=== PATIENT | male | born 1990 | race Caucasian/White ===

== ENCOUNTER → 2018-10-28 07:50 | Outpatient (CLI) | payer OTHER, MEDICAID, SELFPAY ==
[2018-10-28 09:04] LABS: Hemoglobin A1C% w Est Avg Glu 7.1 % (4.0-6.0)
[2018-10-28 09:12] LABS: Alanine Aminotransferase 33 IU/L (21-72); Albumin 4.4 g/dL (3.5-5.0); Albumin Globulin Ratio 1.5 (1.0-2.8); Alkaline Phosphatase 80 U/L (38-126); Aspartate Aminotransferase 26 IU/L (17-59); Bilirubin Total 0.4 mg/dL (0.2-1.3); Blood Urea Nitrogen 20 mg/dL (9-20); Calcium 8.6 mg/dL (8.4-10.2); Carbon Dioxide 22 mmol/L (22-32); Chloride 106 mmol/L (98-107); Cholesterol 165 mg/dL (140-199); Estimated Glomerular Filt Rate > 60.0 mL/min (>60); Globulin 2.9 g/dL (1.7-4.1); Glucose 227 mg/dL (70-100); HDL Cholesterol 33 mg/dL (40-60); HEMOLYSIS 48 (0-50); LDL Cholesterol Calculated 99 mg/dL (<100); Potassium 4.6 mmol/L (3.4-5.1); Sodium 138 mmol/L (137-145); Total Protein 7.3 g/dL (6.3-8.2); Triglycerides 167 mg/dL (35-150)
[2018-10-28 09:37] LABS: TSH w/ Reflex to FT4 1.04 uIU/mL (0.47-4.68)
[2018-10-28 10:39] LABS: Creatinine Urine Random 90.8 mg/dL
[2018-10-28 10:43] LABS: Microalbumi Creatinin Ratio Ur 49.5 ug/mg CR (<30); Microalbumin Urine Random 4.5 mg/dL (0-1.6)
== END ==
PROVIDERS: PCP Student in an Organized Health Care Education/Training Program; Visit Provider Student in an Organized Health Care Education/Training Program
DX: E11.9 Type 2 diabetes mellitus without complications (principal)
CPT/HCPCS: 36415; 80053; 80061; 82043; 82570; 83036; 84443

== ENCOUNTER → 2021-01-17 09:42 | Outpatient (CLI) | payer OTHER, MEDICAID, SELFPAY ==
[2021-01-17 10:57] LABS: Hemoglobin A1C% w Est Avg Glu 6.5 % (4.0-6.0)
[2021-01-17 11:00] LABS: Add Manual Diff / Slide Review NO; Basophils Absolute Auto 0 /uL (0-100); Basophils Percent Auto 0.6 % (0-2); Eosinophils Absolute Auto 200 /uL (0-450); Eosinophils Percent Auto 2.9 % (2-4); Hematocrit 47.7 % (41-53); Hemoglobin 16.4 g/dL (13.5-17.5); Lymphocytes Absolute Auto 1600 /uL (1100-4500); Lymphocytes Percent Auto 22.9 % (25-40); Mean Corpuscular HGB Conc 34.3 % (30-36); Mean Corpuscular Hemoglobin 28.8 PG (26-34); Mean Corpuscular Volume 83.9 fL (80-100); Monocytes Absolute Auto 500 /uL (0-900); Neutrophils Absolute Auto 4700 /uL (1500-7000); Neutrophils Percent Auto 66.6 % (50-75); Platelet Count 179 X10^3/uL (150-400); Red Blood Cell Count 5.69 X10^6/uL (4.5-5.9); Red Cell Distribution Width 13.3 % (11.6-14.8); White Blood Cell Count 7.1 X10^3/uL (4.5-11.0)
[2021-01-17 11:05] LABS: Lithium 0.5 mmol/L (0.6-1.2)
[2021-01-17 11:09] LABS: Alanine Aminotransferase 19 IU/L (<50); Albumin 4.8 g/dL (3.5-5.0); Albumin Globulin Ratio 1.8 (1.0-2.8); Alkaline Phosphatase 65 U/L (38-126); Aspartate Aminotransferase 21 IU/L (17-59); BUN Creatinine Ratio 21.3 (6-22); Bilirubin Total 0.5 mg/dL (0.2-1.3); Blood Urea Nitrogen 17 mg/dL (9-20); Calcium 10.3 mg/dL (8.4-10.2); Carbon Dioxide 29 mmol/L (22-32); Chloride 102 mmol/L (98-107); Estimated Glomerular Filt Rate > 60.0 mL/min (>60); Globulin 2.7 g/dL (1.7-4.1); Glucose 206 mg/dL (70-100); HEMOLYSIS < 15 (0-50); Potassium 4.9 mmol/L (3.4-5.1); Sodium 138 mmol/L (137-145); Total Protein 7.5 g/dL (6.3-8.2)
[2021-01-17 11:25] LABS: Free T4, Direct Thyroxine 1.18 ng/dL (0.78-2.19)
[2021-01-17 11:39] LABS: Thyroid Stimulating Hormone 1.97 uIU/mL (0.47-4.68)
== END ==
PROVIDERS: Family Provider Family Medicine; PCP Student in an Organized Health Care Education/Training Program; Referring Provider Psychiatry & Neurology Psychiatry; Visit Provider Psychiatry & Neurology Psychiatry
DX: F25.0 Schizoaffective disorder, bipolar type (principal); E10.9 Type 1 diabetes mellitus without complications
CPT/HCPCS: 36415; 80053; 80178; 83036; 84439; 84443; 85025; 90792

== ENCOUNTER → 2022-01-30 11:23 | Outpatient (CLI) | payer OTHER, MEDICAID, SELFPAY ==
--- NOTE | 2022-01-30 | DI.RAD.S_ITS ---
PROCEDURE: XR FOOT LT MIN 3V INDICATIONS: Other specified joint disorders, right ankle and foot TECHNIQUE: 3 views of the foot were acquired. COMPARISON: [facility], CR, XR FOOT 3 VIEWS WEIGHT BEARING BILATERAL, 08/19/2018, 11:05. FINDINGS: Bones: No fractures or dislocations. No suspicious bony lesions. Talonavicular dorsal osteophyte is slightly larger than the prior exam Soft tissues: No tibiotalar joint effusion. Achilles tendon appears normal. IMPRESSION: Talonavicular osteoarthritis. Previously described coalition not well demonstrated by radiograph Approved by: Gadiel Kline M.D. on 01/30/2022 at 13:33
== END ==
PROVIDERS: Family Provider Family Medicine; PCP Family Medicine; Referring Provider Family Medicine; Visit Provider Family Medicine
DX: M19.072 Primary osteoarthritis, left ankle and foot (principal); M25.871 Other specified joint disorders, right ankle and foot
CPT/HCPCS: 73630

== ENCOUNTER → 2022-07-12 13:52 | Outpatient (ROUT) | payer OTHER, MEDICAID, SELFPAY ==
[2022-07-12 14:32] LABS: COVID19 -Nasal RAPID Negative (Negative)
== END ==
PROVIDERS: Family Provider Family Medicine; PCP Family Medicine; Visit Provider Family Medicine
DX: R05.1 Acute cough (principal); Z20.822 Contact with and (suspected) exposure to COVID-19
CPT/HCPCS: 87635

== ENCOUNTER → 2022-12-21 08:22 | Outpatient (CLI) | payer OTHER, MEDICAID, SELFPAY ==
[2022-12-21 10:04] LABS: Add Manual Diff / Slide Review NO; Basophils Absolute Auto 0 /uL (0-100); Basophils Percent Auto 0.4 % (0-2); Eosinophils Absolute Auto 200 /uL (0-450); Hematocrit 45.1 % (41-53); Hemoglobin 15.8 g/dL (13.5-17.5); Lithium 0.5 mmol/L (0.6-1.2); Lymphocytes Absolute Auto 1700 /uL (1100-4500); Lymphocytes Percent Auto 21.6 % (25-40); Mean Corpuscular HGB Conc 35.1 % (30-36); Mean Corpuscular Hemoglobin 28.2 PG (26-34); Mean Corpuscular Volume 80.4 fL (80-100); Monocytes Absolute Auto 500 /uL (0-900); Neutrophils Absolute Auto 5600 /uL (1500-7000); Platelet Count 166 X10^3/uL (150-400); Red Blood Cell Count 5.61 X10^6/uL (4.5-5.9); Red Cell Distribution Width 13.4 % (11.6-14.8); White Blood Cell Count 8.1 X10^3/uL (4.5-11.0)
[2022-12-21 10:05] LABS: Hemoglobin A1C% w Est Avg Glu 9.7 % (4.0-6.0)
[2022-12-21 10:07] LABS: Alanine Aminotransferase 17 IU/L (<50); Albumin 4.2 g/dL (3.5-5.0); Albumin Globulin Ratio 1.6 (1.0-2.8); Alkaline Phosphatase 90 U/L (38-126); Aspartate Aminotransferase 17 IU/L (17-59); BUN Creatinine Ratio 25.4 (6-22); Bilirubin Total 0.4 mg/dL (0.2-1.3); Blood Urea Nitrogen 18 mg/dL (9-20); Carbon Dioxide 26 mmol/L (22-32); Chloride 104 mmol/L (98-107); Estimated Glomerular Filt Rate > 60 mL/min (>60); Globulin 2.7 g/dL (1.7-4.1); Glucose 200 mg/dL (70-100); HEMOLYSIS < 15 (0-50); Potassium 4.1 mmol/L (3.4-5.1); Sodium 137 mmol/L (137-145); Total Protein 6.9 g/dL (6.3-8.2)
[2022-12-21 10:16] LABS: Free T4, Direct Thyroxine 1.14 ng/dL (0.78-2.19)
[2022-12-21 10:30] LABS: Thyroid Stimulating Hormone 2.19 uIU/mL (0.47-4.68)
== END ==
PROVIDERS: Family Provider Family Medicine; PCP Family Medicine; Referring Provider Psychiatry & Neurology Psychiatry; Visit Provider Psychiatry & Neurology Psychiatry
DX: F25.0 Schizoaffective disorder, bipolar type (principal); Z79.899 Other long term (current) drug therapy
CPT/HCPCS: 36415; 80053; 80178; 83036; 84439; 84443; 85025

== ENCOUNTER 2023-02-22 16:51 | Inpatient (IN) | payer MEDICAID, OTHER, SELFPAY ==
[2023-02-22 17:04] VITALS: BP 140/66; PULSE 116; RESP 22; TEMP 36.1; O2SAT 100; BMI 31.1
[2023-02-22] MEDS: SODIUM CHLORIDE 0.9% 1,000 ML 1000 ML IV (17:28)
[2023-02-22] MEDS: ONDANSETRON 4 MG/2 ML INJ IV ×3 (17:28→23:14)
[2023-02-22 18:05] LABS: Add Manual Diff / Slide Review NO; Basophils Absolute Auto 100 /uL (0-100); Basophils Percent Auto 0.3 % (0-2); Eosinophils Absolute Auto 100 /uL (0-450); Eosinophils Percent Auto 0.2 % (2-4); Hematocrit 48.4 % (41-53); Lymphocytes Absolute Auto 1300 /uL (1100-4500); Lymphocytes Percent Auto 5.5 % (25-40); Mean Corpuscular Hemoglobin 28.2 PG (26-34); Mean Corpuscular Volume 85.5 fL (80-100); Monocytes Absolute Auto 1000 /uL (0-900); Monocytes Percent Auto 4.1 % (3-14); Neutrophils Absolute Auto 21700 /uL (1500-7000); Neutrophils Percent Auto 89.9 % (50-75); Platelet Count 221 X10^3/uL (150-400); Red Blood Cell Count 5.67 X10^6/uL (4.5-5.9); Red Cell Distribution Width 13.5 % (11.6-14.8); White Blood Cell Count 24.2 X10^3/uL (4.5-11.0)
[2023-02-22 18:08] LABS: Alanine Aminotransferase 25 IU/L (<50); Albumin 5.1 g/dL (3.5-5.0); Alkaline Phosphatase 109 U/L (38-126); Aspartate Aminotransferase 28 IU/L (17-59); BUN Creatinine Ratio 19.7 (6-22); Bilirubin Total 0.8 mg/dL (0.2-1.3); Blood Urea Nitrogen 29 mg/dL (9-20); Calcium 9.4 mg/dL (8.4-10.2); Chloride 94 mmol/L (98-107); Estimated Glomerular Filt Rate > 60 mL/min (>60); Globulin 2.6 g/dL (1.7-4.1); Sodium 132 mmol/L (137-145); Total Protein 7.7 g/dL (6.3-8.2)
[2023-02-22 18:09] LABS: Ethanol (ETOH) < 10 mg/dL; Lactate (Lactic Acid) 3.9 mmol/L (0.7-2.1); Lipase 32 U/L (23-300); Magnesium 2.2 mg/dL (1.6-2.3)
[2023-02-22 18:15] LABS: HEMOLYSIS 34 (0-50)
--- NOTE | 2023-02-22 18:20 | ED_ITS ---
HPI - General Adult General Chief complaint: Diabetic Problem Stated complaint: Vomiting, Diabetic, BS over 500 Time Seen by Provider: 02/22/23 17:34 Source: patient Mode of arrival: Ambulatory Limitations: no limitations History of Present Illness HPI narrative: This is a 32-year-old male type 1 insulin-dependent diabetic with retinopathy, schizophrenia, asthma and history of anxiety and ADHD. Patient states his sugars have been running between 180s and 200 he states he went to sleep last night woke up this morning and noted that his glucose was elevated, he started having vomiting and has been vomiting throughout the day unable to stop. He states he has pain just before he vomits. He states he is felt feverish and chilled. He denies nasal congestion, no cold or cough symptoms. He denies chest pain or shortness of breath. No passing out. He denies diarrhea or constipation. He states he has been stooling regularly. He has been having polyuria, he denies dysuria, urgency or incontinence. Patient denies any swelling of extremities. No rash or skin changes. He states he takes his diabetic medications he also takes metformin and his psychiatric medications. States no new medication changes his pump seems to be working appropriately. Patient denies any prior surgeries. Occasional tobacco, occasional alcohol, no illicit for THC. Patient's primary care physician is Dr. Foote. Related Data Home Medications Medication Instructions Recorded Confirmed methocarbamol 750 mg tablet 750 mg PO BEDTIME 01/17/21 11/09/22 Previous Rx's Medication Instructions Recorded Disabled Parking Permit 1 dev EXT SEE INSTRUCTIONS ##1 08/02/16 [ketone test strips] QDAY PRN ##100 08/02/16 [cont. glucose meter] ##0 12/11/16 ondansetron 4 mg disintegrating 4 mg sublingual Q6HP PRN ##10 02/01/17 tablet (Zofran ODT) Glucose: Test Strips str SEE INSTRUCTIONS ##200 02/09/17 insulin aspart U-100 100 unit/mL 150 u SQ Q DAY #4 vials 10/24/17 subcutaneous solution (Novolog U-100 Insulin aspart) albuterol sulfate 90 mcg/actuation 1 - 2 puff INH Q4HP PRN #1 inh 11/01/17 aerosol inhaler (Proventil HFA) Glucose: Test Strips See Rx Instructions .Route SEE 02/20/18 INSTRUCTIONS ##200 Glucose: Test Strips #1 ea 10/31/18 buspirone 15 mg tablet 15 mg PO BID #180 tabs 02/19/23 escitalopram oxalate 10 mg tablet 10 mg PO DAILY #90 tabs 02/19/23 lithium carbonate 600 mg capsule 600 mg PO BID #180 caps 02/19/23 risperidone 2 mg tablet See Rx Instructions .Route 02/19/23 .COMPLEX #270 tabs Allergies Allergy/AdvReac Type Severity Reaction Status Date / Time erythromycin base Allergy Severe Vomiting Verified 02/22/23 17:08 [From ERYTHROCIN] Latex, Natural Rubber Allergy Severe Rash Verified 02/22/23 17:08 [LATEX, NATURAL RUBBER] Review of Systems Review of Systems ROS Unobtainable: All systems reviewed & are unremarkable except as noted in HPI and below Patient History Medical History ADHD (attention deficit hyperactivity disorder) (Unknown) Allergic rhinitis (Unknown) Anxiety (Unknown) Asthma (Unknown) Bipolar disorder (Unknown) Chronic cough (Unknown) Depression (Unknown) Foot pain (Unknown) Generalized headaches (Unknown) Migraines (Unknown) Schizophrenia (Unknown) Type 1 diabetes (~1992) Surgical History Hx of eye surgery (12/2015) Hx of foot surgery (2003) Family History Father Age: 70 Type 2 diabetes mellitus without complication, unspecified manager intermediate insulin 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 Social History household members: family Smoking Status: Current every day smoker alcohol intake: current substance use type: marijuana Smoking Status: Current every day smoker alcohol intake frequency: holidays/special occasions only Substance Use Type: marijuana Exam Narrative Exam Narrative: GENERAL: Alert and oriented x three, male in moderate distress. HEENT: Head normocephalic, atraumatic, EOMI, pupils reactive, face symmetric, moist mucous membranes NECK: Supple, full range of motion CARDIOVASCULAR: Regular rate and rhythm without murmurs, rubs or gallops. RESPIRATORY: Breath sounds equal bilaterally, no wheezes rales or rhonchi. ABDOMEN: Soft, nontender. Nondistended. Normoactive bowel sounds all 4 quadrants. No guarding or rebound, rigidity, no mass : No CVA tenderness EXTREMITIES: Normal range of motion, no clubbing or edema. Neurovascularly intact. 2+ pulses upper and lower extremities. NEUROLOGICAL: Cranial nerves II through XII grossly intact. Moving all extremities SKIN: Warm, dry, no petechiae, no rashes or lesions. Initial Vital Signs Initial Vital Signs: Vital Signs Temperature 96.9 F L 02/22/23 17:04 Pulse Rate 116 H 02/22/23 17:04 Respiratory Rate 22 02/22/23 17:04 Blood Pressure 140/66 02/22/23 17:04 Pulse Oximetry 100 02/22/23 17:04 Oxygen Delivery Method Room Air 02/22/23 17:04 Course Orders Ordered: ED Orders 02/23/23 04:00 Basic Metabolic Panel Q4H Hydrocodone Bitart/Acetaminophen (Hydrocodone/Acet 5/325 Tablet) 1 tab PO Q4H PRN PRN Reason: Pain, Moderate (4-6) Dextrose (Dextrose 50 % In Water 25 Gm/50 Ml Syringe) 25 gm IV PRN PRN PRN Reason: Hypoglycemia Enoxaparin Sodium (Enoxaparin 40 Mg/0.4 Ml Syringe) 40 mg SUBCUT DAILY SENIA INSULIN DRIP PREMIX (Myxredlin Drip Premix) 100 unit in 100 mls @ 10 mls/hr IV TITRATE SENIA; Protocol Last Titration: 02/23/23 03:09 Dose: 9.5 ml/hr, 9.5 mls/hr Documented By: STEVE Co-signed By: EDENILSON Admin: 02/23/23 03:06 Dose: 14 ml/hr, 14 mls/hr Documented By: STEVE Co-signed By: EDENILSON Titration: 02/23/23 03:06 Dose: 14 ml/hr, 14 mls/hr Documented By: STEVE Co-signed By: EDENILSON Titration: 02/22/23 22:00 Dose: 14 ml/hr, 14 mls/hr Documented By: STEVE Co-signed By: EDENILSON Admin: 02/22/23 20:06 Dose: 10 ml/hr, 10 mls/hr Documented By: VINH Co-signed By: RANDALL Lactated Ringer's (Lactated Ringers) 1,000 mls @ 150 mls/hr IV CONT [facility] Last Admin: 02/23/23 01:28 Dose: 150 mls/hr Documented By: Infusion: 02/23/23 01:28 Dose: 150 mls/hr Documented By: Admin: 02/22/23 22:31 Dose: 150 mls/hr Documented By: STEVE Piperacillin Sod/Tazobactam (Sod 3.375 gm/ Sodium Chloride) 100 mls @ 25 mls/hr IV Q8H SENIA Last Admin: 02/23/23 07:32 Dose: 25 mls/hr Documented By: Infusion: 02/23/23 04:42 Dose: 0 mls/hr Documented By: Infusion: 02/23/23 04:28 Dose: 25 mls/hr Documented By: Infusion: 02/23/23 04:27 Dose: 0 mls/hr Documented By: Admin: 02/23/23 00:30 Dose: 25 mls/hr Documented By: STEVE Dextrose/Sodium Chloride (Dextrose 5%-0.45% Ns) 1,000 mls @ 150 mls/hr IV CONT [facility] Naloxone HCl (Naloxone 0.4 Mg/Ml Vial) 0.2 mg IV Q2MIN PRN PRN Reason: Opiate Reversal Ondansetron HCl (Ondansetron 4 Mg/2 Ml Inj) 4 mg IV NOW PRN PRN Reason: Nausea And Vomiting Last Admin: 02/23/23 05:13 Dose: 4 mg Documented By: Admin: 02/22/23 17:28 Dose: 4 mg Documented By: PETR Ondansetron HCl (Ondansetron 4 Mg/2 Ml Inj) 4 mg IV Q4HR PRN PRN Reason: Nausea And Vomiting Last Admin: 02/22/23 23:14 Dose: 4 mg Documented By: STEVE Discontinued Medications Sodium Chloride (Normal Saline 0.9%) 1,000 mls @ 1,000 mls/hr IV BOLUS ONE Stop: 02/22/23 18:26 Last Infusion: 02/22/23 18:35 Dose: 0 mls/hr Documented By: Admin: 02/22/23 17:28 Dose: 1,000 mls/hr Documented By: PETR Lactated Ringer's (Lactated Ringers) 3,129.78 mls @ 1,043.26 mls/hr 30 ml/kg infuse over 3 hr (3129.78 ml) IV NOW ONE Stop: 02/22/23 21:35 Last Infusion: 02/23/23 01:11 Dose: 0 mls/hr Documented By: Infusion: 02/22/23 21:10 Dose: 10,043.26 mls/hr Documented By: Admin: 02/22/23 20:00 Dose: 1,043.26 mls/hr Documented By: VINH Piperacillin Sod/Tazobactam (Sod 4.5 gm/ Sodium Chloride) 100 mls @ 200 mls/hr IV NOW ONE Stop: 02/22/23 18:43 Last Infusion: 02/22/23 20:11 Dose: 0 mls/hr Documented By: Admin: 02/22/23 19:35 Dose: 200 mls/hr Documented By: VINH Piperacillin Sod/Tazobactam (Sod 4.5 gm/ Sodium Chloride) 100 mls @ 25 mls/hr IV Q8H [facility] POTASSIUM CHLORIDE IN WATER (Potassium Cl 10 Meq/100 Ml Aminta) 10 meq in 100 mls @ 100 mls/hr IV Q1H [facility] Stop: 02/23/23 03:44 Last Infusion: 02/23/23 03:55 Dose: 0 mls/hr Documented By: Admin: 02/23/23 03:05 Dose: 100 mls/hr Documented By: Infusion: 02/23/23 03:04 Dose: 0 mls/hr Documented By: Admin: 02/23/23 01:53 Dose: 100 mls/hr Documented By: STEVE POTASSIUM CHLORIDE IN WATER (Potassium Cl 10 Meq/100 Ml Aminta) 10 meq in 100 mls @ 100 mls/hr IV Q1H [facility] Stop: 02/23/23 06:59 Last Infusion: 02/23/23 07:31 Dose: 0 mls/hr Documented By: Admin: 02/23/23 06:18 Dose: 100 mls/hr Documented By: Infusion: 02/23/23 06:17 Dose: 0 mls/hr Documented By: Admin: 02/23/23 05:13 Dose: 100 mls/hr Documented By: STEVE Ondansetron HCl (Ondansetron 4 Mg/2 Ml Inj) 4 mg IV NOW ONE Stop: 02/22/23 18:36 Last Admin: 02/22/23 19:43 Dose: 4 mg Documented By: VINH Vital Signs Vital signs: Vital Signs - 8 hr 02/22/23 17:04 Temperature 96.9 F L Pulse Rate 116 H Respiratory Rate 22 Blood Pressure 140/66 Pulse Oximetry 100 Oxygen Delivery Method Room Air Medical Decision Making Lab Data 02/22/23 17:20 02/23/23 04:00 Labs: Lab Results 02/22/23 02/22/23 02/22/23 Range/Units 17:20 17:20 17:20 WBC 24.2 H (4.5-11.0) X10^3/uL RBC 5.67 (4.5-5.9) X10^6/uL Hgb 16.0 (13.5-17.5) g/dL Hct 48.4 (41-53) % MCV 85.5 (80-100) fL MCH 28.2 (26-34) PG MCHC 33.0 (30-36) % RDW 13.5 (11.6-14.8) % Plt Count 221 (150-400) X10^3/uL Neut % (Auto) 89.9 H (50-75) % Lymph % (Auto) 5.5 L (25-40) % [place] % (Auto) 4.1 (3-14) % Eos % (Auto) 0.2 L (2-4) % Baso % (Auto) 0.3 (0-2) % Neut # (Auto) 38793 H (3539-9148) /uL Lymph # (Auto) 1300 (4429-8783) /uL [place] # (Auto) 1000 H (0-900) /uL Eos # (Auto) 100 (0-450) /uL Baso # (Auto) 100 (0-100) /uL VBG pH (7.33-7.43) VBG pCO2 (45-50) mmHg VBG pO2 (35-45) mmHg VBG HCO3 (24-28) mmol/L VBG Total CO2 (24-29) mmol/L VBG O2 Saturation (70-75) % VBG Base Excess (0-4) mmol/L FiO2 Sodium 132 L (137-145) mmol/L Potassium 5.8 H (3.4-5.1) mmol/L Chloride 94 L (98-107) mmol/L Carbon Dioxide < 5 L* (22-32) mmol/L BUN 29 H (9-20) mg/dL Creatinine 1.47 H (0.66-1.25) mg/dL Estimated GFR > 60 (>60) mL/min BUN/Creatinine Ratio 19.7 (6-22) Glucose 643 H* (70-100) mg/dL Lactate 3.9 H (0.7-2.1) mmol/L Calcium 9.4 (8.4-10.2) mg/dL Phosphorus (2.5-4.5) mg/dL Magnesium (1.6-2.3) mg/dL Total Bilirubin 0.8 (0.2-1.3) mg/dL AST 28 (17-59) IU/L ALT 25 (<50) IU/L Alkaline Phosphatase 109 (38-126) U/L Total Protein 7.7 (6.3-8.2) g/dL Albumin 5.1 H (3.5-5.0) g/dL Globulin 2.6 (1.7-4.1) g/dL Albumin/Globulin Ratio 2.0 (1.0-2.8) Lipase (23-300) U/L Procalcitonin (<0.5) ng/mL Urine RBC (0-5/HPF) Urine WBC (0-5/HPF) Ur Squamous Epith Cells (0-5/HPF) Urine Bacteria (None) Ur Culture Indicated? Ethyl Alcohol ( - 10) mg/dL Ketones (<0.27) mmol/L 02/22/23 02/22/23 02/22/23 Range/Units 17:20 18:28 18:55 WBC (4.5-11.0) X10^3/uL RBC (4.5-5.9) X10^6/uL Hgb (13.5-17.5) g/dL Hct (41-53) % MCV (80-100) fL MCH (26-34) PG MCHC (30-36) % RDW (11.6-14.8) % Plt Count (150-400) X10^3/uL Neut % (Auto) (50-75) % Lymph % (Auto) (25-40) % [place] % (Auto) (3-14) % Eos % (Auto) (2-4) % Baso % (Auto) (0-2) % Neut # (Auto) (5677-0927) /uL Lymph # (Auto) (6452-5658) /uL [place] # (Auto) (0-900) /uL Eos # (Auto) (0-450) /uL Baso # (Auto) (0-100) /uL VBG pH 7.01 L* (7.33-7.43) VBG pCO2 32.7 L (45-50) mmHg VBG pO2 33 L (35-45) mmHg VBG HCO3 8 L (24-28) mmol/L VBG Total CO2 9 L (24-29) mmol/L VBG O2 Saturation 39 L (70-75) % VBG Base Excess -23.0 L (0-4) mmol/L FiO2 21 Sodium (137-145) mmol/L Potassium (3.4-5.1) mmol/L Chloride (98-107) mmol/L Carbon Dioxide (22-32) mmol/L BUN (9-20) mg/dL Creatinine (0.66-1.25) mg/dL Estimated GFR (>60) mL/min BUN/Creatinine Ratio (6-22) Glucose (70-100) mg/dL Lactate (0.7-2.1) mmol/L Calcium (8.4-10.2) mg/dL Phosphorus 10.5 H* (2.5-4.5) mg/dL Magnesium 2.2 (1.6-2.3) mg/dL Total Bilirubin (0.2-1.3) mg/dL AST (17-59) IU/L ALT (<50) IU/L Alkaline Phosphatase (38-126) U/L Total Protein (6.3-8.2) g/dL Albumin (3.5-5.0) g/dL Globulin (1.7-4.1) g/dL Albumin/Globulin Ratio (1.0-2.8) Lipase 32 (23-300) U/L Procalcitonin 5.88 H (<0.5) ng/mL Urine RBC 0-1/hpf (0-5/HPF) Urine WBC 0-1/hpf (0-5/HPF) Ur Squamous Epith Cells None seen (0-5/HPF) Urine Bacteria None seen (None) Ur Culture Indicated? Cult not indicated Ethyl Alcohol < 10 ( - 10) mg/dL Ketones 10.75 H (<0.27) mmol/L 02/22/23 02/22/23 Range/Units 20:40 20:40 WBC (4.5-11.0) X10^3/uL RBC (4.5-5.9) X10^6/uL Hgb (13.5-17.5) g/dL Hct (41-53) % MCV (80-100) fL MCH (26-34) PG MCHC (30-36) % RDW (11.6-14.8) % Plt Count (150-400) X10^3/uL Neut % (Auto) (50-75) % Lymph % (Auto) (25-40) % [place] % (Auto) (3-14) % Eos % (Auto) (2-4) % Baso % (Auto) (0-2) % Neut # (Auto) (5558-8150) /uL Lymph # (Auto) (6211-0243) /uL [place] # (Auto) (0-900) /uL Eos # (Auto) (0-450) /uL Baso # (Auto) (0-100) /uL VBG pH (7.33-7.43) VBG pCO2 (45-50) mmHg VBG pO2 (35-45) mmHg VBG HCO3 (24-28) mmol/L VBG Total CO2 (24-29) mmol/L VBG O2 Saturation (70-75) % VBG Base Excess (0-4) mmol/L FiO2 Sodium 132 L (137-145) mmol/L Potassium 5.9 H (3.4-5.1) mmol/L Chloride 100 (98-107) mmol/L Carbon Dioxide < 5 L* (22-32) mmol/L BUN 28 H (9-20) mg/dL Creatinine 1.32 H (0.66-1.25) mg/dL Estimated GFR > 60 (>60) mL/min BUN/Creatinine Ratio 21.2 (6-22) Glucose 605 H* (70-100) mg/dL Lactate 2.7 H (0.7-2.1) mmol/L Calcium 8.3 L (8.4-10.2) mg/dL Phosphorus (2.5-4.5) mg/dL Magnesium (1.6-2.3) mg/dL Total Bilirubin (0.2-1.3) mg/dL AST (17-59) IU/L ALT (<50) IU/L Alkaline Phosphatase (38-126) U/L Total Protein (6.3-8.2) g/dL Albumin (3.5-5.0) g/dL Globulin (1.7-4.1) g/dL Albumin/Globulin Ratio (1.0-2.8) Lipase (23-300) U/L Procalcitonin (<0.5) ng/mL Urine RBC (0-5/HPF) Urine WBC (0-5/HPF) Ur Squamous Epith Cells (0-5/HPF) Urine Bacteria (None) Ur Culture Indicated? Ethyl Alcohol ( - 10) mg/dL Ketones (<0.27) mmol/L Point of Care Testing Glucose POC 500 Urine Dip Bedside Urine Glucose 1000 mg/dl Bedside Urine Bilirubin - Negative Bedside Urine Ketone +++ 80 Urine Specific [place] 1.020 Bedside Urine Occult Blood +/- Bedside Urine pH 5 Bedside Urine Protein - Negative Bedside Urine Urobilinogen - Negative Bedside Urine Nitrite - Negative Bedside Urine Leukocytes - Negative Esterase Point of care testing: Point of Care Testing Glucose POC 500 Urine Dip Bedside Urine Glucose 1000 mg/dl Bedside Urine Bilirubin - Negative Bedside Urine Ketone +++ 80 Urine Specific [place] 1.020 Bedside Urine Occult Blood +/- Bedside Urine pH 5 Bedside Urine Protein - Negative Bedside Urine Urobilinogen - Negative Bedside Urine Nitrite - Negative Bedside Urine Leukocytes - Negative Esterase Imaging Data Chest x-ray: Radiologist's Impression: Close Chest X-Ray (Signed) Carol Crenshaw - 02/22/23 Abdomen/Pelvis CT (Signed) Carol Crenshaw - 02/22/23 Foot X-Ray (Signed) Gadiel Kline - 01/30/[address] [address] XRay Report Signed Patient: Alfonso Nesbitt MR#: [id number] : 1990 Acct:[id number] Age/Sex: 32 / M Date of Service: 02/22/23 Loc: ED Accession Number: [id number] ?? Procedure: XR chest 1V Ordering Provider: Demetria Gallegos D.O. PROCEDURE:? XR CHEST 1V ? INDICATIONS:? dka, ? infection ? TECHNIQUE:? One view of the chest was acquired.? ? COMPARISON:? [facility], , CHEST 1 VIEW, 07/03/2017, 9:29. ? FINDINGS:? ? Surgical changes and devices:? None.? ? Lungs and pleura:? Lungs are clear.? No pleural effusions or pneumothorax.? ? Mediastinum:? Mediastinal contours appear normal.? Heart size is normal.? ? Bones and chest wall:? No suspicious bony lesions.? Overlying soft tissues appear unremarkable.? ? IMPRESSION:? No acute pulmonary process. ? ? Dictated by: Carol Crenshaw M.D. on 02/22/2023 at 19:06 ? ? Approved by: Carol Crenshaw M.D. on 02/22/2023 at 19:06?? CT scan - abdomen/pelvis: Radiologist's Impression: Close Chest X-Ray (Signed) Carol Crenshaw - 02/22/23 Abdomen/Pelvis CT (Signed) Carol Crenshaw - 02/22/23 Foot X-Ray (Signed) Gadiel Kline - 01/30/22 [facility] [address] CT Scan Report Signed Patient: Alfonso Nesbitt MR#: [id number] : 1990 Acct:[id number] Age/Sex: 32 / M Date of Service: 02/22/23 Loc: ED Accession Number: [id number] ?? Procedure: CT abdomen pelvis w con Ordering Provider: Demetria Gallegos D.O. PROCEDURE:? CT ABDOMEN PELVIS W CON ? INDICATIONS:? DKA, JERRY, vomiting, ?infxn ? TECHNIQUE:? After the administration of IV contrast, axial sections were acquired from the lung bases to the pubic symphysis.? Coronal and sagittal reformats were performed.? For radiation dose reduction, the following was used:? automated exposure control, adjustment of mA and/or kV according to patient size. ? COMPARISON:? None. ? FINDINGS:? Image quality:? Excellent.? ? Lung bases:? Unremarkable.? ? Heart:? No significant findings. ? ? ABDOMEN: Liver:? Hepatic steatosis is present. Gallbladder:? Unremarkable.? ? Biliary ducts:? Unremarkable.? ? Pancreas:? Unremarkable.? ? Spleen:? Spleen is prominent measuring 14.4 cm. Adrenal Glands:? Unremarkable.? ? Kidneys and Ureters:? Simple right renal cyst is present. ? Stomach and Bowel:? Stomach, small bowel loops, and colon are nonobstructive.? There is a thickened appearance within the ascending and transverse colon.? However, it is incompletely distended. Peritoneum:? No abnormal intraperitoneal fluid.? No free air.? ? Ventral Wall: ? No hernia.? Abdominal Nodes:? No retroperitoneal or mesenteric adenopathy by size criteria.? Vessels:? Aorta and inferior vena cava are normal in size.? ? PELVIS: Pelvic Organs:? Unremarkable.? ? Bladder:? Unremarkable.? ? Pelvic Nodes: No enlarged lymph nodes.? Miscellaneous: No inguinal hernias are seen. ? ? ? Bones:? Unremarkable.? IMPRESSION:? ? Mildly thickened appearance of the ascending and transverse colon.? This is overall nonspecific given lack appreciable pericolonic stranding.? This could represent incomplete distention versus very early colitis. ? ? Dictated by: Carol Crenshaw M.D. on 02/22/2023 at 19:07 ? ? Approved by: Carol Crenshaw M.D. on 02/22/2023 at 19:09?? ECG Data Attestation: I personally reviewed and interpreted this ECG as follows: Interpretation: Sinus tachycardia, rate of 109 WV 144 QRS 86 and QTC of 452. No acute ST elevation or depression noted. MDM Narrative Medical decision making narrative: This is a 32-year-old male who presents with hyperglycemia nausea vomiting generally feeling unwell. Patient is insulin dependent diabetic appears to be in DKA, he is an anion gap of 33 bicarb less than 5, VBG pH is 7. Glucose 643. Patient's potassium is 5 8, phos is elevated at 10.5, lactate elevated at 3.9 patient also appears to have an acute kidney injury with a creatinine of 1.47 was 0.7 in December. Patient's sodium is 132 on corrected. Patient's procalcitonin is elevated at 5.8 he is positive for ketones at 10.75. Patient's urine shows ketones but no signs of infection. Chest x-ray is negative. CT abdomen pelvis is patient has leukocytosis with which might be reactive but also elevated procalcitonin and subjective fevers with mildly thickened appearance of ascending and transverse colon nonspecific but could represent early colitis. Patient was given fluid bolus, started on insulin drip and had his pump turned off. Patient covered with dose of IV antibiotics and was given sepsis fluids in addition. Dr. Golden accepts for admission. Critical Care Time Critical Care Time Critical Care Time: Yes Total Critical Care Time: 45 Attestation: The high probability of a clinically significant, sudden or life threatening deterioration of the [] system(s) required my full and direct attention, intervention and personal management. The aggregate critical care time was [] minutes. This time is in addition to time spent performing reported procedures but includes the following: [x] Data Review and interpretation [x] Patient assessment and monitoring of vital signs [x] Documentation [x] Medication orders and management Discharge Plan Departure Patient Disposition: Admitted As Inpatient Clinical Impression: DKA (diabetic ketoacidosis), JERRY (acute kidney injury), Hyperphosphatemia Admit Date/Time: 02/22/23 20:51 Admit Provider: Ryan Golden
[2023-02-22 18:24] LABS: Phosphorous 10.5 mg/dL (2.5-4.5); Procalcitonin 5.88 ng/mL (<0.5)
[2023-02-22 18:25] LABS: Ketones (Beta-Hydroxybutyrate) 10.75 mmol/L (<0.27)
[2023-02-22 18:30] LABS: Potassium 5.8 mmol/L (3.4-5.1)
[2023-02-22 18:31] LABS: Carbon Dioxide < 5 mmol/L (22-32); Glucose 643 mg/dL (70-100)
--- NOTE | 2023-02-22 18:36 | DI.RAD.S_ITS ---
PROCEDURE: XR CHEST 1V INDICATIONS: dka, ? infection TECHNIQUE: One view of the chest was acquired. COMPARISON: [facility], , CHEST 1 VIEW, 07/03/2017, 9:29. FINDINGS: Surgical changes and devices: None. Lungs and pleura: Lungs are clear. No pleural effusions or pneumothorax. Mediastinum: Mediastinal contours appear normal. Heart size is normal. Bones and chest wall: No suspicious bony lesions. Overlying soft tissues appear unremarkable. IMPRESSION: No acute pulmonary process. Dictated by: Carol Crenshaw M.D. on 02/22/2023 at 19:06 Approved by: Carol Crenshaw M.D. on 02/22/2023 at 19:06
--- NOTE | 2023-02-22 18:36 | DI.CT.S_ITS ---
PROCEDURE: CT ABDOMEN PELVIS W CON INDICATIONS: DKA, JERRY, vomiting, ?infxn TECHNIQUE: After the administration of IV contrast, axial sections were acquired from the lung bases to the pubic symphysis. Coronal and sagittal reformats were performed. For radiation dose reduction, the following was used: automated exposure control, adjustment of mA and/or kV according to patient size. COMPARISON: None. FINDINGS: Image quality: Excellent. Lung bases: Unremarkable. Heart: No significant findings. ABDOMEN: Liver: Hepatic steatosis is present. Gallbladder: Unremarkable. Biliary ducts: Unremarkable. Pancreas: Unremarkable. Spleen: Spleen is prominent measuring 14.4 cm. Adrenal Glands: Unremarkable. Kidneys and Ureters: Simple right renal cyst is present. Stomach and Bowel: Stomach, small bowel loops, and colon are nonobstructive. There is a thickened appearance within the ascending and transverse colon. However, it is incompletely distended. Peritoneum: No abnormal intraperitoneal fluid. No free air. Ventral Wall: No hernia. Abdominal Nodes: No retroperitoneal or mesenteric adenopathy by size criteria. Vessels: Aorta and inferior vena cava are normal in size. PELVIS: Pelvic Organs: Unremarkable. Bladder: Unremarkable. Pelvic Nodes: No enlarged lymph nodes. Miscellaneous: No inguinal hernias are seen. Bones: Unremarkable. IMPRESSION: Mildly thickened appearance of the ascending and transverse colon. This is overall nonspecific given lack appreciable pericolonic stranding. This could represent incomplete distention versus very early colitis. Dictated by: Carol Crenshaw M.D. on 02/22/2023 at 19:07 Approved by: Carol Crenshaw M.D. on 02/22/2023 at 19:09
[2023-02-22 18:47] LABS: Fractionated Inspired Oxygen 21; HCO3 VBG 8 mmol/L (24-28); Oxygen Saturation VBG 39 % (70-75); PCO2 VBG 32.7 mmHg (45-50); PO2 VBG 33 mmHg (35-45); Total CO2 VBG 9 mmol/L (24-29)
[2023-02-22 18:48] LABS: pH VBG 7.01 (7.33-7.43)
[2023-02-22 19:25] LABS: Bacteria Urine None Seen; Culture Indicated Urine Cult Not Indicated; RBC Urine 0-1/HPF (0-5/HPF); Squamous Epithelial Cell Urine None Seen (0-5/HPF); WBC Urine 0-1/HPF (0-5/HPF)
[2023-02-22] MEDS: PIPERACILLIN/TAZO 4.5 GM in SODIUM CHLORIDE 0.9% 100 ML IV (19:35)
[2023-02-22 19:57] LABS: Reflexed Lactate in 2 Hours Y
[2023-02-22] MEDS: LACTATED RINGERS 1043.26 ML IV (20:00)
[2023-02-22] MEDS: INSULIN DRIP PREMIX 100 UNIT/100 ML PLAST..BAG 10 UNIT IV (20:06)
[2023-02-22 21:05] VITALS: BP 122/57; PULSE 124; RESP 21; TEMP 36.4; O2SAT 99
[2023-02-22 21:10] LABS: BUN Creatinine Ratio 21.2 (6-22); Blood Urea Nitrogen 28 mg/dL (9-20); Calcium 8.3 mg/dL (8.4-10.2); Chloride 100 mmol/L (98-107); Estimated Glomerular Filt Rate > 60 mL/min (>60); HEMOLYSIS < 15 (0-50); Lactate 2HR (Lactic Acid Rflx) 2.7 mmol/L (0.7-2.1); Sodium 132 mmol/L (137-145)
[2023-02-22 21:13] LABS: Potassium 5.9 mmol/L (3.4-5.1)
[2023-02-22 21:15] LABS: Carbon Dioxide < 5 mmol/L (22-32)
[2023-02-22 21:16] LABS: Glucose 605 mg/dL (70-100)
[2023-02-22 22:19] VITALS: BMI 28.5
[2023-02-22] MEDS: LACTATED RINGERS 1,000 ML 150 ML IV (22:31)
[2023-02-22 23:05] VITALS: BP 119/67; PULSE 125; RESP 23; TEMP 36.9; O2SAT 99
[2023-02-22 23:22] VITALS: BMI 28.5
[2023-02-22 23:43] LABS: MRSA (Nasal) PCR Not Detected (Not Detect)
[2023-02-23] VITALS (36 sets, daily range): BP systolic 104–132; BP diastolic 55–79; PULSE 83–120; RESP 0–32; TEMP 36.6–37.5; O2SAT 98–100
[2023-02-23] MEDS: PIPERACILLIN/TAZO 3.375 GM in SODIUM CHLORIDE 0.9% 100 ML IV ×3 (00:30→16:23)
[2023-02-23 01:17] LABS: BUN Creatinine Ratio 20.7 (6-22); Blood Urea Nitrogen 28 mg/dL (9-20); Calcium 8.6 mg/dL (8.4-10.2); Chloride 104 mmol/L (98-107); Estimated Glomerular Filt Rate > 60 mL/min (>60); Glucose 391 mg/dL (70-100); HEMOLYSIS 19 (0-50); Potassium 4.2 mmol/L (3.4-5.1); Sodium 136 mmol/L (137-145)
[2023-02-23 01:20] LABS: Carbon Dioxide 8 mmol/L (22-32)
[2023-02-23] MEDS: LACTATED RINGERS 1,000 ML 150 ML IV (01:28)
[2023-02-23] MEDS: POTASSIUM CHLORIDE IN WATER 10 MEQ/100 ML PIGGYBACK 100 MEQ IV ×8 (01:53→13:28)
[2023-02-23] MEDS: INSULIN DRIP PREMIX 100 UNIT/100 ML PLAST..BAG 14 UNIT IV (03:06)
[2023-02-23 04:40] LABS: BUN Creatinine Ratio 23.1 (6-22); Blood Urea Nitrogen 27 mg/dL (9-20); Calcium 8.8 mg/dL (8.4-10.2); Carbon Dioxide 15 mmol/L (22-32); Chloride 107 mmol/L (98-107); Estimated Glomerular Filt Rate > 60 mL/min (>60); Glucose 282 mg/dL (70-100); HEMOLYSIS 50 (0-50); Potassium 4.2 mmol/L (3.4-5.1); Sodium 136 mmol/L (137-145)
[2023-02-23] MEDS: ONDANSETRON 4 MG/2 ML INJ IV ×2 (05:13→20:36)
--- NOTE | 2023-02-23 06:31 | PC.NURSE ---
Surgical Attendant Note-Patient admitted to ICU room 226 at 2114, fatigued but oriented x4. Insulin infusing at 10units/hr, titrated per DKA protocol, see flow sheet and MAR. Patient has continued to have n/v, vomits 300mls at time, started bile color, then brownish, bowel sounds hypoactive, is passing flatus, says he had normal BM yesterday. Zofran has been effective, denies pain. LR boluses complete, now at 150ml/hr, Zosyn given, K+ riders infused per DKA protocol, Q4h BMP. ST initially 120s, now 90-100, RR 30s, now 20, BP stable, see vital trends, afebrile. UOP 2500ml.
[2023-02-23] MEDS: DEXTROSE 5%-0.45% NS 1,000 ML 150 ML IV (08:32)
[2023-02-23 08:37] LABS: COVID19 -Nasal RAPID Negative (Negative)
[2023-02-23] MEDS: ENOXAPARIN 40 MG/0.4 ML SYRINGE SUBCUT (08:47)
[2023-02-23 08:53] LABS: Amylase 77 U/L (30-110); BUN Creatinine Ratio 23.2 (6-22); Blood Urea Nitrogen 23 mg/dL (9-20); Calcium 8.9 mg/dL (8.4-10.2); Carbon Dioxide 18 mmol/L (22-32); Chloride 109 mmol/L (98-107); Estimated Glomerular Filt Rate > 60 mL/min (>60); Glucose 181 mg/dL (70-100); HEMOLYSIS 17 (0-50); Lipase 63 U/L (23-300); Potassium 3.9 mmol/L (3.4-5.1); Sodium 140 mmol/L (137-145)
[2023-02-23 09:19] LABS: Add Manual Diff / Slide Review NO; Basophils Absolute Auto 100 /uL (0-100); Basophils Percent Auto 0.3 % (0-2); Eosinophils Absolute Auto 0 /uL (0-450); Eosinophils Percent Auto 0.1 % (2-4); Hematocrit 40.4 % (41-53); Hemoglobin 14.2 g/dL (13.5-17.5); Lymphocytes Absolute Auto 1100 /uL (1100-4500); Lymphocytes Percent Auto 5.3 % (25-40); Mean Corpuscular Hemoglobin 28.2 PG (26-34); Mean Corpuscular Volume 80.4 fL (80-100); Monocytes Absolute Auto 1800 /uL (0-900); Monocytes Percent Auto 8.3 % (3-14); Neutrophils Absolute Auto 18200 /uL (1500-7000); Platelet Count 206 X10^3/uL (150-400); Red Blood Cell Count 5.03 X10^6/uL (4.5-5.9); Red Cell Distribution Width 13.5 % (11.6-14.8); White Blood Cell Count 21.2 X10^3/uL (4.5-11.0)
--- NOTE | 2023-02-23 10:11 | CM.DANOTE ---
Patient is a 32 yo male who was admitted on 02/22/23 for DKA. Pt has JOEL NO and SVETLANA for insurance and his PCP is Dr. Byron Foote. EMR was reviewed. Per MD, pt is type 1 diabetic with insulin pump, hx of schizophrenia, anxiety, ADHD and admitted after intractable vomiting and pain from DKA and JERRY. SW met bedside with pt and explained role and pt confirms he lives in [place] with his and 3 children, 2 of the children are in school and one is an infant. Pt is not currently employed but spouse works. Pt is established with Psychiatrist Dr. Evans for med management. Pt has no hx of hospital admission for DKA before and per RN pt has an infection of unknown etiology as white count and lactate is up and waiting for urine culture and possible colitis. Pt is active and independent at baseline and drives and denies any hx of HH or SNF and preference is home when medically stable and pt confirms spouse can likely transport at d/c. Tube And Manifold Builder Staci to see pt today for discussion regarding his DKA etc.. Plan: SW to follow for further labs and progress to confirm safe d/c to home with family and any further identified discharge planning needs. LACHELLE Mathews Discharge Planning/Care Management CM Discharge Assessment Start: 02/23/23 09:38 Freq: Status: Active Protocol: Document 02/23/23 09:38 BF (Rec: 02/23/23 09:39 BF [id number]) Discharge Planning Assessment Assigned Car Loader LACHELLE Yan DPOA/Assigned Designee Name informally spouse Advance Directives? No Advance Directives on File No History Provided By Patient,Medical Record Has Patient been admitted in last 30 No days? Prior Living Arrangements House Household Members spouse,children Type of transporation used prior to Drives own vehicle admit Independent with ADL's Yes Is patient alert and oriented? Yes Caregiver for Another Yes: 3 kids at home Barriers to Discharge No Discharge Plan Home Transportation Arrangement Likely spouse to transport at d/c Referrals Initiated None needed Whiteboard Updated in Patient Room with Yes name and ext. # of Car Loader Review Status In Process Please Provide Date Initial DC 02/23/23 Assessment Was Performed Next Review Type Continued Stay Review
[2023-02-23 12:59] LABS: BUN Creatinine Ratio 23.1 (6-22); Blood Urea Nitrogen 21 mg/dL (9-20); Calcium 8.7 mg/dL (8.4-10.2); Carbon Dioxide 18 mmol/L (22-32); Chloride 109 mmol/L (98-107); Estimated Glomerular Filt Rate > 60 mL/min (>60); Glucose 159 mg/dL (70-100); HEMOLYSIS 35 (0-50); Sodium 139 mmol/L (137-145)
[2023-02-23] MEDS: INSULIN GLARGINE 100 UNIT/ML 3ML PEN 15 UNIT SUBCUT ×2 (13:36→20:56)
[2023-02-23] MEDS: ESCITALOPRAM 10 MG TABLET PO (13:38)
[2023-02-23] MEDS: ONDANSETRON 4 MG ODT SL (15:24)
--- NOTE | 2023-02-23 16:11 | DIET.CONS ---
Dietary Consultation Note Admission Date: 02/22/2023 20:51 Assessment: 32M with T1DM admitted with DKA, +ketones, anion gap of 33, bicarb <5, ph of 7, and glucose of 643. States he has had DM since age 3. Has [employer] pump and a CGM. Last HgA1c in EMR was 12/2022 at 9.7%, higher than previous results (6.5-7.5%). Tyler states he cannot recall why blood sugars have increased. Denies any diet, activity, or med changes. Last DKA episode reported 10 years ago. States his CGM has been reading in the 200s. States his is too nauseated currently to discuss diet, but he usually does not eat during the day (just water and diet soda), then eats dinner and HS snack. New endo at [facility]. Appt for next month. No diabetes education support currently. Declined diabetes education or nutrition therapy today. States he feels comfortable with nutrition choices, bolusing, etc. Ht: 182.88 cm Wt: 95.5 kg BMI: 28.5 Last BM: 02/22/23 (02/22/23 23:22) MNA: 14 Watson Score: 23 Diet: 02/23/23 Breakfast Carbohydrate Consistent Diet Diet Modifications: Carbohydrate level: Medium (3 CHO) Reflex DM orders: No 02/23/23 Dinner Clear Liquid Diet Diet Modifications: carbohydrate controlled May Advance Diet as Tolerated: Yes Safety Tray needed?: No Labs: RBC 5.03 X10^6/uL (4.5-5.9) 02/23/23 09:16 Hgb 14.2 g/dL (13.5-17.5) 02/23/23 09:16 Hct 40.4 % (41-53) L 02/23/23 09:16 Creatinine 0.91 mg/dL (0.66-1.25) 02/23/23 12:18 Lactate 1.0 mmol/L (0.7-2.1) 02/23/23 09:16 Nutrition Diagnosis: Altered nutrition related lab value r/t increased blood sugars for unknown reason per pt aeb hgA1c 9.7% and DKA Interventions: Briefly discussed more consistent intake during the day. Otherwise, pt declined education. Provided DM ed contact info for OP support prn. EER: 45g CHO per meal Monitoring/Evaluations: consult prn Electronically Signed by: Staci Polk 02/23/23 16:11 [address] [id number]
[2023-02-23 16:29] LABS: BUN Creatinine Ratio 21.2 (6-22); Blood Urea Nitrogen 18 mg/dL (9-20); Calcium 8.5 mg/dL (8.4-10.2); Carbon Dioxide 18 mmol/L (22-32); Chloride 107 mmol/L (98-107); Estimated Glomerular Filt Rate > 60 mL/min (>60); Glucose 179 mg/dL (70-100); HEMOLYSIS < 15 (0-50); Potassium 3.9 mmol/L (3.4-5.1); Sodium 138 mmol/L (137-145)
[2023-02-23] MEDS: INSULIN LISPRO 100 UNIT/ML 3ML VIAL SUBCUT ×2 (16:55→20:57)
--- NOTE | 2023-02-23 18:41 | P.HP_ITS ---
History of Present Illness History of Present Illness Date Patient Seen: 02/23/23 Time Patient Seen: 13:00 Date of Onset of Symptoms: 02/22/23 Chief complaint: Vomiting, Diabetic Narrative: This is a very pleasant 32-year-old male with type 1 diabetes with associated retinopathy, peripheral neuropathy, microalbuminuria as well as schizoaffective disorder with bipolar and ADHD who presents to the ER for evaluation of hyperglycemia with intractable vomiting. Patient was found to be in diabetic ketoacidosis and was admitted to the hospital for the same as well as sepsis. Patient had a leukocytosis and elevated procalcitonin and lactate but no focal findings for etiology of infection and was started on Zosyn. Patient was given Zofran for nausea. Patient was started on insulin drip and admitted to the ICU. Patient is feeling much better now. He has not had any further vomiting except for 1 episode of post-tussive emesis. Patient is NPO. Workup was also remarkable for inflammation of the transverse colon and ascending colon but no diverticula or diverticulitis Initially patient stated that he was in his usual state of health and then just suddenly developed vomiting in the middle of the night with blood sugars over 500 and he continued to vomit all day yesterday in was then taken to the emergency department last evening. However on further questioning he states that started having upset stomach about 3 days ago with nausea and diarrhea and then increase in blood sugars. He states essentially he has not eaten anything for 3 days and he did have a bowel movement yesterday which was loose. He felt like he had a GI flu. He was vomiting every 20 minutes. Initially when asked if anybody was sick at home he said no one was but then remembered that his 4-year-old was recently diagnosed with RSV by Dr. Foote. She would a runny nose and cough etc.. Past medical history: Type 1 diabetes, diagnosed at age 3 with associated peripheral neuropathy, microalbuminuria and diabetic retinopathy. He sees Dr. Galeana, endocrinology Schizoaffective disorder managed by Dr. Evans Bipolar disorder also managed by Dr. Evans ADHD Reactive airway disease Allergic rhinitis Medications reviewed and documented. Patient takes Risperdal 2 in the morning and 4 in the evening, methocarbamol as needed, lithium 600 mg twice a day, buspirone 15 mg twice daily, Lexapro 10 mg daily, insulin pump Allergies: Erythromycin, lisinopril, latex Past surgical history patient had eye surgeries x4 Foot surgeries x2 not related to his diabetes Family history: Dad has type 2 diabetes, hypertension and had a stroke Mom has asthma and alcohol abuse Social history: Patient is a [id number]-uc-[id number] dad. He is in his 's name is Dia alfaro. They have 3 children age 7 for in 3 months Health related behavior Patient occasionally uses alcohol Patient does not use tobacco products Patient smokes marijuana daily 1-2 joints a day Review of systems: Patient denies any fever although he did have chills Patient denies any hematemesis or blood in his diarrhea or bright red blood per rectum. Patient has not had any URI symptoms. He has not had a headache Patient feels mentally that he is doing well without any acute depression or anxiety. He has been sleeping okay. He has been taking his medications. Patient has not had any recent polydipsia, polyuria or unintentional weight loss or weight gain [facility] Medical History ADHD (attention deficit hyperactivity disorder) (Unknown) Allergic rhinitis (Unknown) Anxiety (Unknown) Asthma (Unknown) Bipolar disorder (Unknown) Chronic cough (Unknown) Depression (Unknown) Foot pain (Unknown) Generalized headaches (Unknown) Migraines (Unknown) Schizophrenia (Unknown) Type 1 diabetes (~1992) Surgical History Hx of eye surgery (12/2015) Hx of foot surgery (2003) Family History Father Age: 70 Type 2 diabetes mellitus without complication, unspecified care home insulin 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 Social History household members: spouse and children Smoking Status: Current every day smoker alcohol intake: current substance use type: marijuana Meds Home Medications and Allergies Home Medications Medication Instructions Recorded Confirmed Type Disabled Parking Permit 1 dev EXT SEE INSTRUCTIONS ##1 08/02/16 02/23/23 Rx [cont. glucose meter] ##0 12/11/16 11/09/22 Rx ondansetron 4 mg disintegrating 4 mg sublingual Q6HP PRN ##10 02/01/17 02/23/23 Rx tablet (Zofran ODT) Glucose: Test Strips str SEE INSTRUCTIONS ##200 02/09/17 11/09/22 Rx insulin aspart U-100 100 unit/mL 150 u SQ Q DAY #4 vials 10/24/17 02/23/23 Rx subcutaneous solution (Novolog U-100 Insulin aspart) albuterol sulfate 90 mcg/actuation 1 - 2 puff INH Q4HP PRN #1 inh 11/01/17 02/23/23 Rx aerosol inhaler (Proventil HFA) Glucose: Test Strips See Rx Instructions .Route SEE 02/20/18 02/23/23 Rx INSTRUCTIONS ##200 Glucose: Test Strips #1 ea 10/31/18 02/23/23 Rx methocarbamol 750 mg tablet 750 mg PO BEDTIME 01/17/21 02/23/23 History buspirone 15 mg tablet 15 mg PO BID #180 tabs 02/19/23 02/23/23 Rx escitalopram oxalate 10 mg tablet 10 mg PO DAILY #90 tabs 02/19/23 02/23/23 Rx lithium carbonate 600 mg capsule 600 mg PO BID #180 caps 02/19/23 02/23/23 Rx risperidone 2 mg tablet See Rx Instructions .Route 02/19/23 02/23/23 Rx .COMPLEX #270 tabs [ketone test strips] QDAY PRN Electrolyte Replenishment 02/23/23 History Allergies Allergy/AdvReac Type Severity Reaction Status Date / Time erythromycin base Allergy Severe Vomiting Verified 02/22/23 17:08 [From ERYTHROCIN] Latex, Natural Rubber Allergy Severe Rash Verified 02/22/23 17:08 [LATEX, NATURAL RUBBER] Exam Vital Signs (past 8 hours): - 02/23/23 11:00 02/23/23 11:00 02/23/23 11:30 Temperature Pulse Rate 92 H 94 H Respiratory Rate 18 27 H Blood Pressure 119/63 Pulse Oximetry 100 99 02/23/23 12:00 02/23/23 12:00 02/23/23 17:11 Temperature 97.8 F Pulse Rate 93 H Respiratory Rate 25 H Blood Pressure 119/58 L Pulse Oximetry 99 02/23/23 12:30 02/23/23 13:00 02/23/23 13:00 Temperature Pulse Rate 92 H 94 H Respiratory Rate 18 20 Blood Pressure 104/56 L Pulse Oximetry 99 100 02/23/23 13:30 02/23/23 14:00 02/23/23 14:00 Temperature Pulse Rate 95 H 92 H Respiratory Rate 22 17 Blood Pressure 105/55 L Pulse Oximetry 99 99 02/23/23 14:30 02/23/23 15:00 02/23/23 15:30 Temperature Pulse Rate 83 91 H 88 Respiratory Rate 24 18 16 Blood Pressure Pulse Oximetry 99 100 99 02/23/23 16:00 02/23/23 16:53 02/23/23 16:54 Temperature Pulse Rate 92 H 98 H 95 H Respiratory Rate 19 Blood Pressure Pulse Oximetry 99 99 99 02/23/23 16:54 02/23/23 17:00 Temperature Pulse Rate 93 H Respiratory Rate Blood Pressure 125/74 Pulse Oximetry 98 Oxygen Delivery Method Room Air Oxygen Flow Rate 0 Narrative Exam Narrative: Patient is afebrile vital signs are stable. He is alert and oriented x3. Head is normocephalic atraumatic. Eyes pupils equal round reactive to light. E xtraocular movements intact. Nares unremarkable. Oropharynx shows mucous membranes moist and pink Neck: Supple without adenopathy. No thyromegaly or masses Chest: Clear to auscultation without wheezes rhonchi or crackles but prolonged expiratory phase Abdomen: Positive bowel sounds, soft, nontender, nondistended Extremities: No edema pulses intact Skin: No rashes Neurologic exam nonfocal Objective Labs 02/23/23 09:16 02/23/23 16:08 Labs: Laboratory Results - last 24 hr 02/22/23 02/22/23 02/22/23 18:28 18:55 20:40 WBC RBC Hgb Hct MCV MCH MCHC RDW Plt Count Neut % (Auto) Lymph % (Auto) [place] % (Auto) Eos % (Auto) Baso % (Auto) Neut # (Auto) Lymph # (Auto) [place] # (Auto) Eos # (Auto) Baso # (Auto) VBG pH 7.01 L* VBG pCO2 32.7 L VBG pO2 33 L VBG HCO3 8 L VBG Total CO2 9 L VBG O2 Saturation 39 L VBG Base Excess -23.0 L FiO2 21 Sodium 132 L Potassium 5.9 H Chloride 100 Carbon Dioxide < 5 L* BUN 28 H Creatinine 1.32 H Estimated GFR > 60 BUN/Creatinine Ratio 21.2 Glucose 605 H* Lactate Calcium 8.3 L Amylase Lipase Urine RBC 0-1/hpf Urine WBC 0-1/hpf Ur Squamous Epith Cells None seen Urine Bacteria None seen Ur Culture Indicated? Cult not indicated Nasal Screen MRSA (PCR) SARS-CoV-2 (PCR) 02/22/23 02/22/23 02/23/23 20:40 21:15 00:45 WBC RBC Hgb Hct MCV MCH MCHC RDW Plt Count Neut % (Auto) Lymph % (Auto) [place] % (Auto) Eos % (Auto) Baso % (Auto) Neut # (Auto) Lymph # (Auto) [place] # (Auto) Eos # (Auto) Baso # (Auto) VBG pH VBG pCO2 VBG pO2 VBG HCO3 VBG Total CO2 VBG O2 Saturation VBG Base Excess FiO2 Sodium 136 L Potassium 4.2 D Chloride 104 Carbon Dioxide 8 L* BUN 28 H Creatinine 1.35 H Estimated GFR > 60 BUN/Creatinine Ratio 20.7 Glucose 391 H D Lactate 2.7 H Calcium 8.6 Amylase Lipase Urine RBC Urine WBC Ur Squamous Epith Cells Urine Bacteria Ur Culture Indicated? Nasal Screen MRSA (PCR) Not detected SARS-CoV-2 (PCR) 02/23/23 02/23/23 02/23/23 04:00 07:45 08:05 WBC RBC Hgb Hct MCV MCH MCHC RDW Plt Count Neut % (Auto) Lymph % (Auto) [place] % (Auto) Eos % (Auto) Baso % (Auto) Neut # (Auto) Lymph # (Auto) [place] # (Auto) Eos # (Auto) Baso # (Auto) VBG pH VBG pCO2 VBG pO2 VBG HCO3 VBG Total CO2 VBG O2 Saturation VBG Base Excess FiO2 Sodium 136 L 140 Potassium 4.2 3.9 Chloride 107 109 H Carbon Dioxide 15 L 18 L BUN 27 H 23 H Creatinine 1.17 0.99 Estimated GFR > 60 > 60 BUN/Creatinine Ratio 23.1 H 23.2 H Glucose 282 H D 181 H D Lactate Calcium 8.8 8.9 Amylase Lipase Urine RBC Urine WBC Ur Squamous Epith Cells Urine Bacteria Ur Culture Indicated? Nasal Screen MRSA (PCR) SARS-CoV-2 (PCR) Negative 02/23/23 02/23/23 02/23/23 08:05 09:16 09:16 WBC 21.2 H RBC 5.03 Hgb 14.2 Hct 40.4 L MCV 80.4 D MCH 28.2 MCHC 35.0 RDW 13.5 Plt Count 206 Neut % (Auto) 86.0 H Lymph % (Auto) 5.3 L [place] % (Auto) 8.3 Eos % (Auto) 0.1 L Baso % (Auto) 0.3 Neut # (Auto) 32366 H Lymph # (Auto) 1100 [place] # (Auto) 1800 H Eos # (Auto) 0 Baso # (Auto) 100 VBG pH VBG pCO2 VBG pO2 VBG HCO3 VBG Total CO2 VBG O2 Saturation VBG Base Excess FiO2 Sodium Potassium Chloride Carbon Dioxide BUN Creatinine Estimated GFR BUN/Creatinine Ratio Glucose Lactate 1.0 Calcium Amylase 77 Lipase 63 D Urine RBC Urine WBC Ur Squamous Epith Cells Urine Bacteria Ur Culture Indicated? Nasal Screen MRSA (PCR) SARS-CoV-2 (PCR) 02/23/23 02/23/23 12:18 16:08 WBC RBC Hgb Hct MCV MCH MCHC RDW Plt Count Neut % (Auto) Lymph % (Auto) [place] % (Auto) Eos % (Auto) Baso % (Auto) Neut # (Auto) Lymph # (Auto) [place] # (Auto) Eos # (Auto) Baso # (Auto) VBG pH VBG pCO2 VBG pO2 VBG HCO3 VBG Total CO2 VBG O2 Saturation VBG Base Excess FiO2 Sodium 139 138 Potassium 4.0 3.9 Chloride 109 H 107 Carbon Dioxide 18 L 18 L BUN 21 H 18 Creatinine 0.91 0.85 Estimated GFR > 60 > 60 BUN/Creatinine Ratio 23.1 H 21.2 Glucose 159 H 179 H Lactate Calcium 8.7 8.5 Amylase Lipase Urine RBC Urine WBC Ur Squamous Epith Cells Urine Bacteria Ur Culture Indicated? Nasal Screen MRSA (PCR) SARS-CoV-2 (PCR) Assessment & Plan Assessment & Plan narrative: 32-year-old male with type 1 diabetes with diabetic ketoacidosis on insulin pump on ICU with good improvement of his anion gap. Unclear etiology but suspect related to infection of unclear etiology. Symptoms are suspicious for possible viral gastroenteritis or less likely colitis versus viral syndrome. Due to elevated white count and findings on CT scan however patient was been placed on Zosyn and I think at this point we will continue. Assessment 1. Type 1 diabetes with diabetic ketoacidosis Plan: Continue with protocol. We will go ahead and give 15 units of Lantus and then stop his insulin drip in an hour. We will do sliding scale insulin and CBGS q.a.c. and q.h.s.. We will also stop the D5 once his insulin drip has been discontinued. We will place him on clear liquids with a diabetic diet. Will recheck labs in the morning as well. Assessment 2. Infectious Disease. Unclear etiology. Discussion as above. Possible bacterial colitis versus viral versus viral syndrome. Elevated white blood cell count is suspicious for bacterial infection. Plan: Will continue IV Zosyn for now. I think if white blood cell count improves and patient continues to improve without further symptoms we will consider changing to Augmentin on discharge. Will do a stool panel to look for viral illnesses. Will consider repeat scan or colonoscopy pending how he does clinically. Suspect this was the etiology for the diabetic ketoacidosis. Assessment 3. Schizoaffective disorder with bipolar Plan: Continue outpatient meds. No acute symptoms at this time Assessment 4. Reactive airway disease without acute problem Plan: Will continue outpatient albuterol as needed Assessment 5. DVT prophylaxis Plan: Lovenox Assessment 6. Sepsis improving Plan: Continue with IV antibiotics for now. Code status is full code Disposition plan is to discharge home when stable 75 minutes spent with patient and discussing with physician, nursing and meeting with patient and his mom and reviewing his chart and workup and formulating a plan and documentation Quality VTE Deep Vein Thrombosis/Pulmonary Embolism Present on Admission: No
[2023-02-23 20:40] LABS: BUN Creatinine Ratio 19.8 (6-22); Blood Urea Nitrogen 17 mg/dL (9-20); Calcium 8.3 mg/dL (8.4-10.2); Carbon Dioxide 18 mmol/L (22-32); Chloride 106 mmol/L (98-107); Estimated Glomerular Filt Rate > 60 mL/min (>60); Glucose 237 mg/dL (70-100); HEMOLYSIS < 15 (0-50); Potassium 4.2 mmol/L (3.4-5.1); Sodium 137 mmol/L (137-145)
[2023-02-23 20:50] LABS: Respiratory Syncytial Virus NEGATIVE (Not Detect)
[2023-02-23] MEDS: BUSPIRONE 5 MG TABLET 15 MG PO (22:10)
[2023-02-23] MEDS: LITHIUM 150 MG IR CAPSULE 600 MG PO (22:10)
[2023-02-23] MEDS: risperiDONE 1 MG TABLET 2 MG PO (22:11)
[2023-02-23] MEDS: methocarbamoL 500 MG TABLET 750 MG PO (22:11)
--- NOTE | 2023-02-23 22:42 | PC.NURSE ---
Addendum entered by Lori Rojas R.N. 02/24/23 06:36: Dr. Bridges notified this am about lab glucose 372, CO2 16, anion gap 17, and continued vomiting. Order received to increase am scheduled Lantus to 20 units SQ and increase SS algorithm to high dosing. Original Note: Director Of Property Management Notes-Patient states he was feeling better today, then started to cough with dry heaving, IV Zofran given, 1 hour later patient stated he felt well enough to take his routine HS PO medication, but 5 minutes later vomited 330ml emesis including his pills. HS CBG 223, 1 unit SS coverage given along with scheduled 15 units Lantus, will monitor throughout night. VSS.
[2023-02-24] VITALS (20 sets, daily range): BP systolic 131–135; BP diastolic 77–89; PULSE 75–93; RESP 18–20; TEMP 36.6–36.8; O2SAT 96–99
[2023-02-24] MEDS: PIPERACILLIN/TAZO 3.375 GM in SODIUM CHLORIDE 0.9% 100 ML IV ×3 (00:09→15:53)
[2023-02-24] MEDS: ONDANSETRON 4 MG/2 ML INJ IV ×3 (02:15→21:43)
[2023-02-24 05:11] LABS: Add Manual Diff / Slide Review NO; Basophils Absolute Auto 0 /uL (0-100); Eosinophils Absolute Auto 0 /uL (0-450); Eosinophils Percent Auto 0.1 % (2-4); Hematocrit 39.5 % (41-53); Hemoglobin 13.7 g/dL (13.5-17.5); Lymphocytes Absolute Auto 800 /uL (1100-4500); Lymphocytes Percent Auto 7.8 % (25-40); Mean Corpuscular HGB Conc 34.6 % (30-36); Mean Corpuscular Hemoglobin 28.3 PG (26-34); Mean Corpuscular Volume 81.7 fL (80-100); Monocytes Absolute Auto 600 /uL (0-900); Monocytes Percent Auto 5.8 % (3-14); Neutrophils Absolute Auto 8700 /uL (1500-7000); Neutrophils Percent Auto 86.3 % (50-75); Platelet Count 142 X10^3/uL (150-400); Red Blood Cell Count 4.83 X10^6/uL (4.5-5.9); Red Cell Distribution Width 13.8 % (11.6-14.8); White Blood Cell Count 10.1 X10^3/uL (4.5-11.0)
[2023-02-24 05:17] LABS: Alanine Aminotransferase 18 IU/L (<50); Albumin 3.7 g/dL (3.5-5.0); Albumin Globulin Ratio 1.8 (1.0-2.8); Alkaline Phosphatase 67 U/L (38-126); Aspartate Aminotransferase 16 IU/L (17-59); BUN Creatinine Ratio 18.8 (6-22); Bilirubin Total 0.6 mg/dL (0.2-1.3); Blood Urea Nitrogen 16 mg/dL (9-20); Calcium 8.3 mg/dL (8.4-10.2); Carbon Dioxide 16 mmol/L (22-32); Chloride 102 mmol/L (98-107); Estimated Glomerular Filt Rate > 60 mL/min (>60); Globulin 2.1 g/dL (1.7-4.1); Glucose 372 mg/dL (70-100); HEMOLYSIS < 15 (0-50); Potassium 4.3 mmol/L (3.4-5.1); Sodium 135 mmol/L (137-145); Total Protein 5.8 g/dL (6.3-8.2)
[2023-02-24 05:18] LABS: Phosphorous 3.4 mg/dL (2.5-4.5)
[2023-02-24 07:57] LABS: Lithium 0.5 mmol/L (0.6-1.2)
[2023-02-24] MEDS: INSULIN LISPRO 100 UNIT/ML 3ML VIAL SUBCUT ×4 (08:03→21:44)
[2023-02-24] MEDS: INSULIN GLARGINE 100 UNIT/ML 3ML PEN 20 UNIT SUBCUT ×2 (08:05→21:44)
[2023-02-24] MEDS: SODIUM CHLORIDE 0.45% 1,000 ML 125 ML IV ×2 (08:10→15:55)
[2023-02-24] MEDS: LORazepam 2 MG/ML INJ 0.5 MG IV ×3 (08:19→21:43)
[2023-02-24] MEDS: BUSPIRONE 5 MG TABLET 15 MG PO ×2 (08:42→20:43)
[2023-02-24] MEDS: ESCITALOPRAM 10 MG TABLET PO (08:42)
[2023-02-24] MEDS: ENOXAPARIN 40 MG/0.4 ML SYRINGE SUBCUT (08:42)
[2023-02-24] MEDS: LITHIUM 150 MG IR CAPSULE 600 MG PO ×2 (08:44→20:43)
--- NOTE | 2023-02-24 13:45 | CM.DPNOTE ---
Discharge Planning Note: A/O, calm patient resting in bed. Dr Bridges in earlier this morning. Patient feeling fatigued. Patient being worked up for infectious disease. Plan: When medically cleared, return home to family. Follow for needs. Rabia Lazo RN/DCP
[2023-02-24 15:56] LABS: Adenovirus F 40/41 Not Detected (Not Detect); Astrovirus Not Detected (Not Detect); Campylobacter Not Detected (Not Detect); Clostridium difficile toxin AB Not Detected (Not Detect); Cryptosporidium Not Detected (Not Detect); Cyclospora cayetanensis Not Detected (Not Detect); Entamoeba histolytica Not Detected (Not Detect); Enteroaggregative E.coli Not Detected (Not Detect); Enteropathogenic E.coli Not Detected (Not Detect); Enterotoxigenic E.coli It/st Not Detected (Not Detect); Giardia lamblia Not Detected (Not Detect); Norovirus GI/GII Not Detected (Not Detect); Plesiomonsa shigelloides Not Detected (Not Detect); Rotavirus A Not Detected (Not Detect); Salmonella Not Detected (Not Detect); Sapovirus Not Detected (Not Detect); Shiga-like toxin-prod E.coli Not Detected (Not Detect); Shigella/Enteroinvasive E.coli Not Detected (Not Detect); Vibrio Not Detected (Not Detect); Vibrio cholerae Not Detected (Not Detect); Yersinia enterocolitica Not Detected (Not Detect)
[2023-02-24 16:42] LABS: BUN Creatinine Ratio 18.4 (6-22); Blood Urea Nitrogen 14 mg/dL (9-20); Calcium 8.3 mg/dL (8.4-10.2); Carbon Dioxide 21 mmol/L (22-32); Chloride 102 mmol/L (98-107); Estimated Glomerular Filt Rate > 60 mL/min (>60); Glucose 236 mg/dL (70-100); HEMOLYSIS < 15 (0-50); Potassium 4.1 mmol/L (3.4-5.1); Sodium 134 mmol/L (137-145)
[2023-02-24] MEDS: PANTOPRAZOLE 40 MG VIAL IV (18:39)
--- NOTE | 2023-02-24 18:41 | PM.PN.1 ---
Subjective Subjective Date Patient Seen: 02/24/23 Time Patient Seen: 07:30 Interval history: Patient had no significant events overnight. Unfortunately his anion gap is increased this morning. He was on Lantus 15 units twice daily yesterday and the insulin pump was shut off. He is still having significant nausea. He is able to drink fluids but any time he tries to eat anything he has vomiting. He is not having any abdominal pain. He is having no blood. He has not had any further diarrhea. In fact he is not had a bowel movement. He did have RSV swab which was negative because his daughter has RSV recently. Otherwise he denies any complaints at difficulty breathing or chest pain or anxiety or difficulty sleeping Twelve point review of systems is negative Exam Vital Signs (past 8 hours): - 02/24/23 14:39 Temperature 97.8 F Pulse Rate 79 Respiratory Rate 20 Blood Pressure 135/89 Pulse Oximetry 99 Oxygen Delivery Method Room Air Oxygen Flow Rate 0 Narrative Exam Narrative: Patient is afebrile vital signs are stable HEENT is unremarkable Neck: Supple without adenopathy Chest: Clear to auscultation with scattered rhonchi that clear with deep breathing and cough Cor: Regular rate and rhythm without murmur Abdomen: Positive bowel sounds x4. He has no hepatosplenomegaly, he has no significant tenderness. No guarding or rebound Extremities: No edema Neurologic exam nonfocal Objective Labs 02/24/23 04:40 02/24/23 16:20 Labs: Laboratory Results - last 24 hr 02/23/23 02/23/23 02/24/23 20:10 20:20 04:40 WBC RBC Hgb Hct MCV MCH MCHC RDW Plt Count Neut % (Auto) Lymph % (Auto) [place] % (Auto) Eos % (Auto) Baso % (Auto) Neut # (Auto) Lymph # (Auto) [place] # (Auto) Eos # (Auto) Baso # (Auto) Sodium 137 Potassium 4.2 Chloride 106 Carbon Dioxide 18 L BUN 17 Creatinine 0.86 Estimated GFR > 60 BUN/Creatinine Ratio 19.8 Glucose 237 H Calcium 8.3 L Phosphorus 3.4 D Total Bilirubin AST ALT Alkaline Phosphatase Total Protein Albumin Globulin Albumin/Globulin Ratio Stl C. cayetanensis PCR Stool Rotavirus (PCR) Stool Adenovirus (PCR) Stool Astrovirus (PCR) Stool Cryptosporidium PCR Stl E.coli Shiga Tox PCR St Sh/Enteroin Ecoli PCR Stool E coli O157 PCR Stl Enterotoxigenic E PCR Stool EPEC (PCR) Stl E. histolytica PCR Stool Giardia Lamblia PCR Stool Sapovirus (PCR) Stl P. shigelloides PCR St Y.enterocolitica PCR Stool Vibrio (PCR) Stl Vibrio cholerae PCR Stl Enteroaggr Ecoli PCR Stl Norovirus GI/GII PCR Everest Campylobacter (PCR) C. difficile Tox (PCR) RSV (PCR) Negative Salmonella (PCR) 02/24/23 02/24/23 02/24/23 04:40 04:40 04:40 WBC 10.1 D RBC 4.83 Hgb 13.7 Hct 39.5 L MCV 81.7 MCH 28.3 MCHC 34.6 RDW 13.8 Plt Count 142 L Neut % (Auto) 86.3 H Lymph % (Auto) 7.8 L [place] % (Auto) 5.8 Eos % (Auto) 0.1 L Baso % (Auto) 0.0 Neut # (Auto) 8700 H Lymph # (Auto) 800 L [place] # (Auto) 600 Eos # (Auto) 0 Baso # (Auto) 0 Sodium 135 L Potassium 4.3 Chloride 102 Carbon Dioxide 16 L BUN 16 Creatinine 0.85 Estimated GFR > 60 BUN/Creatinine Ratio 18.8 Glucose 372 H D Calcium 8.3 L Phosphorus Total Bilirubin 0.6 AST 16 L ALT 18 Alkaline Phosphatase 67 Total Protein 5.8 L Albumin 3.7 Globulin 2.1 Albumin/Globulin Ratio 1.8 Stl C. cayetanensis PCR Stool Rotavirus (PCR) Stool Adenovirus (PCR) Stool Astrovirus (PCR) Stool Cryptosporidium PCR Stl E.coli Shiga Tox PCR St Sh/Enteroin Ecoli PCR Stool E coli O157 PCR Stl Enterotoxigenic E PCR Stool EPEC (PCR) Stl E. histolytica PCR Stool Giardia Lamblia PCR Stool Sapovirus (PCR) Stl P. shigelloides PCR St Y.enterocolitica PCR Stool Vibrio (PCR) Stl Vibrio cholerae PCR Stl Enteroaggr Ecoli PCR Stl Norovirus GI/GII PCR Everest 0.5 L Campylobacter (PCR) C. difficile Tox (PCR) RSV (PCR) Salmonella (PCR) 02/24/23 02/24/23 13:30 16:20 WBC RBC Hgb Hct MCV MCH MCHC RDW Plt Count Neut % (Auto) Lymph % (Auto) [place] % (Auto) Eos % (Auto) Baso % (Auto) Neut # (Auto) Lymph # (Auto) [place] # (Auto) Eos # (Auto) Baso # (Auto) Sodium 134 L Potassium 4.1 Chloride 102 Carbon Dioxide 21 L BUN 14 Creatinine 0.76 Estimated GFR > 60 BUN/Creatinine Ratio 18.4 Glucose 236 H D Calcium 8.3 L Phosphorus Total Bilirubin AST ALT Alkaline Phosphatase Total Protein Albumin Globulin Albumin/Globulin Ratio Stl C. cayetanensis PCR Not detected Stool Rotavirus (PCR) Not detected Stool Adenovirus (PCR) Not detected Stool Astrovirus (PCR) Not detected Stool Cryptosporidium PCR Not detected Stl E.coli Shiga Tox PCR Not detected St Sh/Enteroin Ecoli PCR Not detected Stool E coli O157 PCR Not Reportable Stl Enterotoxigenic E PCR Not detected Stool EPEC (PCR) Not detected Stl E. histolytica PCR Not detected Stool Giardia Lamblia PCR Not detected Stool Sapovirus (PCR) Not detected Stl P. shigelloides PCR Not detected St Y.enterocolitica PCR Not detected Stool Vibrio (PCR) Not detected Stl Vibrio cholerae PCR Not detected Stl Enteroaggr Ecoli PCR Not detected Stl Norovirus GI/GII PCR Not detected Everest Campylobacter (PCR) Not detected C. difficile Tox (PCR) Not detected RSV (PCR) Salmonella (PCR) Not detected PFSH Medical History ADHD (attention deficit hyperactivity disorder) (Unknown) Allergic rhinitis (Unknown) Anxiety (Unknown) Asthma (Unknown) Bipolar disorder (Unknown) Chronic cough (Unknown) Depression (Unknown) Foot pain (Unknown) Generalized headaches (Unknown) Migraines (Unknown) Schizophrenia (Unknown) Type 1 diabetes (~1992) Surgical History Hx of eye surgery (12/2015) Hx of foot surgery (2003) Family History Father Age: 70 Type 2 diabetes mellitus without complication, unspecified terminal carman insulin 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 Social History household members: spouse and children Smoking Status: Current every day smoker alcohol intake: current substance use type: marijuana Assessment & Plan Assessment & Plan narrative: Assessment & Plan narrative: 32-year-old male with type 1 diabetes with diabetic ketoacidosis Assessment 1.? Type 1 diabetes with diabetic ketoacidosis, improved and off insulin pump but increase in his anion gap this morning and we needed to increase his sliding scale and increase his Lantus to 20 units twice daily. Plan: 2nd set of lytes are showing improvement now with an anion gap of 11. He will continue with this current regimen. Suspect trigger was possible infectious etiology versus colitis. Assessment 2.? Infectious Disease.? Unclear etiology.? .? Possible bacterial colitis versus viral versus viral syndrome.? Elevated white blood cell count is suspicious for bacterial infection. White blood cell count is back down to normal. Unfortunately patient is still feeling poorly and is nauseous and unable to eat anything or he vomits. He we are using Zofran. Plan:? Will continue IV Zosyn for now.? I think if white blood cell count improves and patient continues to improve without further symptoms we will consider changing to Augmentin on discharge. stool panel to look for viral illnesses and this was negative. RSV was negative.? Will consider repeat scan or colonoscopy pending how he does clinically. Suspect this was the etiology for the diabetic ketoacidosis. Assessment 3.? Schizoaffective disorder with bipolar Plan: Continue outpatient meds.? No acute symptoms at this time Assessment 4. Reactive airway disease without acute problem Plan: Will continue outpatient albuterol as needed Assessment 5. DVT prophylaxis Plan: Lovenox Assessment 6.? Sepsis improving Plan: Continue with IV antibiotics for now. Assessment 7. Persistent nausea with evidence of inflammation of transverse and ascending colon on CT scan but no symptoms of active autoimmune colitis. We will go ahead and add IV Protonix. 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 We will give a trial of Haldol 1 mg IV q.6 hours for 48 hours. Code status is full code Disposition plan is to discharge home when stable Sixty minutes spent with patient and discussing with physician, nursing and meeting with patient and his mom and reviewing his chart and workup and formulating a plan and documentation Quality VTE Deep Vein Thrombosis/Pulmonary Embolism Present on Admission: No
[2023-02-24] MEDS: HALOPERIDOL 5 MG/ML VIAL 1 MG IV (19:28)
[2023-02-25] VITALS (7 sets, daily range): BP systolic 124–144; BP diastolic 75–92; PULSE 66–85; RESP 17–22; TEMP 36.4–37.2; O2SAT 93–96
[2023-02-25] MEDS: risperiDONE 1 MG TABLET 4 MG PO (00:20)
[2023-02-25] MEDS: PIPERACILLIN/TAZO 3.375 GM in SODIUM CHLORIDE 0.9% 100 ML IV ×3 (00:20→15:51)
[2023-02-25] MEDS: HYDROCODONE/ACET 5/325 TABLET 1 TAB PO (00:20)
[2023-02-25] MEDS: SODIUM CHLORIDE 0.45% 1,000 ML 125 ML IV ×2 (00:20→08:09)
[2023-02-25] MEDS: HALOPERIDOL 5 MG/ML VIAL 1 MG IV ×4 (00:21→19:46)
[2023-02-25] MEDS: LORazepam 2 MG/ML INJ 0.5 MG IV ×3 (04:29→21:37)
[2023-02-25] MEDS: ONDANSETRON 4 MG/2 ML INJ IV ×4 (04:29→21:37)
[2023-02-25 05:11] LABS: Add Manual Diff / Slide Review NO; Basophils Absolute Auto 0 /uL (0-100); Basophils Percent Auto 0.1 % (0-2); Eosinophils Absolute Auto 0 /uL (0-450); Eosinophils Percent Auto 0.5 % (2-4); Hematocrit 36.7 % (41-53); Lymphocytes Absolute Auto 1500 /uL (1100-4500); Mean Corpuscular HGB Conc 35.4 % (30-36); Mean Corpuscular Hemoglobin 28.7 PG (26-34); Monocytes Absolute Auto 600 /uL (0-900); Monocytes Percent Auto 8.3 % (3-14); Neutrophils Absolute Auto 5500 /uL (1500-7000); Neutrophils Percent Auto 71.1 % (50-75); Platelet Count 127 X10^3/uL (150-400); Red Blood Cell Count 4.53 X10^6/uL (4.5-5.9); Red Cell Distribution Width 13.3 % (11.6-14.8); White Blood Cell Count 7.7 X10^3/uL (4.5-11.0)
[2023-02-25 05:15] LABS: Alanine Aminotransferase 19 IU/L (<50); Albumin 3.2 g/dL (3.5-5.0); Albumin Globulin Ratio 1.5 (1.0-2.8); Alkaline Phosphatase 61 U/L (38-126); Aspartate Aminotransferase 15 IU/L (17-59); BUN Creatinine Ratio 16.9 (6-22); Bilirubin Total 0.9 mg/dL (0.2-1.3); Blood Urea Nitrogen 13 mg/dL (9-20); Carbon Dioxide 22 mmol/L (22-32); Chloride 103 mmol/L (98-107); Estimated Glomerular Filt Rate > 60 mL/min (>60); Globulin 2.1 g/dL (1.7-4.1); Glucose 261 mg/dL (70-100); HEMOLYSIS < 15 (0-50); Potassium 3.8 mmol/L (3.4-5.1); Sodium 133 mmol/L (137-145); Total Protein 5.3 g/dL (6.3-8.2)
--- NOTE | 2023-02-25 05:35 | PC.NURSE ---
One episode of emesis so far this shift. Medicated with haldol, ativan, and zofran. Able to keep most of evening pills down.
[2023-02-25] MEDS: INSULIN LISPRO 100 UNIT/ML 3ML VIAL SUBCUT ×3 (07:44→16:57)
[2023-02-25] MEDS: risperiDONE 1 MG TABLET 2 MG PO (08:48)
[2023-02-25] MEDS: LITHIUM 150 MG IR CAPSULE 600 MG PO ×2 (08:48→21:03)
[2023-02-25] MEDS: BUSPIRONE 5 MG TABLET 15 MG PO ×2 (08:48→21:00)
[2023-02-25] MEDS: ESCITALOPRAM 10 MG TABLET PO (08:48)
[2023-02-25] MEDS: ENOXAPARIN 40 MG/0.4 ML SYRINGE SUBCUT (08:49)
[2023-02-25] MEDS: INSULIN GLARGINE 100 UNIT/ML 3ML PEN 20 UNIT SUBCUT (08:49)
[2023-02-25] MEDS: ONDANSETRON 4 MG ODT SL (11:47)
--- NOTE | 2023-02-25 12:00 | P.PN_ITS ---
Subjective Subjective Date Patient Seen: 02/25/23 Time Patient Seen: 12:00 Interval history: Patient is still having nausea and vomiting but he states that he is feeling better. He he was given Zofran and lorazepam prior to lunch and seems to be keeping that down. He is really trying to go slow so he does not start vomiting again. Had a bowel movement yesterday but does not only bowel movement he is had since he has been in the hospital. The Haldol IV seems to be working and helping. He is urinating frequently with IV fluids at 1:25 a.m. an hour. His blood sugars have improved and anion gap has closed. He still blood sugars in the low 200s. He is just having mild abdominal discomfort but no pain. No headaches or difficulty breathing or other complaints Twelve point review of systems is negative other than above Exam Vital Signs (past 8 hours): - 02/25/23 08:06 02/25/23 08:00 Temperature 98.6 F Pulse Rate 68 Respiratory Rate 22 Blood Pressure 124/75 Pulse Oximetry 95 Oxygen Delivery Method Room Air Oxygen Flow Rate 0 Oxygen Delivery Method Room Air Oxygen Flow Rate 0 Narrative Exam Narrative: Afebrile vital signs are stable Patient is more talkative today more easily able to get up. HEENT: Unremarkable Neck: Supple Chest: Clear to auscultation without wheezes rhonchi or crackles Cor: Regular rate and rhythm without a murmur Abdomen: Positive bowel sounds, soft, nontender, nondistended, no hepatosplenomegaly Extremities no edema Neurologic exam nonfocal Objective Labs 02/25/23 04:27 02/25/23 04:27 Labs: Laboratory Results - last 24 hr 02/24/23 02/24/23 02/25/23 13:30 16:20 04:27 WBC 7.7 RBC 4.53 Hgb 13.0 L Hct 36.7 L MCV 81.0 MCH 28.7 MCHC 35.4 RDW 13.3 Plt Count 127 L Neut % (Auto) 71.1 Lymph % (Auto) 20.0 L [place] % (Auto) 8.3 Eos % (Auto) 0.5 L Baso % (Auto) 0.1 Neut # (Auto) 5500 Lymph # (Auto) 1500 [place] # (Auto) 600 Eos # (Auto) 0 Baso # (Auto) 0 Sodium 134 L Potassium 4.1 Chloride 102 Carbon Dioxide 21 L BUN 14 Creatinine 0.76 Estimated GFR > 60 BUN/Creatinine Ratio 18.4 Glucose 236 H D Calcium 8.3 L Total Bilirubin AST ALT Alkaline Phosphatase Total Protein Albumin Globulin Albumin/Globulin Ratio Stl C. cayetanensis PCR Not detected Stool Rotavirus (PCR) Not detected Stool Adenovirus (PCR) Not detected Stool Astrovirus (PCR) Not detected Stool Cryptosporidium PCR Not detected Stl E.coli Shiga Tox PCR Not detected St Sh/Enteroin Ecoli PCR Not detected Stool E coli O157 PCR Not Reportable Stl Enterotoxigenic E PCR Not detected Stool EPEC (PCR) Not detected Stl E. histolytica PCR Not detected Stool Giardia Lamblia PCR Not detected Stool Sapovirus (PCR) Not detected Stl P. shigelloides PCR Not detected St Y.enterocolitica PCR Not detected Stool Vibrio (PCR) Not detected Stl Vibrio cholerae PCR Not detected Stl Enteroaggr Ecoli PCR Not detected Stl Norovirus GI/GII PCR Not detected Campylobacter (PCR) Not detected C. difficile Tox (PCR) Not detected Salmonella (PCR) Not detected 02/25/23 04:27 WBC RBC Hgb Hct MCV MCH MCHC RDW Plt Count Neut % (Auto) Lymph % (Auto) [place] % (Auto) Eos % (Auto) Baso % (Auto) Neut # (Auto) Lymph # (Auto) [place] # (Auto) Eos # (Auto) Baso # (Auto) Sodium 133 L Potassium 3.8 Chloride 103 Carbon Dioxide 22 BUN 13 Creatinine 0.77 Estimated GFR > 60 BUN/Creatinine Ratio 16.9 Glucose 261 H Calcium 8.0 L Total Bilirubin 0.9 AST 15 L ALT 19 Alkaline Phosphatase 61 Total Protein 5.3 L Albumin 3.2 L Globulin 2.1 Albumin/Globulin Ratio 1.5 Stl C. cayetanensis PCR Stool Rotavirus (PCR) Stool Adenovirus (PCR) Stool Astrovirus (PCR) Stool Cryptosporidium PCR Stl E.coli Shiga Tox PCR St Sh/Enteroin Ecoli PCR Stool E coli O157 PCR Stl Enterotoxigenic E PCR Stool EPEC (PCR) Stl E. histolytica PCR Stool Giardia Lamblia PCR Stool Sapovirus (PCR) Stl P. shigelloides PCR St Y.enterocolitica PCR Stool Vibrio (PCR) Stl Vibrio cholerae PCR Stl Enteroaggr Ecoli PCR Stl Norovirus GI/GII PCR Campylobacter (PCR) C. difficile Tox (PCR) Salmonella (PCR) [facility] Medical History ADHD (attention deficit hyperactivity disorder) (Unknown) Allergic rhinitis (Unknown) Anxiety (Unknown) Asthma (Unknown) Bipolar disorder (Unknown) Chronic cough (Unknown) Depression (Unknown) Foot pain (Unknown) Generalized headaches (Unknown) Migraines (Unknown) Schizophrenia (Unknown) Type 1 diabetes (~1992) Surgical History Hx of eye surgery (12/2015) Hx of foot surgery (2003) Family History Father Age: 70 Type 2 diabetes mellitus without complication, unspecified retirement insulin 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 Social History household members: spouse and children Smoking Status: Current every day smoker alcohol intake: current substance use type: marijuana Assessment & Plan Assessment & Plan narrative: 32-year-old male with type 1 diabetes with diabetic ketoacidosis Assessment 1.? Type 1 diabetes with diabetic ketoacidosis, improved and off insulin pump and anion gap closed. Blood sugars are coming down. Plan: We will increase Lantus to 25 units twice daily and will continue with sliding scale insulin. We will stop IV fluids. Suspect trigger was possible infectious etiology versus colitis. Assessment 2.? Infectious Disease.? Unclear etiology.? .? Possible bacterial colitis versus viral versus viral syndrome.? Elevated white blood cell count is suspicious for bacterial infection.? White blood cell count is back down to normal.? Unfortunately patient is still feeling poorly and is nauseous and unable to eat anything or he vomits.? He we are using Zofran. Plan:? Will continue IV Zosyn for now.? I think if white blood cell count improves and patient continues to improve without further symptoms we will consider changing to Augmentin on discharge. stool panel to look for viral illnesses and this was negative.? RSV was negative.? Will consider repeat scan or colonoscopy pending how he does clinically. Suspect this was the etiology for the diabetic ketoacidosis. Assessment 3.? Schizoaffective disorder with bipolar Plan: Continue outpatient meds.? No acute symptoms at this time. Continues to be stable although having difficulty keeping his medications down. Assessment 4. Reactive airway disease without acute problem Plan: Will continue outpatient albuterol as needed Assessment 5. DVT prophylaxis Plan: Lovenox Assessment 6.? Sepsis improving Plan: Continue with IV antibiotics for now. Would switch to oral antibiotics but worried about him not being able to keep these down. If he continues to improve in terms of nausea and vomiting we will switch to Augmentin and stop the Zosyn Assessment 7. Persistent nausea with evidence of inflammation of transverse and ascending colon on CT scan but no symptoms of active autoimmune colitis.? We will go ahead and add IV Protonix.? 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 We will give a trial of Haldol 1 mg IV q.6 hours for 48 hours. Seems to be helping. We will continue. We will add Marinol Assessment 8. Leukocytosis improved Code status is full code Disposition plan is to discharge home when stable Sixty minutes spent with patient and discussing with physician, nursing and meeting with patient and and reviewing his chart and workup and formulating a p [place] and documentation Quality VTE Deep Vein Thrombosis/Pulmonary Embolism Present on Admission: No
[2023-02-25] MEDS: droNABinol 2.5 MG CAPSULE PO ×2 (12:28→21:01)
[2023-02-25] MEDS: PANTOPRAZOLE 40 MG VIAL IV (12:28)
[2023-02-25] MEDS: methocarbamoL 500 MG TABLET 750 MG PO (21:02)
[2023-02-25] MEDS: INSULIN GLARGINE 100 UNIT/ML 3ML PEN 25 UNIT SUBCUT (21:06)
[2023-02-26] VITALS (13 sets, daily range): BP systolic 152–182; BP diastolic 87–107; PULSE 59–87; RESP 17–21; TEMP 36.3–36.8; O2SAT 97–100
[2023-02-26] MEDS: PIPERACILLIN/TAZO 3.375 GM in SODIUM CHLORIDE 0.9% 100 ML IV ×2 (00:04→07:48)
[2023-02-26] MEDS: HYDROCODONE/ACET 5/325 TABLET 1 TAB PO ×2 (00:05→19:39)
[2023-02-26] MEDS: HALOPERIDOL 5 MG/ML VIAL 1 MG IV ×2 (00:05→07:36)
[2023-02-26] MEDS: risperiDONE 1 MG TABLET 4 MG PO ×2 (00:05→21:15)
[2023-02-26] MEDS: ONDANSETRON 4 MG/2 ML INJ IV (04:15)
[2023-02-26 04:52] LABS: Add Manual Diff / Slide Review NO; Basophils Absolute Auto 0 /uL (0-100); Basophils Percent Auto 0.4 % (0-2); Eosinophils Absolute Auto 100 /uL (0-450); Eosinophils Percent Auto 1.6 % (2-4); Hematocrit 39.3 % (41-53); Hemoglobin 13.9 g/dL (13.5-17.5); Lymphocytes Absolute Auto 1800 /uL (1100-4500); Lymphocytes Percent Auto 29.6 % (25-40); Mean Corpuscular HGB Conc 35.4 % (30-36); Mean Corpuscular Hemoglobin 28.6 PG (26-34); Mean Corpuscular Volume 80.7 fL (80-100); Monocytes Absolute Auto 500 /uL (0-900); Monocytes Percent Auto 8.5 % (3-14); Neutrophils Absolute Auto 3700 /uL (1500-7000); Neutrophils Percent Auto 59.9 % (50-75); Platelet Count 126 X10^3/uL (150-400); Red Blood Cell Count 4.87 X10^6/uL (4.5-5.9); Red Cell Distribution Width 13.5 % (11.6-14.8); White Blood Cell Count 6.1 X10^3/uL (4.5-11.0)
[2023-02-26 05:06] LABS: Alanine Aminotransferase 20 IU/L (<50); Albumin 3.4 g/dL (3.5-5.0); Albumin Globulin Ratio 1.4 (1.0-2.8); Alkaline Phosphatase 64 U/L (38-126); Aspartate Aminotransferase 18 IU/L (17-59); BUN Creatinine Ratio 14.1 (6-22); Bilirubin Total 0.9 mg/dL (0.2-1.3); Blood Urea Nitrogen 11 mg/dL (9-20); Calcium 8.6 mg/dL (8.4-10.2); Carbon Dioxide 26 mmol/L (22-32); Chloride 105 mmol/L (98-107); Estimated Glomerular Filt Rate > 60 mL/min (>60); Globulin 2.5 g/dL (1.7-4.1); Glucose 146 mg/dL (70-100); HEMOLYSIS < 15 (0-50); Potassium 3.2 mmol/L (3.4-5.1); Sodium 138 mmol/L (137-145); Total Protein 5.9 g/dL (6.3-8.2)
--- NOTE | 2023-02-26 05:35 | PC.NURSE ---
Patient with only one small episode of vomiting throughout shift. Medicated with zofran, haldol, ativan.
[2023-02-26] MEDS: INSULIN LISPRO 100 UNIT/ML 3ML VIAL SUBCUT ×4 (07:38→21:06)
[2023-02-26] MEDS: ONDANSETRON 4 MG ODT SL ×3 (07:40→21:16)
[2023-02-26] MEDS: droNABinol 2.5 MG CAPSULE PO ×3 (07:40→21:16)
[2023-02-26] MEDS: risperiDONE 1 MG TABLET 2 MG PO (08:37)
[2023-02-26] MEDS: BUSPIRONE 5 MG TABLET 15 MG PO ×2 (08:38→21:16)
[2023-02-26] MEDS: PANTOPRAZOLE 40 MG VIAL IV (08:38)
[2023-02-26] MEDS: ESCITALOPRAM 10 MG TABLET PO (08:38)
[2023-02-26] MEDS: LITHIUM 150 MG IR CAPSULE 600 MG PO ×2 (08:38→21:15)
[2023-02-26] MEDS: ENOXAPARIN 40 MG/0.4 ML SYRINGE SUBCUT (08:39)
[2023-02-26] MEDS: INSULIN GLARGINE 100 UNIT/ML 3ML PEN 25 UNIT SUBCUT ×2 (08:42→21:06)
[2023-02-26] MEDS: AMOXICILLIN/CLAV 875/125 MG 1 TAB PO ×2 (09:48→21:16)
[2023-02-26] MEDS: POTASSIUM CHLORIDE 20 MEQ TAB 40 MEQ PO ×2 (11:50→17:54)
--- NOTE | 2023-02-26 15:47 | CM.DPC ---
DCP: JUTE BAG CLIPPER spoke with nurse. Nurse reports no vomiting since this morning. Nurse reports continued dietary restrictions at this time. Patient has not started on clears, expected tomorrow. Patient saw PT today and PT reports patient did very well. P: No concerns or needs reported at this time for discharge. Continue to monitor. LACHELLE Lazcano
[2023-02-26] MEDS: lisinopriL 20 MG TABLET PO (17:53)
--- NOTE | 2023-02-26 18:58 | PM.PN.1 ---
Subjective Subjective Date Patient Seen: 02/26/23 Time Patient Seen: 08:30 Interval history: patient seen in follow up of DKA and nausea and voimiting and eleveated WBC. Patient feeling significantly better but only clear liquids. Did take his meds this am. No cough sob or chest pain. Has not been on meds in the past for htn. Exam Vital Signs (past 8 hours): - 02/26/23 12:48 02/26/23 12:48 02/26/23 12:49 Temperature 97.3 F L Pulse Rate 74 Blood Pressure 182/105 H 178/107 H Pulse Oximetry 98 100 02/26/23 12:51 02/26/23 17:53 Temperature Pulse Rate 87 Blood Pressure 174/101 H 180/100 H Pulse Oximetry Oxygen Delivery Method Room Air Oxygen Flow Rate 0 Narrative Exam Narrative: Alert male fatigued but in nad Resp Auscultation: clear to auscultation bilaterally Cardio Rhythm: regular rhythm Heart Sounds: normal, physiologic split S2 and murmur Objective Labs 02/26/23 04:21 02/26/23 04:21 Labs: Laboratory Results - last 24 hr 02/26/23 02/26/23 04:21 04:21 WBC 6.1 RBC 4.87 Hgb 13.9 Hct 39.3 L MCV 80.7 MCH 28.6 MCHC 35.4 RDW 13.5 Plt Count 126 L Neut % (Auto) 59.9 Lymph % (Auto) 29.6 [place] % (Auto) 8.5 Eos % (Auto) 1.6 L Baso % (Auto) 0.4 Neut # (Auto) 3700 Lymph # (Auto) 1800 [place] # (Auto) 500 Eos # (Auto) 100 Baso # (Auto) 0 Sodium 138 Potassium 3.2 L Chloride 105 Carbon Dioxide 26 BUN 11 Creatinine 0.78 Estimated GFR > 60 BUN/Creatinine Ratio 14.1 Glucose 146 H D Calcium 8.6 Total Bilirubin 0.9 AST 18 ALT 20 Alkaline Phosphatase 64 Total Protein 5.9 L Albumin 3.4 L Globulin 2.5 Albumin/Globulin Ratio 1.4 [facility] Medical History ADHD (attention deficit hyperactivity disorder) (Unknown) Allergic rhinitis (Unknown) Anxiety (Unknown) Asthma (Unknown) Bipolar disorder (Unknown) Chronic cough (Unknown) Depression (Unknown) Foot pain (Unknown) Generalized headaches (Unknown) Migraines (Unknown) Schizophrenia (Unknown) Type 1 diabetes (~1992) Surgical History Hx of eye surgery (12/2015) Hx of foot surgery (2003) Family History Father Age: 70 Type 2 diabetes mellitus without complication, unspecified care home insulin 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 Social History household members: spouse and children Smoking Status: Current every day smoker alcohol intake: current substance use type: marijuana Assessment & Plan Assessment & Plan narrative: new onset hth. Has not been a problem. discussed will start lisinopril and see am DKA: appears to be resolved. probably secondary to infection and pump failure. will follow if stable d/c tomorrow n/v: on zofran. seems to be doing well. no major issues. continue care ID: question infection cause. with risk and response to abx will switch to augmentin and follow if stable discharge to home on abx with close follow up Bipolar: Patient stable today. on his usual meds. will follow. [place] abuse: appears some of his nausea is associated with his abuse. marinol seems to have improved will discuss with patient. has history of etoh abuse. Will discuss with patinet. Asthma stable. Sepsis: resolving. etiology unclear. Dvt propholaxis: on lovenox code status full disposition: home am if stable. 50 min spent on discussion with cross cover. chart review. patient, chart note, orders. Quality VTE Deep Vein Thrombosis/Pulmonary Embolism Present on Admission: No
[2023-02-26] MEDS: methocarbamoL 500 MG TABLET 750 MG PO (21:16)
[2023-02-27] MEDS: HYDROCODONE/ACET 5/325 TABLET 1 TAB PO ×2 (00:19→05:57)
[2023-02-27] MEDS: LORazepam 2 MG/ML INJ 0.5 MG IV (03:07)
[2023-02-27 06:00] VITALS: BP 134/90; PULSE 69; RESP 17; TEMP 36.6; O2SAT 97
[2023-02-27] MEDS: PANTOPRAZOLE DR 40 MG TABLET PO (07:01)
--- NOTE | 2023-02-27 08:05 | PM.DS.1 ---
History of Present Illness History of Present Illness Date Patient Seen: 02/27/23 Time Patient Seen: 08:05 Date of Onset of Symptoms: 02/22/23 Chief complaint: Vomiting, Diabetic Narrative: This is a very pleasant 32-year-old male with type 1 diabetes with associated retinopathy, peripheral neuropathy, microalbuminuria as well as schizoaffective disorder with bipolar and ADHD who presents to the ER for evaluation of hyperglycemia with intractable vomiting.? Patient was found to be in diabetic ketoacidosis and was admitted to the hospital for the same as well as sepsis.? Patient had a leukocytosis and elevated procalcitonin and lactate but no focal findings for etiology of infection and was started on Zosyn.? Patient was given Zofran for nausea.? Patient was started on insulin drip and admitted to the ICU.? Patient is feeling much better now.? He has not had any further vomiting except for 1 episode of post-tussive emesis.? Patient is NPO.? Workup was also remarkable for inflammation of the transverse colon and ascending colon but no diverticula or diverticulitis Initially patient stated that he was in his usual state of health and then just suddenly developed vomiting in the middle of the night with blood sugars over 500 and he continued to vomit all day yesterday in was then taken to the emergency department last evening.? However on further questioning he states that started having upset stomach about 3 days ago with nausea and diarrhea and then increase in blood sugars.? He states essentially he has not eaten anything for 3 days and he did have a bowel movement yesterday which was loose.? He felt like he had a GI flu.? He was vomiting every 20 minutes.? Initially when asked if anybody was sick at home he said no one was but then remembered that his 4-year-old was recently diagnosed with RSV by Dr. Foote.? She would a runny nose and cough etc.. Discharge Providers Provider Date of admission: 02/22/23 20:51 Discharge Date: 02/27/23 Primary care physician: Byron Foote MD Consults: 02/23/23 10:53 Consult to Dietitian, Adult Routine Comment: Reason For Exam: DKA, type 1 diabetic Discharge provider: Byron Foote MD Summary Hospital Course Discharge Diagnosis: Hypertension. New onset. Diabetic ketoacidosis Nausea and vomiting Infectious disease Bipolar/schizoaffective disorder Marijuana abuse Asthma Hospital Course: Hypertension new onset. Patient was noted on day 3 to have elevated blood pressure. Patient otherwise was feeling well. And had no other significant complaints he was started on lisinopril improved. There is some potential for impact on lithium will check levels in 1 week. Patient otherwise had side effects discussed. He understands. Diabetic ketoacidosis. Patient was admitted the hospital and fluid hydration unusual insulin protocol was begun. His electrolytes remain normal. With no significant change. It was felt to be secondary to his prolonged nausea vomiting and potential infection. Patient was stabilized and also noted that his pump was kinked and he felt like that may have been part of his problem. Discussed extensively management of of his pump. Patient will follow-up with his senior storage administrator. Otherwise I will see him in 1 week. Nausea and vomiting. Question secondary to infections versus his marijuana use. Really did better once they started Marinol. Certainly could have been from his diabetic ketoacidosis. There is otherwise no change. Will discontinue Marinol discontinue antinausea medicines and discussed with patient his need to reduce his marijuana use. He understands. Questions answered. Infectious disease. Patient with initial significant elevated white count +abnormality on CT scan in his colon. He was started on Zosyn secondary to that. His cultures remain negative no other source of infection was different delineated and he was feeling significantly better. Source was not definitively felt like it was identified but secondary to the degree of illness it was kept on antibiotics he was switched to Augmentin on day before discharge and will be continued on that for 10 days. Marijuana abuse. Long discussion about this. With his history of alcohol abuse not a great choice. He understands. Probably will not quit completely. Asthma was stable throughout the course. Exam Vital Signs (past 8 hours): - 02/27/23 06:00 Temperature 97.9 F Pulse Rate 69 Respiratory Rate 17 Blood Pressure 134/90 Pulse Oximetry 97 Oxygen Flow Rate 0 Oxygen Delivery Method Room Air Oxygen Flow Rate 0 Narrative Exam Narrative: Alert mildly fatigued male in no acute distress feeling much better. Lungs are clear heart is regular rate and rhythm abdomen is soft positive bowel sounds nontender Objective Labs 02/26/23 04:21 02/26/23 04:21 [facility] Medical History ADHD (attention deficit hyperactivity disorder) (Unknown) Allergic rhinitis (Unknown) Anxiety (Unknown) Asthma (Unknown) Bipolar disorder (Unknown) Chronic cough (Unknown) Depression (Unknown) Foot pain (Unknown) Generalized headaches (Unknown) Migraines (Unknown) Schizophrenia (Unknown) Type 1 diabetes (~1992) Surgical History Hx of eye surgery (12/2015) Hx of foot surgery (2003) Family History Father Age: 70 Type 2 diabetes mellitus without complication, unspecified terminal computer operator insulin 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 Social History household members: spouse and children Smoking Status: Current every day smoker alcohol intake: current substance use type: marijuana Discharge Assessment & Plan Assessment and Plan Assessment: DKA resolved. Plan of Treatment: Discharge home follow-up 1 week 40 minutes spent on education patient evaluation discharge orders and dictation Discharge Plan Discharge Plan Patient Disposition: Home Discharge orders & Medications Prescriptions: New amoxicillin-pot clavulanate 875-125 mg Tablet 1 tab PO BID Qty: 20 0RF lisinopril 20 mg tablet 20 mg PO DAILY Qty: 60 1RF Continued methocarbamol 750 mg tablet 750 mg PO BEDTIME buspirone 15 mg tablet 15 mg PO BID Qty: 180 3RF escitalopram oxalate 10 mg tablet 10 mg PO DAILY Qty: 90 3RF lithium carbonate 600 mg capsule 600 mg PO BID Qty: 180 3RF risperidone 2 mg tablet See Rx Instructions .ROUTE .COMPLEX Qty: 270 3RF Rx Instructions: Take 2 mg (1 tab) PO QAM and 4 mg (2 tabs) PO QHS; Disabled Parking Permit 1 dev EXT SEE INSTRUCTIONS Qty: 1 0RF [cont. glucose meter] Qty: 0 0RF ondansetron [Zofran ODT] 4 MG tablet,disintegrating 4 mg Sublingual Q6HP PRNQty: 10 0RF insulin aspart U-100 [Novolog U-100 Insulin aspart] 100 UNIT/1 ML solution 150 u SQ Q DAY Qty: 4 5RF albuterol sulfate [Proventil HFA] 90 MCG/PUFF HFA aerosol inhaler 1 - 2 puff INH Q4HP PRNQty: 1 5RF Glucose: Test Strips See Rx Instructions .ROUTE SEE INSTRUCTIONS Qty: 200 3RF Dose Instruction: Use one contour next test strip to test blood sugar five times a day. SEE INSTRUCTIONS; Rx Instructions: Use one contour next test strip to test blood sugar five times a day. SEE INSTRUCTIONS; (DME) Glucose: Test Strips 0 .Route .MEDSUPPLY Qty: 1 2RF Dose Instruction: As directed Rx Instructions: USE 1 TEST STRIP TO TEST BLOOD SUGAR 5 TIMES PER DAY [ketone test strips] QDAY PRN (Reason: Electrolyte Replenishment) Follow up/Referrals: Byron Foote MD [Primary Care Provider] - 1 Week (please call for appointment) Discharge Health Status Multidrug resistant organism: No MDRO Diet/Activity/Treatments Diet: Carb-consistent/Diabetic Skin/Wound/Dressing Care Report to your healthcare provider any signs of infection, such as:: chills, fever and night sweats Visit Report/Discharge Packet Stand Alone Forms: Patient Portal/API, Stroke Signs & Symptoms Discharge Data Primary Care Provider: Byron Foote Quality VTE Deep Vein Thrombosis/Pulmonary Embolism Present on Admission: No
[2023-02-27 08:30] VITALS: BP 153/82; PULSE 105; PULSE 71; RESP 17; TEMP 36.3; O2SAT 97; O2SAT 98
[2023-02-27] MEDS: INSULIN LISPRO 100 UNIT/ML 3ML VIAL SUBCUT (08:31)
[2023-02-27] MEDS: risperiDONE 1 MG TABLET 2 MG PO (08:31)
[2023-02-27] MEDS: LITHIUM 150 MG IR CAPSULE 600 MG PO (08:31)
[2023-02-27] MEDS: droNABinol 2.5 MG CAPSULE PO (08:31)
[2023-02-27] MEDS: BUSPIRONE 5 MG TABLET 15 MG PO (08:31)
[2023-02-27] MEDS: AMOXICILLIN/CLAV 875/125 MG 1 TAB PO (08:32)
[2023-02-27] MEDS: ESCITALOPRAM 10 MG TABLET PO (08:32)
[2023-02-27] MEDS: ENOXAPARIN 40 MG/0.4 ML SYRINGE SUBCUT (08:32)
== END 2023-02-27 10:00 | disposition home or self-care (01) | DRG 871 ==
LOC: ED 19:42 → AC 20:51 → ICU 20:53
PROVIDERS: Emergency Medicine; Family Medicine; Admitting Provider Family Medicine; Emergency Provider Emergency Medicine; Family Provider Family Medicine; PCP Family Medicine; Referring Provider Emergency Medicine; Visit Provider Family Medicine
DX: A41.9 Sepsis, unspecified organism (principal); E10.10 Type 1 diabetes mellitus with ketoacidosis without coma; F25.0 Schizoaffective disorder, bipolar type; J45.909 Unspecified asthma, uncomplicated; I10 Essential (primary) hypertension; R11.2 Nausea with vomiting, unspecified; F12.10 Cannabis abuse, uncomplicated; F17.200 Nicotine dependence, unspecified, uncomplicated; F41.9 Anxiety disorder, unspecified; Z20.822 Contact with and (suspected) exposure to COVID-19
CPT/HCPCS: 36415; 71045; 74177; 80048; 80053; 80178; 80320; 81003; 81015; 82009; 82150; 82805; 82962; 83605; 83690; 83735; 84100; 84145; 85025; 87040; 87086; 87507; 87634; 87635; 87797; 93005; 96365; 96375; 99284; 99291; C9803; C9113; J1630; J1650; J1815; J2060; J2405; J2543; J7050; Q9967

== ENCOUNTER 2023-06-25 13:49 | Emergency (ER) | payer OTHER, MEDICAID, SELFPAY ==
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
[2023-06-25 14:05] VITALS: BP 143/94; PULSE 117; RESP 17; TEMP 36.6; O2SAT 97; BMI 26.8
[2023-06-25 14:38] LABS: UR Morphine/Opiate cutoff 300 Negative (Negative); Ur Creatinine Normal (Normal); Ur Specific Gravity Normal (Normal); Urine Amphetamines Negative (Negative); Urine Barbiturates Negative (Negative); Urine Benzodiazepines Negative (Negative); Urine Cocaine Negative (Negative); Urine MDMA Negative (Negative); Urine Methadone Negative (Negative); Urine Methamphetamines Negative (Negative); Urine Oxycodone Negative (Negative); Urine Phencyclidine Negative (Negative); Urine Tetrahydrocannabinol Positive (Negative); Urine Tricyclic Antidepressant Negative (Negative); Urine pH Normal (Normal)
[2023-06-25 14:42] LABS: Bacteria Urine None Seen; Culture Indicated Urine Cult Not Indicated; Hyaline Casts Urine 0-1/LPF; RBC Urine 0-1/HPF (0-5/HPF); Squamous Epithelial Cell Urine 0-1 /HPF (0-5/HPF); WBC Urine None Seen (0-5/HPF)
--- NOTE | 2023-06-25 15:07 | PC.NURSE ---
Spoke with provider Arturo and patient is OK to call brother. ED phone given to patient. Sitter remains at bedside. Pt is calm and cooperative.
[2023-06-25 15:08] LABS: Add Manual Diff / Slide Review NO; Basophils Absolute Auto 0 /uL (0-100); Basophils Percent Auto 0.3 % (0-2); Eosinophils Absolute Auto 0 /uL (0-450); Eosinophils Percent Auto 0.4 % (2-4); Hematocrit 47.8 % (41-53); Hemoglobin 16.6 g/dL (13.5-17.5); Lymphocytes Absolute Auto 1000 /uL (1100-4500); Lymphocytes Percent Auto 7.7 % (25-40); Mean Corpuscular HGB Conc 34.6 % (30-36); Mean Corpuscular Hemoglobin 29.9 PG (26-34); Mean Corpuscular Volume 86.3 fL (80-100); Monocytes Absolute Auto 700 /uL (0-900); Monocytes Percent Auto 5.4 % (3-14); Neutrophils Absolute Auto 11500 /uL (1500-7000); Neutrophils Percent Auto 86.2 % (50-75); Platelet Count 201 X10^3/uL (150-400); Red Blood Cell Count 5.54 X10^6/uL (4.5-5.9); White Blood Cell Count 13.3 X10^3/uL (4.5-11.0)
[2023-06-25 15:19] LABS: Lithium 0.2 mmol/L (0.6-1.2)
[2023-06-25 15:22] LABS: COVID19 -Nasal RAPID Negative (Negative)
[2023-06-25 15:24] LABS: Acetaminophen < 10 ug/mL (10-30); Alanine Aminotransferase 20 IU/L (<50); Albumin 4.5 g/dL (3.5-5.0); Albumin Globulin Ratio 1.6 (1.0-2.8); Alkaline Phosphatase 74 U/L (38-126); Aspartate Aminotransferase 22 IU/L (17-59); BUN Creatinine Ratio 14.9 (6-22); Bilirubin Total 0.8 mg/dL (0.2-1.3); Blood Urea Nitrogen 10 mg/dL (9-20); Calcium 9.5 mg/dL (8.4-10.2); Carbon Dioxide 22 mmol/L (22-32); Chloride 103 mmol/L (98-107); Estimated Glomerular Filt Rate > 60 mL/min (>60); Ethanol (ETOH) < 10 mg/dL; Globulin 2.8 g/dL (1.7-4.1); Glucose 279 mg/dL (70-100); HEMOLYSIS < 15 (0-50); Potassium 3.6 mmol/L (3.4-5.1); Salicylate < 1.0 mg/dL (<20); Sodium 136 mmol/L (137-145); Total Protein 7.3 g/dL (6.3-8.2)
--- NOTE | 2023-06-25 15:26 | PC.NURSE ---
STUDENT SERVICES ADVISOR Note - patient spoke with brother, , and a third person on the phone. Patient apologized to every person he talked to, stating the same thing at the beginning of every conversation; I just want to apologize for what I did. I don't remember any of it, but I know I fed up. Nothing was heard clearly from the people the patient talked to. patient ended the call and handed the phone back without issue.
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
[2023-06-25 15:53] LABS: Thyroid Stimulating Hormone 1.17 uIU/mL (0.47-4.68)
--- NOTE | 2023-06-25 15:55 | PC.NURSE ---
Pt insulin pump removed per policy. Pt has frequent suicical ideations of bolusing off insulin pump. Currently denying those thoughts but has had them in the past.
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
--- NOTE | 2023-06-25 16:28 | PC.NURSE ---
CIGARETTE MAKER note, Brother gloria was called @[phone] and is going to come in to visit.
--- NOTE | 2023-06-25 16:40 | PC.NURSE ---
SHIP STEWARD Note: Pt called Ex- to talk to his children, he is talking to his daughter and is apologizing to his children. Pt is calm and talking appropriately. Giving ex- an update on what is happening.
[2023-06-25] MEDS: INSULIN REGULAR 100 UNIT/ML 3 ML VIAL 15 UNIT IV (17:17)
--- NOTE | 2023-06-25 17:48 | PC.NURSE ---
HOSPITALITY DIRECTOR Note: Pt stated that he feels like hes being dicked around and also stated I want to kill myself, leave this world, not be living anymore. I sitting here makes me not want to go and get help anymore. Pt also stated that he didnt get any Rx for his disorder. I informed one of the Nurses that he would like to have his Rx so he can stay under control. RT is not doing an EKG, Pt stated that he feels like he wants to kill himself. Pt is sitting steady and is slam while getting his EKG.
[2023-06-25] MEDS: LITHIUM 150 MG IR CAPSULE 600 MG PO (18:03)
[2023-06-25] MEDS: risperiDONE 1 MG TABLET 4 MG PO (18:03)
--- NOTE | 2023-06-25 18:50 | PC.NURSE ---
Addendum entered by Gosia Kuhn CNA 06/25/23 20:44: Correction *DCR* not DCF Original Note: FOUNTAIN ROLLER ASSEMBLER Note: Pt is talking to DCF at this time
--- NOTE | 2023-06-25 19:17 | CM.SWNOTE ---
ASSET MANAGEMENT ANALYST Note ASSET MANAGEMENT ANALYST dispatches DCR, Bulmaro is assigned. Bulmaro evaluates patient and identifies that patient is voluntary and seeking voluntary treatment. ASSET MANAGEMENT ANALYST awaiting DCR report and to call hospitals. GALINA Fallon
[2023-06-25 19:22] VITALS: BP 147/86; PULSE 103; RESP 17; O2SAT 98
[2023-06-25 20:19] LABS: Creatine Kinase 85 U/L (55-170)
[2023-06-26 01:20] VITALS: BP 138/74; PULSE 82; RESP 20; TEMP 36.6; O2SAT 97
== END 2023-06-26 01:21 ==
PROVIDERS: Emergency Medicine; Emergency Provider Emergency Medicine; Family Provider Family Medicine; PCP Family Medicine
DX: F32.A Depression, unspecified (principal); R45.851 Suicidal ideations; F20.9 Schizophrenia, unspecified; E10.9 Type 1 diabetes mellitus without complications; R07.9 Chest pain, unspecified; Z20.822 Contact with and (suspected) exposure to COVID-19
CPT/HCPCS: 36415; 80053; 80178; 80305; 80320; 80329; 81003; 81015; 82550; 82962; 83735; 84443; 85025; 87635; 93005; 93010; 96374; 99284; C9803; G0480

== ENCOUNTER → 2023-07-24 08:45 | Outpatient (CLI) | payer OTHER, MEDICAID, SELFPAY ==
[2023-07-24 10:01] LABS: Hematocrit 45.1 % (41-53); Hemoglobin 15.9 g/dL (13.5-17.5); Mean Corpuscular HGB Conc 35.2 % (30-36); Mean Corpuscular Hemoglobin 29.7 PG (26-34); Mean Corpuscular Volume 84.3 fL (80-100); Platelet Count 195 X10^3/uL (150-400); Red Blood Cell Count 5.35 X10^6/uL (4.5-5.9); Red Cell Distribution Width 13.2 % (11.6-14.8); White Blood Cell Count 10.5 X10^3/uL (4.5-11.0)
[2023-07-24 10:38] LABS: Neutrophils Absolute Manual 5040 /uL (3000-5900); RBC Morphology Normal Morphology; Total Cells Counted 100
== END ==
PROVIDERS: Family Provider Family Medicine; PCP Family Medicine; Referring Provider Psychiatry & Neurology Psychiatry; Visit Provider Psychiatry & Neurology Psychiatry
DX: F25.0 Schizoaffective disorder, bipolar type (principal); Z79.899 Other long term (current) drug therapy
CPT/HCPCS: 36415; 85025

== ENCOUNTER 2023-08-01 14:24 | Emergency (ER) | payer OTHER, MEDICAID, SELFPAY ==
[2023-08-01 14:26] VITALS: BP 135/84; PULSE 113; RESP 18; TEMP 36.8; O2SAT 98; BMI 28.5
[2023-08-01 14:59] VITALS: PULSE 102; O2SAT 97
[2023-08-01 15:00] VITALS: PULSE 97; O2SAT 96
[2023-08-01] MEDS: SODIUM CHLORIDE 0.9% 1,000 ML 1000 ML IV (15:11)
[2023-08-01 15:13] LABS: Fractionated Inspired Oxygen 21; HCO3 VBG 23 mmol/L (24-28); Oxygen Saturation VBG 74 % (70-75); PO2 VBG 41 mmHg (35-45); Total CO2 VBG 24 mmol/L (24-29); pH VBG 7.37 (7.33-7.43)
[2023-08-01 15:16] LABS: Add Manual Diff / Slide Review NO; Basophils Absolute Auto 0 /uL (0-100); Basophils Percent Auto 0.6 % (0-2); Eosinophils Absolute Auto 500 /uL (0-450); Eosinophils Percent Auto 6.4 % (2-4); Hematocrit 43.3 % (41-53); Hemoglobin 15.3 g/dL (13.5-17.5); Lymphocytes Absolute Auto 900 /uL (1100-4500); Lymphocytes Percent Auto 11.9 % (25-40); Mean Corpuscular HGB Conc 35.4 % (30-36); Mean Corpuscular Hemoglobin 30.1 PG (26-34); Monocytes Absolute Auto 500 /uL (0-900); Monocytes Percent Auto 6.4 % (3-14); Neutrophils Absolute Auto 5600 /uL (1500-7000); Neutrophils Percent Auto 74.7 % (50-75); Platelet Count 185 X10^3/uL (150-400); Red Cell Distribution Width 13.2 % (11.6-14.8); White Blood Cell Count 7.5 X10^3/uL (4.5-11.0)
--- NOTE | 2023-08-01 15:16 | PC.NURSE ---
Pt is here because for the past two weeks he has not been able to check his blood sugar due to issues with getting a glucometer. Pt reports his only symptom as being thirsty. Pt denies chest pain, denies SOB, denies N&V or any pain. Pt is wearing his own insulin pump and states it is in good working order.
[2023-08-01 15:17] LABS: INR 1.1 (0.9-1.3); Prothrombin Time 12.7 SECONDS (10.1-12.7)
[2023-08-01 15:19] LABS: PTT Partial Thromboplastin Tim 29 SECONDS (26-36)
[2023-08-01 15:21] LABS: Lactate (Lactic Acid) 0.9 mmol/L (0.7-2.1)
[2023-08-01 15:22] LABS: Alanine Aminotransferase 16 IU/L (<50); Albumin Globulin Ratio 1.7 (1.0-2.8); Alkaline Phosphatase 97 U/L (38-126); Aspartate Aminotransferase 17 IU/L (17-59); BUN Creatinine Ratio 24.3 (6-22); Bilirubin Total 0.7 mg/dL (0.2-1.3); Blood Urea Nitrogen 17 mg/dL (9-20); Calcium 8.9 mg/dL (8.4-10.2); Carbon Dioxide 22 mmol/L (22-32); Chloride 100 mmol/L (98-107); Estimated Glomerular Filt Rate > 60 mL/min (>60); Globulin 2.4 g/dL (1.7-4.1); Lipase 23 U/L (23-300); Potassium 4.4 mmol/L (3.4-5.1); Sodium 131 mmol/L (137-145); Total Protein 6.4 g/dL (6.3-8.2)
[2023-08-01 15:23] LABS: Glucose 535 mg/dL (70-100)
[2023-08-01 15:30] VITALS: PULSE 98; O2SAT 98
[2023-08-01 15:40] VITALS: BP 128/92; PULSE 98; O2SAT 98
[2023-08-01 15:45] LABS: HEMOLYSIS 35 (0-50)
--- NOTE | 2023-08-01 15:47 | PC.NURSE ---
Called Dr. Evans's office, he will come and see patient @ [phone].
--- NOTE | 2023-08-01 15:48 | ED_ITS ---
HPI - General Adult General Chief complaint: Diabetic Problem Stated complaint: needs to have Blood sugar tested Time Seen by Provider: 08/01/23 15:29 Source: patient Mode of arrival: Ambulatory History of Present Illness HPI narrative: Patient here with mother. There was concern about patient not taken his medications. There has been a lot of family turmoil and stress. Patient has not been compliant with his diabetes medication. His sugars has been running high. Has increased urination and thirst. History of DKA with admissions in the past. Mother states that he is given up on trying to take care of himself. Patient states he is not trying to actually kill himself. He just no longer wants to take his medications. He does see Dr. Evans, psychiatrist for depression. He was admitted to psychiatric services in the last 2 months in [place]. No auditory or visual hallucinations. He is currently from his and has no access to his children. No nausea vomiting diarrhea. No fever chills cough cold or congestion. He states he is still using his insulin pump. Denies ingesting any substances to hurt himself. Related Data Previous Rx's Medication Instructions Recorded insulin aspart U-100 100 unit/mL 150 u SQ Q DAY #4 vials 10/24/17 subcutaneous solution (Novolog U-100 Insulin aspart) Glucose: Test Strips #1 ea 10/31/18 lisinopril 20 mg tablet 20 mg PO DAILY #60 tabs 02/27/23 buspirone 15 mg tablet 15 mg PO BID #180 tabs 03/06/23 escitalopram oxalate 10 mg tablet 10 mg PO DAILY #90 tabs 03/06/23 lithium carbonate 600 mg capsule 600 mg PO BID #180 caps 03/06/23 clozapine 200 mg tablet 200 mg PO BEDTIME #30 tabs 07/19/23 sertraline 100 mg tablet 100 mg PO DAILY #90 tabs 07/19/23 Allergies Allergy/AdvReac Type Severity Reaction Status Date / Time erythromycin base Allergy Severe Vomiting Verified 02/22/23 17:08 [From ERYTHROCIN] Latex, Natural Rubber Allergy Severe Rash Verified 02/22/23 17:08 [LATEX, NATURAL RUBBER] Review of Systems Review of Systems Narrative: GENERAL: negative chills, fatigue, malaise, fever, sweats. HEENT: negative sinus pain, ear pain, sore throat RESPIRATORY: negative dyspnea, cough CARDIOVASCULAR: negative chest pain, palpitations GASTROINTESTINAL: negative nausea, vomiting, abdominal pain : negative dysuria, frequency, hematuria, positive polyuria polydipsia MUSCULOSKELETAL: negative muscle or bony pain SKIN: negative rash, skin lesions NEUROLOGIC: negative weakness, numbness ROS Unobtainable: All systems reviewed & are unremarkable except as noted in HPI and below Patient History Medical History Schizophrenia (Unknown) Chronic cough (Unknown) ADHD (attention deficit hyperactivity disorder) (Unknown) Foot pain (Unknown) Generalized headaches (Unknown) Migraines (Unknown) Anxiety (Unknown) Bipolar disorder (Unknown) Depression (Unknown) Allergic rhinitis (Unknown) Asthma (Unknown) Type 1 diabetes (~1992) Surgical History Hx of eye surgery (12/2015) Hx of foot surgery (2003) Family History Father Age: 70 Type 2 diabetes mellitus without complication, unspecified jail insulin 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 Social History household members: spouse and children Smoking Status: Current every day smoker alcohol intake: current substance use type: marijuana Smoking Status: Current every day smoker tobacco type: cigarettes alcohol intake frequency: holidays/special occasions only Substance Use Type: marijuana Exam Narrative Exam Narrative: GENERAL: in no distress, not toxic not dyspneic HEAD: Normocephalic. EYES: Pupils equal round ENT: Mucous membranes moist. NECK: Trachea midline. CARDIOVASCULAR: Regular rate and rhythm RESPIRATORY: Clear to auscultation. Breath sounds equal bilaterally. No wheezes, rales, or rhonchi. GASTROINTESTINAL: Abdomen soft, non-tender EXTREMITIES: No gross deformities. BACK: No flank tenderness. NEURO: AOx4. SKIN: Warm and dry PSYCH: Patient is anxious. Is at times uncooperative with answering questions. No rapid speech. He is argumentative at times. Denies SI or HI. However he states he does not want to be compliant with this medications but is still taking it most of the time. Initial Vital Signs Initial Vital Signs: Vital Signs Temperature 98.3 F 08/01/23 14:26 Pulse Rate 113 H 08/01/23 14:26 Respiratory Rate 18 08/01/23 14:26 Blood Pressure 135/84 08/01/23 14:26 Pulse Oximetry 98 08/01/23 14:26 Oxygen Delivery Method Room Air 08/01/23 14:26 Course Orders Ordered: ED Orders 08/01/23 14:39 EKG-12 Lead Stat RT Consult Eval and Treat NOW 08/01/23 14:51 Venous Blood Gas Stat 08/01/23 14:53 Blood Culture Stat Complete Blood Count AUTO DIFF Stat Comprehensive Metabolic Panel Stat Ketones (Beta-Hydroxybutyrate) Stat Lactate (Lactic Acid) Stat Lipase Stat PTT Partial Thromboplastin Abelardo Stat Prothrombin Time INR Stat Discontinued Medications Sodium Chloride (Normal Saline 0.9%) 1,000 mls @ 1,000 mls/hr IV BOLUS ONE Stop: 08/01/23 15:37 Last Infusion: 08/01/23 16:01 Dose: Infused Documented By: Infusion: 08/01/23 16:01 Dose: 0 mls/hr Documented By: Admin: 08/01/23 15:11 Dose: 1,000 mls/hr Documented By: GROVER Ondansetron HCl (Ondansetron 4 Mg/2 Ml Inj) 4 mg IV NOW PRN PRN Reason: Nausea And Vomiting Ondansetron HCl (Ondansetron 4 Mg Odt) 4 mg SL NOW PRN PRN Reason: Nausea And Vomiting Vital Signs Vital signs: Vital Signs - 8 hr 08/01/23 14:26 08/01/23 14:59 08/01/23 15:00 Temperature 98.3 F Pulse Rate 113 H 102 H 97 H Respiratory Rate 18 Blood Pressure 135/84 Pulse Oximetry 98 97 96 Oxygen Delivery Method Room Air 08/01/23 15:30 08/01/23 15:40 08/01/23 15:40 Temperature Pulse Rate 98 H 98 H Respiratory Rate Blood Pressure 128/92 H Pulse Oximetry 98 98 Oxygen Delivery Method Room Air Medical Decision Making Lab Data 08/01/23 14:53 08/01/23 14:53 Labs: Lab Results 08/01/23 08/01/23 Range/Units 14:51 14:53 WBC 7.5 (4.5-11.0) X10^3/uL RBC 5.10 (4.5-5.9) X10^6/uL Hgb 15.3 (13.5-17.5) g/dL Hct 43.3 (41-53) % MCV 85.0 (80-100) fL MCH 30.1 (26-34) PG MCHC 35.4 (30-36) % RDW 13.2 (11.6-14.8) % Plt Count 185 (150-400) X10^3/uL Neut % (Auto) 74.7 (50-75) % Lymph % (Auto) 11.9 L (25-40) % [place] % (Auto) 6.4 (3-14) % Eos % (Auto) 6.4 H (2-4) % Baso % (Auto) 0.6 (0-2) % Neut # (Auto) 5600 (4014-9392) /uL Lymph # (Auto) 900 L (5066-2500) /uL [place] # (Auto) 500 (0-900) /uL Eos # (Auto) 500 H (0-450) /uL Baso # (Auto) 0 (0-100) /uL PT 12.7 (10.1-12.7) SECONDS INR 1.1 (0.9-1.3) APTT 29 (26-36) SECONDS VBG pH 7.37 (7.33-7.43) VBG pCO2 40.0 L (45-50) mmHg VBG pO2 41 (35-45) mmHg VBG HCO3 23 L (24-28) mmol/L VBG Total CO2 24 (24-29) mmol/L VBG O2 Saturation 74 (70-75) % VBG Base Excess -2.0 L (0-4) mmol/L FiO2 21 Sodium 131 L (137-145) mmol/L Potassium 4.4 (3.4-5.1) mmol/L Chloride 100 (98-107) mmol/L Carbon Dioxide 22 (22-32) mmol/L BUN 17 (9-20) mg/dL Creatinine 0.70 (0.66-1.25) mg/dL Estimated GFR > 60 (>60) mL/min BUN/Creatinine Ratio 24.3 H (6-22) Glucose 535 H* (70-100) mg/dL Lactate 0.9 (0.7-2.1) mmol/L Calcium 8.9 (8.4-10.2) mg/dL Total Bilirubin 0.7 (0.2-1.3) mg/dL AST 17 (17-59) IU/L ALT 16 (<50) IU/L Alkaline Phosphatase 97 (38-126) U/L Total Protein 6.4 (6.3-8.2) g/dL Albumin 4.0 (3.5-5.0) g/dL Globulin 2.4 (1.7-4.1) g/dL Albumin/Globulin Ratio 1.7 (1.0-2.8) Lipase 23 (23-300) U/L Ketones 0.90 H (<0.27) mmol/L MDM Narrative Medical decision making narrative: Patient here with mother. There was concern about patient not taken his medications. There has been a lot of family turmoil and stress. Patient has not been compliant with his diabetes medication. His sugars has been running high. Has increased urination and thirst. History of DKA with admissions in the past. Mother states that he is given up on trying to take care of himself. Patient states he is not trying to actually kill himself. He just no longer wants to take his medications. He does see Dr. Evans, psychiatrist for depression. He was admitted to psychiatric services in the last 2 months in [place]. No auditory or visual hallucinations. He is currently from his and has no access to his children. No nausea vomiting diarrhea. No fever chills cough cold or congestion. He states he is still using his insulin pump. Denies ingesting any substances to hurt himself. We have contact Dr. Evans. He will see patient at 4:45 p.m. today. In the emergency department. It is currently 4:01 p.m. After history and exam CBC CMP ketones IV fluids VBG psychiatric consult MDM CC: Hyperglycemia Complicating co-morbidities: Noncompliant/depression Data collected from: Patient and mother Medical records reviewed: No recent visit here for diabetic concerns. Differential considered: Includes but not limited to depression, noncompliance DKA hyperglycemia Exam documented above, pertinent findings include: Nontoxic Lab Test results independently reviewed as above. Pertinent findings: WBC 7.5 hemoglobin 15.3 VBG pH 7.37 pCO2 40 PO2 41 Sodium 131 potassium 4.4 bicarb 22 BUN 17 creatinine 0.7 GFR greater than 60 glucose 535 lactic acid 0.9 ketones 0.9 Independently reviewed EKG EKG sinus tachycardia rate [address] elevation or depression Consultations: 3:[address] Evans office staff, he will come down to the emergency department at 4:45 p.m. to see patient Treatments: Normal saline Re-evaluations: I have spoken and implored with patient to stay for balance of workup and evaluation and to speak with Dr. Elizondo. Risk of leaving against medical advice includes but not limited to permanent injury loss of limb tissue organs. Benefits include better control of his diabetes and management and also to speak with his psychiatrist. He is awake alert oriented x4. Discussion: Patient at 4:01 p.m. decided not to stay. He did sign leaving against medical advice forms. Diagnosis: Noncompliance hyperglycemia 4:[address] Winters office called us and patient came to the office see him. Dr. Evans will see him at the office now Discharge Plan Departure Patient Disposition: Left Against Medical Advice Clinical Impression: Left against medical advice, Acute hyperglycemia, Patient left care setting after refusal of treatment Instructions: Refusal of Consent to Treatment (Against Medical Advice) Activity Restrictions/Additional Instructions: Return immediately if you change your mind for further treatment and evaluation Prescriptions: No Action sertraline 100 mg tablet 100 mg PO DAILY Qty: 90 3RF clozapine 200 mg tablet 200 mg PO BEDTIME Qty: 30 3RF insulin aspart U-100 [Novolog U-100 Insulin aspart] 100 UNIT/1 ML solution 150 u SQ Q DAY Qty: 4 5RF (DME) Glucose: Test Strips 0 .Route .MEDSUPPLY Qty: 1 2RF Dose Instruction: As directed Rx Instructions: USE 1 TEST STRIP TO TEST BLOOD SUGAR 5 TIMES PER DAY buspirone 15 mg tablet 15 mg PO BID Qty: 180 3RF lithium carbonate 600 mg capsule 600 mg PO BID Qty: 180 3RF escitalopram oxalate 10 mg tablet 10 mg PO DAILY Qty: 90 3RF lisinopril 20 mg tablet 20 mg PO DAILY Qty: 60 1RF Referrals: Byron Foote MD [Primary Care Provider] - Stand Alone Forms: Patient Portal/API, Against Medical Advice
--- NOTE | 2023-08-01 15:50 | PC.NURSE ---
Pt aware that Dr. Evans is going to come over but states as soon as this IV is done I'm leaving. Verbalized understanding of dangers of leaving regarding high blood sugar and possible complications of DKA. Denies active SI/HI and is a/o x 4.
== END 2023-08-01 16:01 | disposition left against medical advice (07) ==
PROVIDERS: Emergency Provider Emergency Medicine; Family Provider Family Medicine; PCP Family Medicine
DX: E11.65 Type 2 diabetes mellitus with hyperglycemia (principal); Z53.29 Procedure and treatment not carried out because of patient's decision for other reasons; F25.0 Schizoaffective disorder, bipolar type; F41.1 Generalized anxiety disorder
CPT/HCPCS: 36415; 80053; 82009; 82805; 83605; 83690; 85025; 85610; 85730; 87040; 93005; 96360; 99215; 99284

== ENCOUNTER 2023-08-02 14:08 | Emergency (ER) | payer OTHER, MEDICAID, SELFPAY ==
[2023-08-02 14:19] VITALS: BP 127/88; RESP 18; TEMP 37.1; O2SAT 98; BMI 27.8
--- NOTE | 2023-08-02 15:29 | ED.GENADULT ---
HPI - General Adult General Chief complaint: Diabetic Problem Stated complaint: blood sugar check Time Seen by Provider: 08/02/23 14:39 Source: patient Mode of arrival: Ambulatory History of Present Illness HPI narrative: 33yoM wtih PMH T1DM presents for glucose check. Patient states that his meter is broken and he feels like his glucose might be high. Here yesterday for similar, left prior to speaking to social work. Patient states that he would like to speak to social work about getting a new glucometer. He has an appointment with his primary care physician later this afternoon. Related Data Previous Rx's Medication Instructions Recorded insulin aspart U-100 100 unit/mL 150 u SQ Q DAY #4 vials 10/24/17 subcutaneous solution (Novolog U-100 Insulin aspart) Glucose: Test Strips #1 ea 10/31/18 lisinopril 20 mg tablet 20 mg PO DAILY #60 tabs 02/27/23 buspirone 15 mg tablet 15 mg PO BID #180 tabs 03/06/23 escitalopram oxalate 10 mg tablet 10 mg PO DAILY #90 tabs 03/06/23 lithium carbonate 600 mg capsule 600 mg PO BID #180 caps 03/06/23 clozapine 200 mg tablet 200 mg PO BEDTIME #30 tabs 07/19/23 sertraline 100 mg tablet 100 mg PO DAILY #90 tabs 07/19/23 Allergies Allergy/AdvReac Type Severity Reaction Status Date / Time erythromycin base Allergy Severe Vomiting Verified 02/22/23 17:08 [From ERYTHROCIN] Latex, Natural Rubber Allergy Severe Rash Verified 02/22/23 17:08 [LATEX, NATURAL RUBBER] Review of Systems Review of Systems Narrative: Negative except as above Patient History Medical History Schizophrenia (Unknown) Chronic cough (Unknown) ADHD (attention deficit hyperactivity disorder) (Unknown) Foot pain (Unknown) Generalized headaches (Unknown) Migraines (Unknown) Anxiety (Unknown) Bipolar disorder (Unknown) Depression (Unknown) Allergic rhinitis (Unknown) Asthma (Unknown) Type 1 diabetes (~1992) Surgical History Hx of eye surgery (12/2015) Hx of foot surgery (2003) Family History Father Age: 70 Type 2 diabetes mellitus without complication, 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 Social History household members: spouse and children Smoking Status: Current every day smoker alcohol intake: current substance use type: marijuana Smoking Status: Current every day smoker tobacco type: cigarettes alcohol intake frequency: holidays/special occasions only Substance Use Type: marijuana Exam Initial Vital Signs Initial Vital Signs: Vital Signs Temperature 98.7 F 08/02/23 14:19 Respiratory Rate 18 08/02/23 14:19 Blood Pressure 127/88 08/02/23 14:19 Pulse Oximetry 98 08/02/23 14:19 Oxygen Delivery Method Room Air 08/02/23 14:19 Const: Awake, alert, no acute distress, nontoxic appearing, hygiene poor Eyes: PERRL, EOMI, conjunctiva normal ENT: Atraumatic, dentition normal, mucous membranes moist Cardiac: regular rate, regular rhythm RESP: unlabored, clear bilaterally, no wheezing GI: Atraumatic, soft, nontender, nondistended, no rebound, no guarding MSK: Atraumatic, full range of motion, pulses equal Skin: Warm, Dry, intact, no rashes Neuro: AO x3, CN II-XII grossly intact, moves all extremities Psych: affect normal, mood normal, not suicidal, not homicidal Course Course Course Narrative: Patient here for glucose check. Accu-Chek 312 in triage. Patient states that his normal glucoses are between 2 and 300, he states he does not need fluids at this time. He states that he can manage this blood sugar at home. Patient spoke to social work about glucometer resources, he will follow up with his primary care physician later this afternoon. Orders Ordered: ED Orders 08/02/23 15:37 Consult to PENOLOGY PROFESSOR - Ski Maker Stat Vital Signs Vital signs: Vital Signs - 8 hr 08/02/23 14:19 Temperature 98.7 F Respiratory Rate 18 Blood Pressure 127/88 Pulse Oximetry 98 Oxygen Delivery Method Room Air Medical Decision Making Treatment and disposition Social Determinants of Health that impact treatment or disposition: schizophrenia Discharge Plan Departure Patient Disposition: Home Clinical Impression: Diabetes mellitus with hyperglycemia Instructions: DI for Diabetes Type 1 -- Adult Prescriptions: No Action sertraline 100 mg tablet 100 mg PO DAILY Qty: 90 3RF clozapine 200 mg tablet 200 mg PO BEDTIME Qty: 30 3RF insulin aspart U-100 [Novolog U-100 Insulin aspart] 100 UNIT/1 ML solution 150 u SQ Q DAY Qty: 4 5RF (DME) Glucose: Test Strips 0 .Route .MEDSUPPLY Qty: 1 2RF Dose Instruction: As directed Rx Instructions: USE 1 TEST STRIP TO TEST BLOOD SUGAR 5 TIMES PER DAY buspirone 15 mg tablet 15 mg PO BID Qty: 180 3RF lithium carbonate 600 mg capsule 600 mg PO BID Qty: 180 3RF escitalopram oxalate 10 mg tablet 10 mg PO DAILY Qty: 90 3RF lisinopril 20 mg tablet 20 mg PO DAILY Qty: 60 1RF Referrals: Byron Foote MD [Primary Care Provider] - Stand Alone Forms: Patient Portal/API
--- NOTE | 2023-08-02 15:48 | CM.SWNOTE ---
ED [employer] Note [employer] receives consult to support patient in accessing a gluclose monitor. Patient is 33 y/o male who presents to ED due to concern for blood sugar level, patient had similar presentation yesterday but left ED AMA to go to Dr. Evans's office. Patient has hx of Schizoaffective Disorder Bipolar type, KEV and Diabetes. Patient has regular f/u with Psychiatrist Dr. Evans. [employer] enters room to meet with patient, patient presents as A/Ox4. Patient endorses that he called Dr. Foote's office and asked for a glucose monitor refill, rx was filled but patient reports that [facility] pharmacy told patient that it is not covered by insurance. Patient endorses he identified that it was covered by his insurance. Patient gives permission for [employer] to contact PCP office. [employer] calls Dr. Foote's office and confirms that mental health professional provider is informed about patient's need for refill and states that it is pending. [employer] endorses that patient is ED for high blood sugar. [employer] reviews this with patient. [employer] discusses that patient can also purchase a glucose monitor at pharmacies or on [employer] for a reasonable amount of funds. Patient states his funds are limited but he can ask his brother for help. [employer] encourages patient to f/u with pharmacy later today or tomorrow. Plan: Patient to d/c to home upon medical clearance, patient to f/u with pharmacy and PCP regarding rx. GALINA Fallon
[2023-08-02 15:55] VITALS: BP 127/88; PULSE 101; RESP 18; O2SAT 98
== END 2023-08-02 15:56 | disposition home or self-care (01) ==
PROVIDERS: Emergency Provider Emergency Medicine; Family Provider Family Medicine; PCP Family Medicine
DX: E10.65 Type 1 diabetes mellitus with hyperglycemia (principal)
CPT/HCPCS: 99281

== ENCOUNTER → 2023-08-15 10:16 | Outpatient (CLI) | payer OTHER, MEDICAID, SELFPAY ==
[2023-08-15 11:46] LABS: Add Manual Diff / Slide Review NO; Basophils Absolute Auto 0 /uL (0-100); Basophils Percent Auto 0.4 % (0-2); Eosinophils Absolute Auto 400 /uL (0-450); Eosinophils Percent Auto 6.4 % (2-4); Hematocrit 47.7 % (41-53); Hemoglobin 16.5 g/dL (13.5-17.5); Lymphocytes Absolute Auto 1800 /uL (1100-4500); Lymphocytes Percent Auto 31.5 % (25-40); Mean Corpuscular HGB Conc 34.6 % (30-36); Mean Corpuscular Hemoglobin 29.4 PG (26-34); Monocytes Absolute Auto 400 /uL (0-900); Neutrophils Absolute Auto 3000 /uL (1500-7000); Neutrophils Percent Auto 54.7 % (50-75); Platelet Count 170 X10^3/uL (150-400); Red Blood Cell Count 5.61 X10^6/uL (4.5-5.9); Red Cell Distribution Width 12.6 % (11.6-14.8); White Blood Cell Count 5.6 X10^3/uL (4.5-11.0)
[2023-08-21 06:18] LABS: Clozapine 40 ng/mL (350-600); Norclozapine 27 ng/mL (Not Estab.)
== END ==
PROVIDERS: Family Provider Family Medicine; PCP Family Medicine; Referring Provider Psychiatry & Neurology Psychiatry; Visit Provider Psychiatry & Neurology Psychiatry
DX: F25.0 Schizoaffective disorder, bipolar type (principal); Z79.899 Other long term (current) drug therapy; Z51.81 Encounter for therapeutic drug level monitoring
CPT/HCPCS: 36415; 80159; 85025

== ENCOUNTER → 2023-08-28 11:07 | Outpatient (CLI) | payer OTHER, MEDICAID, SELFPAY ==
[2023-08-28 13:34] LABS: Lithium 0.7 mmol/L (0.6-1.2)
== END ==
PROVIDERS: Family Provider Family Medicine; PCP Family Medicine; Referring Provider Psychiatry & Neurology Psychiatry; Visit Provider Psychiatry & Neurology Psychiatry
DX: Z79.899 Other long term (current) drug therapy (principal)
CPT/HCPCS: 36415; 80178

== ENCOUNTER → 2023-08-31 14:50 | Outpatient (CLI) | payer OTHER, MEDICAID, SELFPAY ==
[2023-08-31 15:41] LABS: Hemoglobin 16.3 g/dL (13.5-17.5); Mean Corpuscular HGB Conc 34.6 % (30-36); Mean Corpuscular Hemoglobin 29.9 PG (26-34); Mean Corpuscular Volume 86.3 fL (80-100); Platelet Count 170 X10^3/uL (150-400); Red Blood Cell Count 5.44 X10^6/uL (4.5-5.9); Red Cell Distribution Width 13.5 % (11.6-14.8); White Blood Cell Count 9.8 X10^3/uL (4.5-11.0)
[2023-08-31 16:46] LABS: Neutrophils Absolute Manual 8428 /uL (3000-5900); RBC Morphology Normal Morphology; Total Cells Counted 100
== END ==
PROVIDERS: Family Provider Family Medicine; PCP Family Medicine; Referring Provider Psychiatry & Neurology Psychiatry; Visit Provider Psychiatry & Neurology Psychiatry
DX: F25.0 Schizoaffective disorder, bipolar type (principal); Z79.899 Other long term (current) drug therapy
CPT/HCPCS: 36415; 85025

== ENCOUNTER → 2023-09-03 15:41 | Outpatient (CLI) | payer OTHER, MEDICAID, SELFPAY ==
[2023-09-03 17:43] LABS: Add Manual Diff / Slide Review NO; Basophils Absolute Auto 0 /uL (0-100); Basophils Percent Auto 0.3 % (0-2); Eosinophils Absolute Auto 0 /uL (0-450); Eosinophils Percent Auto 0.6 % (2-4); Hemoglobin 15.5 g/dL (13.5-17.5); Lymphocytes Absolute Auto 1000 /uL (1100-4500); Lymphocytes Percent Auto 15.1 % (25-40); Mean Corpuscular HGB Conc 35.2 % (30-36); Mean Corpuscular Volume 85.4 fL (80-100); Monocytes Absolute Auto 500 /uL (0-900); Monocytes Percent Auto 7.6 % (3-14); Neutrophils Absolute Auto 5000 /uL (1500-7000); Neutrophils Percent Auto 76.4 % (50-75); Platelet Count 167 X10^3/uL (150-400); Red Blood Cell Count 5.15 X10^6/uL (4.5-5.9); Red Cell Distribution Width 13.1 % (11.6-14.8); White Blood Cell Count 6.5 X10^3/uL (4.5-11.0)
== END ==
PROVIDERS: Family Provider Family Medicine; PCP Family Medicine; Referring Provider Psychiatry & Neurology Psychiatry; Visit Provider Psychiatry & Neurology Psychiatry
DX: F25.0 Schizoaffective disorder, bipolar type (principal); F41.1 Generalized anxiety disorder; Z79.899 Other long term (current) drug therapy
CPT/HCPCS: 36415; 85025; 99215

== ENCOUNTER → 2023-09-11 10:17 | Outpatient (CLI) | payer OTHER, MEDICAID, SELFPAY ==
[2023-09-11 11:25] LABS: Hematocrit 49.3 % (41-53); Hemoglobin 17.2 g/dL (13.5-17.5); Mean Corpuscular HGB Conc 34.9 % (30-36); Mean Corpuscular Hemoglobin 29.7 PG (26-34); Mean Corpuscular Volume 85.2 fL (80-100); Platelet Count 222 X10^3/uL (150-400); Red Blood Cell Count 5.79 X10^6/uL (4.5-5.9); Red Cell Distribution Width 13.5 % (11.6-14.8)
[2023-09-11 11:51] LABS: Neutrophils Absolute Manual 5840 /uL (3000-5900); Total Cells Counted 100
[2023-09-11 11:52] LABS: RBC Morphology Normal Morphology
== END ==
PROVIDERS: Family Provider Family Medicine; PCP Family Medicine; Referring Provider Psychiatry & Neurology Psychiatry; Visit Provider Psychiatry & Neurology Psychiatry
DX: F25.0 Schizoaffective disorder, bipolar type (principal); Z79.899 Other long term (current) drug therapy
CPT/HCPCS: 85025

== ENCOUNTER 2023-09-11 13:00 | Emergency (ER) | payer OTHER, MEDICAID, SELFPAY ==
[2023-09-11 13:38] VITALS: BP 145/70; PULSE 107; RESP 16; TEMP 37.4; O2SAT 99; BMI 25.7
--- NOTE | 2023-09-11 15:08 | PC.NURSE ---
Last tdap 04/15/2020
--- NOTE | 2023-09-11 15:12 | DI.RAD.S_ITS ---
PROCEDURE: XR FINGER RT MIN 2V INDICATIONS: laceration to DIP joint with extensor tendon injury TECHNIQUE: AP hand, 2 views of the 4th finger(s) acquired. COMPARISON: None. FINDINGS: Bones: No fractures or dislocations. No suspicious bony lesions. Fixed flexion across the DIP joint. Soft tissues: No suspicious soft tissue calcifications. IMPRESSION: Fixed flexion across the DIP joint of the 4th digit, suggestive of extensor tendon injury. Dictated by: Quinton Ceja M.D. on 09/11/2023 at 15:46 Approved by: Quinton Ceja M.D. on 09/11/2023 at 15:47
--- NOTE | 2023-09-11 15:35 | ED.UPPEXIN ---
HPI - Extremity Injury (Upper) <Sade Gomez PA-C - Last Filed: 09/11/23 19:35> General Chief Complaint: Extremity Injury, Upper Stated Complaint: cant straighten R ring finger Time Seen by Provider: 09/11/23 14:58 Source: patient Mode of arrival: Ambulatory History of Present Illness HPI narrative: Patient is a 33-year-old male who has type 1 diabetes who presents with an injury to his right 4th finger. 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 He washed the wound and covered it with a Band-Aid. He presents today because he can not fully straighten his finger and it is slightly red. He is not taken any medications for this or seen any other providers. Related Data Previous Rx's Medication Instructions Recorded insulin aspart U-100 100 unit/mL 150 u SQ Q DAY #4 vials 10/24/17 subcutaneous solution (Novolog U-100 Insulin aspart) Glucose: Test Strips #1 ea 10/31/18 lisinopril 20 mg tablet 20 mg PO DAILY #60 tabs 02/27/23 buspirone 15 mg tablet 15 mg PO BID #180 tabs 03/06/23 escitalopram oxalate 10 mg tablet 10 mg PO DAILY #90 tabs 03/06/23 clozapine 200 mg tablet 200 mg PO BEDTIME #30 tabs 07/19/23 sertraline 100 mg tablet 100 mg PO DAILY #90 tabs 07/19/23 lithium carbonate 600 mg capsule 600 mg PO BID #180 caps 09/06/23 cephalexin 500 mg capsule 500 mg PO QID #28 caps 09/11/23 Allergies Allergy/AdvReac Type Severity Reaction Status Date / Time erythromycin base Allergy Severe Vomiting Verified 09/11/23 10:13 [From ERYTHROCIN] Latex, Natural Rubber Allergy Severe Rash Verified 09/11/23 10:13 [LATEX, NATURAL RUBBER] Review of Systems <Sade Gomez PA-C - Last Filed: 09/11/23 19:35> Review of Systems ROS Unobtainable: All systems reviewed & are unremarkable except as noted in HPI and below Patient History <Sade Gomez PA-C - Last Filed: 09/11/23 19:35> Medical History Schizophrenia (Unknown) Chronic cough (Unknown) ADHD (attention deficit hyperactivity disorder) (Unknown) Foot pain (Unknown) Generalized headaches (Unknown) Migraines (Unknown) Anxiety (Unknown) Bipolar disorder (Unknown) Depression (Unknown) Allergic rhinitis (Unknown) Asthma (Unknown) Type 1 diabetes (~1992) Surgical History Hx of eye surgery (12/2015) Hx of foot surgery (2003) Family History Father Age: 71 Type 2 diabetes mellitus without complication, unspecified custodial insulin 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 Social History household members: spouse and children Smoking Status: Current every day smoker alcohol intake: current substance use type: marijuana Smoking Status: Current every day smoker tobacco type: cigarettes alcohol intake frequency: holidays/special occasions only Substance Use Type: marijuana Exam <Sade Gomez PA-C - Last Filed: 09/11/23 19:35> Narrative Exam Narrative: GENERAL: 33 year old patient appears stated age. Well-developed patient, in no distress. NEURO: AOx3. HEAD: Atraumatic. Normocephalic. EYES: Pupils equal round and reactive. Extraocular motions intact. No scleral icterus. No injection or drainage. ENT: Nose without bleeding or purulent drainage. Airway patent. RESPIRATORY: No distress. EXTREMITIES: Diffuse edema of the right 4th finger around the DIP joint. Aproximally 1 cm laceration over the DIP joint. Patient with discoloration of the skin and nails of his hand from working. Patient can not straighten the tip of his finger. He has no pain with passive motion of the finger at the PIP or PIP or MCP joint. SKIN: No rash or erythema of visible areas Initial Vital Signs Initial Vital Signs: Vital Signs Temperature 99.4 F 09/11/23 13:38 Pulse Rate 107 H 09/11/23 13:38 Respiratory Rate 16 09/11/23 13:38 Blood Pressure 145/70 H 09/11/23 13:38 Pulse Oximetry 99 09/11/23 13:38 Oxygen Delivery Method Room Air 09/11/23 13:38 <DO Sanya Catherine Last Filed: 09/12/23 10:18> Initial Vital Signs Initial Vital Signs: Vital Signs Temperature 99.4 F 09/11/23 13:38 Pulse Rate 107 H 09/11/23 13:38 Respiratory Rate 16 09/11/23 13:38 Blood Pressure 145/70 H 09/11/23 13:38 Pulse Oximetry 99 09/11/23 13:38 Oxygen Delivery Method Room Air 09/11/23 13:38 Procedures <Sade Gomez PA-C - Last Filed: 09/11/23 19:35> Laceration Repair Laceration 1: Site: hand Side (If applicable): right Size (cm): 1 Description: linear Depth: involves tendon Pre-repair: irrigated extensively (wound is edematous (3 days old), unable to visualize deep structures.) Course <Sade Gomez PA-C - Last Filed: 09/11/23 19:35> Orders Ordered: Discontinued Medications Bacitracin (Bacitracin Oint 0.9 Gm Pckt) 1 applic TOP NOW ONE Stop: 09/11/23 15:13 Last Admin: 09/11/23 15:46 Dose: 1 applic Documented By: RLS Vital Signs Vital signs: Vital Signs - 8 hr 09/11/23 13:38 09/11/23 15:58 Temperature 99.4 F Pulse Rate 107 H 107 H Respiratory Rate 16 15 Blood Pressure 145/70 H 144/83 H Pulse Oximetry 99 97 Oxygen Delivery Method Room Air Room Air <DO Sanya Catherine Last Filed: 09/12/23 10:18> Orders Ordered: Discontinued Medications Bacitracin (Bacitracin Oint 0.9 Gm Pckt) 1 applic TOP NOW ONE Stop: 09/11/23 15:13 Last Admin: 09/11/23 15:46 Dose: 1 applic Documented By: RLS Vital Signs Vital signs: Vital Signs - 8 hr 09/11/23 13:38 09/11/23 15:58 Temperature 99.4 F Pulse Rate 107 H 107 H Respiratory Rate 16 15 Blood Pressure 145/70 H 144/83 H Pulse Oximetry 99 97 Oxygen Delivery Method Room Air Room Air MDM - Extremity Injury (Upper) <Sade Gomez PA-C - Last Filed: 09/11/23 19:35> Imaging Data Extremity x-ray #1: Radiologist's Impression: PROCEDURE: XR FINGER RT MIN 2V INDICATIONS: laceration to DIP joint with extensor tendon injury TECHNIQUE: AP hand, 2 views of the 4th finger(s) acquired. COMPARISON: None. FINDINGS: Bones: No fractures or dislocations. No suspicious bony lesions. Fixed flexion across the DIP joint. Soft tissues: No suspicious soft tissue calcifications. IMPRESSION: Fixed flexion across the DIP joint of the 4th digit, suggestive of extensor tendon injury. Dictated by: Quinton Ceja M.D. on 09/11/2023 at 15:46 Approved by: Quinton Ceja M.D. on 09/11/2023 at 15:47 MDM Narrative Medical decision making narrative: Multiple etiologies for patient's symptoms considered including, but not limited to: Fracture, dislocation, infection, extensor tendon injury Physical exam consistent with extensor tendon injury. Xray without evidence of bony abnormality. Wound irrigated in ER, covered with bacitracin and DIP joint splinted. Patient's PCP office reports tetanus was updated in 03/2020. Discussed case with Dr. Watts, orthopedics, Dr. Avery. He recommended starting a week of cephalexin, splint and have patient follow up with the Orthopedics Clinic. He should call tomorrow to schedule an appointment. Patient updated over the phone with the plan. Patient's symptoms improved over duration of stay with above-stated therapies. Findings and discharge diagnosis discussed with patient/family followed by verbalization of understanding Return precautions discussed with patient/family whom verbalize understanding of diagnosis and plan Discharge Plan Departure Patient Disposition: Home Clinical Impression: Extensor tendon laceration, finger, open wound Qualifiers: Encounter type: initial encounter Qualified Code(s): S56.429A - Laceration of extensor muscle, fascia and tendon of unspecified finger at forearm level, initial encounter Instructions: DI for Finger Extensor Tendon Injury Activity Restrictions/Additional Instructions: *You have been diagnosed with an extensor tendon injury of your right 4th finger. There is no evidence of fracture on the x-ray. I would like you to take a course of antibiotics to prevent any infection. You will need to follow up with Orthopedics, and I will let you know how soon after I talked to him. I will call you this afternoon. *What to do: *Please continue to take your regular medications as directed. [x ] New medication prescriptions sent to your pharmacy: [facility] [ ] New medication written as a paper prescription [ ] No new medications given *Please follow up with your primary care provider in 2-3 days, call for an appointment. Let them know you were seen in the Emergency Department and that we ask that you be seen in follow up. We will electronically transmit a record of today's note if your PCP is in our system *If you do not have a primary care provider please contact the [facility] Resource line at [phone]. They will ask some questions about your medical history and help get you set up with a doctor in the community. *Return to Emergency Department if you should have any new, worsening or concerning symptoms, such as [fever greater than 101 F, shaking chills, worsening pain, persistent vomiting or other concerning symptoms]. Prescriptions: New cephalexin 500 mg capsule 500 mg PO QID Qty: 28 0RF No Action sertraline 100 mg tablet 100 mg PO DAILY Qty: 90 3RF clozapine 200 mg tablet 200 mg PO BEDTIME Qty: 30 3RF insulin aspart U-100 [Novolog U-100 Insulin aspart] 100 UNIT/1 ML solution 150 u SQ Q DAY Qty: 4 5RF (DME) Glucose: Test Strips 0 .Route .MEDSUPPLY Qty: 1 2RF Dose Instruction: As directed Rx Instructions: USE 1 TEST STRIP TO TEST BLOOD SUGAR 5 TIMES PER DAY buspirone 15 mg tablet 15 mg PO BID Qty: 180 3RF escitalopram oxalate 10 mg tablet 10 mg PO DAILY Qty: 90 3RF lithium carbonate 600 mg capsule 600 mg PO BID Qty: 180 1RF lisinopril 20 mg tablet 20 mg PO DAILY Qty: 60 1RF Referrals: [facility] [Provider Group] Byron Foote MD [Primary Care Provider] - Stand Alone Forms: Patient Portal/API ED Sign-out <Demetria Gallegos, - Last Filed: 09/12/23 10:18> Cosign ED Attending Daniela Attestation: I was immediately available in the department for consultation. Case was discussed plan for consultation with Orthopedic surgery, splint and follow-up. Orthopedic surgery recommendations appreciated.
[2023-09-11] MEDS: BACITRACIN OINT 0.9 GM PCKT 1 APPLIC TOP (15:46)
[2023-09-11 15:58] VITALS: BP 144/83; PULSE 107; RESP 15; O2SAT 97
== END 2023-09-11 16:03 | disposition home or self-care (01) ==
PROVIDERS: Emergency Provider Physician Assistant; Family Provider Family Medicine; PCP Family Medicine
DX: S66.324A Laceration of extensor muscle, fascia and tendon of right ring finger at wrist and hand level, initial encounter (principal); W26.8XXA Contact with other sharp object(s), not elsewhere classified, initial encounter; F25.0 Schizoaffective disorder, bipolar type; Z79.899 Other long term (current) drug therapy
CPT/HCPCS: 29130; 36415; 73140; 85025; 99283

== ENCOUNTER → 2023-09-17 10:55 | Outpatient (CLI) | payer OTHER, MEDICAID, SELFPAY ==
[2023-09-17 11:55] LABS: Hemoglobin 17.4 g/dL (13.5-17.5); Mean Corpuscular HGB Conc 34.7 % (30-36); Mean Corpuscular Hemoglobin 29.9 PG (26-34); Platelet Count 181 X10^3/uL (150-400); Red Blood Cell Count 5.81 X10^6/uL (4.5-5.9); Red Cell Distribution Width 13.4 % (11.6-14.8); White Blood Cell Count 6.4 X10^3/uL (4.5-11.0)
[2023-09-17 12:16] LABS: Neutrophils Absolute Manual 4224 /uL (3000-5900); RBC Morphology Normal Morphology; Total Cells Counted 100
== END ==
PROVIDERS: Family Provider Family Medicine; PCP Family Medicine; Referring Provider Psychiatry & Neurology Psychiatry; Visit Provider Psychiatry & Neurology Psychiatry
DX: F25.0 Schizoaffective disorder, bipolar type (principal); Z79.899 Other long term (current) drug therapy
CPT/HCPCS: 36415; 85025

== ENCOUNTER → 2023-10-02 14:39 | Outpatient (CLI) | payer OTHER, MEDICAID, SELFPAY ==
[2023-10-02 15:27] LABS: Hemoglobin A1C% w Est Avg Glu 9.3 % (4.0-6.0)
[2023-10-02 16:06] LABS: Add Manual Diff / Slide Review NO; Basophils Absolute Auto 0 /uL (0-100); Basophils Percent Auto 0.4 % (0-2); Eosinophils Absolute Auto 200 /uL (0-450); Eosinophils Percent Auto 3.1 % (2-4); Hematocrit 46.1 % (41-53); Lymphocytes Absolute Auto 1700 /uL (1100-4500); Lymphocytes Percent Auto 22.4 % (25-40); Mean Corpuscular HGB Conc 34.6 % (30-36); Mean Corpuscular Hemoglobin 29.1 PG (26-34); Mean Corpuscular Volume 84.2 fL (80-100); Monocytes Absolute Auto 400 /uL (0-900); Monocytes Percent Auto 5.1 % (3-14); Neutrophils Absolute Auto 5200 /uL (1500-7000); Platelet Count 174 X10^3/uL (150-400); Red Blood Cell Count 5.48 X10^6/uL (4.5-5.9); Red Cell Distribution Width 12.5 % (11.6-14.8); White Blood Cell Count 7.5 X10^3/uL (4.5-11.0)
== END ==
PROVIDERS: Family Provider Family Medicine; PCP Family Medicine; Referring Provider Psychiatry & Neurology Psychiatry; Visit Provider Psychiatry & Neurology Psychiatry
DX: F25.0 Schizoaffective disorder, bipolar type (principal); E66.9 Obesity, unspecified; E10.9 Type 1 diabetes mellitus without complications; F41.1 Generalized anxiety disorder; F10.21 Alcohol dependence, in remission; Z79.899 Other long term (current) drug therapy
CPT/HCPCS: 36415; 83036; 85025; 99215

== ENCOUNTER → 2023-10-08 09:10 | Outpatient (CLI) | payer OTHER, MEDICAID, SELFPAY ==
[2023-10-08 09:45] LABS: Add Manual Diff / Slide Review NO; Basophils Absolute Auto 0 /uL (0-100); Basophils Percent Auto 0.6 % (0-2); Eosinophils Absolute Auto 200 /uL (0-450); Eosinophils Percent Auto 3.2 % (2-4); Hematocrit 46.1 % (41-53); Lymphocytes Absolute Auto 1600 /uL (1100-4500); Lymphocytes Percent Auto 22.5 % (25-40); Mean Corpuscular HGB Conc 34.7 % (30-36); Mean Corpuscular Hemoglobin 29.2 PG (26-34); Mean Corpuscular Volume 84.1 fL (80-100); Monocytes Absolute Auto 500 /uL (0-900); Monocytes Percent Auto 7.1 % (3-14); Neutrophils Absolute Auto 4800 /uL (1500-7000); Neutrophils Percent Auto 66.6 % (50-75); Platelet Count 171 X10^3/uL (150-400); Red Blood Cell Count 5.48 X10^6/uL (4.5-5.9); Red Cell Distribution Width 12.7 % (11.6-14.8); White Blood Cell Count 7.2 X10^3/uL (4.5-11.0)
== END ==
PROVIDERS: Family Provider Family Medicine; PCP Family Medicine; Referring Provider Psychiatry & Neurology Psychiatry; Visit Provider Psychiatry & Neurology Psychiatry
DX: F25.0 Schizoaffective disorder, bipolar type (principal); Z79.899 Other long term (current) drug therapy
CPT/HCPCS: 36415; 85025

== ENCOUNTER → 2023-10-18 10:02 | Outpatient (CLI) | payer OTHER, MEDICAID, SELFPAY ==
[2023-10-18 10:59] LABS: Add Manual Diff / Slide Review NO; Basophils Absolute Auto 0 /uL (0-100); Basophils Percent Auto 0.4 % (0-2); Eosinophils Absolute Auto 300 /uL (0-450); Eosinophils Percent Auto 2.3 % (2-4); Hematocrit 46.6 % (41-53); Hemoglobin 16.4 g/dL (13.5-17.5); Lymphocytes Absolute Auto 1800 /uL (1100-4500); Mean Corpuscular HGB Conc 35.1 % (30-36); Mean Corpuscular Hemoglobin 29.2 PG (26-34); Mean Corpuscular Volume 83.1 fL (80-100); Monocytes Absolute Auto 700 /uL (0-900); Monocytes Percent Auto 6.4 % (3-14); Neutrophils Absolute Auto 8500 /uL (1500-7000); Neutrophils Percent Auto 74.9 % (50-75); Platelet Count 161 X10^3/uL (150-400); Red Cell Distribution Width 12.9 % (11.6-14.8); White Blood Cell Count 11.4 X10^3/uL (4.5-11.0)
== END ==
PROVIDERS: Family Provider Family Medicine; PCP Family Medicine; Referring Provider Psychiatry & Neurology Psychiatry; Visit Provider Psychiatry & Neurology Psychiatry
DX: F25.0 Schizoaffective disorder, bipolar type (principal); Z79.899 Other long term (current) drug therapy
CPT/HCPCS: 36415; 85025

== ENCOUNTER → 2023-10-24 13:22 | Outpatient (CLI) | payer OTHER, MEDICAID, SELFPAY ==
[2023-10-24 13:53] LABS: Add Manual Diff / Slide Review NO; Basophils Absolute Auto 100 /uL (0-100); Basophils Percent Auto 1.1 % (0-2); Eosinophils Absolute Auto 200 /uL (0-450); Eosinophils Percent Auto 2.5 % (2-4); Hematocrit 43.7 % (41-53); Hemoglobin 14.9 g/dL (13.5-17.5); Lymphocytes Absolute Auto 900 /uL (1100-4500); Lymphocytes Percent Auto 12.4 % (25-40); Mean Corpuscular Hemoglobin 29.1 PG (26-34); Mean Corpuscular Volume 85.8 fL (80-100); Monocytes Absolute Auto 600 /uL (0-900); Monocytes Percent Auto 8.1 % (3-14); Neutrophils Absolute Auto 5700 /uL (1500-7000); Neutrophils Percent Auto 75.9 % (50-75); Platelet Count 145 X10^3/uL (150-400); Red Cell Distribution Width 12.8 % (11.6-14.8); White Blood Cell Count 7.6 X10^3/uL (4.5-11.0)
[2023-10-26 12:37] LABS: Clozapine 77 ng/mL (350-600); Norclozapine 62 ng/mL (Not Estab.)
== END ==
PROVIDERS: Family Provider Family Medicine; PCP Family Medicine; Referring Provider Psychiatry & Neurology Psychiatry; Visit Provider Psychiatry & Neurology Psychiatry
DX: F25.0 Schizoaffective disorder, bipolar type (principal); Z79.899 Other long term (current) drug therapy
CPT/HCPCS: 36415; 80159; 85025

== ENCOUNTER → 2023-10-30 10:58 | Outpatient (CLI) | payer OTHER, MEDICAID, SELFPAY ==
[2023-11-02 11:36] LABS: Clozapine 103 ng/mL (350-600); Norclozapine 83 ng/mL (Not Estab.)
== END ==
PROVIDERS: Family Provider Family Medicine; PCP Family Medicine; Referring Provider Psychiatry & Neurology Psychiatry; Visit Provider Psychiatry & Neurology Psychiatry
DX: F25.0 Schizoaffective disorder, bipolar type (principal); Z79.899 Other long term (current) drug therapy
CPT/HCPCS: 36415; 80159

== ENCOUNTER → 2023-11-05 10:19 | Outpatient (CLI) | payer OTHER, MEDICAID, SELFPAY ==
[2023-11-07 09:52] LABS: Clozapine <20 ng/mL (350-600); Norclozapine 21 ng/mL (Not Estab.)
== END ==
PROVIDERS: Family Provider Family Medicine; PCP Family Medicine; Referring Provider Psychiatry & Neurology Psychiatry; Visit Provider Psychiatry & Neurology Psychiatry
DX: Z79.899 Other long term (current) drug therapy (principal); F25.0 Schizoaffective disorder, bipolar type
CPT/HCPCS: 36415; 80159

== ENCOUNTER → 2023-11-12 11:52 | Outpatient (CLI) | payer OTHER, MEDICAID, SELFPAY ==
[2023-11-12 13:18] LABS: UR Morphine/Opiate cutoff 300 Negative (Negative); Ur Creatinine Normal (Normal); Ur Specific Gravity Normal (Normal); Urine Amphetamines Negative (Negative); Urine Barbiturates Negative (Negative); Urine Benzodiazepines Negative (Negative); Urine Cocaine Negative (Negative); Urine MDMA Negative (Negative); Urine Methadone Negative (Negative); Urine Methamphetamines Negative (Negative); Urine Oxycodone Negative (Negative); Urine Phencyclidine Negative (Negative); Urine Tetrahydrocannabinol Positive (Negative); Urine Tricyclic Antidepressant Negative (Negative); Urine pH Normal (Normal)
[2023-11-14 11:10] LABS: Clozapine 68 ng/mL (350-600); Norclozapine 47 ng/mL (Not Estab.)
== END ==
LOC: LAB 11:55
PROVIDERS: Family Provider Family Medicine; PCP Family Medicine; Referring Provider Psychiatry & Neurology Psychiatry; Visit Provider Psychiatry & Neurology Psychiatry
DX: F25.0 Schizoaffective disorder, bipolar type (principal); Z79.899 Other long term (current) drug therapy
CPT/HCPCS: 36415; 80159; 80305

== ENCOUNTER 2023-11-14 11:52 | Emergency (ER) | payer OTHER, MEDICAID, SELFPAY ==
[2023-11-14] VITALS (8 sets, daily range): BP systolic 140–160; BP diastolic 99–106; PULSE 96–118; RESP 18–32; TEMP 36.6; O2SAT 95–100; BMI 23.7
[2023-11-14] MEDS: SODIUM CHLORIDE 0.9% 1,000 ML 1000 ML IV ×2 (12:21→14:10)
[2023-11-14 12:30] LABS: Add Manual Diff / Slide Review NO; Basophils Absolute Auto 100 /uL (0-100); Basophils Percent Auto 0.9 % (0-2); Eosinophils Absolute Auto 0 /uL (0-450); Eosinophils Percent Auto 0.1 % (2-4); Hemoglobin 16.1 g/dL (13.5-17.5); Lymphocytes Absolute Auto 1200 /uL (1100-4500); Lymphocytes Percent Auto 8.1 % (25-40); Mean Corpuscular HGB Conc 34.9 % (30-36); Mean Corpuscular Hemoglobin 28.2 PG (26-34); Mean Corpuscular Volume 80.8 fL (80-100); Monocytes Absolute Auto 1000 /uL (0-900); Neutrophils Absolute Auto 12000 /uL (1500-7000); Neutrophils Percent Auto 83.9 % (50-75); Platelet Count 275 X10^3/uL (150-400); Red Cell Distribution Width 13.2 % (11.6-14.8); White Blood Cell Count 14.3 X10^3/uL (4.5-11.0)
[2023-11-14 12:46] LABS: Alanine Aminotransferase 24 IU/L (<50); Albumin 4.5 g/dL (3.5-5.0); Albumin Globulin Ratio 1.4 (1.0-2.8); Alkaline Phosphatase 119 U/L (38-126); Aspartate Aminotransferase 31 IU/L (17-59); Bilirubin Total 1.3 mg/dL (0.2-1.3); Blood Urea Nitrogen 22 mg/dL (9-20); Calcium 9.8 mg/dL (8.4-10.2); Carbon Dioxide 24 mmol/L (22-32); Chloride 96 mmol/L (98-107); Estimated Glomerular Filt Rate > 60 mL/min (>60); Globulin 3.3 g/dL (1.7-4.1); Glucose 216 mg/dL (70-100); HEMOLYSIS 18 (0-50); Potassium 3.7 mmol/L (3.4-5.1); Sodium 135 mmol/L (137-145); Total Protein 7.8 g/dL (6.3-8.2)
[2023-11-14] MEDS: ONDANSETRON 4 MG/2 ML INJ IV (12:54)
--- NOTE | 2023-11-14 13:30 | ED_ITS ---
HPI - General Adult General Chief complaint: Diabetic Problem Stated complaint: Vomiting, High blood sugare Time Seen by Provider: 11/14/23 12:07 Source: patient Mode of arrival: Ambulatory History of Present Illness HPI narrative: 33-year-old male with history of type 1 diabetes, schizophrenia presents for vomiting since yesterday and a little blood sugars. Patient states that last night he smoked a large amount of methamphetamines, and today he feels overall poorly. He is concerned that he may go into DKA. He states that he would high blood sugars at home because he would run out of his insulin, but found additional supplies and his blood sugar in triage was 205. Patient denies suicidal or homicidal ideation. Related Data Previous Rx's Medication Instructions Recorded insulin aspart U-100 100 unit/mL 150 u SQ Q DAY #4 vials 10/24/17 subcutaneous solution (Novolog U-100 Insulin aspart) Glucose: Test Strips #1 ea 10/31/18 lisinopril 20 mg tablet 20 mg PO DAILY #60 tabs 02/27/23 buspirone 15 mg tablet 15 mg PO BID #180 tabs 03/06/23 escitalopram oxalate 10 mg tablet 10 mg PO DAILY #90 tabs 03/06/23 clozapine 200 mg tablet 200 mg PO BEDTIME #30 tabs 07/19/23 sertraline 100 mg tablet 100 mg PO DAILY #90 tabs 07/19/23 lithium carbonate 600 mg capsule 600 mg PO BID #180 caps 09/06/23 cephalexin 500 mg capsule 500 mg PO QID #28 caps 09/11/23 trazodone 50 mg tablet 50 mg PO BEDTIME PRN sleep #30 tabs 10/02/23 ondansetron 4 mg disintegrating 4 mg PO Q8H PRN nausea and 11/14/23 tablet vomiting #30 tabs Allergies Allergy/AdvReac Type Severity Reaction Status Date / Time Latex, Natural Rubber Allergy Severe Rash Verified 11/13/23 11:06 [LATEX, NATURAL RUBBER] erythromycin base AdvReac Severe Vomiting Verified 11/14/23 12:10 [From ERYTHROCIN] Review of Systems Review of Systems Narrative: Negative except as noted above Patient History Medical History Schizophrenia (Unknown) Chronic cough (Unknown) ADHD (attention deficit hyperactivity disorder) (Unknown) Foot pain (Unknown) Generalized headaches (Unknown) Migraines (Unknown) Anxiety (Unknown) Bipolar disorder (Unknown) Depression (Unknown) Allergic rhinitis (Unknown) Asthma (Unknown) Type 1 diabetes (~1992) Surgical History Hx of eye surgery (12/2015) Hx of foot surgery (2003) Family History Father Age: 71 Type 2 diabetes mellitus without complication, unspecified care home insulin 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 Social History household members: spouse and children Smoking Status: Current every day smoker alcohol intake: current substance use type: marijuana Smoking Status: Current every day smoker tobacco type: cigarettes and vaping alcohol intake frequency: a few times a week Substance Use Type: marijuana, opiates and methamphetamine Exam Initial Vital Signs Initial Vital Signs: Vital Signs Temperature 97.8 F 11/14/23 11:54 Pulse Rate 118 H 11/14/23 11:54 Respiratory Rate 18 11/14/23 11:54 Blood Pressure 160/106 H 11/14/23 11:54 Pulse Oximetry 100 11/14/23 11:54 Oxygen Delivery Method Room Air 11/14/23 11:54 Const: Awake, alert, no acute distress, appears chronically unwell, hygiene poor Cardiac: regular rate, regular rhythm RESP: unlabored, clear bilaterally, no wheezing GI: Atraumatic, soft, nontender, nondistended, no rebound, no guarding MSK: Atraumatic, full range of motion, pulses equal Skin: Warm, Dry, intact, no rashes Neuro: AO x3, CN II-XII grossly intact, moves all extremities Psych: affect normal, mood normal, not suicidal, not homicidal Course Orders Ordered: Discontinued Medications Sodium Chloride (Normal Saline 0.9%) 1,000 mls @ 1,000 mls/hr IV BOLUS ONE Stop: 11/14/23 13:06 Last Infusion: 11/14/23 13:36 Dose: Infused Documented By: Admin: 11/14/23 12:21 Dose: 1,000 mls/hr Documented By: EMPERATRIZ Sodium Chloride (Normal Saline 0.9%) 1,000 mls @ 1,000 mls/hr IV BOLUS ONE Stop: 11/14/23 14:44 Last Infusion: 11/14/23 15:17 Dose: Infused Documented By: Admin: 11/14/23 14:10 Dose: 1,000 mls/hr Documented By: EMPERATRIZ Ondansetron HCl (Ondansetron 4 Mg/2 Ml Inj) 4 mg IV NOW PRN PRN Reason: Nausea And Vomiting Last Admin: 11/14/23 12:54 Dose: 4 mg Documented By: EVANGELISTA Vital Signs Vital signs: Vital Signs - 8 hr 11/14/23 11:54 11/14/23 12:16 11/14/23 12:17 Temperature 97.8 F Pulse Rate 118 H 96 H Respiratory Rate 18 Blood Pressure 160/106 H 140/99 H Pulse Oximetry 100 98 Oxygen Delivery Method Room Air 11/14/23 12:17 11/14/23 12:30 Temperature Pulse Rate 101 H 97 H Respiratory Rate Blood Pressure Pulse Oximetry 98 99 Oxygen Delivery Method Medical Decision Making Lab Data 11/14/23 12:10 11/14/23 12:10 Labs: Lab Results 11/14/23 11/14/23 11/14/23 Range/Units 12:10 12:41 12:48 WBC 14.3 H (4.5-11.0) X10^3/uL RBC 5.70 (4.5-5.9) X10^6/uL Hgb 16.1 (13.5-17.5) g/dL Hct 46.0 (41-53) % MCV 80.8 (80-100) fL MCH 28.2 (26-34) PG MCHC 34.9 (30-36) % RDW 13.2 (11.6-14.8) % Plt Count 275 (150-400) X10^3/uL Neut % (Auto) 83.9 H (50-75) % Lymph % (Auto) 8.1 L (25-40) % White % (Auto) 7.0 (3-14) % Eos % (Auto) 0.1 L (2-4) % Baso % (Auto) 0.9 (0-2) % Neut # (Auto) 18349 H (6741-5803) /uL Lymph # (Auto) 1200 (6310-2578) /uL White # (Auto) 1000 H (0-900) /uL Eos # (Auto) 0 (0-450) /uL Baso # (Auto) 100 (0-100) /uL VBG pH 7.43 (7.33-7.43) VBG pCO2 37.0 L (45-50) mmHg VBG pO2 17 L (35-45) mmHg VBG HCO3 25 (24-28) mmol/L VBG Total CO2 26 (24-29) mmol/L VBG O2 Saturation 26 L (70-75) % VBG Base Excess 0.0 (0-4) mmol/L Sodium 135 L (137-145) mmol/L Potassium 3.7 (3.4-5.1) mmol/L Chloride 96 L (98-107) mmol/L Carbon Dioxide 24 (22-32) mmol/L BUN 22 H (9-20) mg/dL Creatinine 0.71 (0.66-1.25) mg/dL Estimated GFR > 60 (>60) mL/min BUN/Creatinine Ratio 31.0 H (6-22) Glucose 216 H (70-100) mg/dL Calcium 9.8 (8.4-10.2) mg/dL Total Bilirubin 1.3 (0.2-1.3) mg/dL AST 31 (17-59) IU/L ALT 24 (<50) IU/L Alkaline Phosphatase 119 (38-126) U/L Total Creatine Kinase 334 H (55-170) U/L Total Protein 7.8 (6.3-8.2) g/dL Albumin 4.5 (3.5-5.0) g/dL Globulin 3.3 (1.7-4.1) g/dL Albumin/Globulin Ratio 1.4 (1.0-2.8) Ketones 2.60 H (<0.27) mmol/L SARS-CoV-2 (PCR) Negative (Negative) Influenza A (RT-PCR) Flu a negative (NEGATIVE) Influenza B (RT-PCR) Flu b negative (NEGATIVE) RSV (PCR) Negative (Negative) [facility] Narrative Medical decision making narrative: Nausea, vomiting, general malaise after smoking methamphetamines. VBG shows pH 7.4, patient is not in DKA. Mild elevation of ketones, this can be seen in dehydration following vomiting. Abdomen soft, at this time no indication for advanced imaging. Patient was given 2 L of IV fluids, antiemetics with improvement in symptoms. Anti-emetics sent to pharmacy of choice. Discharge Plan Departure Patient Disposition: Home Clinical Impression: Nausea and vomiting Instructions: DI for Diabetes Type 1 -- Adult, DI for Viral Syndrome Prescriptions: New ondansetron 4 mg tablet,disintegrating 4 mg PO Q8H PRN (Reason: nausea and vomiting) Qty: 30 0RF No Action sertraline 100 mg tablet 100 mg PO DAILY Qty: 90 3RF clozapine 200 mg tablet 200 mg PO BEDTIME Qty: 30 3RF trazodone 50 mg tablet 50 mg PO BEDTIME PRN (Reason: sleep) Qty: 30 3RF insulin aspart U-100 [Novolog U-100 Insulin aspart] 100 UNIT/1 ML solution 150 u SQ Q DAY Qty: 4 5RF (DME) Glucose: Test Strips 0 .Route .MEDSUPPLY Qty: 1 2RF Dose Instruction: As directed Rx Instructions: USE 1 TEST STRIP TO TEST BLOOD SUGAR 5 TIMES PER DAY buspirone 15 mg tablet 15 mg PO BID Qty: 180 3RF escitalopram oxalate 10 mg tablet 10 mg PO DAILY Qty: 90 3RF lithium carbonate 600 mg capsule 600 mg PO BID Qty: 180 1RF lisinopril 20 mg tablet 20 mg PO DAILY Qty: 60 1RF cephalexin 500 mg capsule 500 mg PO QID Qty: 28 0RF Referrals: Byron Foote MD [Primary Care Provider] - Stand Alone Forms: Patient Portal/API
[2023-11-14 13:34] LABS: Influenza A - CEPHEID Flu A NEGATIVE (NEGATIVE); Influenza B - CEPHEID Flu B NEGATIVE (NEGATIVE); Respiratory Syncytial Virus Negative (Negative)
[2023-11-14 13:35] LABS: COVID-19 CEPHEID 4-PLEX PCR Negative (Negative)
[2023-11-14 13:59] LABS: Creatine Kinase 334 U/L (55-170)
[2023-11-14 15:47] LABS: HCO3 VBG 25 mmol/L (24-28); Oxygen Saturation VBG 26 % (70-75); PO2 VBG 17 mmHg (35-45); Total CO2 VBG 26 mmol/L (24-29); pH VBG 7.43 (7.33-7.43)
== END 2023-11-14 15:55 | disposition home or self-care (01) ==
PROVIDERS: Emergency Provider Emergency Medicine; Family Provider Family Medicine; PCP Family Medicine
DX: R11.2 Nausea with vomiting, unspecified (principal); E10.9 Type 1 diabetes mellitus without complications; Z79.899 Other long term (current) drug therapy; Z20.822 Contact with and (suspected) exposure to COVID-19
CPT/HCPCS: 0241U; 36415; 80048; 80053; 81003; 81015; 82009; 82550; 82805; 82962; 83735; 85025; 93005; 96361; 96374; 96375; 99284; C9113; J2405

== ENCOUNTER 2023-11-14 19:09 | Emergency (ER) | payer OTHER, MEDICAID, SELFPAY ==
--- NOTE | 2023-11-14 19:12 | ED.GENADULT ---
HPI - General Adult General Chief complaint: Nausea/Vomiting/Diarrhea Stated complaint: unable to keep anything down Time Seen by Provider: 11/14/23 19:12 History of Present Illness HPI narrative: 33-year-old male smoker and type 1 diabetic returns to the emergency department for the 2nd time today with recurrent nausea and vomiting. He states that he smoked methamphetamines for the 1st time 2 days ago and has had extensive episodes of vomiting in the aftermath. He had been seen and evaluated earlier today with reassuring workup and response to therapies but was unable to mixing picker tender his prescription for antiemetics at the pharmacy. He returns stating that he is continued to vomit. He denies dizziness, weakness or lightheadedness. He has no fever or chills. Denies chest pain, shortness of breath nor abdominal pain. He has no diarrhea or constipation nor any urinary complaints such as dysuria, frequency or urgency. He denies any change in his diabetic regimen nor missed doses of his meds. Related Data Previous Rx's Medication Instructions Recorded insulin aspart U-100 100 unit/mL 150 u SQ Q DAY #4 vials 10/24/17 subcutaneous solution (Novolog U-100 Insulin aspart) Glucose: Test Strips #1 ea 10/31/18 lisinopril 20 mg tablet 20 mg PO DAILY #60 tabs 02/27/23 buspirone 15 mg tablet 15 mg PO BID #180 tabs 03/06/23 escitalopram oxalate 10 mg tablet 10 mg PO DAILY #90 tabs 03/06/23 clozapine 200 mg tablet 200 mg PO BEDTIME #30 tabs 07/19/23 sertraline 100 mg tablet 100 mg PO DAILY #90 tabs 07/19/23 lithium carbonate 600 mg capsule 600 mg PO BID #180 caps 09/06/23 cephalexin 500 mg capsule 500 mg PO QID #28 caps 09/11/23 trazodone 50 mg tablet 50 mg PO BEDTIME PRN sleep #30 tabs 10/02/23 ondansetron 4 mg disintegrating 4 mg PO Q8H PRN nausea and 11/14/23 tablet vomiting #30 tabs Allergies Allergy/AdvReac Type Severity Reaction Status Date / Time Latex, Natural Rubber Allergy Severe Rash Verified 11/13/23 11:06 [LATEX, NATURAL RUBBER] erythromycin base AdvReac Severe Vomiting Verified 11/14/23 12:10 [From ERYTHROCIN] Review of Systems Review of Systems Narrative: GENERAL: Denies chills, fatigue, malaise, fever, sweats. HEENT: Denies sinus pain, ear pain, sore throat, difficulty swallowing, dizziness. RESPIRATORY: Denies dyspnea, cough, wheezing, hemoptysis, sputum. CARDIOVASCULAR: Denies chest pain, palpitations, orthopnea, edema, GASTROINTESTINAL: see HPI : Denies dysuria, frequency, incontinence, hematuria, urinary retention. MUSCULOSKELETAL: denies weakness, joint pain, or bony pain SKIN: Denies rash, skin lesions, or other NEUROLOGIC: Denies weakness, headache, numbness, change in speech, confusion, seizures, incoordination. PSYCHIATRIC: No concerning psychosocial issues. 12 point review of systems is negative except for those stated above Patient History Medical History Schizophrenia (Unknown) Chronic cough (Unknown) ADHD (attention deficit hyperactivity disorder) (Unknown) Foot pain (Unknown) Generalized headaches (Unknown) Migraines (Unknown) Anxiety (Unknown) Bipolar disorder (Unknown) Depression (Unknown) Allergic rhinitis (Unknown) Asthma (Unknown) Type 1 diabetes (~1992) Surgical History Hx of eye surgery (12/2015) Hx of foot surgery (2003) Family History Father Age: 71 Type 2 diabetes mellitus without complication, unspecified group home insulin 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 Social History household members: spouse and children Smoking Status: Current every day smoker alcohol intake: current substance use type: marijuana Smoking Status: Current every day smoker tobacco type: cigarettes and vaping alcohol intake frequency: a few times a week Substance Use Type: marijuana, opiates and methamphetamine Exam Narrative Exam Narrative: GENERAL: [33] year old patient appears stated age. Well-developed patient, in mild distress, holding an emesis bag, dry heaving HEAD: Atraumatic. Normocephalic. EYES: Pupils equal round and reactive. Extraocular motions intact. No scleral icterus. No injection or drainage. ENT: Nose without bleeding, purulent drainage. Throat without erythema, tonsillar hypertrophy or exudate. Airway patent. NECK: Trachea midline. Non tender CARDIOVASCULAR: Regular rate and rhythm without murmurs, gallops, or rubs. RESPIRATORY: Clear to auscultation. Breath sounds equal bilaterally. No wheezes, rales, or rhonchi. GASTROINTESTINAL: Abdomen soft, non-tender, nondistended. EXTREMITIES: No edema or joint tenderness. BACK: Nontender without deformity or crepitance. No flank tenderness. NEURO: AOx3. SKIN: No rash or erythema of visible areas Initial Vital Signs Initial Vital Signs: Vital Signs Temperature 98.5 F 11/14/23 19:17 Pulse Rate 117 H 11/14/23 19:17 Respiratory Rate 20 11/14/23 19:17 Blood Pressure 170/93 H 11/14/23 19:17 Pulse Oximetry 98 11/14/23 19:17 Oxygen Delivery Method Room Air 11/14/23 19:17 Course Orders Ordered: ED Orders 11/14/23 19:31 VBG [Venous Blood Gas] Stat 11/14/23 19:34 Basic Metabolic Panel Stat Magnesium Stat 11/14/23 20:08 Urine Microscopic Stat Discontinued Medications Lactated Ringer's (Lactated Ringers) 1,000 mls @ 1,000 mls/hr IV BOLUS ONE Stop: 11/14/23 20:15 Last Infusion: 11/14/23 20:00 Dose: Infused Documented By: Admin: 11/14/23 19:39 Dose: 1,000 mls/hr Documented By: JAMAL Ondansetron HCl (Ondansetron 4 Mg/2 Ml Inj) 4 mg IV NOW ONE Stop: 11/14/23 19:17 Last Admin: 11/14/23 19:38 Dose: 4 mg Documented By: JAMAL Ondansetron HCl (Ondansetron 4 Mg Odt Prepack) 1 bottle MISC DIRECTED ONE Stop: 11/14/23 20:18 Last Admin: 11/14/23 20:24 Dose: 1 bottle Documented By: JAMAL Pantoprazole Sodium (Pantoprazole 40 Mg Vial) 40 mg IV NOW ONE Stop: 11/14/23 19:17 Last Admin: 11/14/23 19:38 Dose: 40 mg Documented By: JAMAL Vital Signs Vital signs: Vital Signs - 8 hr 11/14/23 19:17 11/14/23 19:42 11/14/23 20:00 Temperature 98.5 F Pulse Rate 117 H 96 H 96 H Respiratory Rate 20 18 Blood Pressure 170/93 H Pulse Oximetry 98 99 99 Oxygen Delivery Method Room Air 11/14/23 20:29 Temperature Pulse Rate 78 Respiratory Rate 19 Blood Pressure 175/98 H Pulse Oximetry 98 Oxygen Delivery Method Room Air Medical Decision Making Lab Data 11/14/23 19:34 Labs: Lab Results 11/14/23 11/14/23 11/14/23 Range/Units 19:31 19:34 20:08 VBG pH 7.41 (7.33-7.43) VBG pCO2 32.5 L (45-50) mmHg VBG pO2 35 (35-45) mmHg VBG HCO3 21 L (24-28) mmol/L VBG Total CO2 21 L (24-29) mmol/L VBG O2 Saturation 68 L (70-75) % VBG Base Excess -4.0 L (0-4) mmol/L Sodium 138 (137-145) mmol/L Potassium 3.5 (3.4-5.1) mmol/L Chloride 102 (98-107) mmol/L Carbon Dioxide 22 (22-32) mmol/L BUN 19 (9-20) mg/dL Creatinine 0.71 (0.66-1.25) mg/dL Estimated GFR > 60 (>60) mL/min BUN/Creatinine Ratio 26.8 H (6-22) Glucose 106 H D (70-100) mg/dL Calcium 9.9 (8.4-10.2) mg/dL Magnesium 1.9 (1.6-2.3) mg/dL Urine RBC 0-1/hpf (0-5/HPF) Urine WBC 0-1/hpf (0-5/HPF) Ur Squamous Epith Cells None seen (0-5/HPF) Urine Bacteria Occasional (0-1) (None) Urine Mucus 2+ H (Negative) Ur Culture Indicated? Cult not indicated Vol Urine Centrifuged 10ml (spun) Point of Care Testing Glucose POC 101 Urine Dip Bedside Urine Glucose Negative Bedside Urine Bilirubin - Negative Bedside Urine Ketone ++ 40 Urine Specific [place] 1.03 Bedside Urine Occult Blood - Negative Bedside Urine pH 5.5 Bedside Urine Protein ++ 100 Bedside Urine Urobilinogen - Negative Bedside Urine Nitrite - Negative Bedside Urine Leukocytes - Negative Esterase Point of care testing: Point of Care Testing Glucose POC 101 Urine Dip Bedside Urine Glucose Negative Bedside Urine Bilirubin - Negative Bedside Urine Ketone ++ 40 Urine Specific [place] 1.03 Bedside Urine Occult Blood - Negative Bedside Urine pH 5.5 Bedside Urine Protein ++ 100 Bedside Urine Urobilinogen - Negative Bedside Urine Nitrite - Negative Bedside Urine Leukocytes - Negative Esterase MDM Narrative Medical decision making narrative: CC: 33-year-old male diabetic with repeat visit for nausea vomiting Complicating co-morbidities: Diabetes, repeat visit, methamphetamine use Data collected from: Patient Medical records reviewed: Prior notes reviewed in our EMR Differential considered, but not limited to: DKA vs. viral GE vs. bowel obstruction vs. other Exam documented above, pertinent findings include: Patient is slightly tachycardic on arrival, lungs clear, abdomen is soft and nontender. Mucous membranes moist Lab Test results independently reviewed as above. Pertinent findings: VBG reassuring and notes pH 7.408 with bicarb of 20.5 Treatments: Fluids, Protonix, Zofran Re-evaluations: Patient no longer vomiting, tolerating orals Discussion: Patient returns with chief complaint of nausea and vomiting. He has no pain, no fever or chills and reassuring vitals. Labs are repeated, no signs of DKA, VBG shows a pH of 7 point 4. No anion gap. Electrolytes otherwise within normal. Above-stated therapies given patient has remarkable improvement in his tolerating orals. He is appropriate for discharge, sent home with a prepack of Zofran. Considered imaging but given resolution of symptoms and no pain we elect to hold off. Disposition: see below, along with detailed discharge instructions that have been reviewed with patient as well as indications for ED re-evaluation and additional outpatient follow up Discharge Plan Departure Patient Disposition: Home Clinical Impression: Nausea and vomiting Instructions: DI for Dehydration -- Adult, Nausea and Vomiting-Adult Activity Restrictions/Additional Instructions: *You have been diagnosed with [nausea and vomiting] * As we discussed your history and physical exam as well as labs are very reassuring. There is no evidence of any severe diagnoses that would require a specific or immediate intervention. *What to do: *Please continue to take your regular medications as directed. *Please follow up with your primary care provider in 2-3 days, call for an appointment. Let them know you were seen in the Emergency Department and that we ask that you be seen in follow up. We will electronically transmit a record of today's note if your PCP is in our system *Please consider a clear liquid diet for the next 24-48 hours and then slowly advance to regular as tolerated. Also, try to avoid alcohol, nicotine, caffeine, spicy, acidic or fatty foods as this may worsen your symptoms *Return to Emergency Department if you should have any new, worsening or concerning symptoms, such as [fever greater than 101 F, shaking chills, worsening pain, persistent vomiting or other bothersome symptoms] Prescriptions: No Action sertraline 100 mg tablet 100 mg PO DAILY Qty: 90 3RF clozapine 200 mg tablet 200 mg PO BEDTIME Qty: 30 3RF trazodone 50 mg tablet 50 mg PO BEDTIME PRN (Reason: sleep) Qty: 30 3RF insulin aspart U-100 [Novolog U-100 Insulin aspart] 100 UNIT/1 ML solution 150 u SQ Q DAY Qty: 4 5RF (DME) Glucose: Test Strips 0 .Route .MEDSUPPLY Qty: 1 2RF Dose Instruction: As directed Rx Instructions: USE 1 TEST STRIP TO TEST BLOOD SUGAR 5 TIMES PER DAY buspirone 15 mg tablet 15 mg PO BID Qty: 180 3RF escitalopram oxalate 10 mg tablet 10 mg PO DAILY Qty: 90 3RF lithium carbonate 600 mg capsule 600 mg PO BID Qty: 180 1RF ondansetron 4 mg tablet,disintegrating 4 mg PO Q8H PRN (Reason: nausea and vomiting) Qty: 30 0RF lisinopril 20 mg tablet 20 mg PO DAILY Qty: 60 1RF cephalexin 500 mg capsule 500 mg PO QID Qty: 28 0RF Referrals: Byron Foote MD [Primary Care Provider] - Stand Alone Forms: Patient Portal/API
[2023-11-14 19:17] VITALS: BP 170/93; PULSE 117; RESP 20; TEMP 36.9; O2SAT 98; BMI 24.8
[2023-11-14] MEDS: PANTOPRAZOLE 40 MG VIAL IV (19:38)
[2023-11-14] MEDS: ONDANSETRON 4 MG/2 ML INJ IV (19:38)
[2023-11-14] MEDS: LACTATED RINGERS 1,000 ML 1000 ML IV (19:39)
[2023-11-14 19:42] VITALS: PULSE 96; O2SAT 99
[2023-11-14 19:48] LABS: PCO2 VBG 32.5 mmHg (45-50); pH VBG 7.41 (7.33-7.43)
[2023-11-14 19:49] LABS: HCO3 VBG 21 mmol/L (24-28); Oxygen Saturation VBG 68 % (70-75); PO2 VBG 35 mmHg (35-45); Total CO2 VBG 21 mmol/L (24-29)
[2023-11-14 19:57] LABS: BUN Creatinine Ratio 26.8 (6-22); Blood Urea Nitrogen 19 mg/dL (9-20); Calcium 9.9 mg/dL (8.4-10.2); Carbon Dioxide 22 mmol/L (22-32); Chloride 102 mmol/L (98-107); Estimated Glomerular Filt Rate > 60 mL/min (>60); Glucose 106 mg/dL (70-100); HEMOLYSIS < 15 (0-50); Magnesium 1.9 mg/dL (1.6-2.3); Potassium 3.5 mmol/L (3.4-5.1); Sodium 138 mmol/L (137-145)
[2023-11-14 20:00] VITALS: PULSE 96; RESP 18; O2SAT 99
[2023-11-14 20:16] LABS: Urine Volume 10mL (spun)
[2023-11-14] MEDS: ONDANSETRON 4 MG ODT PREPACK 1 BOTTLE MISC (20:24)
[2023-11-14 20:29] VITALS: BP 175/98; PULSE 78; RESP 19; O2SAT 98
[2023-11-14 20:34] LABS: Bacteria Urine Occasional (0-1); RBC Urine 0-1/HPF (0-5/HPF); WBC Urine 0-1/HPF (0-5/HPF)
[2023-11-14 20:35] LABS: Culture Indicated Urine Cult Not Indicated; Mucus Urine 2+ (Negative); Squamous Epithelial Cell Urine None Seen (0-5/HPF)
== END 2023-11-14 20:31 | disposition home or self-care (01) ==
PROVIDERS: Emergency Provider Emergency Medicine; Family Provider Family Medicine; PCP Family Medicine
DX: R11.2 Nausea with vomiting, unspecified (principal); Z79.899 Other long term (current) drug therapy
CPT/HCPCS: 36415; 80048; 81003; 81015; 82805; 82962; 83735; 96374; 96375; 99284; C9113; J2405

== ENCOUNTER 2023-11-15 17:10 | Emergency (ER) | payer OTHER, MEDICAID, SELFPAY ==
[2023-11-15 17:15] VITALS: BP 149/90; PULSE 97; RESP 15; TEMP 36.7; O2SAT 98; BMI 23.7
[2023-11-15 17:35] LABS: UR Morphine/Opiate cutoff 300 Negative (Negative); Ur Creatinine Normal (Normal); Ur Specific Gravity Normal (Normal); Urine Amphetamines Positive (Negative); Urine Barbiturates Negative (Negative); Urine Benzodiazepines Negative (Negative); Urine Cocaine Negative (Negative); Urine MDMA Negative (Negative); Urine Methadone Negative (Negative); Urine Methamphetamines Positive (Negative); Urine Oxycodone Negative (Negative); Urine Phencyclidine Negative (Negative); Urine Tetrahydrocannabinol Positive (Negative); Urine Tricyclic Antidepressant Negative (Negative); Urine pH Normal (Normal)
[2023-11-15 17:38] LABS: Urine Volume 10mL (spun)
[2023-11-15 17:55] LABS: Add Manual Diff / Slide Review NO; Basophils Absolute Auto 0 /uL (0-100); Basophils Percent Auto 0.4 % (0-2); Eosinophils Absolute Auto 0 /uL (0-450); Eosinophils Percent Auto 0.4 % (2-4); Hematocrit 41.7 % (41-53); Hemoglobin 14.7 g/dL (13.5-17.5); Lymphocytes Absolute Auto 1200 /uL (1100-4500); Mean Corpuscular HGB Conc 35.1 % (30-36); Mean Corpuscular Hemoglobin 28.3 PG (26-34); Mean Corpuscular Volume 80.5 fL (80-100); Monocytes Absolute Auto 800 /uL (0-900); Monocytes Percent Auto 7.8 % (3-14); Neutrophils Absolute Auto 8200 /uL (1500-7000); Neutrophils Percent Auto 79.4 % (50-75); Platelet Count 230 X10^3/uL (150-400); Red Blood Cell Count 5.18 X10^6/uL (4.5-5.9); White Blood Cell Count 10.3 X10^3/uL (4.5-11.0)
[2023-11-15 18:11] LABS: Acetaminophen < 10 ug/mL (10-30); Alanine Aminotransferase 26 IU/L (<50); Albumin 3.8 g/dL (3.5-5.0); Albumin Globulin Ratio 1.4 (1.0-2.8); Alkaline Phosphatase 86 U/L (38-126); Aspartate Aminotransferase 35 IU/L (17-59); BUN Creatinine Ratio 14.7 (6-22); Bilirubin Total 0.8 mg/dL (0.2-1.3); Blood Urea Nitrogen 10 mg/dL (9-20); Calcium 9.2 mg/dL (8.4-10.2); Carbon Dioxide 25 mmol/L (22-32); Chloride 102 mmol/L (98-107); Estimated Glomerular Filt Rate > 60 mL/min (>60); Ethanol (ETOH) < 10 mg/dL; Globulin 2.7 g/dL (1.7-4.1); Glucose 114 mg/dL (70-100); HEMOLYSIS < 15 (0-50); Potassium 3.5 mmol/L (3.4-5.1); Salicylate < 1.0 mg/dL (<20); Sodium 136 mmol/L (137-145); Total Protein 6.5 g/dL (6.3-8.2)
[2023-11-15 18:31] LABS: RBC Urine 0-1/HPF (0-5/HPF); WBC Urine 1-5/HPF (0-5/HPF)
[2023-11-15 18:32] LABS: Bacteria Urine None Seen; Culture Indicated Urine Cult Not Indicated; Granular Casts Urine 1-5/LPF; Mucus Urine 1+ (Negative); Squamous Epithelial Cell Urine 0-1 /HPF (0-5/HPF); Transitional Epi Cells Urine 0-1/HPF (0-5/HPF)
[2023-11-15 18:34] LABS: Free T4, Direct Thyroxine 1.86 ng/dL (0.78-2.19)
--- NOTE | 2023-11-15 18:35 | ED.PSYCH ---
HPI - Psych General Chief Complaint: Psychiatric Symptoms Stated Complaint: Mental issues Time Seen by Provider: 11/15/23 17:59 Mode of arrival: Ambulatory History of Present Illness HPI Narrative: 33-year-old male with history of schizophrenia, type 1 diabetes presents for worsening depression, malaise, intermittent suicidal ideation. Patient currently denying suicidal ideation, however patient's psychiatrist wrote a note to our adoption social worker stating that they are concerned for the patient's mental status and recommended inpatient treatment. Patient endorses recent amphetamine use. Seen yesterday for general malaise, workup unremarkable, patient not in DKA at that time. Related Data Previous Rx's Medication Instructions Recorded insulin aspart U-100 100 unit/mL 150 u SQ Q DAY #4 vials 10/24/17 subcutaneous solution (Novolog U-100 Insulin aspart) Glucose: Test Strips #1 ea 10/31/18 lisinopril 20 mg tablet 20 mg PO DAILY #60 tabs 02/27/23 buspirone 15 mg tablet 15 mg PO BID #180 tabs 03/06/23 escitalopram oxalate 10 mg tablet 10 mg PO DAILY #90 tabs 03/06/23 clozapine 200 mg tablet 200 mg PO BEDTIME #30 tabs 07/19/23 sertraline 100 mg tablet 100 mg PO DAILY #90 tabs 07/19/23 lithium carbonate 600 mg capsule 600 mg PO BID #180 caps 09/06/23 cephalexin 500 mg capsule 500 mg PO QID #28 caps 09/11/23 trazodone 50 mg tablet 50 mg PO BEDTIME PRN sleep #30 tabs 10/02/23 ondansetron 4 mg disintegrating 4 mg PO Q8H PRN nausea and 11/14/23 tablet vomiting #30 tabs Allergies Allergy/AdvReac Type Severity Reaction Status Date / Time Latex, Natural Rubber Allergy Severe Rash Verified 11/13/23 11:06 [LATEX, NATURAL RUBBER] erythromycin base AdvReac Severe Vomiting Verified 11/14/23 12:10 [From ERYTHROCIN] Review of Systems Review of Systems Narrative: Otherwise negative Patient History Medical History Schizophrenia (Unknown) Chronic cough (Unknown) ADHD (attention deficit hyperactivity disorder) (Unknown) Foot pain (Unknown) Generalized headaches (Unknown) Migraines (Unknown) Anxiety (Unknown) Bipolar disorder (Unknown) Depression (Unknown) Allergic rhinitis (Unknown) Asthma (Unknown) Type 1 diabetes (~1992) Surgical History Hx of eye surgery (12/2015) Hx of foot surgery (2003) Family History Father Age: 71 Type 2 diabetes mellitus without complication, 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 Social History household members: spouse and children Smoking Status: Current every day smoker alcohol intake: current substance use type: marijuana Smoking Status: Current every day smoker tobacco type: cigarettes and vaping alcohol intake frequency: holidays/special occasions only Substance Use Type: marijuana, opiates and methamphetamine Exam Initial Vital Signs Initial Vital Signs: Vital Signs Temperature 98.1 F 11/15/23 17:15 Pulse Rate 97 H 11/15/23 17:15 Respiratory Rate 15 11/15/23 17:15 Blood Pressure 149/90 H 11/15/23 17:15 Pulse Oximetry 98 11/15/23 17:15 Oxygen Delivery Method Room Air 11/15/23 17:15 Const: Awake, alert, no acute distress, hygiene poor Cardiac: regular rate, regular rhythm RESP: unlabored, clear bilaterally, no wheezing GI: Atraumatic, soft, nontender, nondistended, no rebound, no guarding MSK: Atraumatic, full range of motion, pulses equal Skin: Warm, Dry, intact, no rashes Neuro: AO x3, CN II-XII grossly intact, moves all extremities Psych: Poor insight, poor judgment, endorsing suicidal ideation without immediate plan Course Orders Ordered: Discontinued Medications Ondansetron HCl (Ondansetron 4 Mg Odt) 4 mg SL NOW PRN PRN Reason: Nausea And Vomiting Last Admin: 11/15/23 20:12 Dose: 4 mg Documented By: KACI Vital Signs Vital signs: Vital Signs - 8 hr 11/15/23 21:32 Pulse Rate 100 H Respiratory Rate 18 Blood Pressure 142/94 H Pulse Oximetry 99 Oxygen Delivery Method Room Air MDM - Psych Lab Data 11/15/23 17:43 11/15/23 17:43 Labs: Lab Results 11/15/23 11/15/23 11/15/23 Range/Units 17:20 17:43 17:45 WBC 10.3 (4.5-11.0) X10^3/uL RBC 5.18 (4.5-5.9) X10^6/uL Hgb 14.7 (13.5-17.5) g/dL Hct 41.7 (41-53) % MCV 80.5 (80-100) fL MCH 28.3 (26-34) PG MCHC 35.1 (30-36) % RDW 13.0 (11.6-14.8) % Plt Count 230 (150-400) X10^3/uL Neut % (Auto) 79.4 H (50-75) % Lymph % (Auto) 12.0 L (25-40) % [place] % (Auto) 7.8 (3-14) % Eos % (Auto) 0.4 L (2-4) % Baso % (Auto) 0.4 (0-2) % Neut # (Auto) 8200 H (9986-9742) /uL Lymph # (Auto) 1200 (7161-0057) /uL [place] # (Auto) 800 (0-900) /uL Eos # (Auto) 0 (0-450) /uL Baso # (Auto) 0 (0-100) /uL VBG pH 7.37 (7.33-7.43) VBG pCO2 43.9 L (45-50) mmHg VBG pO2 21 L (35-45) mmHg VBG HCO3 26 (24-28) mmol/L VBG Total CO2 27 (24-29) mmol/L VBG O2 Saturation 33 L (70-75) % VBG Base Excess 1.0 (0-4) mmol/L FiO2 21 Sodium 136 L (137-145) mmol/L Potassium 3.5 (3.4-5.1) mmol/L Chloride 102 (98-107) mmol/L Carbon Dioxide 25 (22-32) mmol/L BUN 10 (9-20) mg/dL Creatinine 0.68 (0.66-1.25) mg/dL Estimated GFR > 60 (>60) mL/min BUN/Creatinine Ratio 14.7 (6-22) Glucose 114 H (70-100) mg/dL Calcium 9.2 (8.4-10.2) mg/dL Total Bilirubin 0.8 (0.2-1.3) mg/dL AST 35 (17-59) IU/L ALT 26 (<50) IU/L Alkaline Phosphatase 86 (38-126) U/L Total Protein 6.5 (6.3-8.2) g/dL Albumin 3.8 (3.5-5.0) g/dL Globulin 2.7 (1.7-4.1) g/dL Albumin/Globulin Ratio 1.4 (1.0-2.8) TSH 0.475 (0.47-4.68) uIU/mL Free T4 1.86 (0.78-2.19) ng/dL Urine RBC 0-1/hpf (0-5/HPF) Urine WBC 1-5/hpf (0-5/HPF) Ur Squamous Epith Cells 0-1 /hpf (0-5/HPF) Ur Transition Epith Cell 0-1/hpf (0-5/HPF) Urine Bacteria None seen (None) Granular Casts 1-5/lpf (None) Urine Mucus 1+ H (Negative) Ur Culture Indicated? Cult not indicated Vol Urine Centrifuged 10ml (spun) Salicylates < 1.0 (<20) mg/dL U Opiates 300ng/mL cut Negative (Negative) Ur Oxycodone Screen Negative (Negative) Urine Methadone Screen Negative (Negative) Acetaminophen < 10 (10-30) ug/mL Ur Barbiturates Screen Negative (Negative) U Tricyclic Antidepress Negative (Negative) Ur Phencyclidine Scrn Negative (Negative) Ur Amphetamines Screen Positive H (Negative) U Methamphetamines Scrn Positive H (Negative) Ur MDMA Scrn (Ecstasy) Negative (Negative) U Benzodiazepines Scrn Negative (Negative) Urine Cocaine Screen Negative (Negative) U Marijuana (THC) Screen Positive H (Negative) Urine pH Normal (Normal) Urine Specific [place] Normal (Normal) Ethyl Alcohol < 10 ( - 10) mg/dL Ur Creatinine Normal (Normal) SARS-CoV-2 (PCR) (Negative) 11/15/23 Range/Units 18:53 WBC (4.5-11.0) X10^3/uL RBC (4.5-5.9) X10^6/uL Hgb (13.5-17.5) g/dL Hct (41-53) % MCV (80-100) fL MCH (26-34) PG MCHC (30-36) % RDW (11.6-14.8) % Plt Count (150-400) X10^3/uL Neut % (Auto) (50-75) % Lymph % (Auto) (25-40) % [place] % (Auto) (3-14) % Eos % (Auto) (2-4) % Baso % (Auto) (0-2) % Neut # (Auto) (9527-4235) /uL Lymph # (Auto) (3671-0812) /uL [place] # (Auto) (0-900) /uL Eos # (Auto) (0-450) /uL Baso # (Auto) (0-100) /uL VBG pH (7.33-7.43) VBG pCO2 (45-50) mmHg VBG pO2 (35-45) mmHg VBG HCO3 (24-28) mmol/L VBG Total CO2 (24-29) mmol/L VBG O2 Saturation (70-75) % VBG Base Excess (0-4) mmol/L FiO2 Sodium (137-145) mmol/L Potassium (3.4-5.1) mmol/L Chloride (98-107) mmol/L Carbon Dioxide (22-32) mmol/L BUN (9-20) mg/dL Creatinine (0.66-1.25) mg/dL Estimated GFR (>60) mL/min BUN/Creatinine Ratio (6-22) Glucose (70-100) mg/dL Calcium (8.4-10.2) mg/dL Total Bilirubin (0.2-1.3) mg/dL AST (17-59) IU/L ALT (<50) IU/L Alkaline Phosphatase (38-126) U/L Total Protein (6.3-8.2) g/dL Albumin (3.5-5.0) g/dL Globulin (1.7-4.1) g/dL Albumin/Globulin Ratio (1.0-2.8) TSH (0.47-4.68) uIU/mL Free T4 (0.78-2.19) ng/dL Urine RBC (0-5/HPF) Urine WBC (0-5/HPF) Ur Squamous Epith Cells (0-5/HPF) Ur Transition Epith Cell (0-5/HPF) Urine Bacteria (None) Granular Casts (None) Urine Mucus (Negative) Ur Culture Indicated? Vol Urine Centrifuged Salicylates (<20) mg/dL U Opiates 300ng/mL cut (Negative) Ur Oxycodone Screen (Negative) Urine Methadone Screen (Negative) Acetaminophen (10-30) ug/mL Ur Barbiturates Screen (Negative) U Tricyclic Antidepress (Negative) Ur Phencyclidine Scrn (Negative) Ur Amphetamines Screen (Negative) U Methamphetamines Scrn (Negative) Ur MDMA Scrn (Ecstasy) (Negative) U Benzodiazepines Scrn (Negative) Urine Cocaine Screen (Negative) U Marijuana (THC) Screen (Negative) Urine pH (Normal) Urine Specific [place] (Normal) Ethyl Alcohol ( - 10) mg/dL Ur Creatinine (Normal) SARS-CoV-2 (PCR) Negative (Negative) Point of Care Testing Glucose POC 107 Urine Dip Bedside Urine Glucose Negative Bedside Urine Bilirubin - Negative Bedside Urine Ketone +++ 80 Urine Specific [place] 1.020 Bedside Urine Occult Blood +/- Bedside Urine pH 6.0 Bedside Urine Protein + 30 Bedside Urine Urobilinogen - Negative Bedside Urine Nitrite - Negative Bedside Urine Leukocytes - Negative Esterase Treatment and disposition Social Determinants of Health that impact treatment or disposition: Polysubstance abuse, type 1 diabetes MDM Narrative Medical decision making narrative: Patient presenting for depression and generally feeling poorly. Two visits yesterday for same, reassuring workups then. Recent amphetamine use. Patient medically evaluated, not in DKA, medically clear for psychiatric facility. Patient accepted to psychiatric facility and transferred in stable condition. Discharge Plan Departure Patient Disposition: Xfer Psychiatric Hosp Clinical Impression: Schizophrenia, Type 1 diabetes mellitus, Amphetamine abuse Prescriptions: No Action sertraline 100 mg tablet 100 mg PO DAILY Qty: 90 3RF clozapine 200 mg tablet 200 mg PO BEDTIME Qty: 30 3RF trazodone 50 mg tablet 50 mg PO BEDTIME PRN (Reason: sleep) Qty: 30 3RF insulin aspart U-100 [Novolog U-100 Insulin aspart] 100 UNIT/1 ML solution 150 u SQ Q DAY Qty: 4 5RF (DME) Glucose: Test Strips 0 .Route .MEDSUPPLY Qty: 1 2RF Dose Instruction: As directed Rx Instructions: USE 1 TEST STRIP TO TEST BLOOD SUGAR 5 TIMES PER DAY buspirone 15 mg tablet 15 mg PO BID Qty: 180 3RF escitalopram oxalate 10 mg tablet 10 mg PO DAILY Qty: 90 3RF lithium carbonate 600 mg capsule 600 mg PO BID Qty: 180 1RF ondansetron 4 mg tablet,disintegrating 4 mg PO Q8H PRN (Reason: nausea and vomiting) Qty: 30 0RF lisinopril 20 mg tablet 20 mg PO DAILY Qty: 60 1RF cephalexin 500 mg capsule 500 mg PO QID Qty: 28 0RF Referrals: Byron Foote MD [Primary Care Provider] -
--- NOTE | 2023-11-15 18:47 | CM.SWNOTE ---
ED CLOTH PRESSER Assessment CLOTH PRESSER - [employer] Assessment CLOTH PRESSER/[employer] Assessment Time Spent with Patient Start date 11/15/23 Visit Start Time 18:00 End date 11/15/23 Visit End Time 18:10 Mental Health Screening Include Onset, Duration, Intensity Presenting Problem Patient presents to ED via recommendation from Psychiatrist due to patient's SI with plan earlier today. Patient denies current SI. Patient endorses earlier today he had plans to empty his insulin pump and take trazadone. Patient endorses he took meth for the first time two days ago with intent to kill himself hoping it had fentynal in it or plans to drive off into the distance Patient endorses visual and auditory hallucinations and he was hoping to make everything blank. Patient endorses he has been struggling with medication changes in the last five days. Police met with patient earlier today at patient's outpatient clinic and patient agreed to check in to ED and patient is voluntary for inpatient hospitalization. Patient's psychiatrist is recommending patient seek voluntary inpatient treatment. Precipitating Event(s) Patient's ex of 17 years left him several months ago and he has had difficulty adjusting to this life change and co parenting with his three children. Patient endorses SI thoughts increased after he thought his ex would take his kids away from him. This CLOTH PRESSER met with patient after similar presentation to ED when his first left him. Patient Strengths Patient is motivated to seek help to be a good father, patient has supportive outpatient team. Current Behavioral Health Provider(s) Patient sees Dr. Evans at [facility] Facility, Provider, Ph. # clinic as well as Mai[facility] for therapy. Patient has upcoming appts scheduled (Ph. # [phone]) Psych. Hx Mental Health and Chemical Patient has hx of SI, suicide Dependency attempt, hx of ETOH use disorder, Schizoaffective disorder-bipolar type, Generalized Anxiety Disorder, VH and AH. Patient is positive for Methamphetamine, Amephetamines and THC. Family Hx of Behavioral Abuse None reported Psychiatric Hospitalizations (date(s)/ Patient had voluntary at [facility] location) in July 2020 for inpatient. Patient was voluntary at [facility] in June 2023 for inpatient hospitalization. Psychosocial information & Support Patient is 33 y/o male who Systems resides in [place]. Patient has 4 kids that he has regular visits with as he co-parents with former . 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 Legal Concerns Legal Matters - Outstanding Issues None reported Mental Status Orientation (Person/Place/Time) A/Ox4 Stated Mood fine Affect (Congruent with Mood?) euthymic, full range, congruent with mood Thought Content - Specify/Describe Patient endorses he sees Obsessions, Delusions, Hallucinations shadows and hears voices all the time. Patient endorses he engaged in Methamphetamine use recently to make everything go blank. Patient endorses paranoia and worry for his kids because of what his son told him about his director hr communications leaving them unattended for bits of time, patient states he informed LE about this. Thought Processes (Gnrewrl-Tezjrfto-Bumr coherent Dhalzied-Fkczlkrj-Fxbcywckfm- Mbtvfjwsdxqonj-Onwytpn-Msjokqmkswod- Thought Blocking) Speech (Qpccds-Ptfo-Fifflbn-Rapid-Soft- normal Loud-Pressured) Motor (Wiwelh-Mvpwaaozu-Mhzz-Other) normal Insight (Rqbk-Nlbv-Sxjo/Limited) fair Judgement (Vsgn-Svkb-Ctgh/Limited) fair Impulse Control (Adequate-Impaired) adequate Memory (Wjdzdpvap-Iowlvz-Jivuij, intact, not formally assessed Impaired-Intact) Concentration (Intact-Impaired) intact Attention (Intact-Impaired) intact Behavior (Appropriate-Inappropriate) appropriate Additional Comment Patient presents as calm, cooperative and communicative. Risk Assessment Suicidal Ideation (Plan) Yes Homicidal Ideation (Plan) No Comment Patient endorses thoughts of hurting his children's director hr communications out of concern for the care his children are receiving from this male director hr communications/his former friend. Patient denies intent on acting on it but states he has thoughts of using a bat. Patient denies current SI but states he has had SI with plans earlier today and a recent suicide attempt two days ago. Patient endorses thoughts of emptying his insulin pump and taking trazadone, patient had thoughts of driving off somewhere. Patient states he used methamphetamine two days ago with intent to kill self hoping it had fentynal in it. Patient denies intent of acting on plans now. Patient has hx of suicide attempts last year regarding his insulin pump and overdosing on medication. Intervention Intervention CLOTH PRESSER enters hallway to meet with patient. Patient endorses life stressors, increase in SI with thoughts of plans, concern for hallucinations and recent suicide attempt two days ago. Patient has had interactions with outpatient clinic at the last two days and patient has endorsed his SI with plans to them and there is concern that patient has been missing appointments as well. Patient's psychiatrist encouraged patient present to ED and recommends inpatient for patient. Patient endorses he is voluntary for inpatient hospitalization. It is the opinion of this CLOTH PRESSER that patient is appropriate for and will benefit from voluntary inpatient hospitalization for medication management, safety and crisis stabilization. CLOTH PRESSER reviews this with ED provider Dr. Morris who is yet to evaluate patient but indicates understanding. Plan RA Plan ED team and CLOTH PRESSER to seek inpatient placement for patient upon medical clearance . Maty Velazquez, FIELD ENGINEER
[2023-11-15 18:48] LABS: Thyroid Stimulating Hormone 0.475 uIU/mL (0.47-4.68)
[2023-11-15 19:13] LABS: COVID19 -Nasal RAPID Negative (Negative)
[2023-11-15 19:55] LABS: Fractionated Inspired Oxygen 21; HCO3 VBG 26 mmol/L (24-28); Oxygen Saturation VBG 33 % (70-75); PCO2 VBG 43.9 mmHg (45-50); PO2 VBG 21 mmHg (35-45); Total CO2 VBG 27 mmol/L (24-29); pH VBG 7.37 (7.33-7.43)
[2023-11-15] MEDS: ONDANSETRON 4 MG ODT SL (20:12)
[2023-11-15 21:32] VITALS: BP 142/94; PULSE 100; RESP 18; O2SAT 99
== END 2023-11-15 21:30 ==
PROVIDERS: Emergency Medicine; Emergency Provider Emergency Medicine; Family Provider Family Medicine; PCP Family Medicine
DX: F20.9 Schizophrenia, unspecified (principal); F15.10 Other stimulant abuse, uncomplicated; E10.9 Type 1 diabetes mellitus without complications; Z79.899 Other long term (current) drug therapy; Z20.822 Contact with and (suspected) exposure to COVID-19
CPT/HCPCS: 36415; 80053; 80305; 80320; 80329; 81003; 81015; 82805; 82962; 84439; 84443; 85025; 87635; 99284; G0480

== ENCOUNTER 2023-12-31 21:51 | Emergency (ER) | payer OTHER, MEDICAID, SELFPAY ==
[2023-12-28 08:43] VITALS: BMI 28.5
[2023-12-31 21:53] VITALS: BP 155/93; PULSE 115; RESP 18; TEMP 36.8; O2SAT 97; BMI 26.8
--- NOTE | 2024-01-01 00:03 | ED.HA ---
HPI - Headache General Chief Complaint: Headache Stated Complaint: migraine Time Seen by Provider: 12/31/23 23:25 Mode of arrival: Ambulatory History of Present Illness HPI Narrative: Patient is a 33-year-old male history of bipolar presenting today with headache. He reports it has been going on for about 6 hours. He does not typically get headaches he took Tylenol and 2 ibuprofen he has had some relief with Tylenol and ibuprofen. He denies any fever numbness tingling or weakness. He has now been in the ED and sleeping still reports some discomfort. Overall appears well. He denies any neck pain Related Data Home Medications Medication Instructions Recorded Confirmed divalproex 500 mg tablet,delayed 500 mg PO BID 12/17/23 12/17/23 release gabapentin 300 mg capsule 900 mg PO TID 12/17/23 12/17/23 losartan 50 mg tablet 50 mg PO DAILY 12/17/23 12/17/23 Previous Rx's Medication Instructions Recorded insulin aspart U-100 100 unit/mL 150 u SQ Q DAY #4 vials 10/24/17 subcutaneous solution (Novolog U-100 Insulin aspart) Glucose: Test Strips #1 ea 10/31/18 risperidone 2 mg tablet See Rx Instructions PO BID #90 tabs 11/20/23 trazodone 50 mg tablet 150 mg (3 x 50 mg) PO BEDTIME PRN 12/17/23 sleep #90 tabs paliperidone palmitate 156 mg/mL 156 mg IM ONCE #1 mL 12/18/23 intramuscular syringe (Invega Sustenna) paliperidone palmitate 234 mg/1.5 234 mg (1.5 mL) IM ONCE #1.5 mL 12/18/23 mL intramuscular syringe (Invega Sustenna) Allergies Allergy/AdvReac Type Severity Reaction Status Date / Time Latex, Natural Rubber Allergy Severe Rash Verified 11/13/23 11:06 [LATEX, NATURAL RUBBER] erythromycin base AdvReac Severe Vomiting Verified 11/14/23 12:10 [From ERYTHROCIN] Patient History Medical History Schizophrenia (Unknown) Chronic cough (Unknown) ADHD (attention deficit hyperactivity disorder) (Unknown) Foot pain (Unknown) Generalized headaches (Unknown) Migraines (Unknown) Anxiety (Unknown) Bipolar disorder (Unknown) Depression (Unknown) Allergic rhinitis (Unknown) Asthma (Unknown) Type 1 diabetes (~1992) Surgical History Hx of eye surgery (12/2015) Hx of foot surgery (2003) Family History Father Age: 71 Type 2 diabetes mellitus without complication, 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 Social History household members: spouse and children Smoking Status: Current every day smoker alcohol intake: current substance use type: marijuana Smoking Status: Current every day smoker tobacco type: cigarettes and vaping alcohol intake frequency: holidays/special occasions only Substance Use Type: marijuana, opiates and methamphetamine Exam Initial Vital Signs Initial Vital Signs: Vital Signs Temperature 98.3 F 12/31/23 21:53 Pulse Rate 115 H 12/31/23 21:53 Respiratory Rate 18 12/31/23 21:53 Blood Pressure 155/93 H 12/31/23 21:53 Pulse Oximetry 97 12/31/23 21:53 Oxygen Delivery Method Room Air 12/31/23 21:53 GENERAL: Alert well-appearing 33-year-old male and in no acute distress. HEENT: Head atraumatic,EOMI, pupils reactive, no meningeal signs CARDIOVASCULAR: Regular rate and rhythm without murmurs, rubs or gallops. RESPIRATORY: Breath sounds equal bilaterally, no wheezes rales or rhonchi. ABDOMEN: Soft, nontender. Normoactive bowel sounds all 4 quadrants. No guarding or rebound. EXTREMITIES: Normal range of motion, no clubbing or edema. Neurovascularly intact NEUROLOGICAL: Alert and oriented x4.Normal gait and speech. Cranial nerves II through XII grossly intact. SKIN: Warm, dry, no laceration, no petechiae, no rashes or lesions. Course Orders Ordered: Discontinued Medications Ketorolac Tromethamine (Ketorolac 30 Mg/Ml Vial) 30 mg IM NOW ONE Stop: 01/01/24 00:13 Last Admin: 01/01/24 00:19 Dose: 30 mg Documented By: TYRESE Ondansetron HCl (Ondansetron 4 Mg Odt) 4 mg SL NOW ONE Stop: 01/01/24 00:13 Last Admin: 01/01/24 00:19 Dose: 4 mg Documented By: TYRESE Vital Signs Vital signs: Vital Signs - 8 hr 12/31/23 21:53 01/01/24 00:46 Temperature 98.3 F 98.0 F Pulse Rate 115 H 96 H Respiratory Rate 18 18 Blood Pressure 155/93 H 133/87 Pulse Oximetry 97 96 Oxygen Delivery Method Room Air Room Air MDM - Headache MDM Narrative Medical decision making narrative: Patient 33-year-old male presents today with headache ongoing for a couple of hours. He has actually been sleeping in the ED appears well. Complaining of 7 nausea. Does not typically get headaches. He has no true logical. He has not actively vomiting does not seem to be in severe pain he has not having any fever. Low suspicion for intracranial mass or hemorrhage. No fever unlikely home meningitis or encephalitis. He is given Toradol and Zofran here in the ED feels ready able to go home and sleep in his own bed. No need for any further workup Discharge Plan Departure Patient Disposition: Home Clinical Impression: Headache Instructions: DI for Headache Activity Restrictions/Additional Instructions: *You have been diagnosed with headache *What to do: At this time go home and rest I hope that you feel better soon *Continue to take medications as directed Tylenol 1000 mg every 6 hours if needed for lqfr-yy-gzcdluwc pain Ibuprofen 600 mg every 6 hours if needed for undd-cs-qwavkthd pain *Follow up with your primary care provider in 2-3 days or call [phone] *Return to ER if you should have increasing pain nausea vomiting neck pain fever or any new, worsening or concerning symptoms Prescriptions: No Action risperidone 2 mg tablet See Rx Instructions PO BID Qty: 90 1RF Rx Instructions: Take 2 mg (1 tab) PO q.a.m., and take 4 mg (2 tabs) p.o. q.h.s. divalproex 500 mg tablet,delayed release (DR/EC) 500 mg PO BID losartan 50 mg tablet 50 mg PO DAILY gabapentin 300 mg capsule 900 mg PO TID trazodone 50 mg tablet 150 mg PO BEDTIME PRN (Reason: sleep) Qty: 90 1RF insulin aspart U-100 [Novolog U-100 Insulin aspart] 100 UNIT/1 ML solution 150 u SQ Q DAY Qty: 4 5RF (DME) Glucose: Test Strips 0 .Route .MEDSUPPLY Qty: 1 2RF Dose Instruction: As directed Rx Instructions: USE 1 TEST STRIP TO TEST BLOOD SUGAR 5 TIMES PER DAY Invega Sustenna 234 mg/1.5 mL syringe 234 mg IM ONCE Qty: 1.5 0RF Invega Sustenna 156 mg/mL syringe 156 mg IM ONCE Qty: 1 0RF Referrals: Byron Foote MD [Primary Care Provider] - Stand Alone Forms: Patient Portal/API
[2024-01-01] MEDS: KETOROLAC 30 MG/ML VIAL IM (00:19)
[2024-01-01] MEDS: ONDANSETRON 4 MG ODT SL (00:19)
[2024-01-01 00:46] VITALS: BP 133/87; PULSE 96; RESP 18; TEMP 36.7; O2SAT 96
== END 2024-01-01 00:55 | disposition home or self-care (01) ==
PROVIDERS: Emergency Provider Emergency Medicine; Family Provider Family Medicine; PCP Family Medicine
DX: R51.9 Headache, unspecified (principal)
CPT/HCPCS: 96372; 99283; J1885

== ENCOUNTER 2024-01-23 10:51 | Emergency (ER) | payer OTHER, MEDICAID, SELFPAY ==
[2023-12-28 08:43] VITALS: BMI 28.5
[2024-01-23 10:58] VITALS: BP 135/87; PULSE 101; RESP 18; TEMP 36.9; O2SAT 100; BMI 27.1
[2024-01-23 12:01] LABS: Adenovirus Not Detected (Not Detect); B. parapertussis Not Detected (Not Detecte); Bordetella pertussis Not Detected (Not Detect); Chlamydophila pneumoniae Not Detected (Not Detect); Coronavirus 229E Not Detected (Not Detect); Coronavirus HKU1 Not Detected (Not Detect); Coronavirus NL 63 Not Detected (Not Detect); Coronavirus OC43 Not Detected (Not Detect); Human Metapneumovirus Not Detected (Not Detect); Human Rhinovirus/Enterovirus Not Detected (Not Detect); Influenza A Not Detected (Not Detect); Influenza B Not Detected (Not Detect); Mycoplasma pneumoniae Not Detected (Not Detect); Parainfluenza Virus 1 Not Detected (Not Detect); Parainfluenza Virus 2 Not Detected (Not Detect); Parainfluenza Virus 3 Not Detected (Not Detect); Parainfluenza Virus 4 Not Detected (Not Detect); Respiratory Syncytial Virus Not Detected (Not Detect); SARS- CoV-2 Not Detected (Not Detecte)
--- NOTE | 2024-01-23 13:14 | ED_ITS ---
HPI - URI/Sore Throat General Chief Complaint: Upper Respiratory Symptoms Stated Complaint: upper resp symptoms Time Seen by Provider: 01/23/24 13:12 Source: patient Mode of arrival: Ambulatory History of Present Illness HPI Narrative: Patient states 1 of his kids tested positive for COVID. Patient's symptoms started yesterday with cough congestion. No dyspnea. Patient in no distress. Not requiring supplemental oxygen. Vital signs are reassuring. He needs a work note as well as a group therapy note. No nausea or vomiting. No diarrhea. Related Data Home Medications Medication Instructions Recorded Confirmed losartan 50 mg tablet 50 mg PO DAILY 12/17/23 01/04/24 Previous Rx's Medication Instructions Recorded insulin aspart U-100 100 unit/mL 150 u SQ Q DAY #4 vials 10/24/17 subcutaneous solution (Novolog U-100 Insulin aspart) Glucose: Test Strips #1 ea 10/31/18 paliperidone palmitate 156 mg/mL 156 mg IM ONCE #1 mL 12/18/23 intramuscular syringe ([facility]) divalproex 500 mg tablet,delayed 500 mg PO BID #60 tabs 01/14/24 release gabapentin 300 mg capsule 900 mg (3 x 300 mg) PO TID #270 01/14/24 caps olanzapine 10 mg tablet 10 mg PO TID #90 tabs 01/14/24 quetiapine 50 mg tablet 50 mg PO QID PRN agitiation #120 01/14/24 tabs sertraline 100 mg tablet 100 mg PO DAILY #30 tabs 01/14/24 trazodone 50 mg tablet 150 mg (3 x 50 mg) PO BEDTIME PRN 01/14/24 sleep #90 tabs lorazepam 0.5 mg tablet 0.5 mg PO DAILY PRN Severe anxiety 01/24/24 or panic #14 tabs Allergies Allergy/AdvReac Type Severity Reaction Status Date / Time Latex, Natural Rubber Allergy Severe Rash Verified 01/04/24 10:19 [LATEX, NATURAL RUBBER] erythromycin base AdvReac Severe Vomiting Verified 01/04/24 10:19 [From ERYTHROCIN] Review of Systems Review of Systems Narrative: GENERAL: negative chills, fatigue, malaise, fever, sweats. HEENT: negative sinus pain, ear pain, sore throat RESPIRATORY: negative dyspnea, positive cough CARDIOVASCULAR: negative chest pain, palpitations GASTROINTESTINAL: negative nausea, vomiting, abdominal pain : negative dysuria, frequency, hematuria MUSCULOSKELETAL: negative muscle or bony pain SKIN: negative rash, skin lesions NEUROLOGIC: negative weakness, numbness ROS Unobtainable: All systems reviewed & are unremarkable except as noted in HPI and below Patient History Medical History Schizophrenia (Unknown) Chronic cough (Unknown) ADHD (attention deficit hyperactivity disorder) (Unknown) Foot pain (Unknown) Generalized headaches (Unknown) Migraines (Unknown) Anxiety (Unknown) Bipolar disorder (Unknown) Depression (Unknown) Allergic rhinitis (Unknown) Asthma (Unknown) Type 1 diabetes (~1992) Surgical History Hx of eye surgery (12/2015) Hx of foot surgery (2003) Family History Father Age: 71 Type 2 diabetes mellitus without complication, unspecified manager 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 Social History household members: spouse and children Smoking Status: Current every day smoker alcohol intake: current substance use type: marijuana Smoking Status: Current every day smoker tobacco type: cigarettes and vaping alcohol intake frequency: other Substance Use Type: marijuana, opiates and methamphetamine Exam Narrative Exam Narrative: GENERAL: in no distress, not toxic not dyspneic HEAD: Normocephalic. EYES: Pupils equal round ENT: Mucous membranes moist. NECK: Trachea midline. CARDIOVASCULAR: Regular rate and rhythm RESPIRATORY: Clear to auscultation. Breath sounds equal bilaterally. No wheezes, rales, or rhonchi. Speaking full sentences EXTREMITIES: No gross deformities. BACK: No flank tenderness. NEURO: AOx4. SKIN: Warm and dry PSYCH: Not anxious, is cooperative Initial Vital Signs Initial Vital Signs: Vital Signs Temperature 98.4 F 01/23/24 10:58 Pulse Rate 101 H 01/23/24 10:58 Respiratory Rate 18 01/23/24 10:58 Blood Pressure 135/87 01/23/24 10:58 Pulse Oximetry 100 01/23/24 10:58 Oxygen Delivery Method Room Air 01/23/24 10:58 Course Orders Ordered: ED Orders 01/23/24 11:03 Respiratory Panel (Film Array) Stat Vital Signs Vital signs: Vital Signs - 8 hr 01/23/24 10:58 Temperature 98.4 F Pulse Rate 101 H Respiratory Rate 18 Blood Pressure 135/87 Pulse Oximetry 100 Oxygen Delivery Method Room Air MDM - URI/Sore Throat Lab Data Labs: Lab Results 01/23/24 Range/Units 11:03 Chlamy pneumoniae PCR Not detected (Not Detect) Adenovirus (PCR) Not detected (Not Detect) B.parapertussis DNA PCR Not detected (Not Detecte) Coronavirus OC43 (PCR) Not detected (Not Detect) Coronavirus HKU1 (PCR) Not detected (Not Detect) Coronavirus 229E (PCR) Not detected (Not Detect) SARS-CoV-2 (PCR) Not detected (Not Detecte) Coronavirus NL63 (PCR) Not detected (Not Detect) Human Metapneumovir PCR Not detected (Not Detect) Influenza Type A (PCR) Not detected (Not Detect) Influenza Type B (PCR) Not detected (Not Detect) M. pneumoniae (PCR) Not detected (Not Detect) Parainfluenza 1 (PCR) Not detected (Not Detect) Parainfluenza 2 (PCR) Not detected (Not Detect) Parainfluenza 3 (PCR) Not detected (Not Detect) Parainfluenza 4 (PCR) Not detected (Not Detect) RSV (PCR) Not detected (Not Detect) Entero/Rhino (PCR) Not detected (Not Detect) [facility] Narrative Medical decision making narrative: Patient states 1 of his kids tested positive for COVID. Patient's symptoms started yesterday with cough congestion. No dyspnea. Patient in no distress. Not requiring supplemental oxygen. Vital signs are reassuring. He needs a work note as well as a group therapy note. No nausea or vomiting. No diarrhea. After history and exam respiratory panel [facility] Medical records reviewed: No recent visit for this complaint Differential considered: Includes but not limited to COVID rhino virus influenza adenovirus bronchitis pneumonia Lab Test results independently reviewed as above. Pertinent findings: Respiratory panel negative Imaging studies independently reviewed: None indicated, vital signs and exam reassuring Treatments: None indicated Re-evaluations: Reviewed with patient exam and laboratory results. No antibiotics are indicated. Vital signs are reassuring. No supplemental oxygen required. No prescriptions indicated. Patient states he needs a work note in a group therapy note. Discussion: Appropriate for discharge home. Exam is reassuring. Not requiring supplemental oxygen not toxic no blood work indicated. Work note has been provided. Return precautions reviewed. He desires discharge home Diagnosis: Upper respiratory infection Discharge Plan Departure Patient Disposition: Home Clinical Impression: Upper respiratory infection Qualifiers: URI type: unspecified URI Qualified Code(s): J06.9 - Acute upper respiratory infection, unspecified Instructions: DI for Viral Upper Respiratory Infection -- Adult Activity Restrictions/Additional Instructions: See family doctor in a week for re-evaluation. Return if worse if any questions or concerns. Call [phone] if you need a family doctor. Work note has been provided for you. No prescriptions are indicated. Return if worse if any questions or concerns. No prescriptions are indicated Prescriptions: No Action lorazepam 0.5 mg tablet 0.5 mg PO DAILY PRN (Reason: Severe anxiety or panic) Qty: 14 0RF losartan 50 mg tablet 50 mg PO DAILY insulin aspart U-100 [Novolog U-100 Insulin aspart] 100 UNIT/1 ML solution 150 u SQ Q DAY Qty: 4 5RF (DME) Glucose: Test Strips 0 .Route .MEDSUPPLY Qty: 1 2RF Dose Instruction: As directed Rx Instructions: USE 1 TEST STRIP TO TEST BLOOD SUGAR 5 TIMES PER DAY Invega Sustenna 156 mg/mL syringe 156 mg IM ONCE Qty: 1 0RF divalproex 500 mg tablet,delayed release (DR/EC) 500 mg PO BID Qty: 60 2RF gabapentin 300 mg capsule 900 mg PO TID Qty: 270 2RF trazodone 50 mg tablet 150 mg PO BEDTIME PRN (Reason: sleep) Qty: 90 2RF sertraline 100 mg tablet 100 mg PO DAILY Qty: 30 2RF olanzapine 10 mg tablet 10 mg PO TID Qty: 90 2RF quetiapine 50 mg tablet 50 mg PO QID PRN (Reason: agitiation) Qty: 120 2RF Referrals: Byron Foote MD [Primary Care Provider] - Stand Alone Forms: Patient Portal/API, Work Release Note
[2024-01-23 13:19] VITALS: BP 164/84; PULSE 96; O2SAT 98
== END 2024-01-23 13:19 | disposition home or self-care (01) ==
PROVIDERS: Emergency Provider Emergency Medicine; Family Provider Family Medicine; PCP Family Medicine
DX: J06.9 Acute upper respiratory infection, unspecified (principal); F17.200 Nicotine dependence, unspecified, uncomplicated
CPT/HCPCS: 87633; 99281; 99282

== ENCOUNTER 2024-02-07 11:33 | Emergency (ER) | payer OTHER, MEDICAID, SELFPAY ==
[2023-12-28 08:43] VITALS: BMI 28.5
[2024-02-07 11:46] VITALS: BP 109/77; PULSE 105; RESP 22; TEMP 36.4; O2SAT 100; BMI 28.5
[2024-02-07] MEDS: SODIUM CHLORIDE 0.9% 1,000 ML 1000 ML IV (12:15)
[2024-02-07] MEDS: ONDANSETRON 4 MG/2 ML INJ IV (12:15)
[2024-02-07 12:22] LABS: Add Manual Diff / Slide Review NO; Basophils Absolute Auto 100 /uL (0-100); Basophils Percent Auto 0.7 % (0-2); Eosinophils Absolute Auto 100 /uL (0-450); Eosinophils Percent Auto 1.4 % (2-4); Hemoglobin 16.8 g/dL (13.5-17.5); Lymphocytes Absolute Auto 1200 /uL (1100-4500); Mean Corpuscular Hemoglobin 28.4 PG (26-34); Mean Corpuscular Volume 81.3 fL (80-100); Monocytes Absolute Auto 800 /uL (0-900); Monocytes Percent Auto 11.3 % (3-14); Neutrophils Absolute Auto 5200 /uL (1500-7000); Neutrophils Percent Auto 70.6 % (50-75); Platelet Count 148 X10^3/uL (150-400); Red Cell Distribution Width 13.7 % (11.6-14.8); White Blood Cell Count 7.4 X10^3/uL (4.5-11.0)
[2024-02-07 12:27] LABS: Fractionated Inspired Oxygen 20; HCO3 VBG 25 mmol/L (24-28); Oxygen Saturation VBG 83 % (70-75); PCO2 VBG 41.4 mmHg (45-50); PO2 VBG 48 mmHg (35-45); Total CO2 VBG 26 mmol/L (24-29); pH VBG 7.39 (7.33-7.43)
[2024-02-07 12:32] LABS: Magnesium 2.3 mg/dL (1.6-2.3); Phosphorous 3.3 mg/dL (2.5-4.5)
[2024-02-07 12:35] LABS: Alanine Aminotransferase 13 IU/L (<50); Albumin 4.2 g/dL (3.5-5.0); Albumin Globulin Ratio 1.6 (1.0-2.8); Alkaline Phosphatase 82 U/L (38-126); Aspartate Aminotransferase 16 IU/L (17-59); BUN Creatinine Ratio 22.1 (6-22); Bilirubin Total 0.8 mg/dL (0.2-1.3); Blood Urea Nitrogen 17 mg/dL (9-20); Calcium 8.6 mg/dL (8.4-10.2); Carbon Dioxide 27 mmol/L (22-32); Chloride 104 mmol/L (98-107); Estimated Glomerular Filt Rate > 60 mL/min (>60); Ethanol (ETOH) < 10 mg/dL; Globulin 2.7 g/dL (1.7-4.1); Glucose 190 mg/dL (70-100); HEMOLYSIS < 15 (0-50); Ketones (Beta-Hydroxybutyrate) 0.07 mmol/L (<0.27); Lipase 13 U/L (23-300); Potassium 3.6 mmol/L (3.4-5.1); Sodium 136 mmol/L (137-145); Total Protein 6.9 g/dL (6.3-8.2)
--- NOTE | 2024-02-07 13:27 | ED.NAVMDI ---
HPI - Nausea/Vomiting/Diarrhea General Chief complaint: Nausea/Vomiting/Diarrhea Stated complaint: per pt dehydrated, vomiting Time Seen by Provider: 02/07/24 11:57 Source: patient Mode of arrival: Ambulatory History of Present Illness HPI Narrative: Patient is a 33-year-old male who was an insulin-dependent diabetic who last evening started to have diarrhea. He states his last episode was about 0300 hours in the morning but then this morning started vomiting. States he tried to take his medicines this morning and vomited everything up. No recent travel. No recent antibiotics. Abdominal discomfort with the diarrhea. No blood in his stool. Related Data Home Medications Medication Instructions Recorded Confirmed losartan 50 mg tablet 50 mg PO DAILY 12/17/23 01/31/24 metformin 500 mg tablet 500 mg PO BID 01/31/24 01/31/24 Previous Rx's Medication Instructions Recorded insulin aspart U-100 100 unit/mL 150 u SQ Q DAY #4 vials 10/24/17 subcutaneous solution (Novolog U-100 Insulin aspart) Glucose: Test Strips #1 ea 10/31/18 divalproex 500 mg tablet,delayed 500 mg PO BID #60 tabs 01/14/24 release gabapentin 300 mg capsule 900 mg (3 x 300 mg) PO TID #270 01/14/24 caps quetiapine 50 mg tablet 50 mg PO QID PRN agitiation #120 01/14/24 tabs sertraline 100 mg tablet 100 mg PO DAILY #30 tabs 01/14/24 trazodone 50 mg tablet 150 mg (3 x 50 mg) PO BEDTIME PRN 01/14/24 sleep #90 tabs lorazepam 0.5 mg tablet 0.5 mg PO DAILY PRN Severe anxiety 01/24/24 or panic #14 tabs paliperidone palmitate 156 mg/mL 156 mg IM ONCE #1 mL 01/30/24 intramuscular syringe (Invega Sustenna) ondansetron 4 mg disintegrating 4 mg PO Q6H PRN nausea and 02/07/24 tablet vomiting #20 tabs Allergies Allergy/AdvReac Type Severity Reaction Status Date / Time Latex, Natural Rubber Allergy Severe Rash Verified 01/04/24 10:19 [LATEX, NATURAL RUBBER] erythromycin base AdvReac Severe Vomiting Verified 01/04/24 10:19 [From ERYTHROCIN] Review of Systems Constitutional Constitutional: Reports system reviewed and no additional complaints, except as documented Cardiovascular Cardiovascular: Reports system reviewed and no additional complaints, except as documented Respiratory Respiratory: Reports system reviewed and no additional complaints, except as documented Gastrointestinal Gastrointestinal: Reports system reviewed and no additional complaints, except as documented Integumentary/Breasts Skin/Breast: Reports system reviewed and no additional complaints, except as documented Patient History Medical History Schizophrenia (Unknown) Chronic cough (Unknown) ADHD (attention deficit hyperactivity disorder) (Unknown) Foot pain (Unknown) Generalized headaches (Unknown) Migraines (Unknown) Anxiety (Unknown) Bipolar disorder (Unknown) Depression (Unknown) Allergic rhinitis (Unknown) Asthma (Unknown) Type 1 diabetes (~1992) Surgical History Hx of eye surgery (12/2015) Hx of foot surgery (2003) Family History Father Age: 71 Type 2 diabetes mellitus without complication, unspecified retirement insulin 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 Social History household members: spouse and children Smoking Status: Current every day smoker alcohol intake: current substance use type: marijuana Smoking Status: Current every day smoker tobacco type: cigarettes and vaping alcohol intake frequency: other Substance Use Type: marijuana, opiates and methamphetamine Exam Initial Vital Signs Initial Vital Signs: Vital Signs Temperature 97.5 F L 02/07/24 11:46 Pulse Rate 105 H 02/07/24 11:46 Respiratory Rate 22 02/07/24 11:46 Blood Pressure 109/77 02/07/24 11:46 Pulse Oximetry 100 02/07/24 11:46 Oxygen Delivery Method Room Air 02/07/24 11:46 Const General: cooperative, comfortable and No ill appearing Resp Effort & Inspection: normal respiratory effort Auscultation: clear to auscultation bilaterally Cardio Rate: regular rate Rhythm: regular rhythm GI Inspection: normal to inspection and non-distended Palpation: soft and No tender Skin General: no rashes or lesions noted Neuro General: patient alert, patient awake and moves all extremities Speech: speech normal Extrem General: normal to inspection and capillary refill normal Course Orders Ordered: ED Orders 02/07/24 12:10 Complete Blood Count AUTO DIFF Stat Comprehensive Metabolic Panel Stat Ethanol (ETOH) Stat Ketones (Beta-Hydroxybutyrate) Stat Lipase Stat Magnesium Stat Phosphorous Stat 02/07/24 12:15 Venous Blood Gas Stat Discontinued Medications Sodium Chloride (Normal Saline 0.9%) 1,000 mls @ 1,000 mls/hr IV BOLUS ONE Stop: 02/07/24 12:57 Last Infusion: 02/07/24 13:12 Dose: Infused Documented By: Admin: 02/07/24 12:15 Dose: 1,000 mls/hr Documented By: KACI Ondansetron HCl (Ondansetron 4 Mg/2 Ml Inj) 4 mg IV NOW ONE Stop: 02/07/24 11:59 Last Admin: 02/07/24 12:15 Dose: 4 mg Documented By: KACI Vital Signs Vital signs: Vital Signs - 8 hr 02/07/24 11:46 02/07/24 14:09 Temperature 97.5 F L Pulse Rate 105 H 102 H Respiratory Rate 22 Blood Pressure 109/77 130/81 Pulse Oximetry 100 99 Oxygen Delivery Method Room Air Room Air MDM - Nausea/Vomiting/Diarrhea Medical Records Attestation: I reviewed the patient's medical records. Lab Data Attestation: I reviewed the patient's lab results. 02/07/24 12:10 02/07/24 12:10 Labs: Lab Results 02/07/24 02/07/24 Range/Units 12:10 12:15 WBC 7.4 (4.5-11.0) X10^3/uL RBC 5.90 (4.5-5.9) X10^6/uL Hgb 16.8 (13.5-17.5) g/dL Hct 48.0 (41-53) % MCV 81.3 (80-100) fL MCH 28.4 (26-34) PG MCHC 35.0 (30-36) % RDW 13.7 (11.6-14.8) % Plt Count 148 L (150-400) X10^3/uL Neut % (Auto) 70.6 (50-75) % Lymph % (Auto) 16.0 L (25-40) % Harris % (Auto) 11.3 (3-14) % Eos % (Auto) 1.4 L (2-4) % Baso % (Auto) 0.7 (0-2) % Neut # (Auto) 5200 (7138-6146) /uL Lymph # (Auto) 1200 (0470-0067) /uL Harris # (Auto) 800 (0-900) /uL Eos # (Auto) 100 (0-450) /uL Baso # (Auto) 100 (0-100) /uL VBG pH 7.39 (7.33-7.43) VBG pCO2 41.4 L (45-50) mmHg VBG pO2 48 H (35-45) mmHg VBG HCO3 25 (24-28) mmol/L VBG Total CO2 26 (24-29) mmol/L VBG O2 Saturation 83 H (70-75) % VBG Base Excess 0.0 (0-4) mmol/L FiO2 20 Sodium 136 L (137-145) mmol/L Potassium 3.6 (3.4-5.1) mmol/L Chloride 104 (98-107) mmol/L Carbon Dioxide 27 (22-32) mmol/L BUN 17 (9-20) mg/dL Creatinine 0.77 (0.66-1.25) mg/dL Estimated GFR > 60 (>60) mL/min BUN/Creatinine Ratio 22.1 H (6-22) Glucose 190 H (70-100) mg/dL Calcium 8.6 (8.4-10.2) mg/dL Phosphorus 3.3 (2.5-4.5) mg/dL Magnesium 2.3 (1.6-2.3) mg/dL Total Bilirubin 0.8 (0.2-1.3) mg/dL AST 16 L (17-59) IU/L ALT 13 (<50) IU/L Alkaline Phosphatase 82 (38-126) U/L Total Protein 6.9 (6.3-8.2) g/dL Albumin 4.2 (3.5-5.0) g/dL Globulin 2.7 (1.7-4.1) g/dL Albumin/Globulin Ratio 1.6 (1.0-2.8) Lipase 13 L (23-300) U/L Ethyl Alcohol < 10 ( - 10) mg/dL Ketones 0.07 (<0.27) mmol/L MDM Narrative Medical decision making narrative: Patient not in DKA. PH 7.3. After fluids and medications here in the ER he stated that he was feeling better. He was able to tolerate oral intake. He does have some nausea medication at home but I provided him a refill for more. Has a relatively benign exam otherwise. No indication for admission to the hospital. Will discharge patient home with return precautions. He expressed understanding and agreement with plan. Discharge Plan Departure Patient Disposition: Home Clinical Impression: Nausea, Vomiting, and Diarrhea Instructions: Nausea and Vomiting-Adult Activity Restrictions/Additional Instructions: Continue to take all of your medications as directed. Recommend that you increase the amount that you were drinking by drinking small amounts more frequently. Recommend a bland diet. Return to the emergency department for new or worsening symptoms. Prescriptions: New ondansetron 4 mg tablet,disintegrating 4 mg PO Q6H PRN (Reason: nausea and vomiting) Qty: 20 0RF No Action Invega Sustenna 156 mg/mL syringe 156 mg IM ONCE Qty: 1 5RF metformin 500 mg tablet 500 mg PO BID lorazepam 0.5 mg tablet 0.5 mg PO DAILY PRN (Reason: Severe anxiety or panic) Qty: 14 0RF losartan 50 mg tablet 50 mg PO DAILY insulin aspart U-100 [Novolog U-100 Insulin aspart] 100 UNIT/1 ML solution 150 u SQ Q DAY Qty: 4 5RF (DME) Glucose: Test Strips 0 .Route .MEDSUPPLY Qty: 1 2RF Dose Instruction: As directed Rx Instructions: USE 1 TEST STRIP TO TEST BLOOD SUGAR 5 TIMES PER DAY divalproex 500 mg tablet,delayed release (DR/EC) 500 mg PO BID Qty: 60 2RF gabapentin 300 mg capsule 900 mg PO TID Qty: 270 2RF trazodone 50 mg tablet 150 mg PO BEDTIME PRN (Reason: sleep) Qty: 90 2RF sertraline 100 mg tablet 100 mg PO DAILY Qty: 30 2RF quetiapine 50 mg tablet 50 mg PO QID PRN (Reason: agitiation) Qty: 120 2RF Referrals: Byron Foote MD [Primary Care Provider] - Stand Alone Forms: Patient Portal/API
[2024-02-07 14:09] VITALS: BP 130/81; PULSE 102; O2SAT 99
== END 2024-02-07 14:09 | disposition home or self-care (01) ==
PROVIDERS: Emergency Provider Emergency Medicine; Family Provider Family Medicine; PCP Family Medicine
DX: R11.2 Nausea with vomiting, unspecified (principal); R19.7 Diarrhea, unspecified; R10.9 Unspecified abdominal pain
CPT/HCPCS: 36415; 80053; 80320; 82009; 82805; 83690; 83735; 84100; 85025; 96361; 96374; 99284; J2405

== ENCOUNTER 2024-02-24 12:10 | Emergency (ER) | payer OTHER, MEDICAID, SELFPAY ==
[2023-12-28 08:43] VITALS: BMI 28.5
[2024-02-24 12:14] VITALS: BP 177/97; PULSE 112; RESP 16; TEMP 36.3; O2SAT 98; BMI 29.9
--- NOTE | 2024-02-24 12:32 | PC.NURSE ---
Pt states bs has been running normal for him. States he has several wounds on his hand and to lip from smoking meth. Pt instructed to wash hands in room due to uncleanliness. Pt agreed.
[2024-02-24 12:54] LABS: Add Manual Diff / Slide Review NO; Basophils Absolute Auto 100 /uL (0-100); Basophils Percent Auto 0.8 % (0-2); Eosinophils Absolute Auto 200 /uL (0-450); Eosinophils Percent Auto 3.5 % (2-4); Hemoglobin 15.3 g/dL (13.5-17.5); Lymphocytes Absolute Auto 1400 /uL (1100-4500); Lymphocytes Percent Auto 20.9 % (25-40); Mean Corpuscular HGB Conc 34.8 % (30-36); Mean Corpuscular Hemoglobin 28.3 PG (26-34); Mean Corpuscular Volume 81.2 fL (80-100); Monocytes Absolute Auto 700 /uL (0-900); Monocytes Percent Auto 10.5 % (3-14); Neutrophils Absolute Auto 4400 /uL (1500-7000); Neutrophils Percent Auto 64.3 % (50-75); Platelet Count 181 X10^3/uL (150-400); Red Blood Cell Count 5.42 X10^6/uL (4.5-5.9); Red Cell Distribution Width 13.6 % (11.6-14.8); White Blood Cell Count 6.8 X10^3/uL (4.5-11.0)
--- NOTE | 2024-02-24 12:59 | ED_ITS ---
HPI - Skin/Abscess/Foreign Bdy General Chief complaint: Skin/Abscess/Foreign Body Stated complaint: fingers infected and diabetic Time Seen by Provider: 02/24/24 12:32 Source: patient Mode of arrival: Ambulatory History of Present Illness HPI narrative: Patient is a 33-year-old male history of insulin-dependent diabetes on an insulin pump, polysubstance abuse, bipolar presenting today with right index finger swelling. He reports that he was cleaning up the yd without any sort of gloves on he has a couple sores on his hands both sides. His right index finger has a little bit swollen. His hands are quite dirty baseline. He denies any fever or chills. He is worried because it was swollen yesterday he drained it and now it is swollen again. He admits to smoking a pipe in his noted to have a burn on his upper lip. He has an insulin pump and he states he is out of his insulin currently he has a refills at home he just needs to go home and refill the pump. He has a refill waiting for him a pharmacy and he can pick that up in 2 days. He denies any sort of nausea vomiting or abdominal pain. Related Data Home Medications Medication Instructions Recorded Confirmed losartan 50 mg tablet 50 mg PO DAILY 12/17/23 01/31/24 metformin 500 mg tablet 500 mg PO BID 01/31/24 01/31/24 Previous Rx's Medication Instructions Recorded insulin aspart U-100 100 unit/mL 150 u SQ Q DAY #4 vials 10/24/17 subcutaneous solution (Novolog U-100 Insulin aspart) Glucose: Test Strips #1 ea 10/31/18 divalproex 500 mg tablet,delayed 500 mg PO BID #60 tabs 01/14/24 release gabapentin 300 mg capsule 900 mg (3 x 300 mg) PO TID #270 01/14/24 caps quetiapine 50 mg tablet 50 mg PO QID PRN agitiation #120 01/14/24 tabs sertraline 100 mg tablet 100 mg PO DAILY #30 tabs 01/14/24 trazodone 50 mg tablet 150 mg (3 x 50 mg) PO BEDTIME PRN 01/14/24 sleep #90 tabs paliperidone palmitate 156 mg/mL 156 mg IM ONCE #1 mL 01/30/24 intramuscular syringe (Invega Sustenna) ondansetron 4 mg disintegrating 4 mg PO Q6H PRN nausea and 02/07/24 tablet vomiting #20 tabs lorazepam 0.5 mg tablet 0.5 mg PO DAILY PRN Severe anxiety 02/12/24 or panic #14 tabs doxycycline hyclate 100 mg capsule 100 mg PO BID #20 caps 02/24/24 Allergies Allergy/AdvReac Type Severity Reaction Status Date / Time Latex, Natural Rubber Allergy Severe Rash Verified 02/24/24 12:19 [LATEX, NATURAL RUBBER] erythromycin base AdvReac Severe Vomiting Verified 02/24/24 12:19 [From ERYTHROCIN] Patient History Medical History Schizophrenia (Unknown) Chronic cough (Unknown) ADHD (attention deficit hyperactivity disorder) (Unknown) Foot pain (Unknown) Generalized headaches (Unknown) Migraines (Unknown) Anxiety (Unknown) Bipolar disorder (Unknown) Depression (Unknown) Allergic rhinitis (Unknown) Asthma (Unknown) Type 1 diabetes (~1992) Surgical History Hx of eye surgery (12/2015) Hx of foot surgery (2003) Family History Father Age: 71 Type 2 diabetes mellitus without complication, 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 Social History household members: spouse and children Smoking Status: Current every day smoker alcohol intake: current substance use type: marijuana Smoking Status: Current every day smoker tobacco type: cigarettes and vaping alcohol intake frequency: other Substance Use Type: marijuana, opiates and methamphetamine Exam Initial Vital Signs Initial Vital Signs: Vital Signs Temperature 97.4 F L 02/24/24 12:14 Pulse Rate 112 H 02/24/24 12:14 Respiratory Rate 16 02/24/24 12:14 Blood Pressure 177/97 H 02/24/24 12:14 Pulse Oximetry 98 02/24/24 12:14 Oxygen Delivery Method Room Air 02/24/24 12:14 GENERAL: Disheveled 33-year-old male awake alert and oriented HEENT: Head atraumatic,EOMI, pupils reactive, face symmetric, lip has scab no significant swelling no blister, no trouble managing secretions CARDIOVASCULAR: Regular rate and rhythm without murmurs, rubs or gallops. RESPIRATORY: Breath sounds equal bilaterally, no wheezes rales or rhonchi. ABDOMEN: Soft, nontender. Normoactive bowel sounds all 4 quadrants. No guarding or rebound. EXTREMITIES: Normal range of motion, no clubbing or edema. Neurovascularly intact Right index finger not significantly swollen no significant erythema full range of motion NEUROLOGICAL: Alert and oriented x4.Normal gait and speech. SKIN: Right index finger 0.25 cm swelling noted it is easily drained, serosanguineous fluid. Course Orders Ordered: ED Orders 02/24/24 12:42 pH VBG Stat 02/24/24 12:47 CBC Auto Diff [Complete Blood Count AUTO DIFF] Stat CMP [Comprehensive Metabolic Panel] Stat Ketones (Beta-Hydroxybutyrate) Stat Lactate (Lactic Acid) Stat 02/24/24 13:25 Urinalysis and Microscopic Stat Discontinued Medications Insulin Human Regular (Insulin Regular 100 Unit/Ml 3 Ml Vial) 10 unit SUBCUT NOW ONE Stop: 02/24/24 13:28 Last Admin: 02/24/24 13:39 Dose: 10 unit Documented By: RB Co-signed By: MARVIN Vital Signs Vital signs: Vital Signs - 8 hr 02/24/24 12:14 02/24/24 13:29 02/24/24 13:29 Temperature 97.4 F L Pulse Rate 112 H 100 H Respiratory Rate 16 22 Blood Pressure 177/97 H 118/80 Pulse Oximetry 98 95 Oxygen Delivery Method Room Air 02/24/24 13:30 02/24/24 13:30 02/24/24 14:00 Temperature Pulse Rate 103 H 100 H Respiratory Rate 16 23 Blood Pressure 122/78 Pulse Oximetry 95 94 Oxygen Delivery Method MDM - Skin/Abscess/Foreign Bdy Lab Data 02/24/24 12:47 02/24/24 12:47 Labs: Lab Results 02/24/24 02/24/24 02/24/24 Range/Units 12:42 12:47 13:25 WBC 6.8 (4.5-11.0) X10^3/uL RBC 5.42 (4.5-5.9) X10^6/uL Hgb 15.3 (13.5-17.5) g/dL Hct 44.0 (41-53) % MCV 81.2 (80-100) fL MCH 28.3 (26-34) PG MCHC 34.8 (30-36) % RDW 13.6 (11.6-14.8) % Plt Count 181 (150-400) X10^3/uL Neut % (Auto) 64.3 (50-75) % Lymph % (Auto) 20.9 L (25-40) % [place] % (Auto) 10.5 (3-14) % Eos % (Auto) 3.5 (2-4) % Baso % (Auto) 0.8 (0-2) % Neut # (Auto) 4400 (4096-1809) /uL Lymph # (Auto) 1400 (6989-6079) /uL [place] # (Auto) 700 (0-900) /uL Eos # (Auto) 200 (0-450) /uL Baso # (Auto) 100 (0-100) /uL VBG pH 7.36 (7.33-7.43) Sodium 131 L (137-145) mmol/L Potassium 4.5 (3.4-5.1) mmol/L Chloride 103 (98-107) mmol/L Carbon Dioxide 22 (22-32) mmol/L BUN 18 (9-20) mg/dL Creatinine 0.64 L (0.66-1.25) mg/dL Estimated GFR > 60 (>60) mL/min BUN/Creatinine Ratio 28.1 H (6-22) Glucose 529 H* (70-100) mg/dL Lactate 1.2 (0.7-2.1) mmol/L Calcium 8.9 (8.4-10.2) mg/dL Total Bilirubin 0.5 (0.2-1.3) mg/dL AST 16 L (17-59) IU/L ALT 15 (<50) IU/L Alkaline Phosphatase 126 (38-126) U/L Total Protein 6.5 (6.3-8.2) g/dL Albumin 4.0 (3.5-5.0) g/dL Globulin 2.5 (1.7-4.1) g/dL Albumin/Globulin Ratio 1.6 (1.0-2.8) Urine Color Yellow Urine Appearance Clear Urine pH 6.0 (4.5-8.0) Ur Specific [place] <=1.005 (1.000-1.035) Urine Protein Negative (Negative) Urine Glucose (UA) 3+ H (Negative) g/dL Urine Ketones Negative (NEGATIVE) Urine Occult Blood Negative (Negative) Urine Nitrate Negative (Negative) Urine Bilirubin Negative (NEGATIVE) Urine Urobilinogen 0.2 (0.2) E.U./dL Ur Leukocyte Esterase Negative (NEGATIVE) Urine RBC None seen (0-5/HPF) Urine WBC None seen (0-5/HPF) Ur Squamous Epith Cells None seen (0-5/HPF) Urine Bacteria None seen (None) Ur Culture Indicated? Cult not indicated Vol Urine Centrifuged 10ml (spun) Ketones 0.08 (<0.27) mmol/L Point of Care Testing Glucose POC 472 MDM Narrative Medical decision making narrative: Patient 33-year-old male history of insulin-dependent diabetes presenting today with right finger. He is multiple wounds all over this 1 is draining. High- risk for infection. Blood work has been reviewed he has no leukocytosis no evidence of DKA no anion gap pH 7.36 despite glucose of 529. Patient has all supplies that he needs at home he just needs to go home and fell his insulin pump. He is given 10 units of insulin here in the ED. He has no evidence of flexor tenosynovitis. I think reasonable to start patient on antibiotics. He is afebrile without leukocytosis no evidence of sepsis or severe sepsis. Discharge Plan Departure Patient Disposition: Home Clinical Impression: Acute hyperglycemia, Cellulitis Instructions: DI for Cellulitis -- Adult Activity Restrictions/Additional Instructions: *You have been diagnosed with cellulitis high glucose *What to do: You were given 10 units of insulin here in the ED please go home and fell your insulin pumps do not have DKA. Please wash your hands with soap and water and keep your hands clean and dry as best as possible *Continue to take medications as directed Doxycycline 100 mg twice a day for 10 days--[facility] *Follow up with your primary care provider in 2-3 days or call [phone] *Return to ER if you should have increasing redness swelling pain fevers nausea vomiting or any new, worsening or concerning symptoms Prescriptions: New doxycycline hyclate 100 mg capsule 100 mg PO BID Qty: 20 0RF No Action Invega Sustenna 156 mg/mL syringe 156 mg IM ONCE Qty: 1 5RF metformin 500 mg tablet 500 mg PO BID losartan 50 mg tablet 50 mg PO DAILY insulin aspart U-100 [Novolog U-100 Insulin aspart] 100 UNIT/1 ML solution 150 u SQ Q DAY Qty: 4 5RF (DME) Glucose: Test Strips 0 .Route .MEDSUPPLY Qty: 1 2RF Dose Instruction: As directed Rx Instructions: USE 1 TEST STRIP TO TEST BLOOD SUGAR 5 TIMES PER DAY divalproex 500 mg tablet,delayed release (DR/EC) 500 mg PO BID Qty: 60 2RF gabapentin 300 mg capsule 900 mg PO TID Qty: 270 2RF trazodone 50 mg tablet 150 mg PO BEDTIME PRN (Reason: sleep) Qty: 90 2RF sertraline 100 mg tablet 100 mg PO DAILY Qty: 30 2RF quetiapine 50 mg tablet 50 mg PO QID PRN (Reason: agitiation) Qty: 120 2RF lorazepam 0.5 mg tablet 0.5 mg PO DAILY PRN (Reason: Severe anxiety or panic) Qty: 14 0RF ondansetron 4 mg tablet,disintegrating 4 mg PO Q6H PRN (Reason: nausea and vomiting) Qty: 20 0RF Referrals: Byron Foote MD [Primary Care Provider] - Stand Alone Forms: Patient Portal/API
[2024-02-24 13:08] LABS: Alanine Aminotransferase 15 IU/L (<50); Albumin Globulin Ratio 1.6 (1.0-2.8); Alkaline Phosphatase 126 U/L (38-126); Aspartate Aminotransferase 16 IU/L (17-59); BUN Creatinine Ratio 28.1 (6-22); Bilirubin Total 0.5 mg/dL (0.2-1.3); Blood Urea Nitrogen 18 mg/dL (9-20); Calcium 8.9 mg/dL (8.4-10.2); Carbon Dioxide 22 mmol/L (22-32); Chloride 103 mmol/L (98-107); Estimated Glomerular Filt Rate > 60 mL/min (>60); Globulin 2.5 g/dL (1.7-4.1); HEMOLYSIS 26 (0-50); Potassium 4.5 mmol/L (3.4-5.1); Sodium 131 mmol/L (137-145); Total Protein 6.5 g/dL (6.3-8.2)
[2024-02-24 13:09] LABS: Lactate (Lactic Acid) 1.2 mmol/L (0.7-2.1)
[2024-02-24 13:18] LABS: Glucose 529 mg/dL (70-100)
[2024-02-24 13:27] LABS: Ketones (Beta-Hydroxybutyrate) 0.08 mmol/L (<0.27)
[2024-02-24 13:29] VITALS: BP 118/80; PULSE 100; RESP 22; O2SAT 95
[2024-02-24 13:30] VITALS: BP 122/78; PULSE 103; RESP 16; O2SAT 95
[2024-02-24 13:37] LABS: Appearance Urine UA CLEAR; Bilirubin Urine UA NEGATIVE (NEGATIVE); Color Urine UA YELLOW; Glucose Urine UA 3+ g/dL (Negative); Ketones Urine UA NEGATIVE (NEGATIVE); Leukocyte Esterase Urine UA NEGATIVE (NEGATIVE); Nitrite Urine UA NEGATIVE (Negative); Occult Blood Urine UA NEGATIVE (Negative); Protein Urine UA NEGATIVE (Negative); Specific Gravity Urine UA <=1.005 (1.000-1.035); Urobilinogen Urine UA 0.2 E.U./dL (0.2)
[2024-02-24] MEDS: INSULIN REGULAR 100 UNIT/ML 3 ML VIAL 10 UNIT SUBCUT (13:39)
[2024-02-24 13:48] LABS: Bacteria Urine None Seen; Culture Indicated Urine Cult Not Indicated; RBC Urine None Seen (0-5/HPF); Squamous Epithelial Cell Urine None Seen (0-5/HPF); Urine Volume 10mL (spun); WBC Urine None Seen (0-5/HPF)
[2024-02-24 13:59] LABS: pH VBG 7.36 (7.33-7.43)
[2024-02-24 14:00] VITALS: PULSE 100; RESP 23; O2SAT 94
== END 2024-02-24 14:17 | disposition home or self-care (01) ==
PROVIDERS: Emergency Provider Emergency Medicine; Family Provider Family Medicine; PCP Family Medicine
DX: L03.011 Cellulitis of right finger (principal); E10.65 Type 1 diabetes mellitus with hyperglycemia; Z96.41 Presence of insulin pump (external) (internal)
CPT/HCPCS: 80053; 81001; 82009; 82962; 83605; 83986; 85025; 96372; 99282; 99284

== ENCOUNTER 2024-02-28 09:25 | Emergency (ER) | payer OTHER, MEDICAID, SELFPAY ==
[2023-12-28 08:43] VITALS: BMI 28.5
[2024-02-28 09:30] VITALS: BP 133/91; PULSE 104; RESP 18; TEMP 36.8; O2SAT 98; BMI 29.2
--- NOTE | 2024-02-28 10:15 | ED_ITS ---
HPI - Psych General Chief Complaint: Wound/Laceration Stated Complaint: Thinks he has infections on both hands Time Seen by Provider: 02/28/24 09:56 Source: patient Mode of arrival: Ambulatory Limitations: no limitations History of Present Illness HPI Narrative: 33-year-old male history of insulin-dependent diabetes on insulin pump, polysubstance abuse, bipolar presenting with complaint of possible infection in his hands but also longstanding depression, with suicidal ideation and concern for his own safety. 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 There is a little bit of redness surrounding each site but no other changes. He has not had any fevers or other infectious symptoms. He notes that he has had longstanding depression, he has a plan to either overdose on his medications, drive off a bridge or ?suicide by copyman, he states he has no intent to harm anyone else he does not have thoughts of harming others. He is reaching out because he would like for inpatient stay. Patient states he is on daily medications. He does follow with a counselor. He states that he does use tobacco, denies regular alcohol use, has used recreational drugs and last used methamphetamines yesterday. Patient on last visit insulin pump was empty. Related Data Home Medications Medication Instructions Recorded Confirmed losartan 50 mg tablet 50 mg PO DAILY 12/17/23 01/31/24 metformin 500 mg tablet 500 mg PO BID 01/31/24 01/31/24 Previous Rx's Medication Instructions Recorded insulin aspart U-100 100 unit/mL 150 u SQ Q DAY #4 vials 10/24/17 subcutaneous solution (Novolog U-100 Insulin aspart) Glucose: Test Strips #1 ea 10/31/18 divalproex 500 mg tablet,delayed 500 mg PO BID #60 tabs 01/14/24 release gabapentin 300 mg capsule 900 mg (3 x 300 mg) PO TID #270 01/14/24 caps quetiapine 50 mg tablet 50 mg PO QID PRN agitiation #120 01/14/24 tabs sertraline 100 mg tablet 100 mg PO DAILY #30 tabs 01/14/24 trazodone 50 mg tablet 150 mg (3 x 50 mg) PO BEDTIME PRN 01/14/24 sleep #90 tabs paliperidone palmitate 156 mg/mL 156 mg IM ONCE #1 mL 01/30/24 intramuscular syringe (Invega Sustenna) ondansetron 4 mg disintegrating 4 mg PO Q6H PRN nausea and 02/07/24 tablet vomiting #20 tabs lorazepam 0.5 mg tablet 0.5 mg PO DAILY PRN Severe anxiety 02/12/24 or panic #14 tabs doxycycline hyclate 100 mg capsule 100 mg PO BID #20 caps 02/24/24 Allergies Allergy/AdvReac Type Severity Reaction Status Date / Time Latex, Natural Rubber Allergy Severe Rash Verified 02/28/24 09:42 [LATEX, NATURAL RUBBER] erythromycin base AdvReac Severe Vomiting Verified 02/28/24 09:42 [From ERYTHROCIN] Review of Systems Review of Systems ROS Unobtainable: All systems reviewed & are unremarkable except as noted in HPI and below Patient History Medical History Schizophrenia (Unknown) Chronic cough (Unknown) ADHD (attention deficit hyperactivity disorder) (Unknown) Foot pain (Unknown) Generalized headaches (Unknown) Migraines (Unknown) Anxiety (Unknown) Bipolar disorder (Unknown) Depression (Unknown) Allergic rhinitis (Unknown) Asthma (Unknown) Type 1 diabetes (~1992) Surgical History Hx of eye surgery (12/2015) Hx of foot surgery (2003) Family History Father Age: 71 Type 2 diabetes mellitus without complication, unspecified fdc insulin 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 Social History household members: spouse and children Smoking Status: Current every day smoker alcohol intake: current substance use type: marijuana Smoking Status: Current every day smoker tobacco type: cigarettes and vaping alcohol intake frequency: other Substance Use Type: marijuana, opiates and methamphetamine Exam Narrative Exam Narrative: GENERAL: Alert and oriented x three, male in mild distress. HEENT: Head normocephalic, atraumatic, EOMI, pupils reactive, face symmetric, moist mucous membranes NECK: Supple, full range of motion CARDIOVASCULAR: Regular rate and rhythm without murmurs, rubs or gallops. RESPIRATORY: Breath sounds equal bilaterally, no wheezes rales or rhonchi. ABDOMEN: Soft, nontender. Normoactive bowel sounds all 4 quadrants. No guarding or rebound, rigidity, no mass : No CVA tenderness EXTREMITIES: Normal range of motion, no clubbing or edema. Neurovascularly intact NEUROLOGICAL: Cranial nerves II through XII grossly intact. Moving all extremities SKIN: Warm, dry, no petechiae, patient has several small wounds on bilateral hands fingers. There is a slight amount of erythema around each area no active drainage although 2 of them are open. PSYCH: Suicidal ideation with plan, patient does not have any homicidal ideation or intent. Denies hallucinations. Initial Vital Signs Initial Vital Signs: Vital Signs Temperature 98.3 F 02/28/24 09:30 Pulse Rate 104 H 02/28/24 09:30 Respiratory Rate 18 02/28/24 09:30 Blood Pressure 133/91 H 02/28/24 09:30 Pulse Oximetry 98 02/28/24 09:30 Oxygen Delivery Method Room Air 02/28/24 09:30 Course Orders Ordered: Discontinued Medications Acetaminophen (Acetaminophen 325 Mg Tablet) 975 mg PO NOW ONE Stop: 02/28/24 14:27 Last Admin: 02/28/24 14:31 Dose: 975 mg Documented By: DE Doxycycline Hyclate (Doxycycline Hyclate 100 Mg Tablet) 100 mg PO NOW ONE Stop: 02/28/24 11:23 Last Admin: 02/28/24 11:53 Dose: 100 mg Documented By: TYRESE Sodium Chloride (Normal Saline 0.9%) 1,000 mls @ 1,000 mls/hr IV BOLUS ONE Stop: 02/28/24 15:11 Last Infusion: 02/28/24 15:37 Dose: Infused Documented By: Admin: 02/28/24 14:22 Dose: 1,000 mls/hr Documented By: DE Sodium Chloride (Normal Saline 0.9%) 1,000 mls @ 1,000 mls/hr IV BOLUS ONE Stop: 02/28/24 16:29 Last Infusion: 02/28/24 16:58 Dose: Infused Documented By: Admin: 02/28/24 15:38 Dose: 1,000 mls/hr Documented By: GABY Insulin Human Regular (Insulin Regular 100 Unit/Ml 3 Ml Vial) 10 unit SUBCUT NOW ONE Stop: 02/28/24 15:25 Last Admin: 02/28/24 15:40 Dose: 10 unit Documented By: SPF Co-signed By: EVANGELISTA Lorazepam (Lorazepam 0.5 Mg Tablet) 2 mg PO NOW ONE Stop: 02/28/24 17:23 Last Admin: 02/28/24 17:34 Dose: 2 mg Documented By: TYRESE Nicotine (Nicotine 21 Mg Patch) 21 mg TOP NOW ONE Stop: 02/28/24 11:52 Last Admin: 02/28/24 12:09 Dose: 21 mg Documented By: DE Vital Signs Vital signs: Vital Signs - 8 hr 02/28/24 15:59 Pulse Rate 95 H Respiratory Rate 18 Blood Pressure 152/92 H Pulse Oximetry 99 Oxygen Delivery Method Room Air MDM - Psych Lab Data 02/28/24 10:20 02/28/24 10:20 Labs: Lab Results 02/28/24 02/28/24 02/28/24 Range/Units 10:09 10:09 10:11 WBC (4.5-11.0) X10^3/uL RBC (4.5-5.9) X10^6/uL Hgb (13.5-17.5) g/dL Hct (41-53) % MCV (80-100) fL MCH (26-34) PG MCHC (30-36) % RDW (11.6-14.8) % Plt Count (150-400) X10^3/uL Neut % (Auto) (50-75) % Lymph % (Auto) (25-40) % [place] % (Auto) (3-14) % Eos % (Auto) (2-4) % Baso % (Auto) (0-2) % Neut # (Auto) (1470-7618) /uL Lymph # (Auto) (5020-5842) /uL [place] # (Auto) (0-900) /uL Eos # (Auto) (0-450) /uL Baso # (Auto) (0-100) /uL Sodium (137-145) mmol/L Potassium (3.4-5.1) mmol/L Chloride (98-107) mmol/L Carbon Dioxide (22-32) mmol/L BUN (9-20) mg/dL Creatinine (0.66-1.25) mg/dL Estimated GFR (>60) mL/min BUN/Creatinine Ratio (6-22) Glucose (70-100) mg/dL Calcium (8.4-10.2) mg/dL Total Bilirubin (0.2-1.3) mg/dL AST (17-59) IU/L ALT (<50) IU/L Alkaline Phosphatase (38-126) U/L Total Protein (6.3-8.2) g/dL Albumin (3.5-5.0) g/dL Globulin (1.7-4.1) g/dL Albumin/Globulin Ratio (1.0-2.8) TSH (0.47-4.68) uIU/mL Free T4 (0.78-2.19) ng/dL Urine Color Yellow Urine Appearance Clear Urine pH 5.5 Normal (4.5-8.0) Ur Specific [place] 1.010 (1.000-1.035) Urine Protein Negative (Negative) Urine Glucose (UA) 3+ H (Negative) g/dL Urine Ketones 2+ H (NEGATIVE) Urine Occult Blood Negative (Negative) Urine Nitrate Negative (Negative) Urine Bilirubin Negative (NEGATIVE) Urine Urobilinogen 0.2 (0.2) E.U./dL Ur Leukocyte Esterase Negative (NEGATIVE) Urine RBC None seen (0-5/HPF) Urine WBC None seen (0-5/HPF) Ur Squamous Epith Cells 0-1 /hpf (0-5/HPF) Urine Bacteria None seen (None) Ur Culture Indicated? Cult not indicated Vol Urine Centrifuged 10ml (spun) Salicylates (<20) mg/dL U Opiates 300ng/mL cut Negative (Negative) Ur Oxycodone Screen Negative (Negative) Urine Methadone Screen Negative (Negative) Acetaminophen (10-30) ug/mL Ur Barbiturates Screen Negative (Negative) U Tricyclic Antidepress Negative (Negative) Ur Phencyclidine Scrn Negative (Negative) Ur Amphetamines Screen Positive H (Negative) U Methamphetamines Scrn Positive H (Negative) Ur MDMA Scrn (Ecstasy) Negative (Negative) U Benzodiazepines Scrn Negative (Negative) Urine Cocaine Screen Negative (Negative) U Marijuana (THC) Screen Positive H (Negative) Urine Specific [place] Normal (Normal) Ethyl Alcohol ( - 10) mg/dL Ur Creatinine Normal (Normal) SARS-CoV-2 (PCR) Negative (Negative) 02/28/24 Range/Units 10:20 WBC 6.2 (4.5-11.0) X10^3/uL RBC 5.37 (4.5-5.9) X10^6/uL Hgb 15.5 (13.5-17.5) g/dL Hct 43.4 (41-53) % MCV 80.9 (80-100) fL MCH 28.8 (26-34) PG MCHC 35.6 (30-36) % RDW 13.9 (11.6-14.8) % Plt Count 187 (150-400) X10^3/uL Neut % (Auto) 62.5 (50-75) % Lymph % (Auto) 19.8 L (25-40) % [place] % (Auto) 13.8 (3-14) % Eos % (Auto) 3.3 (2-4) % Baso % (Auto) 0.6 (0-2) % Neut # (Auto) 3900 (6175-3895) /uL Lymph # (Auto) 1200 (7997-6576) /uL [place] # (Auto) 900 (0-900) /uL Eos # (Auto) 200 (0-450) /uL Baso # (Auto) 0 (0-100) /uL Sodium 136 L (137-145) mmol/L Potassium 4.7 (3.4-5.1) mmol/L Chloride 105 (98-107) mmol/L Carbon Dioxide 22 (22-32) mmol/L BUN 18 (9-20) mg/dL Creatinine 0.59 L (0.66-1.25) mg/dL Estimated GFR > 60 (>60) mL/min BUN/Creatinine Ratio 30.5 H (6-22) Glucose 356 H D (70-100) mg/dL Calcium 8.8 (8.4-10.2) mg/dL Total Bilirubin 0.7 (0.2-1.3) mg/dL AST 19 (17-59) IU/L ALT 16 (<50) IU/L Alkaline Phosphatase 121 (38-126) U/L Total Protein 7.0 (6.3-8.2) g/dL Albumin 4.2 (3.5-5.0) g/dL Globulin 2.8 (1.7-4.1) g/dL Albumin/Globulin Ratio 1.5 (1.0-2.8) TSH 0.364 L (0.47-4.68) uIU/mL Free T4 1.19 (0.78-2.19) ng/dL Urine Color Urine Appearance Urine pH (4.5-8.0) Ur Specific [place] (1.000-1.035) Urine Protein (Negative) Urine Glucose (UA) (Negative) g/dL Urine Ketones (NEGATIVE) Urine Occult Blood (Negative) Urine Nitrate (Negative) Urine Bilirubin (NEGATIVE) Urine Urobilinogen (0.2) E.U./dL Ur Leukocyte Esterase (NEGATIVE) Urine RBC (0-5/HPF) Urine WBC (0-5/HPF) Ur Squamous Epith Cells (0-5/HPF) Urine Bacteria (None) Ur Culture Indicated? Vol Urine Centrifuged Salicylates < 1.0 (<20) mg/dL U Opiates 300ng/mL cut (Negative) Ur Oxycodone Screen (Negative) Urine Methadone Screen (Negative) Acetaminophen < 10 (10-30) ug/mL Ur Barbiturates Screen (Negative) U Tricyclic Antidepress (Negative) Ur Phencyclidine Scrn (Negative) Ur Amphetamines Screen (Negative) U Methamphetamines Scrn (Negative) Ur MDMA Scrn (Ecstasy) (Negative) U Benzodiazepines Scrn (Negative) Urine Cocaine Screen (Negative) U Marijuana (THC) Screen (Negative) Urine Specific [place] (Normal) Ethyl Alcohol < 10 ( - 10) mg/dL Ur Creatinine (Normal) SARS-CoV-2 (PCR) (Negative) Point of Care Testing Glucose POC 372 MDM Narrative Medical decision making narrative: 33-year-old male with multiple wounds on his hands no significant cellulitis but we will cover with oral antibiotic preferably doxycycline as he works in [employer] in the [place]. Patient's lab workup Shows hyperglycemia no signs of DKA, hemoglobin is 15, white count 6.2 platelets are 187. Sodium is 136 potassium is 4 7 chloride 105 CO2 is normal range of 22 BUN 18 with creatinine 0.59 glucose is 356, LFTs are negative. TSH is low but T4 is appropriate. Patient's anion gap is 9. UA shows ketones, 3+ glucose but no signs of infection. Toxicology is negative for Tylenol, salicylates and ETOH, patient is positive for amphetamines and methamphetamines as well as marijuana. Patient's glucose on point of care recheck in 320, he has not insulin pump in place was given a bolus via his bolus wizard for 6.4 units with basal rate of 2.4 units. Continue to check glucose q.2 hours. Patient is eating and drinking here in the department. Patient's glucose is not significantly improved, sodium 300 range. Patient was accepted at psychiatric facility but they need a glucose in the 200 range and his insulin pump must be stopped. They also asked that patient be hydrated. Patient was given a L of fluids still 370 on recheck. We will remove his pump given 10 units of regular insulin 2 L of fluids. Asked patient what he is done with Lantus and NovoLog in the past which he has taken. He does not recall his scales or amounts he states [place] nose. Patient accepted at [facility] for Dr. Betancur. Accept the sites patient's glucose in the 300s. Discharge Plan Departure Patient Disposition: Xfer Psychiatric Hosp Clinical Impression: Suicidal ideations, Hyperglycemia Prescriptions: No Action Invega Sustenna 156 mg/mL syringe 156 mg IM ONCE Qty: 1 5RF metformin 500 mg tablet 500 mg PO BID losartan 50 mg tablet 50 mg PO DAILY insulin aspart U-100 [Novolog U-100 Insulin aspart] 100 UNIT/1 ML solution 150 u SQ Q DAY Qty: 4 5RF (DME) Glucose: Test Strips 0 .Route .MEDSUPPLY Qty: 1 2RF Dose Instruction: As directed Rx Instructions: USE 1 TEST STRIP TO TEST BLOOD SUGAR 5 TIMES PER DAY divalproex 500 mg tablet,delayed release (DR/EC) 500 mg PO BID Qty: 60 2RF gabapentin 300 mg capsule 900 mg PO TID Qty: 270 2RF trazodone 50 mg tablet 150 mg PO BEDTIME PRN (Reason: sleep) Qty: 90 2RF sertraline 100 mg tablet 100 mg PO DAILY Qty: 30 2RF quetiapine 50 mg tablet 50 mg PO QID PRN (Reason: agitiation) Qty: 120 2RF lorazepam 0.5 mg tablet 0.5 mg PO DAILY PRN (Reason: Severe anxiety or panic) Qty: 14 0RF doxycycline hyclate 100 mg capsule 100 mg PO BID Qty: 20 0RF ondansetron 4 mg tablet,disintegrating 4 mg PO Q6H PRN (Reason: nausea and vomiting) Qty: 20 0RF Referrals: Byron Foote MD [Primary Care Provider] -
[2024-02-28 10:21] LABS: Appearance Urine UA CLEAR; Bilirubin Urine UA NEGATIVE (NEGATIVE); Color Urine UA YELLOW; Glucose Urine UA 3+ g/dL (Negative); Ketones Urine UA 2+ (NEGATIVE); Leukocyte Esterase Urine UA NEGATIVE (NEGATIVE); Nitrite Urine UA NEGATIVE (Negative); Occult Blood Urine UA NEGATIVE (Negative); Protein Urine UA NEGATIVE (Negative); Urobilinogen Urine UA 0.2 E.U./dL (0.2); pH Urine UA 5.5 (4.5-8.0)
[2024-02-28 10:26] LABS: Ur Creatinine Normal (Normal); Ur Specific Gravity Normal (Normal); Urine pH Normal (Normal)
[2024-02-28 10:27] LABS: Urine Amphetamines Positive (Negative); Urine Barbiturates Negative (Negative); Urine Benzodiazepines Negative (Negative); Urine Cocaine Negative (Negative); Urine MDMA Negative (Negative); Urine Methadone Negative (Negative); Urine Methamphetamines Positive (Negative); Urine Opiates Negative (Negative); Urine Oxycodone Negative (Negative); Urine Phencyclidine Negative (Negative); Urine THC Positive (Negative); Urine Tricyclic Antidepressant Negative (Negative)
[2024-02-28 10:28] LABS: Add Manual Diff / Slide Review NO; Basophils Absolute Auto 0 /uL (0-100); Basophils Percent Auto 0.6 % (0-2); Eosinophils Absolute Auto 200 /uL (0-450); Eosinophils Percent Auto 3.3 % (2-4); Hematocrit 43.4 % (41-53); Hemoglobin 15.5 g/dL (13.5-17.5); Lymphocytes Absolute Auto 1200 /uL (1100-4500); Lymphocytes Percent Auto 19.8 % (25-40); Mean Corpuscular HGB Conc 35.6 % (30-36); Mean Corpuscular Hemoglobin 28.8 PG (26-34); Mean Corpuscular Volume 80.9 fL (80-100); Monocytes Absolute Auto 900 /uL (0-900); Monocytes Percent Auto 13.8 % (3-14); Neutrophils Absolute Auto 3900 /uL (1500-7000); Neutrophils Percent Auto 62.5 % (50-75); Platelet Count 187 X10^3/uL (150-400); Red Blood Cell Count 5.37 X10^6/uL (4.5-5.9); Red Cell Distribution Width 13.9 % (11.6-14.8); White Blood Cell Count 6.2 X10^3/uL (4.5-11.0)
[2024-02-28 10:31] LABS: Bacteria Urine None Seen; Culture Indicated Urine Cult Not Indicated; RBC Urine None Seen (0-5/HPF); Squamous Epithelial Cell Urine 0-1 /HPF (0-5/HPF); Urine Volume 10mL (spun); WBC Urine None Seen (0-5/HPF)
[2024-02-28 10:31] LABS: COVID19 -Nasal RAPID Negative (Negative)
[2024-02-28 10:45] LABS: Acetaminophen < 10 ug/mL (10-30); Alanine Aminotransferase 16 IU/L (<50); Albumin 4.2 g/dL (3.5-5.0); Albumin Globulin Ratio 1.5 (1.0-2.8); Alkaline Phosphatase 121 U/L (38-126); Aspartate Aminotransferase 19 IU/L (17-59); BUN Creatinine Ratio 30.5 (6-22); Bilirubin Total 0.7 mg/dL (0.2-1.3); Blood Urea Nitrogen 18 mg/dL (9-20); Calcium 8.8 mg/dL (8.4-10.2); Carbon Dioxide 22 mmol/L (22-32); Chloride 105 mmol/L (98-107); Estimated Glomerular Filt Rate > 60 mL/min (>60); Ethanol (ETOH) < 10 mg/dL; Globulin 2.8 g/dL (1.7-4.1); Glucose 356 mg/dL (70-100); HEMOLYSIS 30 (0-50); Potassium 4.7 mmol/L (3.4-5.1); Salicylate < 1.0 mg/dL (<20); Sodium 136 mmol/L (137-145)
[2024-02-28 11:07] LABS: Free T4, Direct Thyroxine 1.19 ng/dL (0.78-2.19)
[2024-02-28 11:21] LABS: Thyroid Stimulating Hormone 0.364 uIU/mL (0.47-4.68)
[2024-02-28] MEDS: DOXYCYCLINE HYCLATE 100 MG TABLET PO (11:53)
--- NOTE | 2024-02-28 11:56 | PC.NURSE ---
Pt has an insulin pump for his T1 Diabetes. He reports taking pretty good care of his diabetes. Pt states he has issues with insurance filling his insulin prescription and CGM sensors currently. He has enough insulin at home to change my pump once, and thats it. Pt's pump reads having 79 units of insulin left loaded. Infusion site intact on patients RLQ abdomen. Pump battery indicator is on red, patient provided with new AA battery for his pump. Pt informed he must let ER staff know before giving himself any insulin. Pt expresses understanding and states he will not give insulin without notifying staff. Pt continues to state he has thoughts of harming himself, and feels safe in the ER. Provider notified and okay for patient to continue to use insulin pump currently. Pt's pump basal rate is 2.4units/hour every hour. BG finger stick of 312 and pump bolus wizard calculates to give 6.4units of insulin. Provider notified, BG checks to be performed by staff d/t patient not having a CGM sensor.
--- NOTE | 2024-02-28 12:01 | PC.NURSE ---
PORCELAIN TURNER note: pt. sitting up on bed, eating meal provided.
[2024-02-28] MEDS: NICOTINE 21 MG PATCH TOP (12:09)
--- NOTE | 2024-02-28 12:46 | CM.SWNOTE ---
Addendum entered by Maty Velazquez 02/28/24 14:07: Correction: [facility] calls back and states that patient was voluntary during his inpatient stay last month. Maty Velazquez, [facility] Original Note: ED SHELLACKER Assessment SHELLACKER - Rock Dust Sprayer Assessment SHELLACKER/Rock Dust Sprayer Assessment Time Spent with Patient Start date 02/28/24 Visit Start Time 12:10 End date 02/28/24 Visit End Time 12:20 Total time Care Management spent on 15 minutes patient visit-in minutes Mental Health Screening Include Onset, Duration, Intensity Presenting Problem Patient primarily presents to ED via POV due to concern for wounds on his hands from doing yard work. When triaged patient endorses daily SI with thoughts of plans, patient states he has plans to use his insulin pump, by veterinary technology instructor and hx of thoughts of jumping off a bridge. Patient endorses almost daily Methamphetamine use and states he last used yesterday. Precipitating Event(s) Patient endorses concern that his medications are not working and managing his mental health. He states he has felt this way for a while. Patient has hx of recent life stressors when he from his in the last year . Patient Strengths Patient has support from family and values seeing his kids every day. Current Behavioral Health Provider(s) Patient sees Dr. Quinton Evans Include Facility, Provider, Ph. # at [facility] (Ph. # [phone] ) Patient has appt with integrated circuit design engineer tomorrow for Invega injection and follow up appts scheduled for March and April 2024. Psych. Hx Mental Health and Chemical Patient has dx of Dependency Schizoaffective Disorder- Bipolar type and Generalized Anxiety Disorder. Patient has hx of SI and suicide attempt. Patient endorses he has been using daily Methamphetamine and THC. Patient states his last use was yesterday. Patient has these current rx: Depakote 500 mg p.o. b.i.d. Gabapentin 900 mg p.o. t.i.d. Olanzapine 10 mg p.o. t.i.d. ( will start slow taper toward discontinuation when paliperidone on board) Sertraline 100 mg p.o. q.day Quetiapine 50 mg p.o. up to 4 times a day as needed for agitation Trazodone 150 mg p.o. q.h.s. targeting sleep disturbance. Family Hx of Behavioral Abuse None reported Psychiatric Hospitalizations (date(s)/ Patient was voluntary at [facility] location) in July 2020, voluntary at [facility] in June 2023, voluntary at [facility] in October 2023, and patient states he was hospitalized twice at [facility] in the last month. Per [facility], patient was an [facility] patient. Psychosocial information & Support Patient is 33 y/o male who Systems resides with brother in [place]. Patient states he has regular almost daily visits with his four kids who reside with their mother. 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 Legal Concerns Legal Matters - Outstanding Issues None reported Mental Status Orientation (Person/Place/Time) A/Ox4 Stated Mood so so I've been feeling down the last few days, feeling suicidal Affect (Congruent with Mood?) euthymic, full range, not congruent with mood Thought Content - Specify/Describe Patient denies auditory Obsessions, Delusions, Hallucinations hallucinations but states that he experiences seeing shadows . Patient previously endorsed hx of hearing voices. Thought Processes (Msntcup-Zfgltlel-Dhwx goal directed, coherent Iqmrzaxn-Frsxsvyo-Xpxglyctww- Kyipykwdlqyqjz-Lvxjaqn-Wholmvduzmiw- Thought Blocking) Speech (Ylnbeg-Iqhn-Htybbol-Rapid-Soft- normal Loud-Pressured) Motor (Uplyiz-Rafsuzoul-Zdqv-Other) normal Insight (Udkx-Iesd-Bete/Limited) fair Judgement (Igpb-Axps-Phia/Limited) fair Impulse Control (Adequate-Impaired) adequate Memory (Yfjadcbca-Ntutgm-Scgjag, intact, not formally assessed Impaired-Intact) Concentration (Intact-Impaired) intact Attention (Intact-Impaired) intact Behavior (Appropriate-Inappropriate) appropriate Additional Comment Patient presents as calm, cooperative and communicative. Risk Assessment Suicidal Ideation (Plan) Yes Homicidal Ideation (Plan) No Comment Patient endorses he has experienced increasing SI in recent days. Patient endorses daily SI at least once a day. Patient states he has plans to use his insulin pump to overdose and thoughts of interacting with a classified copy control clerk and by classified copy control clerk. Patient endorses hx of thoughts of jumping off a bridge or driving off somewhere. Patient previously had attempt using his insulin pump in recent years. Intervention Intervention SHELLACKER enters room to meet with patient. Patient endorses increase and worsening SI in recent days. Patient endorses concern that his current medications are not working and not managing his mental health. Patient endorses he has been feeling down and engaging in daily substance use. Patient endorses he is voluntary for inpatient voluntary inpatient hospitalization. Patient gives consent for SHELLACKER to contact his Psychiatrist's office, SHELLACKER calls office and leaves . It is the opinion of this SHELLACKER that patient would be appropriate for and benefit from voluntary inpatient hospitalization for safety, medication management and crisis stabilization. SHELLACKER reviews the above with ED provider Dr. Gallegos who indicates agreement and understanding. Plan RA Plan SHELLACKER to seek voluntary inpatient bed for patient upon medical clearance. Maty Velazquez, VICE PRESIDENT TALENT MANAGEMENT
[2024-02-28] MEDS: SODIUM CHLORIDE 0.9% 1,000 ML 1000 ML IV ×2 (14:22→15:38)
[2024-02-28] MEDS: ACETAMINOPHEN 325 MG TABLET 975 MG PO (14:31)
--- NOTE | 2024-02-28 14:46 | PC.NURSE ---
Addendum entered by Fatuma De La Cruz CNA 02/28/24 15:43: BRIAN note: Offered patient a magazine, a book, something to read. Asked if wanted to lay down and rest. Patient refused. I asked are you sure? Patient nodded and said yes. Patient has been sitting at the side of his bed, staring at the wall for a while. Original Note: BRIAN note: Patient is talking to mom in room.
--- NOTE | 2024-02-28 15:35 | PC.NURSE ---
provider okay with patient to be given his invega injection here in the ED. this RN gave patient 156mg/1ml injection that was brought from the pharmacy by mom. injection was given in his left deltoid. patient tolerated well.
[2024-02-28] MEDS: INSULIN REGULAR 100 UNIT/ML 3 ML VIAL 10 UNIT SUBCUT (15:40)
[2024-02-28 15:59] VITALS: BP 152/92; PULSE 95; RESP 18; O2SAT 99
--- NOTE | 2024-02-28 16:55 | PC.NURSE ---
HAND COOPER HELPER stated that the patient has not had his meds for 3 days and that the patient is getting anxious. MD was asked about administering home meds. No new orders at this time
--- NOTE | 2024-02-28 17:14 | CM.SWNOTE ---
Addendum entered by Maty Velazquez 02/28/24 17:25: SIGN MANUFACTURER informs [facility] of patient's acceptance at another facility. GALINA Fallon Original Note: ED SIGN MANUFACTURER Note SIGN MANUFACTURER calls [facility], it is reported that they have beds and can review patient. SIGN MANUFACTURER faxes clinicals for review. [facility] calls back and states that they could accept patient if his BG is below 300 and if his insulin pump is removed, they also recommend IV fluids because patient appears to be dehydrated. Patient's BG continues to trend above 300. Patient is provided insulin via injection and patient's insulin pump is removed and placed in patient belongings. import export agent Demetria coordinates with the SIGN MANUFACTURER and arranges for patient's mother to bring his invega injection rx from the pharmacy, RN administers injection for patient in ED. SIGN MANUFACTURER calls [facility] and it is reported that they do not have beds. SIGN MANUFACTURER calls [facility], it is reported that they have beds. SIGN MANUFACTURER faxes clinicals for review. [facility] calls and states they would like to speak with patient and have patient sign voluntary agreement form. The form is faxed to ED and patient signs and it is faxed back to [facility]. [facility] accepts patient, accepting provider is Dr. Orozco, intake is Ada. ADOLPH GIL, nurse to nurse ph # [phone]. When SIGN MANUFACTURER endorses that patient is accepted at facility he presents with doubt and depression. Patient states that he has not taken his home medication in 3 days. SIGN MANUFACTURER reviews this with RN and ED provider. Patient's mother arrives to visit with his children. [facility] sets up transport for patient with BLS ETA of 1830. Patient agrees to go to [facility]. SIGN MANUFACTURER informs Dr. Evans's office of patient's pending transfer to [facility]. Plan: patient to transfer to [facility] this evening via [facility] for voluntary inpatient hospitalization. GALINA Fallon
[2024-02-28] MEDS: LORazepam 0.5 MG TABLET 2 MG PO (17:34)
[2024-02-28 19:30] VITALS: BP 143/94; PULSE 99; RESP 16; O2SAT 99
== END 2024-02-28 19:45 ==
PROVIDERS: Emergency Provider Emergency Medicine; Family Provider Family Medicine; PCP Family Medicine
DX: R45.851 Suicidal ideations (principal); E11.65 Type 2 diabetes mellitus with hyperglycemia; Z79.4 Long term (current) use of insulin; Z20.822 Contact with and (suspected) exposure to COVID-19
CPT/HCPCS: 36415; 80053; 80305; 80320; 80329; 81001; 82962; 84439; 84443; 85025; 87635; 96360; 96361; 96372; 99284; 99285; G0480

== ENCOUNTER 2024-04-02 17:00 | Emergency (ER) | payer OTHER, MEDICAID, SELFPAY ==
[2023-12-28 08:43] VITALS: BMI 28.5
[2024-04-02 17:01] VITALS: BP 145/91; PULSE 104; RESP 18; TEMP 36.6; O2SAT 99; BMI 29.2
[2024-04-02 18:11] LABS: Ur Creatinine Normal (Normal); Ur Specific Gravity Normal (Normal); Urine pH Normal (Normal)
[2024-04-02 18:12] LABS: UR Morphine/Opiate cutoff 300 Positive (Negative); Urine Amphetamines Negative (Negative); Urine Barbiturates Negative (Negative); Urine Benzodiazepines Negative (Negative); Urine Cocaine Negative (Negative); Urine MDMA Negative (Negative); Urine Methadone Negative (Negative); Urine Methamphetamines Negative (Negative); Urine Oxycodone Negative (Negative); Urine Phencyclidine Negative (Negative); Urine Tetrahydrocannabinol Positive (Negative); Urine Tricyclic Antidepressant Negative (Negative)
--- NOTE | 2024-04-02 18:13 | CM.SWNOTE ---
ED AUDIOLOGY DIRECTOR Assessment AUDIOLOGY DIRECTOR - Reeler Operator Assessment AUDIOLOGY DIRECTOR/Reeler Operator Assessment Time Spent with Patient Start date 04/02/24 Visit Start Time 17:00 End date 04/02/24 Visit End Time 17:15 Total time Care Management spent on 20 minutes patient visit-in minutes Mental Health Screening Include Onset, Duration, Intensity Presenting Problem Patient presents to ED via POV due to concern for SI with multiple plans, patient states he is worried he will act on his plans, patient has hx of suicide attempts in the past. Patient states he is here to seek voluntary inpatient hospitalization. Precipitating Event(s) Patient states he was just at [facility] last week due to concern for SI and hyperglycemia. Patient reports that they changed his medications during this stay and he has was taken off of three medications including Krum. Patient states he does not think the new medication change is working. Patient states he cannot recall all of the med changes that were made. Patient states he engaged in Methamphetamine 7 days ago and someone recently reported him to CPS because he was accused of driving while under the influence with his children in the car, patient denies these allegations. Patient states that the CPS call and his living situation has been adding to his stress. Patient endorses difficulty maintaining stability in the outpatient setting and he has applied to a 30-60 day inpatient program in [place] or at [place]. Patient states he is motivated to get help because he does not want his children to experience his lifestyle and he wants to have a better life for his kids. Patient Strengths Patient has a psychiatrist, patient has support from family and is motivated to seek help. Current Behavioral Health Provider(s) Patient sees Psychiatrist Dr. Ana Navarro, Provider, Ph. # Quinton Evans at [facility] (Ph. # ). Patient's last appt was on 03/06/24 and patient cancelled his appt on 03/27/24. Psych. Hx Mental Health and Chemical Patient has hx of Dependency Schizoaffective Disorder- Bipolar type, Alchol Use Disorder in remission and KEV. Pateint has hx of SI, & suicide attempts. Patient endorses recent Methamphetamine use 7 days ago , patient endorses Marijuana and nicotene use and denies ETOH use or other substance se . Family Hx of Behavioral Abuse None reported Psychiatric Hospitalizations (date(s)/ Patient has hx of several location) inpatient hospitalizations including: [facility] in 2019, [facility] in June 2023, [facility] in October 2023, [facility] in January 2024, [facility] in February 2024, patient states he had a medical inpatient stay at [facility] last week where they addressed his SI and hyperglycemia, patient was there from 03/27/24- 03/30/24. Psychosocial information & Support Patient is a 34 y/o male who Systems currently resides with his brother in [place] or in his truck. Patient states he could stay with his brother tie buyer but he feels bad and only stays there when his kids are visiting him. Patient has 4 kids that primarly reside in [place] with their mother and patient states he has almost daily visits. Patient has support from his family. Patient states he is on the [place] housing list and trying to get on other lists to secure stable housing. School/Work Patient states he is currently not working while he is figuring out his mental health stability, patient states his boss is in support of this. Legal Concerns Legal Matters - Outstanding Issues None reported Mental Status Orientation (Person/Place/Time) A/Ox4 Stated Mood voices keep telling me to hurt myself. Affect (Congruent with Mood?) euthymic, full range Thought Content - Specify/Describe Patient endorses that voices Obsessions, Delusions, Hallucinations are telling him to hurt or kill himself, patient states they say Just walk away and take care of it. Patient states he experiences seeing shadows in the distance. Thought Processes (Fucurwf-Zgqilbqf-Edul goal oriented Hswwufoj-Gctvrvsx-Ksmppexxwv- Axoadurqholkpf-Xamgxdm-Pcqtvktdjquz- Thought Blocking) Speech (Pzvfte-Uopl-Fhzxrul-Rapid-Soft- normal Loud-Pressured) Motor (Ttxrro-Ximpkhpcs-Kpyn-Other) normal Insight (Wtnm-Pjtr-Sweb/Limited) fair/limited Judgement (Jqnn-Mzlk-Mdzn/Limited) fair/limited Impulse Control (Adequate-Impaired) adequate Memory (Zrknbdfsq-Iqkdnm-Bnoeek, intact, not formally assessed Impaired-Intact) Concentration (Intact-Impaired) intact Attention (Intact-Impaired) intact Behavior (Appropriate-Inappropriate) appropriate Additional Comment Patient presents as calm, cooperative and communicative. Risk Assessment Suicidal Ideation (Plan) Yes Homicidal Ideation (Plan) No Comment Patient endorses he experiences current and consistent SI with thoughts of plans of using insulin to kill self, by presidential helicopter crew chief, get a hold of anything and drink. Patient states [facility] removed his insulin pump and he receives insulin through a new rx. Patient denies HI. Intervention Intervention AUDIOLOGY DIRECTOR enters triage to meet with patient, present in room is recorder of deeds and patient. Patient endorses concern for his current SI and plans and fear that he will act on plans . Patient states he wants to live for his kids and for himself but he is struggling with his mental health stability and ongoing SI. Patient endorses increase in life stressors with recent CPS report and wanting to seek permanent housing for himself and for his kids to stay. Patient endorses difficulty maintaining stability in the outpt setting. Patient endorses he packed a bag when he came to the ED because he is wanting to seek help and go to a hospital to seek stabilization. It is the opinion of this AUDIOLOGY DIRECTOR that patient is appropriate for and will benefit from voluntary inpatient hospitalization for safety, crisis stabilization and medication management. AUDIOLOGY DIRECTOR to review this with ED provider Dr. Cosby. Plan RA Plan AUDIOLOGY DIRECTOR to seek voluntary inpatient bed upon medical clearance. GALINA Fallon
[2024-04-02 18:26] LABS: Add Manual Diff / Slide Review NO; Basophils Absolute Auto 0 /uL (0-100); Basophils Percent Auto 0.4 % (0-2); Eosinophils Absolute Auto 100 /uL (0-450); Eosinophils Percent Auto 1.4 % (2-4); Hematocrit 37.5 % (41-53); Hemoglobin 13.2 g/dL (13.5-17.5); Lymphocytes Absolute Auto 1200 /uL (1100-4500); Lymphocytes Percent Auto 25.5 % (25-40); Mean Corpuscular HGB Conc 35.1 % (30-36); Mean Corpuscular Volume 82.8 fL (80-100); Monocytes Absolute Auto 600 /uL (0-900); Monocytes Percent Auto 12.2 % (3-14); Neutrophils Absolute Auto 3000 /uL (1500-7000); Neutrophils Percent Auto 60.5 % (50-75); Platelet Count 128 X10^3/uL (150-400); Red Blood Cell Count 4.53 X10^6/uL (4.5-5.9); Red Cell Distribution Width 14.5 % (11.6-14.8); White Blood Cell Count 4.9 X10^3/uL (4.5-11.0)
[2024-04-02 18:27] LABS: Acetaminophen < 10 ug/mL (10-30); Alanine Aminotransferase 21 IU/L (<50); Albumin 3.6 g/dL (3.5-5.0); Albumin Globulin Ratio 1.5 (1.0-2.8); Alkaline Phosphatase 97 U/L (38-126); Aspartate Aminotransferase 21 IU/L (17-59); BUN Creatinine Ratio 27.9 (6-22); Bilirubin Total 0.5 mg/dL (0.2-1.3); Blood Urea Nitrogen 19 mg/dL (9-20); Calcium 8.4 mg/dL (8.4-10.2); Carbon Dioxide 28 mmol/L (22-32); Chloride 104 mmol/L (98-107); Estimated Glomerular Filt Rate > 60 mL/min (>60); Ethanol (ETOH) < 10 mg/dL; Globulin 2.4 g/dL (1.7-4.1); Glucose 339 mg/dL (70-100); HEMOLYSIS < 15 (0-50); Potassium 4.2 mmol/L (3.4-5.1); Salicylate < 1.0 mg/dL (<20); Sodium 135 mmol/L (137-145)
[2024-04-02 18:31] LABS: COVID19 -Nasal RAPID Negative (Negative)
[2024-04-02 18:42] LABS: Free T4, Direct Thyroxine 0.82 ng/dL (0.78-2.19)
--- NOTE | 2024-04-02 18:49 | ED_ITS ---
HPI - Psych General Chief Complaint: Psychiatric Symptoms Stated Complaint: Mental Issues Time Seen by Provider: 04/02/24 18:07 Source: patient Mode of arrival: Ambulatory History of Present Illness HPI Narrative: Patient is a 34-year-old male. Has a history of alcohol use disorder, methamphetamine abuse, schizoaffective disorder bipolar type, generalized anxiety disorder, ADHD, type 1 diabetes who does see a mental health provider. Is taking medications. Is also on insulin. Is here because he states that he has had progressive worsening thoughts of suicide over the past several weeks. He has not tried to hurt himself. He states that he gets anxious about his thoughts which then make his drug use worse and also his alcohol use worse. States he has not used any drugs in the past week. No alcohol in the past several days as well. He was here voluntarily stating that he needs help because he states that his medicines are not working. His mother was the 1 that handles his medications. He states he is here today because his kids came to him crying worried about his mental health and also his physical health. He was voluntarily seeking inpatient. He has been to [facility] in the past. Related Data Home Medications Medication Instructions Recorded Confirmed losartan 50 mg tablet 50 mg PO DAILY 12/17/23 03/12/24 metformin 500 mg tablet 500 mg PO BID 01/31/24 03/12/24 albuterol sulfate 90 mcg/actuation 2 puff inhalation Q6H PRN 03/12/24 03/12/24 aerosol inhaler blood-glucose sensor (Guardian 03/12/24 03/12/24 Sensor 3 device) divalproex 500 mg tablet,extended 500 mg PO DAILY 03/12/24 03/12/24 release 24 hr (Depakote ER) gabapentin 300 mg capsule 300 mg PO TID 03/12/24 olanzapine 10 mg disintegrating 10 mg PO BID 03/12/24 03/12/24 tablet ondansetron 4 mg disintegrating 4 mg PO Q6H 03/12/24 03/12/24 tablet sertraline 100 mg tablet 150 mg PO DAILY 03/12/24 insulin glargine 100 unit/mL (3 40 unit SUBCUT BID 04/02/24 04/02/24 mL) subcutaneous pen (Anusha Calderon U-100 Insulin) Previous Rx's Medication Instructions Recorded insulin aspart U-100 100 unit/mL 150 u SQ Q DAY #4 vials 10/24/17 subcutaneous solution (Novolog U-100 Insulin aspart) Glucose: Test Strips #1 ea 10/31/18 trazodone 50 mg tablet 150 mg (3 x 50 mg) PO BEDTIME PRN 01/14/24 sleep #90 tabs paliperidone palmitate 156 mg/mL 156 mg IM ONCE #1 mL 01/30/24 intramuscular syringe (Invega Sustenna) ondansetron 4 mg disintegrating 4 mg PO Q6H PRN nausea and 02/07/24 tablet vomiting #20 tabs Allergies Allergy/AdvReac Type Severity Reaction Status Date / Time Latex, Natural Rubber Allergy Severe Rash Verified 02/28/24 09:42 [LATEX, NATURAL RUBBER] erythromycin base AdvReac Severe Vomiting Verified 02/28/24 09:42 [From ERYTHROCIN] Review of Systems Review of Systems ROS Unobtainable: All systems reviewed & are unremarkable except as noted in HPI and below Patient History Medical History Schizophrenia (Unknown) Chronic cough (Unknown) ADHD (attention deficit hyperactivity disorder) (Unknown) Foot pain (Unknown) Generalized headaches (Unknown) Migraines (Unknown) Anxiety (Unknown) Bipolar disorder (Unknown) Depression (Unknown) Allergic rhinitis (Unknown) Asthma (Unknown) Type 1 diabetes (~1992) Surgical History Hx of eye surgery (12/2015) Hx of foot surgery (2003) Family History Father Age: 71 Type 2 diabetes mellitus without complication, unspecified penitentiary insulin 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 Social History household members: spouse and children Smoking Status: Current every day smoker alcohol intake: current substance use type: marijuana Smoking Status: Current every day smoker tobacco type: cigarettes and vaping alcohol intake frequency: other Substance Use Type: marijuana, opiates and methamphetamine Exam Initial Vital Signs Initial Vital Signs: Vital Signs Temperature 97.9 F 04/02/24 17:01 Pulse Rate 104 H 04/02/24 17:01 Respiratory Rate 18 04/02/24 17:01 Blood Pressure 145/91 H 04/02/24 17:01 Pulse Oximetry 99 04/02/24 17:01 Oxygen Delivery Method Room Air 04/02/24 17:01 Const General: cooperative, comfortable and No ill appearing HENMT Head: normal to inspection and normocephalic Resp Effort & Inspection: normal respiratory effort Auscultation: clear to auscultation bilaterally Cardio Rate: regular rate Rhythm: regular rhythm GI Inspection: normal to inspection and non-distended Skin General: no rashes or lesions noted Neuro General: patient alert, patient awake, patient oriented x3 and moves all extremities Psych Appearance: grossly normal and well kempt Mood: congruent mood Affect: normal affect Thought Content: suicidality Course Orders Ordered: ED Orders 04/02/24 17:08 Consult to PLANT QUALITY MANAGER - Health Education Specialist Stat 04/02/24 17:46 Urinalysis and Microscopic Stat Urine Drug Screen, Rapid Stat 04/02/24 17:58 Acetaminophen Stat Complete Blood Count AUTO DIFF Stat Comprehensive Metabolic Panel Stat Ethanol (ETOH) Stat Free T4, Direct Thyroxine Stat Salicylate Stat Thyroid Stimulating Hormone Stat 04/02/24 18:06 COVID19 -Nasal RAPID Stat Discontinued Medications Sodium Chloride (Normal Saline 0.9%) 1,000 mls @ 1,000 mls/hr IV BOLUS ONE Stop: 04/02/24 19:18 Last Infusion: 04/02/24 19:58 Dose: Infused Documented By: Admin: 04/02/24 19:00 Dose: 1,000 mls/hr Documented By: SIMONE Insulin Glargine (Insulin Glargine 100 Unit/Ml 3ml Pen) 40 unit SUBCUT NOW ONE Stop: 04/03/24 00:06 Last Admin: 04/03/24 00:18 Dose: 40 unit Documented By: Co-signed By: RANDALL Vital Signs Vital signs: Vital Signs - 8 hr 04/02/24 17:01 04/02/24 21:06 Temperature 97.9 F 98.4 F Pulse Rate 104 H 96 H Respiratory Rate 18 16 Blood Pressure 145/91 H 132/84 Pulse Oximetry 99 98 Oxygen Delivery Method Room Air Room Air MDM - Psych Lab Data Attestation: I reviewed the patient's lab results. 04/02/24 17:58 04/02/24 17:58 Labs: Lab Results 04/02/24 04/02/24 04/02/24 Range/Units 17:46 17:46 17:58 WBC 4.9 (4.5-11.0) X10^3/uL RBC 4.53 (4.5-5.9) X10^6/uL Hgb 13.2 L (13.5-17.5) g/dL Hct 37.5 L (41-53) % MCV 82.8 (80-100) fL MCH 29.0 (26-34) PG MCHC 35.1 (30-36) % RDW 14.5 (11.6-14.8) % Plt Count 128 L (150-400) X10^3/uL Neut % (Auto) 60.5 (50-75) % Lymph % (Auto) 25.5 (25-40) % [place] % (Auto) 12.2 (3-14) % Eos % (Auto) 1.4 L (2-4) % Baso % (Auto) 0.4 (0-2) % Neut # (Auto) 3000 (0241-8461) /uL Lymph # (Auto) 1200 (9252-7403) /uL [place] # (Auto) 600 (0-900) /uL Eos # (Auto) 100 (0-450) /uL Baso # (Auto) 0 (0-100) /uL Sodium 135 L (137-145) mmol/L Potassium 4.2 (3.4-5.1) mmol/L Chloride 104 (98-107) mmol/L Carbon Dioxide 28 (22-32) mmol/L BUN 19 (9-20) mg/dL Creatinine 0.68 (0.66-1.25) mg/dL Estimated GFR > 60 (>60) mL/min BUN/Creatinine Ratio 27.9 H (6-22) Glucose 339 H (70-100) mg/dL Calcium 8.4 (8.4-10.2) mg/dL Total Bilirubin 0.5 (0.2-1.3) mg/dL AST 21 (17-59) IU/L ALT 21 (<50) IU/L Alkaline Phosphatase 97 (38-126) U/L Total Protein 6.0 L (6.3-8.2) g/dL Albumin 3.6 (3.5-5.0) g/dL Globulin 2.4 (1.7-4.1) g/dL Albumin/Globulin Ratio 1.5 (1.0-2.8) TSH 0.709 (0.47-4.68) uIU/mL Free T4 0.82 (0.78-2.19) ng/dL Urine Color Yellow Urine Appearance Clear Urine pH 7.0 Normal (4.5-8.0) Ur Specific [place] 1.010 (1.000-1.035) Urine Protein Negative (Negative) Urine Glucose (UA) 3+ H (Negative) g/dL Urine Ketones Trace H (NEGATIVE) Urine Occult Blood Negative (Negative) Urine Nitrate Negative (Negative) Urine Bilirubin Negative (NEGATIVE) Urine Urobilinogen 0.2 (0.2) E.U./dL Ur Leukocyte Esterase Negative (NEGATIVE) Urine RBC None seen (0-5/HPF) Urine WBC None seen (0-5/HPF) Ur Squamous Epith Cells None seen (0-5/HPF) Urine Bacteria None seen (None) Ur Culture Indicated? Cult not indicated Vol Urine Centrifuged 10ml (spun) Salicylates < 1.0 (<20) mg/dL U Opiates 300ng/mL cut Positive H (Negative) Ur Oxycodone Screen Negative (Negative) Urine Methadone Screen Negative (Negative) Acetaminophen < 10 (10-30) ug/mL Ur Barbiturates Screen Negative (Negative) U Tricyclic Antidepress Negative (Negative) Ur Phencyclidine Scrn Negative (Negative) Ur Amphetamines Screen Negative (Negative) U Methamphetamines Scrn Negative (Negative) Ur MDMA Scrn (Ecstasy) Negative (Negative) U Benzodiazepines Scrn Negative (Negative) Urine Cocaine Screen Negative (Negative) U Marijuana (THC) Screen Positive H (Negative) Urine Specific [place] Normal (Normal) Ethyl Alcohol < 10 ( - 10) mg/dL Ur Creatinine Normal (Normal) SARS-CoV-2 (PCR) (Negative) 04/02/24 Range/Units 18:06 WBC (4.5-11.0) X10^3/uL RBC (4.5-5.9) X10^6/uL Hgb (13.5-17.5) g/dL Hct (41-53) % MCV (80-100) fL MCH (26-34) PG MCHC (30-36) % RDW (11.6-14.8) % Plt Count (150-400) X10^3/uL Neut % (Auto) (50-75) % Lymph % (Auto) (25-40) % [place] % (Auto) (3-14) % Eos % (Auto) (2-4) % Baso % (Auto) (0-2) % Neut # (Auto) (6927-8007) /uL Lymph # (Auto) (9050-0555) /uL [place] # (Auto) (0-900) /uL Eos # (Auto) (0-450) /uL Baso # (Auto) (0-100) /uL Sodium (137-145) mmol/L Potassium (3.4-5.1) mmol/L Chloride (98-107) mmol/L Carbon Dioxide (22-32) mmol/L BUN (9-20) mg/dL Creatinine (0.66-1.25) mg/dL Estimated GFR (>60) mL/min BUN/Creatinine Ratio (6-22) Glucose (70-100) mg/dL Calcium (8.4-10.2) mg/dL Total Bilirubin (0.2-1.3) mg/dL AST (17-59) IU/L ALT (<50) IU/L Alkaline Phosphatase (38-126) U/L Total Protein (6.3-8.2) g/dL Albumin (3.5-5.0) g/dL Globulin (1.7-4.1) g/dL Albumin/Globulin Ratio (1.0-2.8) TSH (0.47-4.68) uIU/mL Free T4 (0.78-2.19) ng/dL Urine Color Urine Appearance Urine pH (4.5-8.0) Ur Specific [place] (1.000-1.035) Urine Protein (Negative) Urine Glucose (UA) (Negative) g/dL Urine Ketones (NEGATIVE) Urine Occult Blood (Negative) Urine Nitrate (Negative) Urine Bilirubin (NEGATIVE) Urine Urobilinogen (0.2) E.U./dL Ur Leukocyte Esterase (NEGATIVE) Urine RBC (0-5/HPF) Urine WBC (0-5/HPF) Ur Squamous Epith Cells (0-5/HPF) Urine Bacteria (None) Ur Culture Indicated? Vol Urine Centrifuged Salicylates (<20) mg/dL U Opiates 300ng/mL cut (Negative) Ur Oxycodone Screen (Negative) Urine Methadone Screen (Negative) Acetaminophen (10-30) ug/mL Ur Barbiturates Screen (Negative) U Tricyclic Antidepress (Negative) Ur Phencyclidine Scrn (Negative) Ur Amphetamines Screen (Negative) U Methamphetamines Scrn (Negative) Ur MDMA Scrn (Ecstasy) (Negative) U Benzodiazepines Scrn (Negative) Urine Cocaine Screen (Negative) U Marijuana (THC) Screen (Negative) Urine Specific [place] (Normal) Ethyl Alcohol ( - 10) mg/dL Ur Creatinine (Normal) SARS-CoV-2 (PCR) Negative (Negative) Point of Care Testing Glucose POC 163 MDM Narrative Medical decision making narrative: Patient is here voluntarily. He was medically cleared. His blood sugar is elevated but he has not in DKA. No emergent condition however we will try to decrease his blood sugar with fluids. He did eat just prior to arrival here in the ER. Patient was seen by social work. Will attempt to find placement. Patient remains medically clear. Remains voluntary. Has been accepted at [facility]. Patient stable for transport. Discharge Plan Departure Patient Disposition: [facility] Clinical Impression: Suicide ideation Prescriptions: No Action Invega Sustenna 156 mg/mL syringe 156 mg IM ONCE Qty: 1 5RF metformin 500 mg tablet 500 mg PO BID divalproex [Depakote ER] 500 mg tablet extended release 24 hr 500 mg PO DAILY gabapentin 300 mg capsule 300 mg PO TID albuterol sulfate 90 mcg/actuation HFA aerosol inhaler 2 puff inhalation Q6H PRN (DME) Guardian Sensor 3 Device See Rx Instructions .ROUTE Rx Instructions: As directed sertraline 100 mg tablet 150 mg PO DAILY ondansetron 4 mg tablet,disintegrating 4 mg PO Q6H olanzapine 10 mg tablet,disintegrating 10 mg PO BID losartan 50 mg tablet 50 mg PO DAILY insulin aspart U-100 [Novolog U-100 Insulin aspart] 100 UNIT/1 ML solution 150 u SQ Q DAY Qty: 4 5RF (DME) Glucose: Test Strips 0 .Route .MEDSUPPLY Qty: 1 2RF Dose Instruction: As directed Rx Instructions: USE 1 TEST STRIP TO TEST BLOOD SUGAR 5 TIMES PER DAY trazodone 50 mg tablet 150 mg PO BEDTIME PRN (Reason: sleep) Qty: 90 2RF ondansetron 4 mg tablet,disintegrating 4 mg PO Q6H PRN (Reason: nausea and vomiting) Qty: 20 0RF insulin glargine [Basaglar KwikPen U-100 Insulin] 100 unit/mL (3 mL) insulin pen 40 unit SUBCUT BID Referrals: Byron Foote MD [Primary Care Provider] -
[2024-04-02 18:56] LABS: Thyroid Stimulating Hormone 0.709 uIU/mL (0.47-4.68)
[2024-04-02] MEDS: SODIUM CHLORIDE 0.9% 1,000 ML 1000 ML IV (19:00)
--- NOTE | 2024-04-02 19:32 | PC.NURSE ---
MANAGER RESEARCH AND DEVELOPMENT Note PATIENT FINANCIAL SERVICES SPECIALIST informed this MANAGER RESEARCH AND DEVELOPMENT that PATIENT FINANCIAL SERVICES SPECIALIST called and faxed [facility] intake for placement. Patient's secondary preference for placement is [facility] if [facility] cannot accept patient. PATIENT FINANCIAL SERVICES SPECIALIST informed this MANAGER RESEARCH AND DEVELOPMENT that PATIENT FINANCIAL SERVICES SPECIALIST called Dr. Evans's office and left VM regarding patient's presentation to ED.
[2024-04-02 19:37] LABS: Appearance Urine UA Clear; Color Urine UA Yellow; Glucose Urine UA 3+ g/dL (Negative); Ketones Urine UA TRACE (NEGATIVE); Nitrite Urine UA NEGATIVE (Negative); Occult Blood Urine UA Negative (Negative); Protein Urine UA Negative (Negative)
[2024-04-02 19:38] LABS: Bacteria Urine None Seen; Bilirubin Urine UA Negative (NEGATIVE); Culture Indicated Urine Cult Not Indicated; Leukocyte Esterase Urine UA NEGATIVE (NEGATIVE); RBC Urine None Seen (0-5/HPF); Squamous Epithelial Cell Urine None Seen (0-5/HPF); Urine Volume 10mL (spun); Urobilinogen Urine UA 0.2 E.U./dL (0.2); WBC Urine None Seen (0-5/HPF)
[2024-04-02 21:06] VITALS: BP 132/84; PULSE 96; RESP 16; TEMP 36.9; O2SAT 98
[2024-04-03] MEDS: INSULIN GLARGINE 100 UNIT/ML 3ML PEN 40 UNIT SUBCUT (00:18)
[2024-04-03 01:25] VITALS: BP 135/86; PULSE 89; O2SAT 97
== END 2024-04-03 01:41 | disposition short-term general hospital (02) ==
PROVIDERS: Emergency Medicine; Emergency Provider Emergency Medicine; Family Provider Family Medicine; PCP Family Medicine
DX: R45.851 Suicidal ideations (principal); Z79.899 Other long term (current) drug therapy; Z20.822 Contact with and (suspected) exposure to COVID-19
CPT/HCPCS: 36415; 80053; 80305; 80320; 80329; 81001; 82962; 84439; 84443; 85025; 87635; 96360; 96372; 99284; G0480

== ENCOUNTER 2024-08-07 09:39 | Emergency (ER) | payer OTHER, MEDICAID, SELFPAY ==
[2023-12-28 08:43] VITALS: BMI 28.5
[2024-08-07] VITALS (8 sets, daily range): BP systolic 132–146; BP diastolic 82–91; PULSE 96–101; RESP 14–18; TEMP 36.6; O2SAT 91–99; BMI 27.8
--- NOTE | 2024-08-07 10:00 | DI.RAD.S_ITS ---
PROCEDURE: XR CHEST 2V INDICATIONS: cough TECHNIQUE: 2 views of the chest were acquired. COMPARISON: [facility], CR, XR CHEST 1V, 02/22/2023, 18:36. FINDINGS: Surgical changes and devices: None. Lungs and pleura: Lungs are clear. No pleural effusions or pneumothorax. Mediastinum: Mediastinal contours are normal. Heart size is normal. Bones and chest wall: No suspicious bony abnormalities. Soft tissues appear unremarkable. IMPRESSION: No acute cardiopulmonary abnormality is seen. Dictated by: Paul Carter M.D. on 08/07/2024 at 10:54 Approved by: Paul Carter M.D. on 08/07/2024 at 10:55
[2024-08-07 10:31] LABS: Alanine Aminotransferase 21 IU/L (<50); Albumin 3.9 g/dL (3.5-5.0); Albumin Globulin Ratio 1.3 (1.0-2.8); Alkaline Phosphatase 114 U/L (38-126); Aspartate Aminotransferase 18 IU/L (17-59); BUN Creatinine Ratio 46.2 (6-22); Bilirubin Total 0.4 mg/dL (0.2-1.3); Blood Urea Nitrogen 24 mg/dL (9-20); Calcium 8.8 mg/dL (8.4-10.2); Carbon Dioxide 23 mmol/L (22-32); Chloride 101 mmol/L (98-107); Estimated Glomerular Filt Rate > 60 mL/min (>60); Globulin 2.9 g/dL (1.7-4.1); Glucose 287 mg/dL (70-100); HEMOLYSIS 20 (0-50); Lactate (Lactic Acid) 1.3 mmol/L (0.7-2.1); Potassium 4.3 mmol/L (3.4-5.1); Sodium 133 mmol/L (137-145); Total Protein 6.8 g/dL (6.3-8.2)
[2024-08-07] MEDS: ALBUTEROL 2.5 MG/3 ML NEB (ADULT) INH (10:31)
[2024-08-07 10:37] LABS: Ketones (Beta-Hydroxybutyrate) < 0.20 mmol/L (<0.27)
[2024-08-07 10:42] LABS: Add Manual Diff / Slide Review NO; Basophils Absolute Auto 100 /uL (0-100); Basophils Percent Auto 0.9 % (0-2); Eosinophils Absolute Auto 100 /uL (0-450); Eosinophils Percent Auto 1.9 % (2-4); Hematocrit 45.7 % (41-53); Lymphocytes Absolute Auto 1600 /uL (1100-4500); Lymphocytes Percent Auto 20.6 % (25-40); Mean Corpuscular Hemoglobin 28.6 PG (26-34); Mean Corpuscular Volume 81.8 fL (80-100); Monocytes Absolute Auto 600 /uL (0-900); Monocytes Percent Auto 7.4 % (3-14); Neutrophils Absolute Auto 5500 /uL (1500-7000); Neutrophils Percent Auto 69.2 % (50-75); Platelet Count 191 X10^3/uL (150-400); Red Blood Cell Count 5.59 X10^6/uL (4.5-5.9); Red Cell Distribution Width 13.5 % (11.6-14.8); White Blood Cell Count 7.9 X10^3/uL (4.5-11.0)
--- NOTE | 2024-08-07 11:05 | ED.GENADULT ---
HPI - General Adult General Chief complaint: Upper Respiratory Symptoms Stated complaint: high blood sugar, cough Time Seen by Provider: 08/07/24 10:07 Source: patient Mode of arrival: Ambulatory History of Present Illness HPI narrative: 34-year-old gentleman with a history of schizoaffective borderline personality disorder, generalized anxiety disorder complicated by alcohol and methamphetamine use disorders type 1 diabetes who presents complaining cough and hyperglycemia. He states he was able to take all of his medications this morning. Has been increasingly depressed over the last week is not currently suicidal. Having difficulty getting into see his counselor and his counselor suggested talking with somebody in the emergency department. Related Data Home Medications Medication Instructions Recorded Confirmed losartan 50 mg tablet 50 mg PO DAILY 12/17/23 04/25/24 metformin 500 mg tablet 500 mg PO BID 01/31/24 04/25/24 albuterol sulfate 90 mcg/actuation 2 puff inhalation Q6H PRN 03/12/24 04/25/24 aerosol inhaler blood-glucose sensor (Guardian 03/12/24 04/25/24 Sensor 3 device) ondansetron 4 mg disintegrating 4 mg PO Q6H 03/12/24 04/25/24 tablet insulin glargine 100 unit/mL (3 40 unit SUBCUT BID 04/02/24 04/25/24 mL) subcutaneous pen (Basaglar KwikPen U-100 Insulin) Previous Rx's Medication Instructions Recorded insulin aspart U-100 100 unit/mL 150 u SQ Q DAY #4 vials 10/24/17 subcutaneous solution (Novolog U-100 Insulin aspart) Glucose: Test Strips #1 ea 10/31/18 trazodone 50 mg tablet 150 mg (3 x 50 mg) PO BEDTIME PRN 01/14/24 sleep #90 tabs ondansetron 4 mg disintegrating 4 mg PO Q6H PRN nausea and 02/07/24 tablet vomiting #20 tabs gabapentin 300 mg capsule 900 mg (3 x 300 mg) PO TID #270 07/02/24 caps olanzapine 10 mg disintegrating 10 mg PO BID #60 tabs 07/02/24 tablet paliperidone palmitate 156 mg/mL 156 mg IM ONCE #1 mL 07/15/24 intramuscular syringe (Invega Sustenna) divalproex 500 mg tablet,extended 500 mg PO DAILY #30 tabs 07/21/24 release 24 hr (Depakote ER) sertraline 100 mg tablet 150 mg (1.5 x 100 mg) PO DAILY #45 07/21/24 tabs doxycycline hyclate 100 mg capsule 100 mg PO BID #20 caps 08/07/24 Allergies Allergy/AdvReac Type Severity Reaction Status Date / Time Latex, Natural Rubber Allergy Severe Rash Verified 08/07/24 09:53 [LATEX, NATURAL RUBBER] erythromycin base AdvReac Severe Vomiting Verified 08/07/24 09:53 [From ERYTHROCIN] Review of Systems Review of Systems Narrative: Pertinent positive and negative findings as per HPI Patient History Medical History (Updated 08/07/24 @ 11:22 by Jacqueline Pearson MD) senior care current use of antipsychotic medication Schizophrenia (Unknown) Chronic cough (Unknown) ADHD (attention deficit hyperactivity disorder) (Unknown) Foot pain (Unknown) Generalized headaches (Unknown) Migraines (Unknown) Anxiety (Unknown) Bipolar disorder (Unknown) Depression (Unknown) Allergic rhinitis (Unknown) Asthma (Unknown) Type 1 diabetes (~1992) Surgical History Hx of eye surgery (12/2015) Hx of foot surgery (2003) Family History Father Age: 71 Type 2 diabetes mellitus without complication, unspecified skilled nursing insulin 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 Social History household members: spouse and children Smoking Status: Current every day smoker alcohol intake: current substance use type: marijuana Smoking Status: Current every day smoker tobacco type: cigarettes and vaping alcohol intake frequency: other Substance Use Type: marijuana, opiates and methamphetamine Exam Initial Vital Signs Initial Vital Signs: Vital Signs Temperature 97.8 F 08/07/24 09:45 Pulse Rate 99 H 08/07/24 09:45 Respiratory Rate 14 08/07/24 09:45 Blood Pressure 132/89 08/07/24 09:45 Pulse Oximetry 99 08/07/24 09:45 Oxygen Delivery Method Room Air 08/07/24 09:45 General: Slightly disheveled but in no acute distress. Able to give a complete and coherent history. Well-nourished well-developed HEENT: Moist mucous membranes, normal sclera with reactive pupils, Respiratory: Lungs with no wheeze, no accessory muscle use, he does have rhonchi in the left mid axillary line Cardiac: Mild tachycardia no murmurs Abdomen: Soft, nontender, good bowel tones, no flank pain Skin: Warm and dry, no rashes Neurologic: Grossly neurologically intact with no obvious asymmetries or abnormalities Extremities: No trauma, well perfused Psych: Cooperative, fluent speech, appropriate affect, denies suicidal ideation Course Orders Ordered: ED Orders 08/07/24 10:00 Chest [XR chest 2V] Stat 08/07/24 10:02 Covid-19 + FLU A/B + RSV - PCR Stat 08/07/24 10:03 VBG [Venous Blood Gas] STAT 08/07/24 10:11 Complete Blood Count AUTO DIFF Stat Comprehensive Metabolic Panel Stat Ketones (Beta-Hydroxybutyrate) Stat Lactate (Lactic Acid) Stat 08/07/24 10:17 Venous Blood Gas Routine Discontinued Medications Albuterol (Albuterol 2.5 Mg/3 Ml Neb (Adult)) 2.5 mg INH NOW ONE Stop: 08/07/24 10:29 Last Admin: 08/07/24 10:31 Dose: 2.5 mg Documented By: SAT Vital Signs Vital signs: Vital Signs - 8 hr 08/07/24 09:45 08/07/24 10:12 08/07/24 10:14 Temperature 97.8 F Pulse Rate 99 H 98 H 100 H Respiratory Rate 14 Blood Pressure 132/89 Pulse Oximetry 99 97 98 Oxygen Delivery Method Room Air 08/07/24 10:14 08/07/24 10:15 08/07/24 10:15 Temperature Pulse Rate 101 H Respiratory Rate Blood Pressure 139/82 146/91 H Pulse Oximetry 97 Oxygen Delivery Method 08/07/24 10:30 08/07/24 10:33 08/07/24 11:00 Temperature Pulse Rate 96 H 98 H 98 H Respiratory Rate 18 Blood Pressure Pulse Oximetry 97 94 91 Oxygen Delivery Method Room Air Medical Decision Making Lab Data 08/07/24 10:11 08/07/24 10:11 Labs: Lab Results 08/07/24 08/07/24 Range/Units 10:11 10:17 WBC 7.9 (4.5-11.0) X10^3/uL RBC 5.59 (4.5-5.9) X10^6/uL Hgb 16.0 (13.5-17.5) g/dL Hct 45.7 (41-53) % MCV 81.8 (80-100) fL MCH 28.6 (26-34) PG MCHC 35.0 (30-36) % RDW 13.5 (11.6-14.8) % Plt Count 191 (150-400) X10^3/uL Neut % (Auto) 69.2 (50-75) % Lymph % (Auto) 20.6 L (25-40) % [place] % (Auto) 7.4 (3-14) % Eos % (Auto) 1.9 L (2-4) % Baso % (Auto) 0.9 (0-2) % Neut # (Auto) 5500 (8296-6804) /uL Lymph # (Auto) 1600 (4085-1181) /uL [place] # (Auto) 600 (0-900) /uL Eos # (Auto) 100 (0-450) /uL Baso # (Auto) 100 (0-100) /uL VBG pH 7.46 H (7.33-7.43) VBG pCO2 39.5 L (45-50) mmHg VBG pO2 51 H (35-45) mmHg VBG HCO3 28 (24-28) mmol/L VBG Total CO2 28 (24-29) mmol/L VBG O2 Saturation 88 H (70-75) % VBG Base Excess 4.3 H (0-4) mmol/L FiO2 % 21 % % Sodium 133 L (137-145) mmol/L Potassium 4.3 (3.4-5.1) mmol/L Chloride 101 (98-107) mmol/L Carbon Dioxide 23 (22-32) mmol/L BUN 24 H (9-20) mg/dL Creatinine 0.52 L (0.66-1.25) mg/dL Estimated GFR > 60 (>60) mL/min BUN/Creatinine Ratio 46.2 H (6-22) Glucose 287 H (70-100) mg/dL Lactate 1.3 (0.7-2.1) mmol/L Calcium 8.8 (8.4-10.2) mg/dL Total Bilirubin 0.4 (0.2-1.3) mg/dL AST 18 (17-59) IU/L ALT 21 (<50) IU/L Alkaline Phosphatase 114 (38-126) U/L Total Protein 6.8 (6.3-8.2) g/dL Albumin 3.9 (3.5-5.0) g/dL Globulin 2.9 (1.7-4.1) g/dL Albumin/Globulin Ratio 1.3 (1.0-2.8) Ketones < 0.20 (<0.27) mmol/L Point of Care Testing Glucose POC 317 Point of care testing: Point of Care Testing Glucose POC 317 MDM Narrative Medical decision making narrative: CC: Hyperglycemia, cough Complicating co-morbidities: Type 1 diabetes, psychiatric history including schizoaffective disorder as well as alcohol and methamphetamine use disorder Data collected from: patient Social determinants of health that may influence the patients condition: Patient currently has stable housing, access to mental health and primary care Medical records reviewed: Primary care, psychiatric and prior ER notes are all reviewed Differential considered: Viral syndrome, secondary bacterial pneumonia developing after a viral syndrome, pulmonary embolism, pneumothorax Exam documented above, pertinent findings include: Patient is not in respiratory distress. He is able to drink without difficulty and is given a large glass of water prior to discharge. He has rhonchi in his mid axillary area on the left side consistent with a developing pneumonia Lab Test results independently reviewed as above. Pertinent findings: CBC is unremarkable Chemistries are reassuring. Glucose is slightly elevated at 287. He does not have an anion gap, he does not have ketones Venous blood gas shows a pH of 7.4 with a CO2 of 39 Imaging studies independently reviewed: Chest x-ray is minimally abnormal. Certainly no large consolidated findings. Slight increased linear streaking in the left lower lobe that does correlate with his clinical rhonchi and increasingly productive cough Treatments: Oral fluids, doxycycline, albuterol nebulizer Discussion: 34-year-old gentleman with type 1 diabetes increasing cough now productive with worsening depression. He has not currently suicidal. Clinical exam suggests a developing left sided pneumonia and he will be started on doxycycline. With normal oxygenation, no evidence of sepsis, ability to take medications and to eat and drink He does not need to be admitted to the hospital at this time. He has not showing any signs of DKA, he does have stable housing, access to all of his medications. When we talked about his depression he agreed to return if he felt that he was suicidal. Questions are answered and he is safe for discharge Discharge Plan Departure Patient Disposition: Home Clinical Impression: Pneumonia Qualifiers: Pneumonia type: due to unspecified organism Laterality: left Lung location: unspecified part of lung Qualified Code(s): J18.9 - Pneumonia, unspecified organism Instructions: DI for Pneumonia -- Adult Activity Restrictions/Additional Instructions: Thank you for coming in today There was no evidence of diabetic ketoacidosis. You have said your depression is not so severe at this point that you are considering suicide. If that changes your absolutely welcome to return to the ER I suspect that you had virus that caused her initial symptoms and now are developing a secondary bacterial infection in the left side. This is causing the nasty illness that you are coughing up. I have given you a prescription for doxycycline to complete over the next 10 days. If you feel that you are getting worse please do return to the emergency department Prescriptions: New doxycycline hyclate 100 mg capsule 100 mg PO BID Qty: 20 0RF No Action metformin 500 mg tablet 500 mg PO BID albuterol sulfate 90 mcg/actuation HFA aerosol inhaler 2 puff inhalation Q6H PRN (DME) Guardian Sensor 3 Device See Rx Instructions .Route Rx Instructions: As directed ondansetron 4 mg tablet,disintegrating 4 mg PO Q6H olanzapine 10 mg tablet,disintegrating 10 mg PO BID Qty: 60 3RF gabapentin 300 mg capsule 900 mg PO TID Qty: 270 3RF losartan 50 mg tablet 50 mg PO DAILY insulin aspart U-100 [Novolog U-100 Insulin aspart] 100 UNIT/1 ML solution 150 u SQ Q DAY Qty: 4 5RF (DME) Glucose: Test Strips 0 .Route .MEDSUPPLY Qty: 1 2RF Dose Instruction: As directed Rx Instructions: USE 1 TEST STRIP TO TEST BLOOD SUGAR 5 TIMES PER DAY trazodone 50 mg tablet 150 mg PO BEDTIME PRN (Reason: sleep) Qty: 90 2RF Invega Sustenna 156 mg/mL syringe 156 mg IM ONCE Qty: 1 5RF sertraline 100 mg tablet 150 mg PO DAILY Qty: 45 2RF divalproex [Depakote ER] 500 mg tablet extended release 24 hr 500 mg PO DAILY Qty: 30 2RF ondansetron 4 mg tablet,disintegrating 4 mg PO Q6H PRN (Reason: nausea and vomiting) Qty: 20 0RF insulin glargine [Basaglar KwikPen U-100 Insulin] 100 unit/mL (3 mL) insulin pen 40 unit SUBCUT BID Referrals: Byron Foote MD [Primary Care Provider] - Stand Alone Forms: Patient Portal/API
[2024-08-07 11:12] LABS: Base Excess VBG 4.3 mmol/L (0-4); HCO3 VBG 28 mmol/L (24-28); Oxygen Saturation VBG 88 % (70-75); PCO2 VBG 39.5 mmHg (45-50); PO2 VBG 51 mmHg (35-45); Total CO2 VBG 28 mmol/L (24-29); pH VBG 7.46 (7.33-7.43)
[2024-08-07] MEDS: DOXYCYCLINE HYCLATE 100 MG TABLET PO (11:16)
== END 2024-08-07 11:35 | disposition home or self-care (01) ==
PROVIDERS: Emergency Provider Emergency Medicine; Family Provider Family Medicine; PCP Family Medicine
DX: J18.9 Pneumonia, unspecified organism (principal); E10.65 Type 1 diabetes mellitus with hyperglycemia; F25.0 Schizoaffective disorder, bipolar type; Z79.899 Other long term (current) drug therapy
CPT/HCPCS: 36415; 71046; 80053; 82009; 82805; 82962; 83605; 85025; 94640; 99284; J7613

== ENCOUNTER 2024-08-28 11:45 | Emergency (ER) | payer OTHER, MEDICAID, SELFPAY ==
[2023-12-28 08:43] VITALS: BMI 28.5
[2024-08-28] VITALS (7 sets, daily range): BP systolic 111–128; BP diastolic 75–87; PULSE 100–120; RESP 14–23; TEMP 36.3; O2SAT 95–99; BMI 28.5
--- NOTE | 2024-08-28 12:30 | EKG_ITS ---
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
[2024-08-28 12:33] LABS: Add Manual Diff / Slide Review NO; Basophils Absolute Auto 0 /uL (0-100); Basophils Percent Auto 0.4 % (0-2); Eosinophils Absolute Auto 200 /uL (0-450); Eosinophils Percent Auto 2.5 % (2-4); Hematocrit 47.4 % (41-53); Hemoglobin 16.2 g/dL (13.5-17.5); Lymphocytes Absolute Auto 1800 /uL (1100-4500); Lymphocytes Percent Auto 28.3 % (25-40); Mean Corpuscular HGB Conc 34.2 % (30-36); Mean Corpuscular Hemoglobin 28.7 PG (26-34); Mean Corpuscular Volume 83.9 fL (80-100); Monocytes Absolute Auto 500 /uL (0-900); Monocytes Percent Auto 8.2 % (3-14); Neutrophils Absolute Auto 3700 /uL (1500-7000); Neutrophils Percent Auto 60.6 % (50-75); Platelet Count 170 X10^3/uL (150-400); Red Blood Cell Count 5.64 X10^6/uL (4.5-5.9); Red Cell Distribution Width 13.1 % (11.6-14.8); White Blood Cell Count 6.2 X10^3/uL (4.5-11.0)
[2024-08-28 12:40] LABS: Alanine Aminotransferase 52 IU/L (<50); Albumin 3.6 g/dL (3.5-5.0); Albumin Globulin Ratio 1.3 (1.0-2.8); Alkaline Phosphatase 111 U/L (38-126); Aspartate Aminotransferase 20 IU/L (17-59); BUN Creatinine Ratio 33.3 (6-22); Bilirubin Total 0.4 mg/dL (0.2-1.3); Blood Urea Nitrogen 22 mg/dL (9-20); Carbon Dioxide 21 mmol/L (22-32); Chloride 102 mmol/L (98-107); Estimated Glomerular Filt Rate > 60 mL/min (>60); Globulin 2.7 g/dL (1.7-4.1); HEMOLYSIS 26 (0-50); Lipase 30 U/L (23-300); Potassium 4.5 mmol/L (3.4-5.1); Sodium 130 mmol/L (137-145); Total Protein 6.3 g/dL (6.3-8.2)
[2024-08-28 12:40] LABS: Base Excess VBG -1.5 mmol/L (0-4); HCO3 VBG 24 mmol/L (24-28); Oxygen Saturation VBG 67 % (70-75); PCO2 VBG 43.7 mmHg (45-50); PO2 VBG 37 mmHg (35-45); Total CO2 VBG 24 mmol/L (24-29); pH VBG 7.35 (7.33-7.43)
[2024-08-28 12:41] LABS: Creatine Kinase 34 U/L (55-170)
[2024-08-28 12:43] LABS: Glucose 514 mg/dL (70-100); Lactate (Lactic Acid) 3.7 mmol/L (0.7-2.1)
[2024-08-28 12:47] LABS: Ketones (Beta-Hydroxybutyrate) 0.13 mmol/L (<0.27)
[2024-08-28 12:53] LABS: Troponin I < 0.012 ng/mL (0.01-0.034)
--- NOTE | 2024-08-28 13:13 | PC.NURSE ---
Pt reports feeling N/V a couple of times, no stomach pain, inconsistent w/ taking insulin, frequent meth user (smokes meth), significant life stressors w/ family that has made the patient feel depressed. Pt looks unkempt. A&O x4. GCS 15
[2024-08-28 14:03] LABS: Reflexed Lactate in 2 Hours Y
[2024-08-28 14:55] LABS: Lactate 2HR (Lactic Acid Rflx) 1.7 mmol/L (0.7-2.1)
--- NOTE | 2024-08-28 15:00 | ED.GENADULT ---
HPI - General Adult General Chief complaint: Diabetic Problem Stated complaint: High Blood Sugar, Depression Time Seen by Provider: 08/28/24 12:19 Source: patient Mode of arrival: Ambulatory History of Present Illness HPI narrative: Patient is a 34-year-old history of insulin-dependent diabetes, schizoaffective bipolar disorder methamphetamine abuse presenting today with hyperglycemia. He reports that he was using meth and coming off frequently he sleeps a lot when this happens he was getting a little depressed. So he slept a lot did not take his insulin and realized that his glucose was high. No nausea or vomiting. He just wanted to get checked out. He has no suicidal or homicidal ideations. He does report getting into an argument with ex girlfriend's niece and mother. Related Data Home Medications Medication Instructions Recorded Confirmed losartan 50 mg tablet 50 mg PO DAILY 12/17/23 04/25/24 metformin 500 mg tablet 500 mg PO BID 01/31/24 04/25/24 albuterol sulfate 90 mcg/actuation 2 puff inhalation Q6H PRN 03/12/24 04/25/24 aerosol inhaler blood-glucose sensor (Guardian 03/12/24 04/25/24 Sensor 3 device) ondansetron 4 mg disintegrating 4 mg PO Q6H 03/12/24 04/25/24 tablet insulin glargine 100 unit/mL (3 40 unit SUBCUT BID 04/02/24 04/25/24 mL) subcutaneous pen (Basaglar KwikPen U-100 Insulin) Previous Rx's Medication Instructions Recorded insulin aspart U-100 100 unit/mL 150 u SQ Q DAY #4 vials 10/24/17 subcutaneous solution (Novolog U-100 Insulin aspart) Glucose: Test Strips #1 ea 10/31/18 trazodone 50 mg tablet 150 mg (3 x 50 mg) PO BEDTIME PRN 01/14/24 sleep #90 tabs ondansetron 4 mg disintegrating 4 mg PO Q6H PRN nausea and 02/07/24 tablet vomiting #20 tabs gabapentin 300 mg capsule 900 mg (3 x 300 mg) PO TID #270 07/02/24 caps olanzapine 10 mg disintegrating 10 mg PO BID #60 tabs 07/02/24 tablet paliperidone palmitate 156 mg/mL 156 mg IM ONCE #1 mL 07/15/24 intramuscular syringe (Invega Sustenna) divalproex 500 mg tablet,extended 500 mg PO DAILY #30 tabs 07/21/24 release 24 hr (Depakote ER) sertraline 100 mg tablet 150 mg (1.5 x 100 mg) PO DAILY #45 07/21/24 tabs doxycycline hyclate 100 mg capsule 100 mg PO BID #20 caps 08/07/24 Allergies Allergy/AdvReac Type Severity Reaction Status Date / Time Latex, Natural Rubber Allergy Severe Rash Verified 08/28/24 11:51 [LATEX, NATURAL RUBBER] erythromycin base AdvReac Severe Vomiting Verified 08/28/24 11:51 [From ERYTHROCIN] Patient History Medical History [facility] current use of antipsychotic medication Schizophrenia (Unknown) Chronic cough (Unknown) ADHD (attention deficit hyperactivity disorder) (Unknown) Foot pain (Unknown) Generalized headaches (Unknown) Migraines (Unknown) Anxiety (Unknown) Bipolar disorder (Unknown) Depression (Unknown) Allergic rhinitis (Unknown) Asthma (Unknown) Type 1 diabetes (~1992) Surgical History Hx of eye surgery (12/2015) Hx of foot surgery (2003) Family History Father Age: 71 Type 2 diabetes mellitus without complication, 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 Social History household members: spouse and children Smoking Status: Current every day smoker alcohol intake: current substance use type: marijuana Smoking Status: Current every day smoker tobacco type: cigarettes and vaping alcohol intake frequency: other Substance Use Type: marijuana, opiates and methamphetamine Exam Initial Vital Signs Initial Vital Signs: Vital Signs Temperature 97.4 F L 08/28/24 11:51 Pulse Rate 120 H 08/28/24 11:51 Respiratory Rate 14 08/28/24 11:51 Blood Pressure 126/75 08/28/24 11:51 Pulse Oximetry 99 08/28/24 11:51 Oxygen Delivery Method Room Air 08/28/24 11:51 GENERAL: Sleeping but easily arousable 34-year-old male appears disheveled and in no acute distress. HEENT: Head atraumatic,EOMI, pupils reactive, face symmetric, moist mucous membranes CARDIOVASCULAR: Regular rate and rhythm without murmurs, rubs or gallops. RESPIRATORY: Breath sounds equal bilaterally, no wheezes rales or rhonchi. ABDOMEN: Soft, nontender. Normoactive bowel sounds all 4 quadrants. No guarding or rebound. EXTREMITIES: Normal range of motion, no clubbing or edema. Neurovascularly intact NEUROLOGICAL: Alert and oriented x4.Normal gait and speech. Cranial nerves II through XII grossly intact. SKIN: Warm, dry, no laceration, no petechiae, no rashes or lesions. Course Orders Ordered: ED Orders 08/28/24 12:06 CBC Auto Diff [Complete Blood Count AUTO DIFF] Stat CMP [Comprehensive Metabolic Panel] Stat Ketones (Beta-Hydroxybutyrate) Stat Lactate (Lactic Acid) Stat Lipase Stat Troponin & CK Cardiac Panel Stat 08/28/24 12:19 Venous Blood Gas STAT 08/28/24 12:20 EKG-12 Lead Stat 08/28/24 12:37 Venous Blood Gas Routine Discontinued Medications Insulin Human Regular (Insulin Regular 100 Unit/Ml 3 Ml Vial) 10 unit SUBCUT NOW ONE Stop: 08/28/24 15:08 Last Admin: 08/28/24 15:21 Dose: 5 unit Documented By: VINH Co-signed By: EVANGELISTA Vital Signs Vital signs: Vital Signs - 8 hr 08/28/24 11:51 08/28/24 12:39 08/28/24 13:00 Temperature 97.4 F L Pulse Rate 120 H 109 H Respiratory Rate 14 Blood Pressure 126/75 119/77 Pulse Oximetry 99 97 Oxygen Delivery Method Room Air 08/28/24 13:00 08/28/24 13:30 08/28/24 13:30 Temperature Pulse Rate 106 H 101 H Respiratory Rate 23 18 Blood Pressure 115/76 Pulse Oximetry 95 96 Oxygen Delivery Method 08/28/24 14:00 08/28/24 14:00 08/28/24 14:30 Temperature Pulse Rate 101 H 100 H Respiratory Rate 18 19 Blood Pressure 111/75 Pulse Oximetry 96 95 Oxygen Delivery Method 08/28/24 14:30 08/28/24 15:00 08/28/24 15:00 Temperature Pulse Rate 100 H Respiratory Rate 17 Blood Pressure 119/76 128/87 Pulse Oximetry 97 Oxygen Delivery Method Medical Decision Making Lab Data 08/28/24 12:06 08/28/24 12:06 Labs: Lab Results 08/28/24 08/28/24 08/28/24 Range/Units 12:06 12:37 14:37 WBC 6.2 (4.5-11.0) X10^3/uL RBC 5.64 (4.5-5.9) X10^6/uL Hgb 16.2 (13.5-17.5) g/dL Hct 47.4 (41-53) % MCV 83.9 (80-100) fL MCH 28.7 (26-34) PG MCHC 34.2 (30-36) % RDW 13.1 (11.6-14.8) % Plt Count 170 (150-400) X10^3/uL Neut % (Auto) 60.6 (50-75) % Lymph % (Auto) 28.3 (25-40) % [place] % (Auto) 8.2 (3-14) % Eos % (Auto) 2.5 (2-4) % Baso % (Auto) 0.4 (0-2) % Neut # (Auto) 3700 (8610-4285) /uL Lymph # (Auto) 1800 (9238-6829) /uL [place] # (Auto) 500 (0-900) /uL Eos # (Auto) 200 (0-450) /uL Baso # (Auto) 0 (0-100) /uL VBG pH 7.35 (7.33-7.43) VBG pCO2 43.7 L (45-50) mmHg VBG pO2 37 (35-45) mmHg VBG HCO3 24 (24-28) mmol/L VBG Total CO2 24 (24-29) mmol/L VBG O2 Saturation 67 L (70-75) % VBG Base Excess -1.5 L (0-4) mmol/L Sodium 130 L (137-145) mmol/L Potassium 4.5 (3.4-5.1) mmol/L Chloride 102 (98-107) mmol/L Carbon Dioxide 21 L (22-32) mmol/L BUN 22 H (9-20) mg/dL Creatinine 0.66 (0.66-1.25) mg/dL Estimated GFR > 60 (>60) mL/min BUN/Creatinine Ratio 33.3 H (6-22) Glucose 514 H* (70-100) mg/dL Lactate 3.7 H 1.7 (0.7-2.1) mmol/L Calcium 9.0 (8.4-10.2) mg/dL Total Bilirubin 0.4 (0.2-1.3) mg/dL AST 20 (17-59) IU/L ALT 52 H (<50) IU/L Alkaline Phosphatase 111 (38-126) U/L Total Creatine Kinase 34 L (55-170) U/L Troponin I < 0.012 (0.01-0.034) ng/mL Total Protein 6.3 (6.3-8.2) g/dL Albumin 3.6 (3.5-5.0) g/dL Globulin 2.7 (1.7-4.1) g/dL Albumin/Globulin Ratio 1.3 (1.0-2.8) Lipase 30 (23-300) U/L Ketones 0.13 (<0.27) mmol/L Point of Care Testing Glucose POC 267 Point of care testing: Point of Care Testing Glucose POC 267 ECG Data Attestation: I personally reviewed and interpreted this ECG as follows: Interpretation: Normal sinus rhythm rate 111 DE interval 144 QRS [address] changes no T-wave inversions similar to prior EKGs MDM Narrative Medical decision making narrative: MDM CC: Elevated glucose Complicating co-morbidities: Substance abuse insulin-dependent diabetes Medical records reviewed: Previous ED visits Differential considered: DKA infection drug use Exam documented above, pertinent findings include: Disheveled 34-year-old male neurovascularly intact abdomen soft nontender Lab Test results independently reviewed as above. Pertinent findings: Glucose 514 Venous pH 7.35 Anion gap 7 Sodium 130 potassium 4.5 chloride 102 carbon dioxide 21 BUN 22 creatinine 0.6 lactate 3.7 with repeat 1.5 without any sort of intervention Independently reviewed EKG as above no ischemia Imaging studies independently reviewed: Consultations: None Treatments: Insulin Re-evaluations: Patient remained stable no nausea or vomiting Discussion: Patient 34-year-old male presents today with hyperglycemia. He has not been able to take his insulin due to coming off methamphetamine. He reports that he is in treatment with local center here. He has no nausea or vomiting. He does not have an anion gap no evidence of DKA. He was given 10 units of insulin. No IV fluids were given secondary to IV fluid shortage. Initially lactate was 3.7 but it is come down to within normal range. No concern for sepsis he has a leukocytosis not having any sort of fever. Discharge Plan Departure Patient Disposition: Home Clinical Impression: Acute hyperglycemia Instructions: DI for Diabetes Type 1 -- Adult Activity Restrictions/Additional Instructions: *You have been diagnosed with hyperglycemia *What to do: To do any good job getting help with your addiction. Please go home eat drink and take insulin as you are supposed *Continue to take medications as directed *Follow up with your primary care provider in 2-3 days or call [phone] *Return to ER if you should have nausea vomiting abdominal pain or any new, worsening or concerning symptoms Prescriptions: No Action metformin 500 mg tablet 500 mg PO BID albuterol sulfate 90 mcg/actuation HFA aerosol inhaler 2 puff inhalation Q6H PRN (DME) Guardian Sensor 3 Device See Rx Instructions .Route Rx Instructions: As directed ondansetron 4 mg tablet,disintegrating 4 mg PO Q6H olanzapine 10 mg tablet,disintegrating 10 mg PO BID Qty: 60 3RF gabapentin 300 mg capsule 900 mg PO TID Qty: 270 3RF losartan 50 mg tablet 50 mg PO DAILY insulin aspart U-100 [Novolog U-100 Insulin aspart] 100 UNIT/1 ML solution 150 u SQ Q DAY Qty: 4 5RF (DME) Glucose: Test Strips 0 .Route .MEDSUPPLY Qty: 1 2RF Dose Instruction: As directed Rx Instructions: USE 1 TEST STRIP TO TEST BLOOD SUGAR 5 TIMES PER DAY trazodone 50 mg tablet 150 mg PO BEDTIME PRN (Reason: sleep) Qty: 90 2RF Invega Sustenna 156 mg/mL syringe 156 mg IM ONCE Qty: 1 5RF sertraline 100 mg tablet 150 mg PO DAILY Qty: 45 2RF divalproex [Depakote ER] 500 mg tablet extended release 24 hr 500 mg PO DAILY Qty: 30 2RF ondansetron 4 mg tablet,disintegrating 4 mg PO Q6H PRN (Reason: nausea and vomiting) Qty: 20 0RF insulin glargine [Basaglar KwikPen U-100 Insulin] 100 unit/mL (3 mL) insulin pen 40 unit SUBCUT BID doxycycline hyclate 100 mg capsule 100 mg PO BID Qty: 20 0RF Referrals: Byron Foote MD [Primary Care Provider] - Stand Alone Forms: Patient Portal/API/Survey
[2024-08-28] MEDS: INSULIN REGULAR 100 UNIT/ML 3 ML VIAL 10 UNIT SUBCUT (15:21)
--- NOTE | 2024-08-28 15:28 | PC.NURSE ---
Pt BG checked at 1515, 267, reported to provider, she instructed this RN to only give half the of the ordered insulin.
== END 2024-08-28 15:30 | disposition home or self-care (01) ==
PROVIDERS: Emergency Provider Emergency Medicine; Family Provider Family Medicine; PCP Family Medicine
DX: E10.65 Type 1 diabetes mellitus with hyperglycemia (principal); Z79.4 Long term (current) use of insulin; F15.10 Other stimulant abuse, uncomplicated; R00.0 Tachycardia, unspecified
CPT/HCPCS: 36415; 80053; 82009; 82550; 82805; 82962; 83605; 83690; 84484; 85025; 93005; 93010; 96372; 99284

== ENCOUNTER 2025-02-27 13:15 | Emergency (ER) | payer OTHER, SELFPAY ==
[2023-12-28 08:43] VITALS: BMI 28.5
[2025-02-27] VITALS (8 sets, daily range): BP systolic 102–119; BP diastolic 67–72; PULSE 105–116; RESP 14–22; O2SAT 96–98; BMI 29.5
--- NOTE | 2025-02-27 13:31 | EKG_ITS ---
[address] [address] Test Date: 2025-02-27 Pat Name: Alfonso Nesbitt Department: Room: Gender: Male Chha: MATI : 1990 Requested By: Order Number: [id number] Reading MD: Matheus Hamilton MD Measurements Intervals [place] Rate: 108 P: 63 SC: 144 QRS: 51 QRSD: 68 T: 49 QT: 324 QTc: 434 Interpretive Statements Sinus tachycardia Septal infarct , age undetermined Electronically Signed On 02-27-2025 13:44:26 PDT by aMtheus Hamilton MD
[2025-02-27 13:49] LABS: Add Manual Diff / Slide Review NO; Basophils Absolute Auto 100 /uL (0-100); Basophils Percent Auto 0.7 % (0-2); Eosinophils Absolute Auto 100 /uL (0-450); Eosinophils Percent Auto 0.7 % (2-4); Hematocrit 43.3 % (41-53); Hemoglobin 15.1 g/dL (13.5-17.5); Lymphocytes Absolute Auto 1800 /uL (1100-4500); Lymphocytes Percent Auto 22.6 % (25-40); Mean Corpuscular HGB Conc 34.9 % (30-36); Mean Corpuscular Hemoglobin 28.8 PG (26-34); Mean Corpuscular Volume 82.5 fL (80-100); Monocytes Absolute Auto 500 /uL (0-900); Monocytes Percent Auto 6.4 % (3-14); Neutrophils Absolute Auto 5500 /uL (1500-7000); Neutrophils Percent Auto 69.6 % (50-75); Platelet Count 217 X10^3/uL (150-400); Red Blood Cell Count 5.25 X10^6/uL (4.5-5.9); Red Cell Distribution Width 13.8 % (11.6-14.8); White Blood Cell Count 7.8 X10^3/uL (4.5-11.0)
[2025-02-27 13:50] LABS: HCO3 VBG 24 mmol/L (24-28); Oxygen Saturation VBG 79 % (70-75); PCO2 VBG 37.8 mmHg (45-50); PO2 VBG 43 mmHg (35-45); Total CO2 VBG 23 mmol/L (24-29)
[2025-02-27 14:03] LABS: HEMOLYSIS 57 (0-50)
[2025-02-27 14:06] LABS: Lactate (Lactic Acid) 1.3 mmol/L (0.7-2.1)
[2025-02-27 14:07] LABS: Alanine Aminotransferase 19 IU/L (<50); Albumin Globulin Ratio 1.6 (1.0-2.8); Alkaline Phosphatase 88 U/L (38-126); Aspartate Aminotransferase 34 IU/L (17-59); Bilirubin Total 0.7 mg/dL (0.2-1.3); Blood Urea Nitrogen 30 mg/dL (9-20); Calcium 8.9 mg/dL (8.4-10.2); Carbon Dioxide 21 mmol/L (22-32); Chloride 98 mmol/L (98-107); Creatine Kinase 52 U/L (55-170); Estimated Glomerular Filt Rate > 60 mL/min (>60); Globulin 2.5 g/dL (1.7-4.1); Glucose 424 mg/dL (70-99); Lipase 20 U/L (23-300); Potassium 4.2 mmol/L (3.4-5.1); Sodium 130 mmol/L (137-145); Total Protein 6.5 g/dL (6.3-8.2)
[2025-02-27 14:19] LABS: Troponin I 0.014 ng/mL (0.01-0.034)
[2025-02-27 14:43] LABS: Ketones (Beta-Hydroxybutyrate) 1.07 mmol/L (<0.27)
--- NOTE | 2025-02-27 15:11 | DI.CT.S_ITS ---
PROCEDURE: CT ABDOMEN PELVIS W CON INDICATIONS: ab pain nausea TECHNIQUE: After the administration of intravenous contrast, axial sections acquired from the lung bases to the pubic symphysis. Coronal and sagittal reformats were performed. For radiation dose reduction, the following was used: automated exposure control, adjustment of mA and/or kV according to patient size. COMPARISON: [facility], CT, CT ABDOMEN PELVIS W CON, 02/22/2023, 18:45. FINDINGS: Image quality: Diagnostic. Lower Chest: Patchy right basilar opacity with minimal effusion. ABDOMEN: Liver: No solid mass. Gallbladder: No radiopaque gallstones or wall thickening. Biliary ducts: No biliary dilation. Pancreas: No ductal dilation. Spleen: Size is within normal limits. Adrenal Glands: No adrenal nodules. Kidneys and Ureters: No hydronephrosis. Unchanged right renal cyst. Stomach and Bowel: Normal colonic caliber, without significant wall thickening. Appendix is normal. Peritoneum: No abnormal intraperitoneal fluid. No free air. Ventral Wall: No significant ventral hernia. Abdominal Nodes: No retroperitoneal or mesenteric adenopathy by size criteria. Vessels: Aorta and inferior vena cava are normal in size. PELVIS: Pelvic Organs: Unremarkable. Bladder: No bladder wall thickening, accounting for underdistention. Pelvic Nodes: No enlarged lymph nodes. Miscellaneous: No inguinal hernias are seen. Bones: No aggressive osseous abnormality. IMPRESSION: No acute intra-abdominal or pelvic process. Dictated by: Carol Crenshaw M.D. on 02/27/2025 at 15:49 Approved by: Carol Crenshaw M.D. on 02/27/2025 at 15:50
--- NOTE | 2025-02-27 15:17 | ED_ITS ---
HPI - General Adult General Chief complaint: Diabetic Problem Stated complaint: High blood sugar, feels like in DKA Time Seen by Provider: 02/27/25 15:10 Source: patient Mode of arrival: Ambulatory History of Present Illness HPI narrative: Patient is a 34-year-old male insulin-dependent diabetic with schizoaffective disorder presenting to day with the abdominal pain nausea. He reports that 2 nights ago he had a Blizzard and gave himself insulin with a insulin pump but the catheter was kinked. He was seen evaluated at outside facility where he says he had blood work and was discharged. He says that he feels like he is still having abdominal pain and might be in DKA. Glucose remains elevated 400 level. He just kind of feels nauseous and having generalized abdominal cramping. No vomiting no change in bowel habit. No flank pain. No other symptoms. He admits to methamphetamine use 4 days ago. Related Data Home Medications Medication Instructions Recorded Confirmed metformin 500 mg tablet 500 mg PO BID 01/31/24 01/26/25 albuterol sulfate 90 mcg/actuation 2 puff inhalation Q6H PRN 03/12/24 01/26/25 aerosol inhaler blood-glucose sensor (Guardian 03/12/24 01/26/25 Sensor 3 device) ondansetron 4 mg disintegrating 4 mg PO Q6H 03/12/24 01/26/25 tablet insulin glargine 100 unit/mL (3 40 unit SUBCUT BID 04/02/24 01/26/25 mL) subcutaneous pen (Basaglar KwikPen U-100 Insulin) losartan 50 mg tablet 50 mg PO .QHS 10/10/24 01/26/25 blood sugar diagnostic (True #10 ea 01/08/25 01/26/25 Metrix Glucose Test Strip) fluticasone propionate 110 inhalation 01/08/25 01/26/25 mcg/actuation HFA aerosol inhaler lancets (Unilet GP Lancet) #100 ea 01/08/25 01/26/25 lancets 28 gauge (Unilet Lancet) #100 ea 01/08/25 01/26/25 trazodone 50 mg tablet 25 mg PO BEDTIME PRN 01/26/25 01/26/25 Previous Rx's Medication Instructions Recorded insulin aspart U-100 100 unit/mL 150 u SQ Q DAY #4 vials 10/24/17 subcutaneous solution (Novolog U-100 Insulin aspart) Glucose: Test Strips #1 ea 10/31/18 divalproex 500 mg tablet,extended 1,000 mg (2 x 500 mg) PO .QHS #30 01/08/25 release 24 hr (Depakote ER) tabs melatonin 3 mg tablet 6 mg (2 x 3 mg) PO BEDTIME PRN 01/08/25 sleep #28 tabs sertraline 50 mg tablet 150 mg (3 x 50 mg) PO .AM #90 tabs 01/08/25 gabapentin 300 mg capsule 900 mg (3 x 300 mg) PO TID #810 01/27/25 caps naltrexone 50 mg tablet 100 mg (2 x 50 mg) PO QAM #60 tabs 01/27/25 paliperidone palmitate 156 mg/mL See Rx Instructions .Route 02/10/25 intramuscular syringe (Invega .COMPLEX #1 mL Sustenna) Allergies Allergy/AdvReac Type Severity Reaction Status Date / Time Latex, Natural Rubber Allergy Severe Rash Verified 01/08/25 09:23 [LATEX, NATURAL RUBBER] erythromycin base AdvReac Severe Vomiting Verified 01/08/25 09:23 [From ERYTHROCIN] Patient History Medical History 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 Schizophrenia (Unknown) Chronic cough (Unknown) ADHD (attention deficit hyperactivity disorder) (Unknown) Foot pain (Unknown) Generalized headaches (Unknown) Migraines (Unknown) Anxiety (Unknown) Bipolar disorder (Unknown) Depression (Unknown) Allergic rhinitis (Unknown) Asthma (Unknown) Type 1 diabetes (~1992) Surgical History Hx of eye surgery (12/2015) Hx of foot surgery (2003) Family History Father Age: 72 Type 2 diabetes mellitus without complication, 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 Social History household members: spouse and children alcohol intake: current substance use type: marijuana tobacco type: cigarettes and vaping alcohol intake frequency: other Exam Initial Vital Signs Initial Vital Signs: Vital Signs Pulse Rate 113 H 02/27/25 13:22 Pulse Oximetry 98 02/27/25 13:22 GENERAL: Alert well-appearing and in no acute distress. HEENT: Head atraumatic,EOMI, pupils reactive, face symmetric, moist mucous membranes CARDIOVASCULAR: Regular rate and rhythm without murmurs, rubs or gallops. RESPIRATORY: Breath sounds equal bilaterally, no wheezes rales or rhonchi. ABDOMEN: Soft, nontender. Normoactive bowel sounds all 4 quadrants. No guarding or rebound. : No CVA tenderness EXTREMITIES: Normal range of motion, no clubbing or edema. Neurovascularly intact NEUROLOGICAL: Alert and oriented x4.Normal gait and speech. Cranial nerves II through XII grossly intact. SKIN: Warm, dry, no laceration, no petechiae, no rashes or lesions. Course Orders Ordered: ED Orders 02/27/25 13:31 EKG-12 Lead Stat Venous Blood Gas STAT 02/27/25 13:37 CBC Auto Diff [Complete Blood Count AUTO DIFF] Stat CMP [Comprehensive Metabolic Panel] Stat Ketones (Beta-Hydroxybutyrate) Stat Lactate (Lactic Acid) Stat Lipase Stat Troponin & CK Cardiac Panel Stat 02/27/25 13:47 Venous Blood Gas Routine 02/27/25 15:11 CT abdomen pelvis w con Stat Discontinued Medications Ketorolac Tromethamine (Ketorolac 30 Mg/Ml Vial) 15 mg IV NOW ONE Stop: 02/27/25 15:12 Last Admin: 02/27/25 15:27 Dose: 15 mg Documented By: JEREMIAH Ondansetron HCl (Ondansetron 4 Mg/2 Ml Inj) 4 mg IV NOW ONE Stop: 02/27/25 15:12 Last Admin: 02/27/25 15:27 Dose: 4 mg Documented By: JEREMIAH Vital Signs Vital signs: Vital Signs - 8 hr 02/27/25 13:22 02/27/25 13:25 02/27/25 13:30 Pulse Rate 113 H 113 H Respiratory Rate 16 Blood Pressure 119/72 108/67 Pulse Oximetry 98 98 Oxygen Delivery Method Room Air 02/27/25 13:30 02/27/25 14:00 02/27/25 14:00 Pulse Rate 108 H 105 H Respiratory Rate 21 Blood Pressure 111/69 Pulse Oximetry 98 96 Oxygen Delivery Method 02/27/25 14:30 02/27/25 14:30 02/27/25 15:34 Pulse Rate 105 H Respiratory Rate 22 18 Blood Pressure 113/71 108/71 Pulse Oximetry 96 Oxygen Delivery Method 02/27/25 15:34 02/27/25 16:00 02/27/25 16:00 Pulse Rate 106 H 111 H Respiratory Rate 22 Blood Pressure 102/71 Pulse Oximetry 97 97 Oxygen Delivery Method Medical Decision Making Lab Data 02/27/25 13:37 02/27/25 13:37 Labs: Lab Results 02/27/25 02/27/25 Range/Units 13:37 13:47 WBC 7.8 (4.5-11.0) X10^3/uL RBC 5.25 (4.5-5.9) X10^6/uL Hgb 15.1 (13.5-17.5) g/dL Hct 43.3 (41-53) % MCV 82.5 (80-100) fL MCH 28.8 (26-34) PG MCHC 34.9 (30-36) % RDW 13.8 (11.6-14.8) % Plt Count 217 (150-400) X10^3/uL Neut % (Auto) 69.6 (50-75) % Lymph % (Auto) 22.6 L (25-40) % Fergus % (Auto) 6.4 (3-14) % Eos % (Auto) 0.7 L (2-4) % Baso % (Auto) 0.7 (0-2) % Neut # (Auto) 5500 (0632-5847) /uL Lymph # (Auto) 1800 (6506-6834) /uL Fergus # (Auto) 500 (0-900) /uL Eos # (Auto) 100 (0-450) /uL Baso # (Auto) 100 (0-100) /uL VBG pH 7.40 (7.33-7.43) VBG pCO2 37.8 L (45-50) mmHg VBG pO2 43 (35-45) mmHg VBG HCO3 24 (24-28) mmol/L VBG Total CO2 23 L (24-29) mmol/L VBG O2 Saturation 79 H (70-75) % VBG Base Excess -1.0 L (0-4) mmol/L FiO2 % 21.0 % % Sodium 130 L (137-145) mmol/L Potassium 4.2 (3.4-5.1) mmol/L Chloride 98 (98-107) mmol/L Carbon Dioxide 21 L (22-32) mmol/L BUN 30 H (9-20) mg/dL Creatinine 1.11 (0.66-1.25) mg/dL Estimated GFR > 60 (>60) mL/min BUN/Creatinine Ratio 27.0 H (6-22) Glucose 424 H (70-99) mg/dL Lactate 1.3 (0.7-2.1) mmol/L Calcium 8.9 (8.4-10.2) mg/dL Total Bilirubin 0.7 (0.2-1.3) mg/dL AST 34 (17-59) IU/L ALT 19 (<50) IU/L Alkaline Phosphatase 88 (38-126) U/L Total Creatine Kinase 52 L (55-170) U/L Troponin I 0.014 (0.01-0.034) ng/mL Total Protein 6.5 (6.3-8.2) g/dL Albumin 4.0 (3.5-5.0) g/dL Globulin 2.5 (1.7-4.1) g/dL Albumin/Globulin Ratio 1.6 (1.0-2.8) Lipase 20 L (23-300) U/L Ketones 1.07 H (<0.27) mmol/L Imaging Data CT scan - abdomen/pelvis: Radiologist's Impression: PROCEDURE: CT ABDOMEN PELVIS W CON INDICATIONS: ab pain nausea TECHNIQUE: After the administration of intravenous contrast, axial sections acquired from the lung bases to the pubic symphysis. Coronal and sagittal reformats were performed. For radiation dose reduction, the following was used: automated exposure control, adjustment of mA and/or kV according to patient size. COMPARISON: [facility], CT, CT ABDOMEN PELVIS W CON, 02/22/2023, 18:45. FINDINGS: Image quality: Diagnostic. Lower Chest: Patchy right basilar opacity with minimal effusion. ABDOMEN: Liver: No solid mass. Gallbladder: No radiopaque gallstones or wall thickening. Biliary ducts: No biliary dilation. Pancreas: No ductal dilation. Spleen: Size is within normal limits. Adrenal Glands: No adrenal nodules. Kidneys and Ureters: No hydronephrosis. Unchanged right renal cyst. Stomach and Bowel: Normal colonic caliber, without significant wall thickening. Appendix is normal. Peritoneum: No abnormal intraperitoneal fluid. No free air. Ventral Wall: No significant ventral hernia. Abdominal Nodes: No retroperitoneal or mesenteric adenopathy by size criteria. Vessels: Aorta and inferior vena cava are normal in size. PELVIS: Pelvic Organs: Unremarkable. Bladder: No bladder wall thickening, accounting for underdistention. Pelvic Nodes: No enlarged lymph nodes. Miscellaneous: No inguinal hernias are seen. Bones: No aggressive osseous abnormality. IMPRESSION: No acute intra-abdominal or pelvic process. Dictated by: Carol Crenshaw M.D. on 02/27/2025 at 15:49 ECG Data Attestation: I personally reviewed and interpreted this ECG as follows: Prior ECG tracings: available for review Interpretation: Normal sinus rhythm rate 108 AK interval 144 QRS [address] changes similar to prior EKGs MDM Narrative Medical decision making narrative: MDM CC: Abdominal pain nausea Complicating co-morbidities: Insulin-dependent diabetes schizoaffective polysubstance he was Data collected from: Patient Medical records reviewed: Previous ED visits Differential considered: Intra-abdominal abnormality diverticulitis appendicitis nephrolithiasis bowel obstruction pancreatitis, DKA Exam documented above, pertinent findings include: Patient appears well nontoxic well-appearing abdomen is soft no peritoneal signs no specific localization of pain Lab Test results independently reviewed as above. Pertinent findings: PH 7.4 Glucose 424 Anion gap 11 Sodium 130 Lactate 1.3 WBC 7.8 Independently reviewed EKG as above no ischemia Imaging studies independently reviewed: Acute intra-abdominal pelvic process Consultations: None Treatments: Toradol Re-evaluations: Patient tolerating food and liquids without difficulty. Discussion: At this time patient has no evidence of DKA. He was hyperglycemic with a glucose of 400. CT abdomen does not show any cause of abdominal pain. At this time supportive care only Discharge Plan Departure Patient Disposition: Home Clinical Impression: Abdominal pain, Hyperglycemia Instructions: DI for Abdominal Pain-Adult Activity Restrictions/Additional Instructions: *You have been diagnosed with abdominal pain *What to do: At this time you are not in DKA your glucose is 424. Please make sure your pump is working. *Continue to take medications as directed *Follow up with your primary care provider in 2-3 days or call [phone] *Return to ER if you should have increased abdominal pain nausea vomiting glucose greater than 500 or any new, worsening or concerning symptoms Prescriptions: No Action metformin 500 mg tablet 500 mg PO BID albuterol sulfate 90 mcg/actuation HFA aerosol inhaler 2 puff inhalation Q6H PRN (DME) Guardian Sensor 3 Device See Rx Instructions .Route Rx Instructions: As directed ondansetron 4 mg tablet,disintegrating 4 mg PO Q6H (DME) lancets [Unilet GP Lancet] Misc See Rx Instructions .ROUTE .MEDSUPPLY Qty: 100 Patient Comments: [NO ORIGINAL SIG] Rx Instructions: As directed (DME) lancets [Unilet Lancet] 28 gauge misc See Rx Instructions .ROUTE .MEDSUPPLY Qty: 100 Patient Comments: [NO ORIGINAL SIG] Rx Instructions: As directed (DME) True Metrix Glucose Test Strip Strip See Rx Instructions .ROUTE 4XD Qty: 10 Rx Instructions: As directed fluticasone propionate 110 mcg/actuation HFA aerosol inhaler inhalation divalproex [Depakote ER] 500 mg tablet extended release 24 hr 1,000 mg PO .QHS Qty: 30 0RF melatonin 3 mg tablet 6 mg PO BEDTIME PRN (Reason: sleep) Qty: 28 0RF sertraline 50 mg tablet 150 mg PO .AM Qty: 90 2RF trazodone 50 mg tablet 25 mg PO BEDTIME PRN insulin aspart U-100 [Novolog U-100 Insulin aspart] 100 UNIT/1 ML solution 150 u SQ Q DAY Qty: 4 5RF (DME) Glucose: Test Strips 0 .Route .MEDSUPPLY Qty: 1 2RF Dose Instruction: As directed Rx Instructions: USE 1 TEST STRIP TO TEST BLOOD SUGAR 5 TIMES PER DAY losartan 50 mg tablet 50 mg PO .QHS gabapentin 300 mg capsule 900 mg PO TID Qty: 810 1RF naltrexone 50 mg tablet 100 mg PO QAM Qty: 60 3RF Invega Sustenna 156 mg/mL syringe See Rx Instructions .ROUTE .COMPLEX Qty: 1 0RF Dose Instruction: INJECT 156 MG INTRAMUSCULARLY ONCE Rx Instructions: INJECT 156 MG INTRAMUSCULARLY ONCE insulin glargine [Basaglar KwikPen U-100 Insulin] 100 unit/mL (3 mL) insulin pen 40 unit SUBCUT BID Referrals: Byron Foote MD [Primary Care Provider] - Stand Alone Forms: Patient Portal/API/Survey
[2025-02-27] MEDS: KETOROLAC 30 MG/ML VIAL 15 MG IV (15:27)
[2025-02-27] MEDS: ONDANSETRON 4 MG/2 ML INJ IV (15:27)
== END 2025-02-27 16:30 | disposition home or self-care (01) ==
PROVIDERS: Emergency Provider Emergency Medicine; Family Provider Family Medicine; PCP Family Medicine
DX: R10.84 Generalized abdominal pain (principal); E10.65 Type 1 diabetes mellitus with hyperglycemia; R11.0 Nausea
CPT/HCPCS: 36415; 74177; 80053; 82009; 82550; 82805; 83605; 83690; 84484; 85025; 93005; 93010; 96374; 96375; 99284; J1885; J2405; Q9967

== ENCOUNTER → 2025-03-23 08:12 | Outpatient (CLI) | payer OTHER, SELFPAY ==
[2023-12-28 08:43] VITALS: BMI 28.5
[2025-03-23 08:52] LABS: Hemoglobin A1C% w Est Avg Glu 9.3 % (4.0-6.0)
[2025-03-23 09:01] LABS: Alanine Aminotransferase 18 IU/L (<50); Albumin 4.3 g/dL (3.5-5.0); Albumin Globulin Ratio 1.9 (1.0-2.8); Alkaline Phosphatase 79 U/L (38-126); Aspartate Aminotransferase 17 IU/L (17-59); BUN Creatinine Ratio 14.5 (6-22); Bilirubin Total 0.7 mg/dL (0.2-1.3); Blood Urea Nitrogen 10 mg/dL (9-20); Calcium 9.2 mg/dL (8.4-10.2); Carbon Dioxide 28 mmol/L (22-32); Chloride 104 mmol/L (98-107); Cholesterol 132 mg/dL (140-199); Estimated Glomerular Filt Rate > 60 mL/min (>60); Globulin 2.3 g/dL (1.7-4.1); Glucose 130 mg/dL (70-99); HDL Cholesterol 34 mg/dL (40-60); HEMOLYSIS < 15 (0-50); LDL Cholesterol Calculated 72 mg/dL (<100); Potassium 3.9 mmol/L (3.4-5.1); Sodium 140 mmol/L (137-145); Total Protein 6.6 g/dL (6.3-8.2); Triglycerides 129 mg/dL (35-150)
[2025-03-24 06:37] LABS: Valproic Acid (Depakene) Total 56 ug/mL (50-100)
== END ==
PROVIDERS: Psychiatry & Neurology Psychiatry; Family Provider Family Medicine; PCP Family Medicine; Referring Provider Internal Medicine Endocrinology, Diabetes & Metabolism; Visit Provider Internal Medicine Endocrinology, Diabetes & Metabolism
DX: E10.35 Type 1 diabetes mellitus with proliferative diabetic retinopathy (principal); Z79.899 Other long term (current) drug therapy; F25.0 Schizoaffective disorder, bipolar type; F41.1 Generalized anxiety disorder; F15.21 Other stimulant dependence, in remission
CPT/HCPCS: 36415; 80053; 80061; 80164; 80299; 83036; 99214

== ENCOUNTER 2025-05-03 18:09 | Emergency (ER) | payer OTHER, SELFPAY ==
[2023-12-28 08:43] VITALS: BMI 28.5
[2025-05-03] VITALS (25 sets, daily range): BP systolic 95–117; BP diastolic 51–62; PULSE 100–111; RESP 16–25; O2SAT 96–99; BMI 27.1
--- NOTE | 2025-05-03 18:29 | DI.RAD.S_ITS ---
PROCEDURE: XR CHEST 1V INDICATIONS: altered mental status TECHNIQUE: One view of the chest was acquired. COMPARISON: [facility], CR, XR CHEST 2V, 08/07/2024, 10:00. FINDINGS: Surgical changes and devices: None. Lungs and pleura: Lungs are clear. No pleural effusions or pneumothorax. Mediastinum: Mediastinal contours appear normal. Heart size is normal. Bones and chest wall: No suspicious bony lesions. Overlying soft tissues appear unremarkable. IMPRESSION: No acute cardiopulmonary abnormality is seen. Dictated by: Rossana Kang M.D. on 05/03/2025 at 19:48 Approved by: Rossana Kang M.D. on 05/03/2025 at 19:49
--- NOTE | 2025-05-03 18:35 | ED.GENADULT ---
HPI - General Adult General Chief complaint: Diabetic Problem Stated complaint: DKA Time Seen by Provider: 05/03/25 18:28 Source: patient Mode of arrival: Wheelchair History of Present Illness HPI narrative: 35-year-old gentleman history of schizoaffective, bipolar, and type 1 diabetes, presents with sugar over 500 along with multiple bouts of nonbilious, nonbloody, nausea, vomiting and abdominal pain today. Patient reports feeling weak, dehydrated and states the glucometer was changed over a month ago as it was not working correctly. Patient reports feeling like this is another DKA attack as he has had this before and it feels like it. Patient denies fever, chills, cough, diarrhea, urinary complaints, chest pain, shortness of breath. Other than what is stated 14 point review of system is negative. Related Data Home Medications ?Medication ?Instructions ?Recorded ?Confirmed metformin 500 mg tablet 500 mg PO BID 01/31/24 05/03/25 albuterol sulfate 90 mcg/actuation 2 puff inhalation Q6H PRN 03/12/24 05/03/25 aerosol inhaler shortness of breath or wheezing blood-glucose sensor (Guardian 03/12/24 01/26/25 Sensor 3 device) insulin glargine 100 unit/mL (3 40 unit SUBCUT BID 04/02/24 05/03/25 mL) subcutaneous pen (Basaglar KwikPen U-100 Insulin) losartan 50 mg tablet 50 mg PO .QHS 10/10/24 05/03/25 blood sugar diagnostic (True #10 ea 01/08/25 01/26/25 Metrix Glucose Test Strip) fluticasone propionate 110 inhalation 01/08/25 01/26/25 mcg/actuation HFA aerosol inhaler lancets (Unilet GP Lancet) #100 ea 01/08/25 01/26/25 lancets 28 gauge (Unilet Lancet) #100 ea 01/08/25 01/26/25 trazodone 50 mg tablet 25 mg PO BEDTIME PRN 01/26/25 01/26/25 docusate sodium 100 mg capsule 100 mg PO BID 05/03/25 05/03/25 loratadine 10 mg tablet 10 mg PO DAILY 05/03/25 05/03/25 meloxicam 15 mg tablet 15 mg PO DAILY 05/03/25 05/03/25 sennosides 8.6 mg tablet (senna) PO 05/03/25 Previous Rx's ?Medication ?Instructions ?Recorded insulin aspart U-100 100 unit/mL 150 u SQ Q DAY #4 vials 10/24/17 subcutaneous solution (Novolog U-100 Insulin aspart) Glucose: Test Strips #1 ea 10/31/18 divalproex 500 mg tablet,extended 1,000 mg (2 x 500 mg) PO .QHS #30 01/08/25 release 24 hr (Depakote ER) tabs paliperidone palm (3 month) 546 546 mg (1.75 mL) IM [id number] #1.75 03/02/25 mg/1.75 mL intramuscular syringe mL (Invega Trinza) gabapentin 300 mg capsule 900 mg (3 x 300 mg) PO BID #540 03/10/25 caps naltrexone 50 mg tablet 100 mg (2 x 50 mg) PO QAM #180 tabs 03/10/25 sertraline 50 mg tablet 150 mg (3 x 50 mg) PO DAILY #270 03/10/25 tabs Allergies Allergy/AdvReac Type Severity Reaction Status Date / Time Latex, Natural Rubber Allergy Severe Rash Verified 05/03/25 18:11 (LATEX, NATURAL RUBBER) erythromycin base (From AdvReac Severe Vomiting Verified 05/03/25 18:11 ERYTHROCIN) Review of Systems Review of Systems ROS Unobtainable: All systems reviewed & are unremarkable except as noted in HPI and below Patient History 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 Schizophrenia (Unknown) Chronic cough (Unknown) ADHD (attention deficit hyperactivity disorder) (Unknown) Foot pain (Unknown) Generalized headaches (Unknown) Migraines (Unknown) Anxiety (Unknown) Bipolar disorder (Unknown) Depression (Unknown) Allergic rhinitis (Unknown) Asthma (Unknown) Type 1 diabetes (~1992) Surgical History Hx of eye surgery (12/2015) Hx of foot surgery (2003) Family History Father Age: 72 Type 2 diabetes mellitus without complication, 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 Social History household members: spouse and children alcohol intake: current substance use type: marijuana tobacco type: cigarettes and vaping alcohol intake frequency: other Exam Narrative Exam Narrative: GENERAL: [35] year old patient appears stated age. Well-developed patient, in mild distress. HEAD: Atraumatic. Normocephalic. EYES: Pupils equal round and reactive. Extraocular motions intact. No scleral icterus. No injection or drainage. ENT: Nose without bleeding, purulent drainage. Throat without erythema, tonsillar hypertrophy or exudate. Airway patent. NECK: Trachea midline. Non tender CARDIOVASCULAR: Regular rate and rhythm without murmurs, gallops, or rubs. RESPIRATORY: Clear to auscultation. Breath sounds equal bilaterally. No wheezes, rales, or rhonchi. GASTROINTESTINAL: Abdomen soft, non-tender, nondistended. EXTREMITIES: No edema or joint tenderness. BACK: Nontender without deformity or crepitance. No flank tenderness. NEURO: AOx3. SKIN: No rash or erythema of visible areas Initial Vital Signs Initial Vital Signs: Vital Signs Pulse Rate 111 H 05/03/25 18:11 Respiratory Rate 20 05/03/25 18:11 Blood Pressure 95/52 L 05/03/25 18:11 Pulse Oximetry 97 05/03/25 18:11 Oxygen Delivery Method Room Air 05/03/25 18:11 Course Orders Ordered: ED Orders 05/03/25 18:28 Complete Blood Count AUTO DIFF Stat Comprehensive Metabolic Panel Stat Ethanol (ETOH) Stat Lactate (Lactic Acid) Stat Procalcitonin Stat Troponin & CK Cardiac Panel Stat 05/03/25 18:29 XR chest 1V Stat Blood Culture Stat Urine Drug Screen, Rapid Stat EKG-12 Lead Stat VBG [Venous Blood Gas] STAT 05/03/25 18:33 Ketones (Beta-Hydroxybutyrate) Stat 05/03/25 18:34 Venous Blood Gas Routine 05/03/25 20:25 Consult to Dietitian, Adult Routine CMP [Comprehensive Metabolic Panel] Stat 05/04/25 00:30 Basic Metabolic Panel Q4H 05/04/25 04:30 Basic Metabolic Panel Q4H Sodium Chloride (Normal Saline 0.9%) 1,000 mls @ 250 mls/hr IV CONT SENIA Last Infusion: 05/03/25 21:30 Dose: Infused Dextrose (D10w) 100 mls @ 999 mls/hr IV PRN PRN PRN Reason: Hypoglycemia Dextrose/Sodium Chloride (Dextrose 5%-0.45% Ns) 1,000 mls @ 150 mls/hr IV CONT SENIA Last Admin: 05/03/25 21:49 Dose: 150 mls/hr INSULIN DRIP PREMIX (Myxredlin Drip Premix) 100 unit in 100 mls @ 9.072 mls/hr IV TITRATE SENIA; Protocol Last Admin: 05/03/25 21:23 Dose: Not Given Potassium Chloride/Sodium Chloride (Ns With Kcl 20 Meq) 1,000 mls @ 150 mls/hr IV CONT SENIA Last Admin: 05/03/25 21:53 Dose: 150 mls/hr Ondansetron HCl (Ondansetron 4 Mg/2 Ml Inj) 4 mg IV Q4HR PRN PRN Reason: Nausea And Vomiting Discontinued Medications Sodium Chloride (Normal Saline 0.9%) 1,000 mls @ 1,000 mls/hr IV BOLUS ONE Stop: 05/03/25 19:32 Last Infusion: 05/03/25 19:52 Dose: Infused Sodium Chloride (Normal Saline 0.9%) 1,000 mls @ 1,000 mls/hr IV BOLUS ONE Stop: 05/03/25 19:33 Last Infusion: 05/03/25 19:52 Dose: Infused Sodium Chloride (Normal Saline 0.9%) 500 mls @ 1,000 mls/hr IV BOLUS ONE Stop: 05/03/25 19:58 Last Infusion: 05/03/25 20:23 Dose: Infused INSULIN DRIP PREMIX (Myxredlin Drip Premix) 100 unit in 100 mls @ 9.072 mls/hr IV TITRATE SENIA; Protocol Last Admin: 05/03/25 20:18 Dose: 0.1 unit/kg/hr, 9.072 mls/hr Potassium Chloride/Sodium Chloride (Ns With Kcl 20 Meq) 1,000 mls @ 150 mls/hr IV CONT SENIA Last Admin: 05/03/25 21:37 Dose: Not Given Sodium Chloride (Normal Saline 0.9%) 1,000 mls @ 999 mls/hr IV BOLUS ONE Stop: 05/03/25 21:25 Last Infusion: 05/03/25 22:12 Dose: Infused Insulin Human Regular (Insulin Regular 100 Unit/Ml 3 Ml Vial) 10 unit IV NOW ONE Stop: 05/03/25 18:34 Last Admin: 05/03/25 18:43 Dose: 10 unit Vital Signs Vital signs: Vital Signs - 8 hr 05/03/25 18:11 05/03/25 18:22 05/03/25 18:30 Pulse Rate 111 H 108 H 105 H Respiratory Rate 20 24 Blood Pressure 95/52 L Pulse Oximetry 97 98 97 Oxygen Delivery Method Room Air 05/03/25 18:30 05/03/25 18:45 05/03/25 18:45 Pulse Rate 106 H Respiratory Rate Blood Pressure 95/51 L 100/59 L Pulse Oximetry 98 Oxygen Delivery Method 05/03/25 19:00 05/03/25 19:00 05/03/25 19:15 Pulse Rate 104 H 103 H Respiratory Rate Blood Pressure 97/51 L Pulse Oximetry Oxygen Delivery Method 05/03/25 19:15 05/03/25 19:18 05/03/25 19:18 Pulse Rate 104 H Respiratory Rate 23 Blood Pressure 103/54 L 104/53 L Pulse Oximetry 99 Oxygen Delivery Method 05/03/25 19:30 05/03/25 19:30 05/03/25 19:45 Pulse Rate 103 H 102 H Respiratory Rate 17 16 Blood Pressure 103/53 L Pulse Oximetry 98 96 Oxygen Delivery Method 05/03/25 19:45 05/03/25 20:00 05/03/25 20:00 Pulse Rate 102 H Respiratory Rate 25 H Blood Pressure 106/59 L 105/57 L Pulse Oximetry 99 Oxygen Delivery Method 05/03/25 20:15 05/03/25 20:15 05/03/25 20:30 Pulse Rate 101 H 101 H Respiratory Rate 23 24 Blood Pressure 101/56 L Pulse Oximetry 98 98 Oxygen Delivery Method Room Air 05/03/25 20:30 Pulse Rate Respiratory Rate Blood Pressure 101/58 L Pulse Oximetry Oxygen Delivery Method Medical Decision Making Lab Data 05/03/25 18:28 05/03/25 20:25 Labs: Lab Results 05/03/25 05/03/25 05/03/25 Range/Units 18:13 18:28 18:34 WBC 10.2 (4.5-11.0) X10^3/uL RBC 5.34 (4.5-5.9) X10^6/uL Hgb 15.5 (13.5-17.5) g/dL Hct 45.4 (41-53) % MCV 85.0 (80-100) fL MCH 29.1 (26-34) PG MCHC 34.2 (30-36) % RDW 13.4 (11.6-14.8) % Plt Count 178 (150-400) X10^3/uL Neut % (Auto) 78.6 H (50-75) % Lymph % (Auto) 15.0 L (25-40) % [place] % (Auto) 5.7 (3-14) % Eos % (Auto) 0.3 L (2-4) % Baso % (Auto) 0.4 (0-2) % Neut # (Auto) 8000 H (2705-8315) /uL Lymph # (Auto) 1500 (0133-2074) /uL [place] # (Auto) 600 (0-900) /uL Eos # (Auto) 0 (0-450) /uL Baso # (Auto) 0 (0-100) /uL VBG pH 7.16 L* (7.33-7.43) VBG pCO2 33.7 L (45-50) mmHg VBG pO2 53 H (35-45) mmHg VBG HCO3 12 L (24-28) mmol/L VBG Total CO2 12 L (24-29) mmol/L VBG O2 Saturation 77 H (70-75) % VBG Base Excess -15.8 L (0-4) mmol/L FiO2 % 21 % % Sodium 125 L (137-145) mmol/L Potassium 5.9 H (3.4-5.1) mmol/L Chloride 90 L (98-107) mmol/L Carbon Dioxide 8 L* (22-32) mmol/L BUN 36 H (9-20) mg/dL Creatinine 1.04 (0.66-1.25) mg/dL Estimated GFR > 60 (>60) mL/min BUN/Creatinine Ratio 34.6 H (6-22) Glucose 603 H* (70-99) mg/dL POC Whole Bld Glucose > 500 H* (70-99) mg/dL Lactate 1.3 (0.7-2.1) mmol/L Calcium 8.9 (8.4-10.2) mg/dL Total Bilirubin 0.9 (0.2-1.3) mg/dL AST 20 (17-59) IU/L ALT 22 (<50) IU/L Alkaline Phosphatase 129 H (38-126) U/L Total Creatine Kinase 36 L (55-170) U/L Troponin I < 0.012 (0.01-0.034) ng/mL Total Protein 6.6 (6.3-8.2) g/dL Albumin 4.3 (3.5-5.0) g/dL Globulin 2.3 (1.7-4.1) g/dL Albumin/Globulin Ratio 1.9 (1.0-2.8) Procalcitonin 0.267 (<0.5) ng/mL Ethyl Alcohol < 10 (<10) mg/dL Ketones 10.0 H (<0.27) mmol/L 05/03/25 05/03/25 Range/Units 19:34 20:25 WBC (4.5-11.0) X10^3/uL RBC (4.5-5.9) X10^6/uL Hgb (13.5-17.5) g/dL Hct (41-53) % MCV (80-100) fL MCH (26-34) PG MCHC (30-36) % RDW (11.6-14.8) % Plt Count (150-400) X10^3/uL Neut % (Auto) (50-75) % Lymph % (Auto) (25-40) % [place] % (Auto) (3-14) % Eos % (Auto) (2-4) % Baso % (Auto) (0-2) % Neut # (Auto) (7507-7602) /uL Lymph # (Auto) (1482-9271) /uL [place] # (Auto) (0-900) /uL Eos # (Auto) (0-450) /uL Baso # (Auto) (0-100) /uL VBG pH (7.33-7.43) VBG pCO2 (45-50) mmHg VBG pO2 (35-45) mmHg VBG HCO3 (24-28) mmol/L VBG Total CO2 (24-29) mmol/L VBG O2 Saturation (70-75) % VBG Base Excess (0-4) mmol/L FiO2 % % Sodium 126 L (137-145) mmol/L Potassium 4.4 D (3.4-5.1) mmol/L Chloride 96 L (98-107) mmol/L Carbon Dioxide 9 L* (22-32) mmol/L BUN 35 H (9-20) mg/dL Creatinine 0.99 (0.66-1.25) mg/dL Estimated GFR > 60 (>60) mL/min BUN/Creatinine Ratio 35.4 H (6-22) Glucose 438 H D (70-99) mg/dL POC Whole Bld Glucose > 500 H* (70-99) mg/dL Lactate (0.7-2.1) mmol/L Calcium 7.7 L (8.4-10.2) mg/dL Total Bilirubin 0.5 (0.2-1.3) mg/dL AST 18 (17-59) IU/L ALT 19 (<50) IU/L Alkaline Phosphatase 98 (38-126) U/L Total Creatine Kinase (55-170) U/L Troponin I (0.01-0.034) ng/mL Total Protein 5.7 L (6.3-8.2) g/dL Albumin 3.5 (3.5-5.0) g/dL Globulin 2.2 (1.7-4.1) g/dL Albumin/Globulin Ratio 1.6 (1.0-2.8) Procalcitonin (<0.5) ng/mL Ethyl Alcohol (<10) mg/dL Ketones (<0.27) mmol/L MDM Narrative Medical decision making narrative: Vital signs, nurse triage note, medication list, previous ER visits, and all imaging studies reviewed. Patient given normal saline 1 L bolus x3. Regular insulin 10 units iv x1, started on insulin drip. Anion gap of 33. VBG 7.16 pCO2 of 33.7 O2 of 53 bicarb 12 base excess of -15.8. Sodium 125 potassium 5.9 chloride 90 CO2 8 even 36 creatinine 1.04 sugar 603 ketones of 10. Case discussed with ICU at [facility] who has graciously accepted the patient for inpatient admission. Discharge Plan Departure Patient Disposition: [facility] Clinical Impression: DKA (diabetic ketoacidosis) Qualifiers: Diabetes mellitus type: type 1 Diabetes mellitus complication detail: without coma Qualified Code(s): E10.10 - Type 1 diabetes mellitus with ketoacidosis without coma
[2025-05-03 18:39] LABS: Base Excess VBG -15.8 mmol/L (0-4); HCO3 VBG 12 mmol/L (24-28); Oxygen Saturation VBG 77 % (70-75); PCO2 VBG 33.7 mmHg (45-50); PO2 VBG 53 mmHg (35-45); Total CO2 VBG 12 mmol/L (24-29); pH VBG 7.16 (7.33-7.43)
[2025-05-03] MEDS: SODIUM CHLORIDE 0.9% 1,000 ML 1000 ML IV ×2 (18:40)
[2025-05-03] MEDS: INSULIN REGULAR 100 UNIT/ML 3 ML VIAL 10 UNIT IV (18:43)
[2025-05-03 18:46] LABS: Lactate (Lactic Acid) 1.3 mmol/L (0.7-2.1)
[2025-05-03 18:48] LABS: Alanine Aminotransferase 22 IU/L (<50); Albumin 4.3 g/dL (3.5-5.0); Albumin Globulin Ratio 1.9 (1.0-2.8); Alkaline Phosphatase 129 U/L (38-126); Blood Urea Nitrogen 36 mg/dL (9-20); Calcium 8.9 mg/dL (8.4-10.2); Chloride 90 mmol/L (98-107); Creatine Kinase 36 U/L (55-170); Estimated Glomerular Filt Rate > 60 mL/min (>60); Ethanol (ETOH) < 10 mg/dL (<10); Globulin 2.3 g/dL (1.7-4.1); HEMOLYSIS < 15 (0-50); Sodium 125 mmol/L (137-145); Total Protein 6.6 g/dL (6.3-8.2)
[2025-05-03 18:51] LABS: Potassium 5.9 mmol/L (3.4-5.1)
[2025-05-03 18:53] LABS: Carbon Dioxide 8 mmol/L (22-32); Glucose 603 mg/dL (70-99)
[2025-05-03 18:56] LABS: Add Manual Diff / Slide Review NO; Hematocrit 45.4 % (41-53); Hemoglobin 15.5 g/dL (13.5-17.5); Lymphocytes Absolute Auto 1500 /uL (1100-4500); Mean Corpuscular HGB Conc 34.2 % (30-36); Mean Corpuscular Hemoglobin 29.1 PG (26-34); Mean Corpuscular Volume 85.0 fL (80-100); Platelet Count 178 X10^3/uL (150-400)
[2025-05-03 18:59] LABS: Troponin I < 0.012 ng/mL (0.01-0.034)
--- NOTE | 2025-05-03 18:59 | EKG_ITS ---
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
[2025-05-03 19:04] LABS: Procalcitonin 0.267 ng/mL (<0.5)
[2025-05-03 19:51] LABS: Ketones (Beta-Hydroxybutyrate) 10.0 mmol/L (<0.27)
[2025-05-03] MEDS: SODIUM CHLORIDE 0.9% 500 ML 1000 ML IV (19:51)
[2025-05-03] MEDS: INSULIN DRIP PREMIX 100 UNIT/100 ML PLAST..BAG 9.072 UNIT IV (20:18)
[2025-05-03] MEDS: SODIUM CHLORIDE 0.9% 1,000 ML 250 ML IV (20:35)
[2025-05-03 20:47] LABS: Alanine Aminotransferase 19 IU/L (<50); Albumin 3.5 g/dL (3.5-5.0); Albumin Globulin Ratio 1.6 (1.0-2.8); Alkaline Phosphatase 98 U/L (38-126); Blood Urea Nitrogen 35 mg/dL (9-20); Calcium 7.7 mg/dL (8.4-10.2); Chloride 96 mmol/L (98-107); Estimated Glomerular Filt Rate > 60 mL/min (>60); Globulin 2.2 g/dL (1.7-4.1); Glucose 438 mg/dL (70-99); HEMOLYSIS < 15 (0-50); Potassium 4.4 mmol/L (3.4-5.1); Sodium 126 mmol/L (137-145); Total Protein 5.7 g/dL (6.3-8.2)
[2025-05-03 20:48] LABS: Carbon Dioxide 9 mmol/L (22-32)
[2025-05-03] MEDS: SODIUM CHLORIDE 0.9% 1,000 ML 999 ML IV (21:07)
--- NOTE | 2025-05-03 21:42 | P.HP_ITS ---
History of Present Illness History of Present Illness Date Patient Seen: 05/03/25 Time Patient Seen: 22:36 Chief complaint: DKA Narrative: The pt is a 35 yo who presents to the Er with c/o N/V with high glucose readings. He is a Type I DM who has been a diabetic since age 3. and is on an insulin pumpl nHe reports that his symptoms stated around 1500 today with Nausea/ vomiting and dry mouth. 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 Hay at [facility] whom he saw about one month ago. His last A1C was 9.6, and reports having a high blood sugars on his home monitor. The VBG in the Er was 7.16/ 33/121He was given 3 liters of NS in the er. He reports having several difficulties with his current insulin pump. 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 Schizophrenia (Unknown) Chronic cough (Unknown) ADHD (attention deficit hyperactivity disorder) (Unknown) Foot pain (Unknown) Generalized headaches (Unknown) Migraines (Unknown) Anxiety (Unknown) Bipolar disorder (Unknown) Depression (Unknown) Allergic rhinitis (Unknown) Asthma (Unknown) Type 1 diabetes (~1992) Surgical History Hx of eye surgery (12/2015) Hx of foot surgery (2003) Family History Father Age: 72 Type 2 diabetes mellitus without complication, unspecified intermediate card tender insulin 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 Social History household members: spouse and children alcohol intake: current substance use type: marijuana Meds Home Medications and Allergies Home Medications ?Medication ?Instructions ?Recorded ?Confirmed ?Type insulin aspart U-100 100 unit/mL 150 u SQ Q DAY #4 via ls 10/24/17 01/26/25 Rx subcutaneous solution (Novolog U-100 Insulin aspart) Glucose: Test Strips #1 ea 10/31/18 01/26/25 Rx metformin 500 mg tablet 500 mg PO BID 01/31/2401/26 History albuterol sulfate 90 mcg/actuation 2 puff inhalation Q 6H PRN 03/12/24 01/26/25 History aerosol inhaler blood-glucose sensor (Guardian 03/12/24 01/26/25 Hist ory Sensor 3 device) ondansetron 4 mg disintegrating 4 mg PO Q6H 03/12/24 0 01/26/25 History tablet insulin glargine 100 unit/mL (3 40 unit SUBCUT BID 10/1401/26/25 History mL) subcutaneous pen (Basaglar KwikPen U-100 Insulin) losartan 50 mg tablet 50 mg PO .QHS 10/10/2401/26 History blood sugar diagnostic (True #10 ea 01/08/25 01/26/25 History Metrix Glucose Test Strip) divalproex 500 mg tablet,extended 1,000 mg (2 x 500 mg ) PO .QHS #30 01/08/25 01/26/25 Rx release 24 hr (Depakote ER) tabs fluticasone propionate 110 inhalation 01/08/25 5 History mcg/actuation HFA aerosol inhaler lancets ([employer] GP Lancet) #100 ea 01/08/25 01/26/25 H istory lancets 28 gauge (Unilet Lancet) #100 ea 01/08/25 0405/15 History melatonin 3 mg tablet 6 mg (2 x 3 mg) PO BEDTIME P RN 01/08/25 01/26/25 Rx sleep #28 tabs trazodone 50 mg tablet 25 mg PO BEDTIME PRN 5 01/26/25 History paliperidone palm (3 month) 546 546 mg (1.75 mL) IM Q3 MONTHS #1.75 03/02/25 03/30/25 Rx mg/1.75 mL intramuscular syringe mL (Invega Trinza) gabapentin 300 mg capsule 900 mg (3 x 300 mg) PO BID # 540 03/10/25 03/10/25 Rx caps naltrexone 50 mg tablet 100 mg (2 x 50 mg) PO QAM #1 80 tabs 03/10/25 03/10/25 Rx sertraline 50 mg tablet 150 mg (3 x 50 mg) PO DAILY #270 03/10/25 03/10/25 Rx tabs Allergies Allergy/AdvReac Type Severity Reaction Status Date / Time Latex, Natural Rubber Allergy Severe Rash Verified 05/03/25 18:11 (LATEX, NATURAL RUBBER) erythromycin base (From AdvReac Severe Vomiting Verified 05/03/25 18:11 ERYTHROCIN) Exam Vital Signs (past 8 hours): - 05/03/25 18:11 05/03/25 18:22 05/03/25 18:30 Pulse Rate 111 H 108 H 105 H Respiratory Rate 20 24 Blood Pressure 95/52 L Pulse Oximetry 97 98 97 Oxygen Delivery Method Room Air 05/03/25 18:30 05/03/25 18:45 05/03/25 18:45 Pulse Rate 106 H Respiratory Rate Blood Pressure 95/51 L 100/59 L Pulse Oximetry 98 Oxygen Delivery Method 05/03/25 19:00 05/03/25 19:00 05/03/25 19:15 Pulse Rate 104 H 103 H Respiratory Rate Blood Pressure 97/51 L Pulse Oximetry Oxygen Delivery Method 05/03/25 19:15 05/03/25 19:18 05/03/25 19:18 Pulse Rate 104 H Respiratory Rate 23 Blood Pressure 103/54 L 104/53 L Pulse Oximetry 99 Oxygen Delivery Method 05/03/25 19:30 05/03/25 19:30 05/03/25 19:45 Pulse Rate 103 H 102 H Respiratory Rate 17 16 Blood Pressure 103/53 L Pulse Oximetry 98 96 Oxygen Delivery Method 05/03/25 19:45 05/03/25 20:00 05/03/25 20:00 Pulse Rate 102 H Respiratory Rate 25 H Blood Pressure 106/59 L 105/57 L Pulse Oximetry 99 Oxygen Delivery Method 05/03/25 20:15 05/03/25 20:15 05/03/25 20:30 Pulse Rate 101 H 101 H Respiratory Rate 23 24 Blood Pressure 101/56 L Pulse Oximetry 98 98 Oxygen Delivery Method Room Air 05/03/25 20:30 Pulse Rate Respiratory Rate Blood Pressure 101/58 L Pulse Oximetry Oxygen Delivery Method Oxygen Delivery Method Room Air Const General: cooperative, healthy appearing and comfortable Resp Auscultation: clear to auscultation bilaterally Cardio Rate: regular rate Rhythm: regular rhythm GI Auscultation: normal bowel sounds Objective Labs 05/03/25 18:28 05/03/25 20:25 Labs: Laboratory Results - last 24 hr 05/03/25 05/03/25 05/03/25 18:13 18:28 18:34 WBC 10.2 RBC 5.34 Hgb 15.5 Hct 45.4 MCV 85.0 MCH 29.1 MCHC 34.2 RDW 13.4 Plt Count 178 Neut % (Auto) 78.6 H Lymph % (Auto) 15.0 L [place] % (Auto) 5.7 Eos % (Auto) 0.3 L Baso % (Auto) 0.4 Neut # (Auto) 8000 H Lymph # (Auto) 1500 [place] # (Auto) 600 Eos # (Auto) 0 Baso # (Auto) 0 VBG pH 7.16 L* VBG pCO2 33.7 L VBG pO2 53 H VBG HCO3 12 L VBG Total CO2 12 L VBG O2 Saturation 77 H VBG Base Excess -15.8 L FiO2 % 21 % Sodium 125 L Potassium 5.9 H Chloride 90 L Carbon Dioxide 8 L* BUN 36 H Creatinine 1.04 Estimated GFR > 60 BUN/Creatinine Ratio 34.6 H Glucose 603 H* POC Whole Bld Glucose > 500 H* Lactate 1.3 Calcium 8.9 Total Bilirubin 0.9 AST 20 ALT 22 Alkaline Phosphatase 129 H Total Creatine Kinase 36 L Troponin I < 0.012 Total Protein 6.6 Albumin 4.3 Globulin 2.3 Albumin/Globulin Ratio 1.9 Procalcitonin 0.267 Ethyl Alcohol < 10 Ketones 10.0 H 05/03/25 05/03/25 05/03/25 19:34 20:25 20:42 WBC RBC Hgb Hct MCV MCH MCHC RDW Plt Count Neut % (Auto) Lymph % (Auto) [place] % (Auto) Eos % (Auto) Baso % (Auto) Neut # (Auto) Lymph # (Auto) [place] # (Auto) Eos # (Auto) Baso # (Auto) VBG pH VBG pCO2 VBG pO2 VBG HCO3 VBG Total CO2 VBG O2 Saturation VBG Base Excess FiO2 % Sodium 126 L Potassium 4.4 D Chloride 96 L Carbon Dioxide 9 L* BUN 35 H Creatinine 0.99 Estimated GFR > 60 BUN/Creatinine Ratio 35.4 H Glucose 438 H D POC Whole Bld Glucose > 500 H* 499 H* Lactate Calcium 7.7 L Total Bilirubin 0.5 AST 18 ALT 19 Alkaline Phosphatase 98 Total Creatine Kinase Troponin I Total Protein 5.7 L Albumin 3.5 Globulin 2.2 Albumin/Globulin Ratio 1.6 Procalcitonin Ethyl Alcohol Ketones 05/03/25 21:35 WBC RBC Hgb Hct MCV MCH MCHC RDW Plt Count Neut % (Auto) Lymph % (Auto) [place] % (Auto) Eos % (Auto) Baso % (Auto) Neut # (Auto) Lymph # (Auto) [place] # (Auto) Eos # (Auto) Baso # (Auto) VBG pH VBG pCO2 VBG pO2 VBG HCO3 VBG Total CO2 VBG O2 Saturation VBG Base Excess FiO2 % Sodium Potassium Chloride Carbon Dioxide BUN Creatinine Estimated GFR BUN/Creatinine Ratio Glucose POC Whole Bld Glucose 429 H Lactate Calcium Total Bilirubin AST ALT Alkaline Phosphatase Total Creatine Kinase Troponin I Total Protein Albumin Globulin Albumin/Globulin Ratio Procalcitonin Ethyl Alcohol Ketones Assessment & Plan Assessment & Plan narrative: 1. DKA- I have discussed with the Er provider the pt's presenting symptoms, labs and imaging, and agree with the decision for admission, He insulin pump seems to be malfunctioning and will need to remove for a temporary time period, will place the pt on an inulin continuous drip,given 3 liters in Er, accuecks Q1 hr, electrolytes Q4 hr, repeat labs in am, starting on Inslin 1/2 NS with D5 for 150 cc/hr, insulin DKA order intiated , 2. pseudohyponatermia- caused by jorden high glucose, continue to monitor closely, checking Q4 hr, no change in mental status, 3. hyperkalemia- elevated at this time, will need to monitor as we change the acid levels in the serum, checking Q4 hrs, on tele I have personnally review the labs and imaging ayadshivani the Na of 125 nd K of 5.9, Time-Based Coding :: [TOTAL MINUTES] spent with patient and on the chart (including review of chart, obtaining history, exam, reviewing outside data, placing orders, documenting exam and treatment plan, and counseling patient) on [DATE].
[2025-05-03] MEDS: DEXTROSE 5%-0.45% NS 1,000 ML 150 ML IV (21:49)
[2025-05-03] MEDS: KCL 20 MEQ IN NS 1,000 ML 150 MEQ IV (21:53)
[2025-05-03 22:23] LABS: Appearance Urine UA CLEAR; Bilirubin Urine UA NEGATIVE (NEGATIVE); Color Urine UA YELLOW; Glucose Urine UA 3+ g/dL (Negative); Ketones Urine UA 3+ (NEGATIVE); Leukocyte Esterase Urine UA NEGATIVE (NEGATIVE); Nitrite Urine UA NEGATIVE (Negative); Occult Blood Urine UA NEGATIVE (Negative); Protein Urine UA NEGATIVE (Negative); Specific Gravity Urine UA 1.025 (1.000-1.035); Urobilinogen Urine UA 0.2 E.U./dL (0.2); pH Urine UA 5.5 (4.5-8.0)
[2025-05-03 22:24] LABS: UR Morphine/Opiate cutoff 300 Negative (Negative); Urine MDMA Negative (Negative); Urine Methamphetamines Positive (Negative); Urine Tetrahydrocannabinol Negative (Negative); Urine Tricyclic Antidepressant Negative (Negative)
[2025-05-03 22:31] LABS: Culture Indicated Urine Cult Not Indicated
[2025-05-03 23:31] LABS: Alanine Aminotransferase 17 IU/L (<50); Albumin 3.3 g/dL (3.5-5.0); Albumin Globulin Ratio 1.6 (1.0-2.8); Alkaline Phosphatase 86 U/L (38-126); Blood Urea Nitrogen 32 mg/dL (9-20); Calcium 7.6 mg/dL (8.4-10.2); Carbon Dioxide 12 mmol/L (22-32); Chloride 99 mmol/L (98-107); Estimated Glomerular Filt Rate > 60 mL/min (>60); Globulin 2.1 g/dL (1.7-4.1); Glucose 328 mg/dL (70-99); HEMOLYSIS < 15 (0-50); Potassium 4.2 mmol/L (3.4-5.1); Sodium 127 mmol/L (137-145); Total Protein 5.4 g/dL (6.3-8.2)
[2025-05-03 23:33] LABS: Hemoglobin A1C% w Est Avg Glu 10.4 % (4.0-6.0)
[2025-05-04] VITALS: BP 113/64; PULSE 103; RESP 19; O2SAT 98
[2025-05-04 00:15] VITALS: BP 131/68; PULSE 112; RESP 11; O2SAT 98
[2025-05-04 00:30] VITALS: BP 114/65; PULSE 103; RESP 21; O2SAT 97
[2025-05-04 00:45] VITALS: BP 111/63; PULSE 104; RESP 21; O2SAT 98
--- NOTE | 2025-05-04 01:16 | PC.NURSE ---
Report called to [place] robin [id number] RN @[phone].
== END 2025-05-04 01:16 | disposition short-term general hospital (02) ==
LOC: ED 18:28 → AC 23:33
PROVIDERS: Internal Medicine; Emergency Provider Family Medicine; Family Provider Family Medicine; PCP Family Medicine; Referring Provider Family Medicine
DX: E10.10 Type 1 diabetes mellitus with ketoacidosis without coma (principal); E87.1 Hypo-osmolality and hyponatremia; E87.5 Hyperkalemia; Z96.41 Presence of insulin pump (external) (internal)
CPT/HCPCS: 36415; 71045; 80053; 80305; 80320; 81001; 81003; 82009; 82550; 82805; 82962; 83036; 83605; 84145; 84484; 85025; 87040; 93005; 96361; 96374; 99284